=== PATIENT | male | born 1955 | race Caucasian/White ===

== ENCOUNTER → 2016-07-11 | Outpatient (CLI) | payer OTHER ==
[~2016-07-11] MED LIST: ANDROGEL TD; CARV25TA PO; CMD/25 PO; CMD5 PO; FRS/40 PO; LISI-461 PO; LPT/40 PO; METF1000 PO; METO50TA16 PO; POTA10CA28 PO
[2016-07-11 16:37] LABS: BASO % 0.6 %; BASO ABS # 0.05 K/uL (0-0.2); COMPLETE YES; EOS % 2.4 %; HEMATOCRIT 39.4 % (42-52); IG% 0.1 %; LYMPH ABS # 2.08 K/uL (1.2-3.4); MEAN CELL VOLUME 87.2 fL (80-100); MEAN CORPUSCULAR HEMOGLOBIN 29.4 pg (25-34); MEAN CORPUSCULAR HGB CONC 33.8 g/dl (32-36); MONO % 8.1 %; NEUT % 63.8 %; PLATELET COUNT 261 K/uL (130-400); RED BLOOD COUNT 4.52 M/uL (4.7-6.1); WHITE BLOOD COUNT 8.32 K/uL (4.8-10.8)
[2016-07-11 16:40] LABS: URINE APPEARANCE CLEAR (CLEAR); URINE BILIRUBIN NEG (NEG); URINE COLOR YELLOW; URINE EPITHELIAL CELL AUTO 0-5 /lpf (0-5); URINE NITRITE NEG (NEG); URINE PH 5.5 (4.5-7.5); URINE SPECIFIC GRAVITY 1.013 (1.000-1.030); UROBILINOGEN NEG (NEG); ZZUR CULT IF INDIC CLEAN CATCH NO
[2016-07-11 16:41] LABS: MANUAL MICROSCOPIC REQUIRED? NO; REVIEW REQ? NO
[2016-07-11 16:45] LABS: INR 2.5 (0.9-1.1); PROTHROMBIN TIME (PATIENT) 27.4 SECONDS (9.0-12.0)
[2016-07-11 16:57] LABS: ALT/SGPT 24 U/L (12-78); AST/SGOT 12 U/L (15-37); BLOOD UREA NITROGEN 19 mg/dl (7-18); BUN/CREATININE RATIO 17.4 (10-20); CALCIUM 8.5 mg/dl (8.5-10.1); CARBON DIOXIDE 31 mmol/L (21-32); CHLORIDE 102 mmol/L (98-107); GLUCOSE 93 mg/dl (70-99); POTASSIUM 3.9 mmol/L (3.5-5.1); SODIUM 140 mmol/L (136-145)
[2016-07-11 17:02] LABS: ALB/GLOB RATIO 0.8 (0.9-2); ALKALINE PHOSPHATASE 104 U/L (45-117); PROSTATE SPECIFIC ANTIGEN 0.497 ng/ml (0.000-4.000)
[2016-07-11 17:16] LABS: RATIO 7.5 mcg/mg (0-30.0)
[2016-07-12 05:53] LABS: ESTIMATED AVERAGE GLUCOSE 126 mg/dl; HA1C FLAG Normal (Normal)
== END | disposition home or self-care (01) ==
LOC: C.LAB1850 15:39
PROVIDERS: ATTEND Internal Medicine
DX: I42.9 Cardiomyopathy, unspecified (principal); E11.9 Type 2 diabetes mellitus without complications; Z12.5 Encounter for screening for malignant neoplasm of prostate; I48.91 Unspecified atrial fibrillation

== ENCOUNTER → 2016-10-29 | Outpatient (CLI) | payer OTHER ==
[~2016-10-29] MED LIST changes: +REGADENOSON 0.4 MG/5 ML SYR ONE
== END | disposition home or self-care (01) ==
LOC: C.NUCL 06:46
PROVIDERS: ATTEND Internal Medicine Cardiovascular Disease
DX: I10 Essential (primary) hypertension (principal); I42.9 Cardiomyopathy, unspecified; E11.9 Type 2 diabetes mellitus without complications; E78.5 Hyperlipidemia, unspecified; R06.02 Shortness of breath; E66.01 Morbid (severe) obesity due to excess calories

== ENCOUNTER → 2016-11-27 | Outpatient (CLI) | payer OTHER ==
[~2016-11-27] MED LIST changes: -REGADENOSON 0.4 MG/5 ML SYR ONE
[2016-11-27 14:54] LABS: INR 1.6 (0.9-1.1); PROTHROMBIN TIME (PATIENT) 17.4 SECONDS (9.0-12.0)
== END | disposition home or self-care (01) ==
LOC: C.LAB1850 13:17
PROVIDERS: ATTEND Internal Medicine
DX: I48.91 Unspecified atrial fibrillation (principal)

== ENCOUNTER → 2017-07-28 | Outpatient (CLI) | payer OTHER ==
[2017-07-28 10:07] LABS: BASO % 0.4 %; BASO ABS # 0.03 K/uL (0-0.2); EOS % 2.4 %; HEMATOCRIT 42.1 % (42-52); HEMOGLOBIN 14.2 g/dL (14.0-18.0); IG# 0.01 K/uL (0.00-0.02); LYMPH % 21.2 %; LYMPH ABS # 1.79 K/uL (1.2-3.4); MEAN CORPUSCULAR HEMOGLOBIN 28.3 pg (25-34); MEAN CORPUSCULAR HGB CONC 33.7 g/dl (32-36); MONO % 7.2 %; MONO ABS # 0.61 K/uL (0.11-0.59); NEUT % 68.7 %; NEUT ABS # 5.81 K/uL (1.4-6.5); PLATELET COUNT 231 K/uL (130-400); RED CELL DISTRIBUTION WIDTH CV 13.8 % (11.5-14.5); WHITE BLOOD COUNT 8.45 K/uL (4.8-10.8)
[2017-07-28 10:38] LABS: HEMOGLOBIN A1C 6.4 % (4.5-5.6)
[2017-07-28 10:44] LABS: ALBUMIN 3.3 gm/dl (3.4-5.0); ALKALINE PHOSPHATASE 99 U/L (45-117); ALT/SGPT 28 U/L (12-78); AST/SGOT 15 U/L (15-37); BLOOD UREA NITROGEN 19 mg/dl (7-18); CALCIUM 8.6 mg/dl (8.5-10.1); CARBON DIOXIDE 26 mmol/L (21-32); CHOLESTEROL 135 mg/dl (0-200); CREATININE 0.95 mg/dl (0.60-1.40); GLUCOSE 134 mg/dl (70-99); SODIUM 136 mmol/L (136-145); TOTAL PROTEIN 7.7 gm/dl (6.4-8.2)
[2017-07-28 10:55] LABS: LDL CHOLESTEROL CALCULATED 70 mg/dl
== END | disposition home or self-care (01) ==
LOC: C.LAB1850 09:33
PROVIDERS: ATTEND Internal Medicine
DX: E78.5 Hyperlipidemia, unspecified (principal); I50.22 Chronic systolic (congestive) heart failure; Z12.5 Encounter for screening for malignant neoplasm of prostate; E11.9 Type 2 diabetes mellitus without complications

== ENCOUNTER → 2017-08-14 | Outpatient (CLI) | payer OTHER | END | disposition home or self-care (01) | LOC: C.LAB1850 09:55 | PROVIDERS: ATTEND Internal Medicine | DX: E78.5 Hyperlipidemia, unspecified (principal); R77.1 Abnormality of globulin ==

== ENCOUNTER → 2017-09-15 | Day surgery (SDC) | payer BC, OTHER ==
[2017-09-03 11:04] VITALS: Ht 175.3 cm; Wt 136.4 kg
[~2017-09-15] VITALS: Ht 175.3 cm; Wt 136.4 kg
[~2017-09-15] MED LIST changes: +CARV25TA2 PO; -CMD/25 PO; -CMD5 PO; +LIDOCAINE HCL 2% 2 ML VIAL (20MG/ML) ONE; +PHENYLEPHRINE 100MCG/ML 5ML SYR ONE; +PROPOFOL IV EMULSION 10 MG/ML 20 ML VIAL ONE; +SODIUM CHLORIDE 0.9% 500ML 500 ML IV ONE; +WARF2.5T8 PO; +WARF5TAB7 PO
--- NOTE | 2017-09-15 14:40 | Endo History and Physical ---
History & Physical Date of Service: September 15, 2017. Chief Complaint: screening Referring Physician: Dr. Iyer History of Present Illness 62 yo CM who presents for screening colonoscopy. Past Surgical History Hx Cardiac Surgery: No Hx Internal Defibrillator: No Hx Pacemaker: No Hx Abdominal Surgery: Yes (HERNIA AT 2 MONTHS OLD) Hx of Implantable Prosthesis: No Hx Cancer Surgery: No Hx Thoracic Surgery: No Hx Orthopedic: No Hx Urinary Tract Surgery: No Family History None Social History Smoking Status: Never Smoker Hx Substance Use: No Hx Alcohol Use: Yes (OCCASIONAL) Allergies Coded Allergies: No Known Allergies (Unverified , 09/15/17) Current Medications Reported Home Medications Medications Dose Route/Sig Max Daily Dose Days Date Category Dose Instructions Jantoven (Warfarin Sodium) 5 Mg Tab 5 Mg PO 5XWK 09/03/17 Reported Jantoven (Warfarin Sodium) 2.5 Mg Tab 2.5 Mg PO 2XWK 09/03/17 Reported Coreg (Carvedilol) 25 Mg Tab 0.5 Tab PO QAM 90 09/03/17 Reported [AndroGel 50mg/5gm] 1 Appln TD Q2D 11/11/11 Reported Zestril (Lisinopril) 10 Mg Tab 5 Mg PO DAILY 11/11/11 Reported TAKE 1/2 TAB DAILY Glucophage (Metformin Hcl) 1,000 Mg Tab 1,000 Mg PO BID 11/11/11 Reported Lipitor (Atorvastatin) 40 Mg Tab 40 Mg PO DAILY 11/11/11 Reported Coreg (Carvedilol) 25 Mg Tab 25 Mg PO QPM 11/11/11 Reported Micro-K Ext Rel (Potassium Chloride) 10 Meq Cap 10 Meq PO DAILY 11/11/11 Reported Lasix (Furosemide) 40 Mg Tab 40 Mg PO BID 01/20/08 Reported Lopressor (Metoprolol Tartrate) 50 Mg Tab 50 Mg PO BID 01/20/08 Reported Vital Signs Weight (Kilograms): 136.36 Height (Feet): 5 Height (Inches): 9 Date Time Temp Pulse Resp B/P (MAP) Pulse Ox O2 Delivery O2 Flow Rate FiO2 09/15/17 14:16 36.6 75 20 138/81 (100) 99 Room Air Physical Exam General Appearance: WD/WN, no apparent distress Respiratory/Chest: Auscultation: breath sounds normal Cardiovascular: Heart Auscultation: RRR Abdomen: Bowel Sounds: normal Inspection & Palpation: soft, non-distended, no tenderness, guarding & rebound Assessment and Plan Assessment: 62 yo CM who presents for screening colonoscopy. Plan: Proceed with colonoscopy.
--- NOTE | 2017-09-15 15:13 | Discharge Instructions ---
Endoscopy Patient Instructions Date / Procedure(s) Performed September 15, 2017. Colonoscopy Allergy Information Coded Allergies: No Known Allergies (Unverified , 09/15/17) Discharge Date / Findings September 15, 2017. Colon polyps Internal hemorrhoids Medication Instructions Stopped Medication(s): Warfarin last dose 09/09/17. OK to resume all medications today as prescribed Reported Home Medications Medications Dose Route/Sig Max Daily Dose Days Date Category Dose Instructions Jantoven (Warfarin Sodium) 5 Mg Tab 5 Mg PO 5XWK 09/03/17 Reported Jantoven (Warfarin Sodium) 2.5 Mg Tab 2.5 Mg PO 2XWK 09/03/17 Reported Coreg (Carvedilol) 25 Mg Tab 0.5 Tab PO QAM 90 09/03/17 Reported [AndroGel 50mg/5gm] 1 Appln TD Q2D 11/11/11 Reported Zestril (Lisinopril) 10 Mg Tab 5 Mg PO DAILY 11/11/11 Reported TAKE 1/2 TAB DAILY Glucophage (Metformin Hcl) 1,000 Mg Tab 1,000 Mg PO BID 11/11/11 Reported Lipitor (Atorvastatin) 40 Mg Tab 40 Mg PO DAILY 11/11/11 Reported Coreg (Carvedilol) 25 Mg Tab 25 Mg PO QPM 11/11/11 Reported Micro-K Ext Rel (Potassium Chloride) 10 Meq Cap 10 Meq PO DAILY 11/11/11 Reported Lasix (Furosemide) 40 Mg Tab 40 Mg PO BID 01/20/08 Reported Lopressor (Metoprolol Tartrate) 50 Mg Tab 50 Mg PO BID 01/20/08 Reported Provider Instructions Activity Restrictions - No exercising or heavy lifting for 24 hours. - Do not drink alcohol the day of the procedure. - Do not drive a car or operate machinery until the day after the procedure. - Do not make any important decisions or sign important papers in 24 hours after the procedure. Following Day: - Return to full activity which may include returning to work/school. Diet Start your diet with liquids and light foods (jello, soup, juice, toast). Then eat your usual diet if not nauseated. Treatment For Common After Affects For mild abdominal pain, bloating, or excessive gas: - Rest - Eat lightly - Lie on right side Follow-Up Information Follow-up with Dr. Iyer as scheduled Anesthesia Information What You Should Know You have had a procedure that required some medicine to reduce anxiety and discomfort. This treatment is called moderate sedation. After receiving the treatment, you may be sleepy, but you will be able to breathe on your own. The effects of the treatment may last for several hours. Follow these instructions along with Activity/Diet recommendations noted above: * Do NOT do anything where dizziness or clumsiness would be dangerous. * Rest quietly at home today, then you can be up and about tomorrow. * Have a responsible person stay with you the rest of today. * You may have had an I.V. today. If so, you may take the dressing off later today. Recommendations Call your doctor if: * Trouble breathing * Continuous vomiting for more than 24 hours * Temperature above 101 degrees * Severe abdominal pain or bloating * Pain not relieved by pain medicine ordered * There is increased drainage or redness from any incision * A large amount of rectal bleeding greater than 2-3 tablespoons. (If you had a polyp/s removed or have hemorrhoids, a small amount of blood - from the rectum is to be expected.) * You have any unanswered questions or concerns. IN THE EVENT OF A SERIOUS EMERGENCY, GO TO THE NEAREST EMERGENCY ROOM Your discharge instructions were prepared by provider Zac Salcedo. Patient Instructions Signature Page Kirby Bonds Patient (or Guardian) Signature/Date: I have read and understand the instructions given to me by my caregivers. Caregiver/RN/Doctor Signature/Date: The above-named patient and/or guardian has received patient instructions on this date. + Original Patient Signature Page (only) stays with chart. Please make copy for patient.
--- NOTE | 2017-09-15 15:16 | Anesthesiology Progress Note ---
Anesthesia Post Op Note Date & Time September 15, 2017 at 15:16 Vital Signs Pain Intensity: 0 Vital Signs Past 12 Hours Date Time Temp Pulse Resp B/P (MAP) Pulse Ox O2 Delivery O2 Flow Rate FiO2 09/15/17 14:16 36.6 75 20 138/81 (100) 99 Room Air Notes Mental Status: alert / awake / arousable, participated in evaluation Pt Amnestic to Procedure: Yes Nausea / Vomiting: adequately controlled Pain: adequately controlled Airway Patency, RR, SpO2: stable & adequate BP & HR: stable & adequate Hydration State: stable & adequate Anesthetic Complications: no major complications apparent
--- NOTE | 2017-09-15 15:23 | GI REPORT ---
Patient Name: Kirby Bonds Procedure Date: 09/15/2017 2:28 PM Date of : 1955 Admit Type: Outpatient Age: 62 Gender: Male Attending MD: Zac Salcedo DO Procedure: Colonoscopy Providers: Zac Salcedo DO Referring MD: Joe Iyer Indications: Screening for colorectal malignant neoplasm Medicines: Monitored Anesthesia Care Complications: No immediate complications. Estimated Blood Loss: Estimated blood loss: none. Procedure: Pre-Anesthesia Assessment: - Prior to the procedure, a History and Physical was performed, and patient medications and allergies were reviewed. The patient's tolerance of previous anesthesia was also reviewed. The risks and benefits of the procedure and the sedation options and risks were discussed with the patient. All questions were answered, and informed consent was obtained. Prior Anticoagulants: The patient has taken Coumadin (warfarin), last dose was 5 days prior to procedure. ASA Grade Assessment: III - A patient with severe systemic disease. After reviewing the risks and benefits, the patient was deemed in satisfactory condition to undergo the procedure. After I obtained informed consent, the scope was passed under direct vision. Throughout the procedure, the patient's blood pressure, pulse, and oxygen saturations were monitored continuously. The Scope was introduced through the anus and advanced to the terminal ileum. The colonoscopy was performed without difficulty. The patient tolerated the procedure well. The quality of the bowel preparation was good. The terminal ileum, ileocecal valve, appendiceal orifice, and rectum were photographed. Findings: The perianal and digital rectal examinations were normal. Three flat and sessile polyps were found in the transverse colon and cecum. The polyps were 5 to 10 mm in size. These polyps were removed with a hot snare. Resection and retrieval were complete. Non-bleeding internal hemorrhoids were found during retroflexion. The hemorrhoids were small. Impression: - Three 5 to 10 mm polyps in the transverse colon and in the cecum, removed with a hot snare. Resected and retrieved. - Non-bleeding internal hemorrhoids. Recommendation: - Resume previous diet. - Continue present medications. - Repeat colonoscopy for surveillance based on pathology results. - Return to primary care physician as previously scheduled. Zac Salcedo DO 09/15/2017 3:22:48 PM This report has been signed electronically. Note Initiated On: 09/15/2017 2:28 PM Number of Addenda: 0 I attest to the content of the Intraoperative Record and orders documented therein, exceptions below {[id number]}
[2017-09-15 15:45] VITALS: BP 122/79; PULSE 79; O2SAT 99
== END | disposition home or self-care (01) ==
LOC: C.GI 13:43
PROVIDERS: ATTEND Internal Medicine
DX: Z12.11 Encounter for screening for malignant neoplasm of colon (principal); D12.3 Benign neoplasm of transverse colon; D12.0 Benign neoplasm of cecum; K64.8 Other hemorrhoids; G47.33 Obstructive sleep apnea (adult) (pediatric); I10 Essential (primary) hypertension; E11.9 Type 2 diabetes mellitus without complications; Q98.4 Klinefelter syndrome, unspecified; I48.91 Unspecified atrial fibrillation; Z99.89 Dependence on other enabling machines and devices; Z79.01 Long term (current) use of anticoagulants

== ENCOUNTER 2018-09-20 14:50 | Inpatient (IN) ==
[2018-09-20] MEDS ORDERED: SODIUM CHLORIDE 0.9% 1000ML 1,000 ML IV ONE (15:31)
[2018-09-20 16:02] LABS: Basophils # (auto) 0.02 K/uL (0-0.2); Basophils % (auto) 0.3 %; Eosinophils # (auto) 0.06 K/uL (0-0.5); Eosinophils % (auto) 0.8 %; Hematocrit (blood only) 37.9 % (42-52); Hemoglobin 12.7 g/dL (14.0-18.0); Immature Granulocytes # (auto) 0.02 K/uL (0.00-0.02); Immature Granulocytes % (auto) 0.3 %; Lymphocytes # (auto) 0.49 K/uL (1.2-3.4); Lymphocytes % (auto) 6.6 %; Mean Corpuscular Hgb Conc 33.5 g/dL (32-36); Mean Corpuscular Volume 83.3 fL (80-100); Mean Platelet Volume 8.7 fL (7.4-10.4); Monocytes # (auto) 0.47 K/uL (0.11-0.59); Monocytes % (auto) 6.4 %; Neutrophils # (auto) 6.34 K/uL (1.4-6.5); Neutrophils % (auto) 85.6 %; Platelet Count 162 K/uL (130-400); RDW Coefficient of Variation 14.3 % (11.5-14.5); RDW Standard Deviation 43.7 fL (36.4-46.3); Red Blood Count 4.55 M/uL (4.7-6.1)
[2018-09-20 16:14] LABS: INR 2.8 (0.9-1.1); Partial Thromboplastin Ratio 1.7; Prothrombin Time 26.6 Seconds (9.0-12.0)
[2018-09-20 16:33] LABS: BUN Creatinine Ratio 11.1 (10-20); Calcium 8.2 mg/dl (8.5-10.1); Creatinine Clr Calc Pharmacy 78.8 ml/min; Est GFR (African American) 70.3; Est GFR (Non-African American) 60.6; Potassium 3.6 mmol/L (3.5-5.1)
[2018-09-20 16:36] LABS: Appearance Urine Clear (Clear); Bacteria Urine Automated Negative (Negative); Bilirubin Urine Negative (Negative); Blood Urine Negative (Negative); Color Urine Dark Yellow; Epithelial Cell Urine Auto 0-5 /lpf (0-5); Glucose Urine UA Negative (Negative); Ketones Urine Negative (Negative); Leukocyte Esterase Urine Negative (Negative); Nitrite Urine Negative (Negative); Protein Urine Trace (Negative); RBC Urine Automated 0-4 /hpf (0-4); Specific Gravity Urine 1.023 (1.000-1.030); Urobilinogen Urine Positive (Negative)
[2018-09-20 16:52] LABS: Lyme Ab IgG w/WB Rflx Negative (Negative); Lyme Ab IgM w/WB Rflx Negative (Negative)
--- NOTE | 2018-09-20 18:25 | History & Physical Report ---
Date of Service September 20, 2018 Assessment & Plan (1) Febrile illness: Patient has no new focal signs or symptoms other than his vague abdominal pain. His lactic acid is up at 3.3 however he does not have a significant anion gap does not appear to be overtly septic, repeat lactic acid pt does not appear septic pending lyme, mono, esr, procalcitonin blood cultures no murumurs or stigmata to suggest endocarditis, abdominal skin wounds do not seem overly infected, intertrigo is not significantly seroius cxr is clear and exam fits, no flu symptoms (2) Hypertension: Patient continues on carvedilol metoprolol per his instruction with low- dose lisinopril likely for renal protective effects from his diabetes Patient a history of combined systolic diastolic heart failure with suspected ischemic cardiomyopathy which has been stable for some time. He typically takes Lasix which will continue given the fact he had some fluid in the emergency department (3) Diabetes: Patient's typically metformin this to be held given recent IV contrast on 09/19 sliding-scale insulin undertaken, last hgb a1c was 6.7 (4) Atrial fibrillation: Pt seems to be rate controlled but ECG is not performed, will continue b vibha and anti coaguation, follow inr (5) Hypothyroidism: TSH is slightly elevated but free T3 was unremarkable (6) Low calcium levels: Pt has high PTHi and low calcium maybe vitamin d deficiency, will check levels (7) Klinefelters syndrome: Pt takes testosterone will be on hold at this time (8) DVT prophylaxis: coumadin History of Present Illness Primary Care Provider: Joe Iyer MD 63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 In route there he began sweating and feeling poorly when he arrived he was shaking with chills he was taken to [facility] rate and evaluation including CT scan and serologies. There is no diagnosis made and he was released. Patient return home or yesterday 09/19, he once again had the symptoms associate with some mid abdominal pain and pre-presented to our ER where he had repeat serology and CT scan. Both CT CAT scans were without oral contrast but there is no significant pathology noted. Patient went home with continued to have spiking cyclic temperatures and Reiger's chills decreased appetite he has however making normal urine and normal stool. Not mentioned above with the first episode he had some vomiting. The abdominal pain is central however the patient is morbidly obese making the abdominal exam challenging. Patient has 2 small open areas on his mid abdomen likely from where they rub on his belt buckle or pant buckle. These are crusted and did not appear immediately cellulitic. He also has intertrigo noted in his inguinal folds. 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 Allergies Allergy/AdvReac Type Severity Reaction Status Date / Time No Known Allergies Allergy Mild Unverified 09/19/18 17:21 Home Medications Home Medications Medication Instructions Recorded Confirmed Type atorvastatin 40 mg PO DAILY 09/19/18 09/20/18 History calcium carbonate [Calcium 600] 600 mg PO DAILY 09/19/18 09/20/18 History carvedilol 12.5 mg PO QAM 09/19/18 09/20/18 History carvedilol 25 mg PO QPM 09/19/18 09/20/18 History cholecalciferol (vitamin D3) 2,000 unit PO DAILY 09/19/18 09/20/18 History [Vitamin D3] cyanocobalamin (vitamin B-12) 1,000 mcg PO DAILY 09/19/18 09/20/18 History furosemide 40 mg PO BID 09/19/18 09/20/18 History levothyroxine 50 mcg PO DAILY 09/19/18 09/20/18 History lisinopril 2.5 mg PO DAILY 09/19/18 09/20/18 History metformin 1,000 mg PO BID 09/19/18 09/20/18 History metoprolol tartrate 50 mg PO BID 09/19/18 09/20/18 History potassium chloride 10 meq PO DAILY 09/19/18 09/20/18 History testosterone 2 pump TRANSDERMAL DAILY 09/19/18 09/20/18 History warfarin 2.5 mg PO 2XWK 09/19/18 09/20/18 History warfarin 5 mg PO 5XWK 09/19/18 09/20/18 History Past Med/Surg History Medical History Adrenal crisis Diabetes Hypertension Hypothyroidism Low testosterone Pancreatitis No significant family history No significant past surgical history Family History Unknown Diabetes Other No significant family history Social History Preferred Language: Turkmen marital status: Current Living Situation: Family current occupational status: employed Feels Safe at Home: Yes Smoking Status: Never smoker Review of Systems Review of Systems: ROS: well nourished well developed. No double vision blurry vision No problems with speech or swallowing NO sore throat runny nose earache pain or pressure No palpitations, chest pain or pressure No Wheezing or breathing issues Central abdominal pain that is achy in nature improved with pressure, initially has had nausea with vomiting but none since the first day, no diarrhea No burning urine urine frequency or changes in color No focal joint pain or muscle pain Only the skin open areas as mentioned near his belt line midline No unusual bruising or bleeding No focused back pain or numbness or loss of strength No changes in memory or confusion Physical Exam Physical Exam: The patient appeared morbidly obese in no significant distress Vital signs as documented. Head exam is unremarkable. normocephalic, atraumatic Oropharynx is clear without exudates tympanic membranes are also unremarkable Neck is without jugular venous distension, thyromegaly, or lymphademopathy Lungs are clear to auscultation and percussion. Cardiac exam reveals Rhythm is regular. First and second heart sounds normal. Abdominal exam reveals normal bowel sounds, no masses, no organomegaly His abdomen is mildly tender in the upper quadrants but without guarding there is no sign of pannus cellulitis Extremities are nonedematous and both pedal pulses are present Neurologic exam is A&Ox3, no focal deficits, strength is equal bilateral Psychologically seems neither anxious or depressed Skin is warm Dry $0.25 size intense in size open area are present in his midline lower abdomen he also has intertrigo in his inguinal folds Results & Data Vital Signs (Past 12 Hours) Vital Signs Temp Pulse Pulse Resp BP BP Pulse Ox 09/20/18 17:40 95 H 20 116/73 94 09/20/18 16:19 84 16 128/71 96 09/20/18 15:02 37.0 C 92 H 20 125/88 96 Diagnostic Findings [facility] Notes Reviewed: CT results: - There is no bowel obstruction or acute inflammatory changes in the abdomen or the pelvis. - The appendix is normal. - Diffuse hepatic steatosis. - There is no sigmoid diverticulitis. - 5.2 x 5 cm Bosniak type I cortical cyst arising exophytically from the upper pole of the right kidney. CT abdomen pelvis with iv contrast 09/19: No acute process within the abdomen or pelvis. A few colonic diverticula without evidence for acute diverticulitis. No bowel obstruction. Normal appendix. Cholelithiasis. Tiny fat-containing left inguinal hernia.
[2018-09-20] MEDS ORDERED: GLUCAGON FOR INJ 1 MG VIAL SQ PRN (19:23)
[2018-09-20] MEDS ORDERED: MoRPHine SULFATE 4 MG/ML 1 ML CARP\\VIAL IV PRN (19:23)
[2018-09-20] MEDS ORDERED: GLUCOSE 10 TABS/TUBE PO PRN (19:23)
[2018-09-20] MEDS ORDERED: ONDANSETRON INJ 2 MG/ML 2 ML VIAL IV PRN (19:23)
[2018-09-20] MEDS ORDERED: DEXTROSE 50% 50 ML SYRINGE IV PRN (19:23)
[2018-09-20] MEDS ORDERED: GLUCOSE 40% GEL 15 GM TUBE PO PRN (19:23)
[2018-09-20] MEDS ORDERED: CARBOHYDRATES FOR HYPOGLYCEMIA PO PRN (19:23)
[2018-09-20] MEDS ORDERED: MoRPHine SULFATE 2 MG/ML CARP IV PRN (19:23)
--- NOTE | 2018-09-20 19:45 | Emergency Department Note ---
Entered by Xena Keita acting as a scribe for Khanh Hoskins History of Present Illness General Chief complaint: Illness Stated complaint: FEVER, SHAKING,WEAKNESS Time Seen by Provider: 09/20/18 15:26 Source: patient History of Present Illness Onset (ago): day(s) (a few days ago) Location: upper extremity, lower extremity, left and right Pain Consistency: + other (persistent) Maximum Pain Intensity: 3 Quality: + other (illness) Relieved By: + medication (Tylenol) Associated symptoms: + denies other symptoms (trouble urinating, trouble moving his bowels), + fever/chills (fever) and + other (shaking uncontrollably, abdominal soreness) The patient is a 63 year old male who presents to the ED with complaints of persistent illness starting a few days ago. The patient states that he has been to an ED twice in the past 2 days. He states that after leaving the ED yesterday he went home, but by the evening he was shaking violently. He states that it was uncontrollable and felt like it was both internal and external. He states that when he took his temperature it was up to 102 again. He reports that all night he kept taking Tylenol and it would lower his fever, but as soon as it wore off, it would spike again and he would start shaking. The patient complains of abdominal soreness. He notes that he takes Testosterone. The patient denies trouble urinating, trouble moving his bowels, and exposure to ticks. Home Medications Home Medications Medication Instructions Recorded Confirmed Type atorvastatin 40 mg PO DAILY 09/19/18 09/20/18 History calcium carbonate [Calcium 600] 600 mg PO DAILY 09/19/18 09/20/18 History carvedilol 12.5 mg PO QAM 09/19/18 09/20/18 History carvedilol 25 mg PO QPM 09/19/18 09/20/18 History cholecalciferol (vitamin D3) 2,000 unit PO DAILY 09/19/18 09/20/18 History [Vitamin D3] cyanocobalamin (vitamin B-12) 1,000 mcg PO DAILY 09/19/18 09/20/18 History furosemide 40 mg PO BID 09/19/18 09/20/18 History levothyroxine 50 mcg PO DAILY 09/19/18 09/20/18 History lisinopril 2.5 mg PO DAILY 09/19/18 09/20/18 History metformin 1,000 mg PO BID 09/19/18 09/20/18 History metoprolol tartrate 50 mg PO BID 09/19/18 09/20/18 History potassium chloride 10 meq PO DAILY 09/19/18 09/20/18 History testosterone 2 pump TRANSDERMAL DAILY 09/19/18 09/20/18 History warfarin 2.5 mg PO 2XWK 09/19/18 09/20/18 History warfarin 5 mg PO 5XWK 09/19/18 09/20/18 History Allergies Allergy/AdvReac Type Severity Reaction Status Date / Time No Known Allergies Allergy Mild Unverified 09/19/18 17:21 Past Med/Surg History Medical History Adrenal crisis Diabetes Hypertension Hypothyroidism Low testosterone Pancreatitis No significant family history No significant past surgical history Family History Unknown Diabetes Other No significant family history Social History Preferred Language: Bermudian Communication Ability: Effective Beliefs That Will Affect Care: None marital status: Current Living Situation: Spouse Current Living Situation Comment: House current occupational status: employed Other Information That Helps Us Care for You: No Feels Safe at Home: Yes Safety Concerns: Feels Safe At This Time Smoking Status: Never smoker Hx Alcohol Use: No Hx Substance Use: No Review of Systems See HPI for pertinent positives & negatives. and A total of 10 systems reviewed and were otherwise negative Physical Exam Vital Signs Vital Signs - 24 hr 09/20/18 15:02 09/20/18 16:19 Temperature 37.0 C Temperature Source Oral Sepsis Recent Fever Within 48 Hours Yes Sepsis New/Unexplained Change in Mental Status No Sepsis Action Taken by Nursing No Action Required Pulse Rate 92 H Pulse Rate [Right Finger] 84 Respiratory Rate 20 16 Respiratory Depth Normal Blood Pressure 125/88 Blood Pressure [Right Arm] 128/71 Blood Pressure Mean 100 Blood Pressure Mean [Right Arm] 90 Blood Pressure Position Sitting Blood Pressure Position [Right Arm] Lying Pulse Oximetry 96 96 Oxygen Delivery Method Room Air Room Air GENERAL: He is oriented to person, place, and time. He appears well-developed and well-nourished. He does not appear distressed. HENT: Exam performed. - Head: Normocephalic and atraumatic. - Right Ear: External ear normal. No mastoid tenderness. - Left Ear: External ear normal. No mastoid tenderness. - Mouth/Throat: The oropharynx is clear and moist. No trismus in the jaw. No dental abscesses or uvula swelling. No oropharyngeal exudate or tonsillar abscesses. EYES: Conjunctivae and EOM are normal. Pupils are equal, round, and reactive to light. Right eye exhibits no discharge. Left eye exhibits no discharge. No scleral icterus. NECK: Normal range of motion. Neck supple. No JVD present. No spinous process tenderness present. No carotid bruit present. No rigidity. No tracheal deviation and normal range of motion present. No Brudzinski's sign and no Kernig's sign noted. CV: Normal rate, regular rhythm, normal heart sounds and intact distal pulses. There is no peripheral edema. Palpable radial pulses bue. PULM/CHEST: Effort normal and breath sounds normal. No respiratory distress. No stridor. He has no wheezes. He has no rales. - Chest Wall: He exhibits no tenderness. ABD: The abdomen is soft. Bowel sounds are normal. He has no distension. No mass is present. There is no tenderness. There is no rebound, no guarding, no Foreman's sign and no tenderness at McBurney's point. Rovsig negative. MUSC/SKEL: Normal range of motion. There is no peripheral edema, tenderness or deformity. LYMPH: No cervical adenopathy. NEURO: He is alert and oriented to person, place, and time. He has normal strength. No cranial nerve deficit or sensory deficit. Coordination and gait normal. GCS eye subscore is 4. GCS verbal subscore is 5. GCS motor subscore is 6. Cerebellar tests wnl. SKIN: Skin is warm and dry. He is not diaphoretic. PSYCH: He has a normal mood and affect. Behavior is normal. Judgment and thought content normal. Course 1526: The patient has a history of adrenal crisis and pancreatitis. He was seen here yesterday and at [facility] the day before. CT of the abdomen on the last 2 days have been within normal limits. Labs yesterday within normal limits with exception of mildly elevated white blood cell count and a mildly elevated lactic acid that improved with hydration. The patient was evaluated in room B2. A complete history and physical exam was performed. 1712: I reevaluated the patient and his vitals are stable. His labs show a white blood cell count of 7.4, which is improved from yesterday at 12.2. His lactic acid was 3.3, otherwise his labs are within normal limits including a negative Lyme screen. We will continue hydration. After a long discussion with family and patient at bedside and given that this is the patient's third ED visit in 3 days, the patient will be admitted for observation to [facility] hospitalist, Dr. Arteaga's service. Consultations Consultation #1: I discussed the patient's case with Dr. Arteaga- [facility] Ese shukla. He will evaluate the patient for further management. Time: 17:09 Administered Medications Discontinued Medications Sodium Chloride (Nss 1000ml) 1,000 mls @ 999 mls/hr IV .[id number] ONE Stop: 09/20/18 16:31 Last Infusion: 09/20/18 17:04 Dose: 0 mls/hr Documented by: [id number] Admin: 09/20/18 16:00 Dose: 999 mls/hr Documented by: [id number] Medical Decision Making Medical Records Attestation: I reviewed the patient's medical records. Home Medications Current Medication List: was personally reviewed by me Laboratory Data Attestation: I reviewed the patient's lab results. Result diagrams: 09/20/18 15:46 09/20/18 15:46 Lab Results 09/20/18 09/20/18 09/20/18 Range/Units 15:46 15:46 15:46 WBC 7.40 (4.8-10.8) K/uL RBC 4.55 L (4.7-6.1) M/uL Hgb 12.7 L (14.0-18.0) g/dL Hct 37.9 L (42-52) % MCV 83.3 (80-100) fL MCH 27.9 (25-34) pg MCHC 33.5 (32-36) g/dL RDW Std Deviation 43.7 (36.4-46.3) fL RDW Coeff of Staci 14.3 (11.5-14.5) % Plt Count 162 (130-400) K/uL MPV 8.7 (7.4-10.4) fL Immature Gran % (Auto) 0.3 % Neut % (Auto) 85.6 % Lymph % (Auto) 6.6 % [place] % (Auto) 6.4 % Eos % (Auto) 0.8 % Baso % (Auto) 0.3 % Immature Gran # (Auto) 0.02 (0.00-0.02) K/uL Neut # (Auto) 6.34 (1.4-6.5) K/uL Lymph # (Auto) 0.49 L (1.2-3.4) K/uL [place] # (Auto) 0.47 (0.11-0.59) K/uL Eos # (Auto) 0.06 (0-0.5) K/uL Baso # (Auto) 0.02 (0-0.2) K/uL PT (9.0-12.0) Seconds INR (0.9-1.1) APTT (21.0-31.0) Seconds PTT Ratio Sodium 139 (136-145) mmol/L Potassium 3.6 (3.5-5.1) mmol/L Chloride 104 (98-107) mmol/L Carbon Dioxide 26 (21-32) mmol/L Anion Gap 9.0 (3-11) BUN 14 (7-18) mg/dl Creatinine 1.24 (0.6-1.4) mg/dl Est Cr Clr Drug Dosing 78.8 ml/min Est GFR ( Amer) 70.3 Est GFR (Non-Af Amer) 60.6 BUN/Creatinine Ratio 11.1 (10-20) Glucose 187 H (70-99) mg/dl Lactate 3.3 H* (0.4-2.0) mmol/L Calcium 8.2 L (8.5-10.1) mg/dl Total Creatine Kinase 96 (39-308) U/L Lipase (73-393) U/L Urine Color Urine Appearance (Clear) Urine pH (4.5-7.5) Ur Specific Sharon (1.000-1.030) Urine Protein (Negative) Urine Glucose (UA) (Negative) Urine Ketones (Negative) Urine Blood (Negative) Urine Nitrite (Negative) Urine Bilirubin (Negative) Urine Urobilinogen (Negative) Ur Leukocyte Esterase (Negative) Urine WBC (Auto) (0-5) /hpf Urine RBC (Auto) (0-4) /hpf U Hyaline Cast (Auto) (0-5) /lpf U Epithel Cells (Auto) (0-5) /lpf Urine Bacteria (Auto) (Negative) Lyme Disease IgG Ab (Negative) Lyme Disease IgM Ab (Negative) 09/20/18 09/20/18 09/20/18 Range/Units 15:46 15:46 15:46 WBC (4.8-10.8) K/uL RBC (4.7-6.1) M/uL Hgb (14.0-18.0) g/dL Hct (42-52) % MCV (80-100) fL MCH (25-34) pg MCHC (32-36) g/dL RDW Std Deviation (36.4-46.3) fL RDW Coeff of Staci (11.5-14.5) % Plt Count (130-400) K/uL MPV (7.4-10.4) fL Immature Gran % (Auto) % Neut % (Auto) % Lymph % (Auto) % [place] % (Auto) % Eos % (Auto) % Baso % (Auto) % Immature Gran # (Auto) (0.00-0.02) K/uL Neut # (Auto) (1.4-6.5) K/uL Lymph # (Auto) (1.2-3.4) K/uL [place] # (Auto) (0.11-0.59) K/uL Eos # (Auto) (0-0.5) K/uL Baso # (Auto) (0-0.2) K/uL PT 26.6 H (9.0-12.0) Seconds INR 2.8 H (0.9-1.1) APTT 45.0 H (21.0-31.0) Seconds PTT Ratio 1.7 Sodium (136-145) mmol/L Potassium (3.5-5.1) mmol/L Chloride (98-107) mmol/L Carbon Dioxide (21-32) mmol/L Anion Gap (3-11) BUN (7-18) mg/dl Creatinine (0.6-1.4) mg/dl Est Cr Clr Drug Dosing ml/min Est GFR ( Amer) Est GFR (Non-Af Amer) BUN/Creatinine Ratio (10-20) Glucose (70-99) mg/dl Lactate (0.4-2.0) mmol/L Calcium (8.5-10.1) mg/dl Total Creatine Kinase (39-308) U/L Lipase 82 (73-393) U/L Urine Color Urine Appearance (Clear) Urine pH (4.5-7.5) Ur Specific Sharon (1.000-1.030) Urine Protein (Negative) Urine Glucose (UA) (Negative) Urine Ketones (Negative) Urine Blood (Negative) Urine Nitrite (Negative) Urine Bilirubin (Negative) Urine Urobilinogen (Negative) Ur Leukocyte Esterase (Negative) Urine WBC (Auto) (0-5) /hpf Urine RBC (Auto) (0-4) /hpf U Hyaline Cast (Auto) (0-5) /lpf U Epithel Cells (Auto) (0-5) /lpf Urine Bacteria (Auto) (Negative) Lyme Disease IgG Ab Negative (Negative) Lyme Disease IgM Ab Negative (Negative) 09/20/18 Range/Units 16:24 WBC (4.8-10.8) K/uL RBC (4.7-6.1) M/uL Hgb (14.0-18.0) g/dL Hct (42-52) % MCV (80-100) fL MCH (25-34) pg MCHC (32-36) g/dL RDW Std Deviation (36.4-46.3) fL RDW Coeff of Staci (11.5-14.5) % Plt Count (130-400) K/uL MPV (7.4-10.4) fL Immature Gran % (Auto) % Neut % (Auto) % Lymph % (Auto) % [place] % (Auto) % Eos % (Auto) % Baso % (Auto) % Immature Gran # (Auto) (0.00-0.02) K/uL Neut # (Auto) (1.4-6.5) K/uL Lymph # (Auto) (1.2-3.4) K/uL [place] # (Auto) (0.11-0.59) K/uL Eos # (Auto) (0-0.5) K/uL Baso # (Auto) (0-0.2) K/uL PT (9.0-12.0) Seconds INR (0.9-1.1) APTT (21.0-31.0) Seconds PTT Ratio Sodium (136-145) mmol/L Potassium (3.5-5.1) mmol/L Chloride (98-107) mmol/L Carbon Dioxide (21-32) mmol/L Anion Gap (3-11) BUN (7-18) mg/dl Creatinine (0.6-1.4) mg/dl Est Cr Clr Drug Dosing ml/min Est GFR ( Amer) Est GFR (Non-Af Amer) BUN/Creatinine Ratio (10-20) Glucose (70-99) mg/dl Lactate (0.4-2.0) mmol/L Calcium (8.5-10.1) mg/dl Total Creatine Kinase (39-308) U/L Lipase (73-393) U/L Urine Color Dark Yellow Urine Appearance Clear (Clear) Urine pH 5.0 (4.5-7.5) Ur Specific Sharon 1.023 (1.000-1.030) Urine Protein Trace H (Negative) Urine Glucose (UA) Negative (Negative) Urine Ketones Negative (Negative) Urine Blood Negative (Negative) Urine Nitrite Negative (Negative) Urine Bilirubin Negative (Negative) Urine Urobilinogen Positive H (Negative) Ur Leukocyte Esterase Negative (Negative) Urine WBC (Auto) 1-5 (0-5) /hpf Urine RBC (Auto) 0-4 (0-4) /hpf U Hyaline Cast (Auto) 1-5 (0-5) /lpf U Epithel Cells (Auto) 0-5 (0-5) /lpf Urine Bacteria (Auto) Negative (Negative) Lyme Disease IgG Ab (Negative) Lyme Disease IgM Ab (Negative) Blood Pressure Blood Pressure Findings: Normal blood pressure Blood Pressure Disposition: did not require urgent referral MDM Narrative 1526: The patient has a history of adrenal crisis and pancreatitis. He was seen here yesterday and at [facility] the day before. CT of the abdomen on the last 2 days have been within normal limits. Labs yesterday within normal limits with exception of mildly elevated white blood cell count and a mildly elevated lactic acid that improved with hydration. The patient was evaluated in room B2. A complete history and physical exam was performed. 1712: I reevaluated the patient and his vitals are stable. His labs show a white blood cell count of 7.4, which is improved from yesterday at 12.2. His lactic acid was 3.3, otherwise his labs are within normal limits including a negative Lyme screen. We will continue hydration. After a long discussion with family and patient at bedside and given that this is the patient's third ED visit in 3 days, the patient will be admitted for observation to [facility] hospitalist, Dr. Arteaga's service. Impression & Plan Lactic acidemia Discharge Plan Visit Data Chief Complaint: Illness Stated Complaint: FEVER, SHAKING,WEAKNESS ED Provider: Khanh Hoskins Discharge Problem: Lactic acidemia Patient Disposition: Being Evaluated by Hospitalist Discharge Instructions Interventions: ED Discharge Assessment Last Done: 09/20/18 18:41 The scribe's documentation has been prepared under my direction and personally reviewed by me in its entirety. I confirm that the note above accurately reflects all work, treatment, procedures, and medical decision making performed by me.
[2018-09-20] MEDS: INSULIN ASPART 100 UNITS/ML 3 ML PEN SC SCH (21:07)
[2018-09-20] MEDS: METOPROLOL TARTRATE 50 MG TAB PO SCH (21:09)
[2018-09-20] MEDS: CARVEDILOL 25 MG TAB PO SCH (21:10)
[2018-09-20] MEDS: FUROSEMIDE 40 MG TAB PO SCH (21:10)
[2018-09-20] MEDS: ACETAMINOPHEN 325 MG TAB PO PRN (22:35)
[2018-09-21] MEDS ORDERED: ACETAMINOPHEN 325 MG TAB PO STA (01:13)
[2018-09-21] MEDS: NYSTATIN OINT 15 GM TUBE EXT SCH ×4 (01:25→23:40)
[2018-09-21] MEDS: LEVOTHYROXINE SODIUM 50 MCG TABLET PO SCH (05:50)
[2018-09-21] MEDS: ACETAMINOPHEN 325 MG TAB PO PRN ×3 (05:50→21:08)
[2018-09-21 05:53] LABS: Basophils # (auto) 0.03 K/uL (0-0.2); Basophils % (auto) 0.5 %; Eosinophils # (auto) 0.06 K/uL (0-0.5); Hematocrit (blood only) 35.5 % (42-52); Hemoglobin 12.2 g/dL (14.0-18.0); Immature Granulocytes # (auto) 0.01 K/uL (0.00-0.02); Immature Granulocytes % (auto) 0.2 %; Lymphocytes # (auto) 0.67 K/uL (1.2-3.4); Lymphocytes % (auto) 11.3 %; Mean Corpuscular Hgb Conc 34.4 g/dL (32-36); Mean Platelet Volume 8.8 fL (7.4-10.4); Monocytes # (auto) 0.56 K/uL (0.11-0.59); Monocytes % (auto) 9.5 %; Neutrophils # (auto) 4.58 K/uL (1.4-6.5); Neutrophils % (auto) 77.5 %; Platelet Count 157 K/uL (130-400); RDW Coefficient of Variation 14.2 % (11.5-14.5); RDW Standard Deviation 42.9 fL (36.4-46.3); Red Blood Count 4.33 M/uL (4.7-6.1); White Blood Count 5.91 K/uL (4.8-10.8)
[2018-09-21 06:04] LABS: INR 2.4 (0.9-1.1); Prothrombin Time 23.5 Seconds (9.0-12.0)
[2018-09-21 06:16] LABS: Estimated Average Glucose 143 mg/dl; Hemoglobin A1C 6.6 % (4.5-5.6)
[2018-09-21 06:27] LABS: Albumin Level 2.5 gm/dl (3.4-5.0); BUN Creatinine Ratio 12.4 (10-20); Calcium 7.9 mg/dl (8.5-10.1); Creatinine Clr Calc Pharmacy 100.3 ml/min; Est GFR (African American) 93.4; Est GFR (Non-African American) 80.6; Potassium 3.2 mmol/L (3.5-5.1)
[2018-09-21 06:29] LABS: Albumin Globulin Ratio 0.6 (0.9-2); Bilirubin,Total 1.1 mg/dl (0.2-1); Globulin 4.1 gm/dl (2.5-4.0); Total Protein 6.6 gm/dl (6.4-8.2)
[2018-09-21] MEDS: POTASSIUM CHLORIDE 10 MEQ TABCR PO SCH (08:04)
[2018-09-21] MEDS: LISINOPRIL 2.5 MG TAB PO SCH (08:04)
[2018-09-21] MEDS: CARVEDILOL 12.5 MG TAB PO SCH (08:04)
[2018-09-21] MEDS: FUROSEMIDE 40 MG TAB PO SCH ×2 (08:05→16:57)
[2018-09-21] MEDS: METOPROLOL TARTRATE 50 MG TAB PO SCH ×2 (08:05→21:09)
[2018-09-21] MEDS: INSULIN ASPART 100 UNITS/ML 3 ML PEN SC SCH ×4 (08:53→20:59)
[2018-09-21] MEDS ORDERED: POTASSIUM CHLORIDE 10 MEQ TABCR PO STA (09:31)
[2018-09-21 12:57] LABS: Influenza A virus by PCR Neg for Influ A (Neg); Influenza B virus by PCR Neg for Influ B (Neg)
[2018-09-21] MEDS: NSS + 20MEQ KCL 20 MEQ/1,000 ML BAG IV SCH ×2 (13:17→23:40)
--- NOTE | 2018-09-21 15:04 | Ultrasound Report ---
ABDOMINAL ULTRASOUND, RIGHT UPPER QUADRANT HISTORY: fever, chills, abd pain, nausea. COMPARISON: Abdomen and pelvis CT 09/19/2018. FINDINGS: Pancreas: The pancreas demonstrates a normal echotexture. Liver: Unremarkable. Gallbladder: No gallbladder wall thickening. Multiple small gallstones are identified. CBD: Mildly dilated measuring up to 8 mm. Right kidney: No hydronephrosis. A 4.5 cm upper pole cyst. IMPRESSION: 1. Multiple small gallstones. No gallbladder wall thickening. 2. The common bile duct is mildly dilated measuring up to 8 mm. Electronically signed by: Shankar Maza M.D. 09/21/2018 3:03 PM
[2018-09-21] MEDS ORDERED: WARFARIN SOD 5 MG TAB PO SCH (16:00)
[2018-09-21] MEDS: AMPICILLIN/SULBACTAM SOD 3,000 MG in 0.9 % SODIUM CHLORIDE 100 ML IV SCH ×2 (16:56→21:08)
--- NOTE | 2018-09-21 20:15 | Magnetic Resonance Report ---
MR MRCP HISTORY: 63 years-old Male gallstones, dilated CBD on u/s acute right upper quadrant abdominal pain with fever COMPARISON: Right upper quadrant abdominal ultrasound 09/21/2018, CT abdomen and pelvis 09/19/2018 TECHNIQUE: MRCP was obtained according to institutional protocol without the use of IV contrast FINDINGS: City Attorney localizer images demonstrate no gross abnormality of the imaged pelvis or lower chest. Cyst of the superior pole right kidney measures up to 4.8 cm. Mild nonspecific bilateral perinephric strandin g. Suggestion of cortical scarring about the interpolar right kidney. Trace pleural effusions with tr salima pericardial effusion. No aortic aneurysm or adenopathy. Imaged bowel appears unremarkable. No cyn inable fluid collection. The liver, spleen, pancreas and adrenal glands appear unremarkable. Cholelithiasis without gallbladder wall thickening or pericholecystic fluid. Study is mildly motion d egraded. No choledocholithiasis identified. Common bile duct measures up to 6 mm transversely. The pa ncreatic duct measures within the upper limits of normal at 3 mm. No evidence of pancreatic divisum. There is a focal area of moderate luminal narrowing of greater than 50% about the distal common bile duct (please see bookmarks) without intrinsic or extrinsic biliary mass or lesion identified. No intr ahepatic biliary ductal dilation identified. No pancreatic head mass identified. IMPRESSION: 1. Cholelithiasis without definite evidence of acute cholecystitis. 2. No choledocholithiasis. 3. Focal area of moderate luminal narrowing about the distal common bile duct without associated lesi on identified may reflect an underlying biliary stricture. No significant associated biliary ductal d ilation identified. 4. Trace pleural effusions. The above report was generated using voice recognition software. It may contain grammatical, syntax o r spelling errors. Electronically signed by: Enrike Robb M.D. 09/21/2018 8:14 PM
--- NOTE | 2018-09-21 20:48 | Hospitalist Progress Note ---
Date of Service September 21, 2018 Assessment & Plan (1) SIRS (systemic inflammatory response syndrome): He has had ongoing fever, chills, abdominal discomfort since late last week without a source. No obvious UTI, bacteremia, or pneumonia. Had CT abd/pelvis in [place] and then again here w/o identifiable source. His main complains center around abdominal discomfort, nausea, anorexia. Obtained gall bladder u/s -- stones seen, mildly dilated CBD also seen. LFTs with scant t bili and alk phos elevation. MRCP then pursued -- he may have an abnormality of the CBD. Could he have a distal CBD stone? Stricture? I placed him on unasyn in the event his SIRS is due to biliary source. Allow clears tonight, then NPO after MN. GI consult requested for am. ERCP? and/or HIDA? other testing? Repeat LFTs in am. Recent lipase noted to be normal. To be complete also obtained flu PCR -- negative. If biliary tract deemed NOT the source for SIRS then pursue imaging of lumbar spine, CT chest, dopplers of legs, etc. Present on Admission?: Yes (2) Atrial fibrillation: rates controlled with BB. hold coumadin in the event he needs a procedure. (3) Abdominal pain: see "SIRS" above (4) Hypothyroidism: TSH minimally elevated at 4.5. no change in dose. simply repeat TSH as outpatient in 3-4 weeks. (5) Hypokalemia: replace, repeat level AM. (6) Essential (primary) hypertension: continue home meds (7) DM w/o complication type II: holding metformin in recent setting of IV contrast use. novolog sliding scale. low threshold for basal insulin. (8) Morbid obesity with BMI of 45.0-49.9, adult: BMI 49.9 (9) DVT prophylaxis: coumadin, but placing on hold in event he needs a procedure updated Subjective patient reports ongoing mild abdominal discomfort - initially pointed to the LLQ, then pointed to the RUQ. he has had intermittent nausea. reports poor appetite. minimal headache. mild lumbar back pain - typically does not have this on regular basis. no myalgias no arthralgias fevers/chills are worst symptoms. denies vomiting. denies sore throat, congestion, cough, ear pain. minimal dyspnea on exertion over the weekend - none now. no obvious tick bites. Review of Systems Constitutional: + fever, + chills, + fatigue and + anorexia; no body aches Respiratory: no cough, no pain on inspiration and no sputum production Cardiovascular: no chest pain Gastrointestinal: no diarrhea/loose stools Genitourinary: no dysuria Integumentary: no rash Physical Exam Constitutional: well developed, well nourished and + morbidly obese; no acute distress and not ill appearing ENMT: external ear and nose normal, oropharynx normal Respiratory: normal respiratory effort, lungs clear to auscultation Cardiovascular: Rate/Rhythm: regular rate and + irregularly irregular Heart Sounds: normal S1 and normal S2; no murmur Vessels: posterior tibial pulses present and dorsalis pedis pulses present; no JVD Extremities: no edema Gastrointestinal (Abdomen): Percussion/Palpation: + abdomen tender (RUQ) and abdomen soft; no guarding, no hepatosplenomegaly, no hernia and no abdominal mass Skin: minimal superficial ulceration in the midline inferior to umbilicus approaching waistline; no drainage; no erythema; no generalized rash any location Neurologic: moves all extremities; no focal motor deficits Psychiatric: Orientation: alert and oriented x 3 Lymphatic: no cervical lymphadenopathy and no axillary lymphadenopathy Results & Data Vital Signs (Past 12 Hours) Vital Signs Temp Pulse Resp BP Pulse Ox 09/21/18 15:12 38.5 C H 110 H 18 156/82 H 93 Laboratory Results Laboratory Results - last 24 hr 09/21/18 09/21/18 09/21/18 05:17 05:17 05:17 ESR 58 H PT 23.5 H INR 2.4 H Sodium 136 Potassium 3.2 L Chloride 103 Carbon Dioxide 27 Anion Gap 6.0 BUN 12 Creatinine 0.98 Est Cr Clr Drug Dosing 100.3 Est GFR ( Amer) 93.4 Est GFR (Non-Af Amer) 80.6 BUN/Creatinine Ratio 12.4 Glucose 106 H POC Glucose Estimat Average Glucose Hemoglobin A1c Calcium 7.9 L Total Bilirubin 1.1 H AST 29 ALT 49 Alkaline Phosphatase 120 H Total Protein 6.6 Albumin 2.5 L Globulin 4.1 H Albumin/Globulin Ratio 0.6 L 25-OH Vitamin D Total Monoscreen Influenza Type A (PCR) Influenza Type B (PCR) 09/21/18 09/21/18 09/21/18 05:17 05:17 05:17 ESR PT INR Sodium Potassium Chloride Carbon Dioxide Anion Gap BUN Creatinine Est Cr Clr Drug Dosing Est GFR ( Amer) Est GFR (Non-Af Amer) BUN/Creatinine Ratio Glucose POC Glucose Estimat Average Glucose 143 Hemoglobin A1c 6.6 H Calcium Total Bilirubin AST ALT Alkaline Phosphatase Total Protein Albumin Globulin Albumin/Globulin Ratio 25-OH Vitamin D Total 27.7 L Monoscreen Negative Influenza Type A (PCR) Influenza Type B (PCR) 09/21/18 09/21/18 09/21/18 08:06 12:10 12:15 ESR PT INR Sodium Potassium Chloride Carbon Dioxide Anion Gap BUN Creatinine Est Cr Clr Drug Dosing Est GFR ( Amer) Est GFR (Non-Af Amer) BUN/Creatinine Ratio Glucose POC Glucose 107 H 99 Estimat Average Glucose Hemoglobin A1c Calcium Total Bilirubin AST ALT Alkaline Phosphatase Total Protein Albumin Globulin Albumin/Globulin Ratio 25-OH Vitamin D Total Monoscreen Influenza Type A (PCR) Neg for Influ A Influenza Type B (PCR) Neg for Influ B 09/21/18 09/21/18 16:44 20:19 ESR PT INR Sodium Potassium Chloride Carbon Dioxide Anion Gap BUN Creatinine Est Cr Clr Drug Dosing Est GFR ( Amer) Est GFR (Non-Af Amer) BUN/Creatinine Ratio Glucose POC Glucose 115 H 131 H Estimat Average Glucose Hemoglobin A1c Calcium Total Bilirubin AST ALT Alkaline Phosphatase Total Protein Albumin Globulin Albumin/Globulin Ratio 25-OH Vitamin D Total Monoscreen Influenza Type A (PCR) Influenza Type B (PCR) Diagnostic Findings gall bladder u/s - IMPRESSION: 1. Multiple small gallstones. No gallbladder wall thickening. 2. The common bile duct is mildly dilated measuring up to 8 mm. (1) Atrial fibrillation Atrial fibrillation type: permanent Qualified Code(s): I48.2 - Chronic atrial fibrillation (2) Abdominal pain Abdominal location: left lower quadrant Qualified Code(s): R10.32 - Left lower quadrant pain (3) Hypothyroidism Hypothyroidism type: acquired Qualified Code(s): E03.9 - Hypothyroidism, unspecified (4) DM w/o complication type II 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 prison insulin use: without buttermaker continuous churn use Qualified Code(s): E11.9 - Type 2 diabetes mellitus without complications
[2018-09-21] MEDS: CARVEDILOL 25 MG TAB PO SCH (21:09)
[2018-09-22] MEDS: AMPICILLIN/SULBACTAM SOD 3,000 MG in 0.9 % SODIUM CHLORIDE 100 ML IV SCH ×4 (05:45→21:25)
[2018-09-22] MEDS: LEVOTHYROXINE SODIUM 50 MCG TABLET PO SCH (05:46)
[2018-09-22 06:13] LABS: Basophils # (auto) 0.02 K/uL (0-0.2); Basophils % (auto) 0.3 %; Eosinophils # (auto) 0.07 K/uL (0-0.5); Eosinophils % (auto) 1.2 %; Hematocrit (blood only) 35.6 % (42-52); Hemoglobin 12.4 g/dL (14.0-18.0); Immature Granulocytes # (auto) 0.02 K/uL (0.00-0.02); Immature Granulocytes % (auto) 0.3 %; Lymphocytes # (auto) 0.89 K/uL (1.2-3.4); Lymphocytes % (auto) 15.2 %; Mean Corpuscular Hgb Conc 34.8 g/dL (32-36); Mean Corpuscular Volume 82.2 fL (80-100); Monocytes # (auto) 0.83 K/uL (0.11-0.59); Monocytes % (auto) 14.1 %; Neutrophils # (auto) 4.04 K/uL (1.4-6.5); Neutrophils % (auto) 68.9 %; Platelet Count 163 K/uL (130-400); RDW Coefficient of Variation 14.5 % (11.5-14.5); RDW Standard Deviation 43.8 fL (36.4-46.3); Red Blood Count 4.33 M/uL (4.7-6.1); White Blood Count 5.87 K/uL (4.8-10.8)
[2018-09-22 06:22] LABS: INR 3.1 (0.9-1.1); Prothrombin Time 29.7 Seconds (9.0-12.0)
[2018-09-22 06:49] LABS: Albumin Level 2.4 gm/dl (3.4-5.0); BUN Creatinine Ratio 11.6 (10-20); Calcium 8.3 mg/dl (8.5-10.1); Creatinine Clr Calc Pharmacy 110.5 ml/min; Est GFR (Non-African American) 89.7; Magnesium 1.8 mg/dl (1.8-2.4); Potassium 3.5 mmol/L (3.5-5.1)
[2018-09-22 06:52] LABS: Albumin Globulin Ratio 0.6 (0.9-2); Bilirubin,Total 0.8 mg/dl (0.2-1); Globulin 4.2 gm/dl (2.5-4.0); Total Protein 6.6 gm/dl (6.4-8.2)
[2018-09-22] MEDS: INSULIN ASPART 100 UNITS/ML 3 ML PEN SC SCH ×4 (08:18→21:47)
[2018-09-22] MEDS: NSS + 20MEQ KCL 20 MEQ/1,000 ML BAG IV SCH ×2 (08:26→19:03)
[2018-09-22] MEDS: NYSTATIN OINT 15 GM TUBE EXT SCH ×3 (08:26→23:33)
[2018-09-22] MEDS: POTASSIUM CHLORIDE 10 MEQ TABCR PO SCH (08:26)
[2018-09-22] MEDS: LISINOPRIL 2.5 MG TAB PO SCH (08:26)
[2018-09-22] MEDS: CARVEDILOL 12.5 MG TAB PO SCH (08:26)
[2018-09-22] MEDS: METOPROLOL TARTRATE 50 MG TAB PO SCH ×2 (09:24→21:25)
--- NOTE | 2018-09-22 10:02 | Gastrointestinal Consultation ---
Date of Consultation September 22, 2018 Assessment & Plan (1) Febrile illness: 63 year old male with intermittent high fevers at home w/ rigors and intermittent right sided abd pain. Blood cultures without growth, no other source of fevers identified. He does have dilation of CBD to 8mm, tiny gall stones and evidence of a biliary stricture on MR although no discrete mass is identified. Will need to rule out biliary source of infection. We are unable to complete ERCP given his anticoagulated state but will plan for ERCP Friday. - GI ok for diet today - Would keep NPO after midnight - Plan for ERCP 09/23/18 - Will need to hold coumadin, INR goal of 1 - Discuss with primary service, recommended Vit K - If INR still elevated in AM will need to discussion additional therapy - Continue IV ABX - Watch blood culture - Watch LFTs - GI to follow. Thank you for allowing us to participate in the care of this patient. Please call with any acute changes, questions or concerns. Please see addendum below with additional recommendation from my supervising physician. Present on Admission?: Yes Supervising Physician Co-Signing Physician Notes I performed a history and physical examination of the patient, including specifically on physical exam - soft, nontender abdomen. I have discussed the patient's management with Caty. Please refer to the nurse practitioner's note for the documented findings and plan of care. 63 male patient with recurrent fever and chills, leukocytosis and mild elevation in bilirubin, MRCP showed distal CBD stricture, needs further evaluation. Plan for ERCP tomorrow once INR is normal. I explained risk, benefit and alternatives and patient agrees. History of Present Illness Reason for Consultation: fever, biliary stricture Requesting Physician: Anil Attending Physician: Cezar Ma History of Present Illness 63 year old male with history of afib on coumadin, HTN, T2DM, hypothyroidism and others below who presented to the ED for fevers at home, intermittent abd pain - GI asked to rule out biliary source of symptoms. Pt was seen and evaluated, chart reviewed. He notes two other occurrences with similar presentation over the past four years without clear cut diagnosis. He notes over the past 72 hours he has had high fevers at home (102) with rigors and intermittent abd pain. Fevers not always associated w/ abd pain but does recall intermittent upper abdominal discomfort w/ radiation to RUQ. No nausea, vomiting. No change in BM. No weight loss. Since admission, was started on Unasyn and tylenol. Has remained afebrile. Lipase normal LFTs normal Blood cx no growth to date MRCP 09/21/18: Cholelithiasis without definite evidence of acute cholecystitis.No choledocholithiasis. Focal area of moderate luminal narrowing about the distal common bile duct without associated lesion identified may reflect an underlying biliary stricture. No significant associated biliary ductal dilation identified.Trace pleural effusions. ABD US 09/21/18: Multiple small gallstones. No gallbladder wall thickening.The common bile duct is mildly dilated measuring up to [address] 09/19/18: No acute process within the abdomen or pelvis.A few colonic diverticula without evidence for acute diverticulitis. No bowel obstruction. Normal appendix.Cholelithiasis.Tiny fat-containing left inguinal hernia. Allergies Allergy/AdvReac Type Severity Reaction Status Date / Time No Known Allergies Allergy Mild Unverified 09/19/18 17:21 Home Medications Home Medications Medication Instructions Recorded Confirmed Type atorvastatin 40 mg PO DAILY 09/19/18 09/20/18 History calcium carbonate [Calcium 600] 600 mg PO DAILY 09/19/18 09/20/18 History carvedilol 12.5 mg PO QAM 09/19/18 09/20/18 History carvedilol 25 mg PO QPM 09/19/18 09/20/18 History cholecalciferol (vitamin D3) 2,000 unit PO DAILY 09/19/18 09/20/18 History [Vitamin D3] cyanocobalamin (vitamin B-12) 1,000 mcg PO DAILY 09/19/18 09/20/18 History furosemide 40 mg PO BID 09/19/18 09/20/18 History levothyroxine 50 mcg PO DAILY 09/19/18 09/20/18 History lisinopril 2.5 mg PO DAILY 09/19/18 09/20/18 History metformin 1,000 mg PO BID 09/19/18 09/20/18 History metoprolol tartrate 50 mg PO BID 09/19/18 09/20/18 History potassium chloride 10 meq PO DAILY 09/19/18 09/20/18 History testosterone 2 pump TRANSDERMAL DAILY 09/19/18 09/20/18 History warfarin 2.5 mg PO 2XWK 09/19/18 09/20/18 History warfarin 5 mg PO 5XWK 09/19/18 09/20/18 History Patient History Medical History Morbid obesity with BMI of 45.0-49.9, adult DM w/o complication type II Essential (primary) hypertension Klinefelters syndrome On testosterone Atrial fibrillation Rate controlled Abdominal pain (Acute) Adrenal crisis Hypertension Hypothyroidism Low testosterone Pancreatitis No significant past surgical history Family History Unknown Diabetes Other No significant family history Social History Preferred Language: Kinyarwanda Communication Ability: Effective Beliefs That Will Affect Care: None marital status: Current Living Situation: Spouse Current Living Situation Comment: House current occupational status: employed Other Information That Helps Us Care for You: No Feels Safe at Home: Yes Safety Concerns: Feels Safe At This Time Smoking Status: Never smoker Hx Alcohol Use: No Hx Substance Use: No Review of Systems Constitutional: + fever, + chills and + fatigue Respiratory: no cough, no dyspnea and no pain on inspiration Cardiovascular: no chest pain, no radiating jaw, neck or arm pain, no dyspnea on exertion and no palpitations Gastrointestinal: + abdominal pain and + nausea; no belching, no bloating, no early satiety, no heartburn, no vomiting, no coffee ground emesis, no hematemesis, no pain with swallowing, no dysphagia, no cramping, no excessive flatulence, no change in bowel habits, no change in stools, no constipation, no diarrhea/loose stools, no fecal incontinence, no blood in stools and no melena Physical Exam Constitutional: WD/WN, vitals as above Neck: trachea midline Respiratory: normal respiratory effort, lungs clear to auscultation Cardiovascular: RRR, no murmur, no edema Gastrointestinal (Abdomen): Inspection/Auscultation: normal bowel sounds Percussion/Palpation: + abdomen tender (RUQ w/ palpation) and abdomen soft; no guarding, abdomen not rigid and no abdominal mass Skin: no rashes, warm and dry Results & Data Vital Signs (Past 12 Hours) Vital Signs Temp Pulse Pulse Resp BP Pulse Ox 09/22/18 07:50 37.3 C 105 H 20 138/85 96 09/21/18 23:25 37.2 C 102 H 20 118/78 95 09/21/18 22:35 110 H 16 95 Laboratory Results 09/22/18 09/22/18 09/22/18 Range/Units 07:55 05:23 05:23 WBC 5.87 (4.8-10.8) K/uL RBC 4.33 L (4.7-6.1) M/uL Hgb 12.4 L (14.0-18.0) g/dL Hct 35.6 L (42-52) % MCV 82.2 (80-100) fL MCH 28.6 (25-34) pg MCHC 34.8 (32-36) g/dL RDW Std Deviation 43.8 (36.4-46.3) fL RDW Coeff of Staci 14.5 (11.5-14.5) % Plt Count 163 (130-400) K/uL MPV 9.0 (7.4-10.4) fL Immature Gran % (Auto) 0.3 % Neut % (Auto) 68.9 % Lymph % (Auto) 15.2 % Hancock % (Auto) 14.1 % Eos % (Auto) 1.2 % Baso % (Auto) 0.3 % Immature Gran # (Auto) 0.02 (0.00-0.02) K/uL Neut # (Auto) 4.04 (1.4-6.5) K/uL Lymph # (Auto) 0.89 L (1.2-3.4) K/uL Hancock # (Auto) 0.83 H (0.11-0.59) K/uL Eos # (Auto) 0.07 (0-0.5) K/uL Baso # (Auto) 0.02 (0-0.2) K/uL PT (9.0-12.0) Seconds INR (0.9-1.1) Sodium 139 (136-145) mmol/L Potassium 3.5 (3.5-5.1) mmol/L Chloride 106 (98-107) mmol/L Carbon Dioxide 26 (21-32) mmol/L Anion Gap 8.0 (3-11) BUN 10 (7-18) mg/dl Creatinine 0.89 (0.6-1.4) mg/dl Est Cr Clr Drug Dosing 110.5 ml/min Est GFR ( Amer) 104.0 Est GFR (Non-Af Amer) 89.7 BUN/Creatinine Ratio 11.6 (10-20) Glucose 118 H (70-99) mg/dl POC Glucose 121 H (70-99) Calcium 8.3 L (8.5-10.1) mg/dl Magnesium 1.8 (1.8-2.4) mg/dl Total Bilirubin 0.8 (0.2-1) mg/dl AST 32 (15-37) U/L ALT 46 (12-78) U/L Alkaline Phosphatase 109 (45-117) U/L Total Protein 6.6 (6.4-8.2) gm/dl Albumin 2.4 L (3.4-5.0) gm/dl Globulin 4.2 H (2.5-4.0) gm/dl Albumin/Globulin Ratio 0.6 L (0.9-2) Influenza Type A (PCR) (Neg) Influenza Type B (PCR) (Neg) 09/22/18 09/21/18 09/21/18 Range/Units 05:23 20:19 16:44 WBC (4.8-10.8) K/uL RBC (4.7-6.1) M/uL Hgb (14.0-18.0) g/dL Hct (42-52) % MCV (80-100) fL MCH (25-34) pg MCHC (32-36) g/dL RDW Std Deviation (36.4-46.3) fL RDW Coeff of Staci (11.5-14.5) % Plt Count (130-400) K/uL MPV (7.4-10.4) fL Immature Gran % (Auto) % Neut % (Auto) % Lymph % (Auto) % Hancock % (Auto) % Eos % (Auto) % Baso % (Auto) % Immature Gran # (Auto) (0.00-0.02) K/uL Neut # (Auto) (1.4-6.5) K/uL Lymph # (Auto) (1.2-3.4) K/uL Hancock # (Auto) (0.11-0.59) K/uL Eos # (Auto) (0-0.5) K/uL Baso # (Auto) (0-0.2) K/uL PT 29.7 H (9.0-12.0) Seconds INR 3.1 H (0.9-1.1) Sodium (136-145) mmol/L Potassium (3.5-5.1) mmol/L Chloride (98-107) mmol/L Carbon Dioxide (21-32) mmol/L Anion Gap (3-11) BUN (7-18) mg/dl Creatinine (0.6-1.4) mg/dl Est Cr Clr Drug Dosing ml/min Est GFR ( Amer) Est GFR (Non-Af Amer) BUN/Creatinine Ratio (10-20) Glucose (70-99) mg/dl POC Glucose 131 H 115 H (70-99) Calcium (8.5-10.1) mg/dl Magnesium (1.8-2.4) mg/dl Total Bilirubin (0.2-1) mg/dl AST (15-37) U/L ALT (12-78) U/L Alkaline Phosphatase (45-117) U/L Total Protein (6.4-8.2) gm/dl Albumin (3.4-5.0) gm/dl Globulin (2.5-4.0) gm/dl Albumin/Globulin Ratio (0.9-2) Influenza Type A (PCR) (Neg) Influenza Type B (PCR) (Neg) 09/21/18 09/21/18 Range/Units 12:15 12:10 WBC (4.8-10.8) K/uL RBC (4.7-6.1) M/uL Hgb (14.0-18.0) g/dL Hct (42-52) % MCV (80-100) fL MCH (25-34) pg MCHC (32-36) g/dL RDW Std Deviation (36.4-46.3) fL RDW Coeff of Staci (11.5-14.5) % Plt Count (130-400) K/uL MPV (7.4-10.4) fL Immature Gran % (Auto) % Neut % (Auto) % Lymph % (Auto) % Hancock % (Auto) % Eos % (Auto) % Baso % (Auto) % Immature Gran # (Auto) (0.00-0.02) K/uL Neut # (Auto) (1.4-6.5) K/uL Lymph # (Auto) (1.2-3.4) K/uL Hancock # (Auto) (0.11-0.59) K/uL Eos # (Auto) (0-0.5) K/uL Baso # (Auto) (0-0.2) K/uL PT (9.0-12.0) Seconds INR (0.9-1.1) Sodium (136-145) mmol/L Potassium (3.5-5.1) mmol/L Chloride (98-107) mmol/L Carbon Dioxide (21-32) mmol/L Anion Gap (3-11) BUN (7-18) mg/dl Creatinine (0.6-1.4) mg/dl Est Cr Clr Drug Dosing ml/min Est GFR ( Amer) Est GFR (Non-Af Amer) BUN/Creatinine Ratio (10-20) Glucose (70-99) mg/dl POC Glucose 99 (70-99) Calcium (8.5-10.1) mg/dl Magnesium (1.8-2.4) mg/dl Total Bilirubin (0.2-1) mg/dl AST (15-37) U/L ALT (12-78) U/L Alkaline Phosphatase (45-117) U/L Total Protein (6.4-8.2) gm/dl Albumin (3.4-5.0) gm/dl Globulin (2.5-4.0) gm/dl Albumin/Globulin Ratio (0.9-2) Influenza Type A (PCR) Neg for Influ A (Neg) Influenza Type B (PCR) Neg for Influ B (Neg)
[2018-09-22] MEDS ORDERED: PHYTONADIONE 5 MG TAB PO STA ×2 (10:34→20:29)
--- NOTE | 2018-09-22 14:02 | Anesthesiology Consultation ---
Date of Service September 22, 2018 Assessment & Plan (1) Encounter for pre-operative examination: Chart Review Chart Review: Acceptable Risk for Surgery and Patient NOT seen in Pre Admission Testing Consults Requested none History Surgery Operation Date: 09/23/18 13:30 Proposed Procedures p Endoscopic Retrograde Cholangiopancreatography - Noelle Douglas MD Height/Weight Height: 1.68 m Weight: 140.3 kg Allergies Allergy/AdvReac Type Severity Reaction Status Date / Time No Known Allergies Allergy Mild Unverified 09/19/18 17:21 Medications Home Medications Medication Instructions Recorded Confirmed Last Taken atorvastatin 40 mg PO DAILY 09/19/18 09/20/18 Unknown calcium carbonate [Calcium 600] 600 mg PO DAILY 09/19/18 09/20/18 Unknown carvedilol 12.5 mg PO QAM 09/19/18 09/20/18 Unknown carvedilol 25 mg PO QPM 09/19/18 09/20/18 Unknown cholecalciferol (vitamin D3) 2,000 unit PO DAILY 09/19/18 09/20/18 Unknown [Vitamin D3] cyanocobalamin (vitamin B-12) 1,000 mcg PO DAILY 09/19/18 09/20/18 Unknown furosemide 40 mg PO BID 09/19/18 09/20/18 Unknown levothyroxine 50 mcg PO DAILY 09/19/18 09/20/18 Unknown lisinopril 2.5 mg PO DAILY 09/19/18 09/20/18 Unknown metformin 1,000 mg PO BID 09/19/18 09/20/18 Unknown metoprolol tartrate 50 mg PO BID 09/19/18 09/20/18 Unknown potassium chloride 10 meq PO DAILY 09/19/18 09/20/18 Unknown testosterone 2 pump TRANSDERMAL DAILY 09/19/18 09/20/18 Unknown warfarin 2.5 mg PO 2XWK 09/19/18 09/20/18 Unknown warfarin 5 mg PO 5XWK 09/19/18 09/20/18 Unknown Active Medications Generic Name Dose Route Start Last Admin Trade Name Freq PRN Reason Stop Dose Admin Acetaminophen 650 mg 09/20/18 19:23 09/21/18 21:08 Tylenol PO 10/20/18 19:22 650 mg Q4H PRN Administration pain/fever Carvedilol 25 mg 09/20/18 21:00 09/21/18 21:09 Coreg PO 10/20/18 20:59 25 mg QPM ELPIDIO Administration Carvedilol 12.5 mg 09/21/18 09:00 09/22/18 08:26 Coreg PO 10/21/18 08:59 12.5 mg QAM ELPIDIO Administration Furosemide 40 mg 09/20/18 20:00 09/21/18 16:57 Lasix PO 10/20/18 19:59 40 mg [id number] ELPIDIO Administration Potassium Chloride/Sodium Chloride 20 meq in 1,000 mls @ 100 mls/hr 09/21/18 12:15 09/22/18 08:26 Normal Saline W/20 Meq Kcl IV 10/21/18 12:14 100 mls/hr .Q10H ELPIDIO Administration Ampicillin Sodium/Sulbactam 108 mls @ 200 mls/hr 09/21/18 16:00 09/22/18 09:56 Sodium 3,000 mg/ Sodium IV 10/01/18 15:59 Infused Chloride Q6H ELPIDIO Infusion Protocol Insulin Aspart 0 units 09/20/18 21:00 09/22/18 12:37 Novolog Flexpen SC 10/20/18 20:59 Not Given ACHS ELPIDIO Levothyroxine Sodium 50 mcg 09/21/18 06:30 09/22/18 05:46 Synthroid PO 10/21/18 06:29 50 mcg DAILYBB ELPIDIO Administration Lisinopril 2.5 mg 09/21/18 09:00 09/22/18 08:26 Zestril PO 10/21/18 08:59 2.5 mg DAILY ELPIDIO Administration Metoprolol Tartrate 50 mg 09/20/18 21:00 09/22/18 09:24 Lopressor PO 10/20/18 20:59 50 mg BID ELPIDIO Administration Nystatin 1 appln 09/21/18 00:00 09/22/18 08:26 Mycostatin EXT 10/21/18 00:00 1 appln QSHIFT ELPIDIO Administration Potassium Chloride 10 meq 09/21/18 09:00 09/22/18 08:26 Klor-Con M10 PO 10/21/18 08:59 10 meq DAILY ELPIDIO Administration Warfarin Sodium 5 mg 09/21/18 16:00 09/21/18 16:57 Coumadin PO 10/21/18 15:59 5 mg [id number] ELPIDIO Administration Past Medical History Medical History Morbid obesity with BMI of 45.0-49.9, adult DM w/o complication type II Essential (primary) hypertension Klinefelters syndrome On testosterone Atrial fibrillation Rate controlled Abdominal pain (Acute) Adrenal crisis Hypertension Hypothyroidism Low testosterone Pancreatitis No significant past surgical history Past Family History Family History Unknown Diabetes Other No significant family history Social History Smoking Status: Never smoker Hx Alcohol Use: No Hx Substance Use: No Physical Exam Vital Signs Last Vital Signs Temp 37.3 C 09/22/18 07:50 Pulse 105 H 09/22/18 07:50 Resp 20 09/22/18 07:50 BP 138/85 09/22/18 07:50 Pulse Ox 96 09/22/18 07:50 Testing Laboratory Results Laboratory Tests 09/20/18 09/21/18 09/22/18 15:46 05:17 05:23 WBC Hgb Hct Plt Count PT 29.7 H INR 3.1 H APTT 45.0 H Sodium Potassium Chloride Carbon Dioxide BUN Creatinine Glucose Hemoglobin A1c 6.6 H 09/22/18 09/22/18 05:23 05:23 WBC 5.87 Hgb 12.4 L Hct 35.6 L Plt Count 163 PT INR APTT Sodium 139 Potassium 3.5 Chloride 106 Carbon Dioxide 26 BUN 10 Creatinine 0.89 Glucose 118 H Hemoglobin A1c Electrocardiogram Date: 09/21/18 Findings: + AFIB @ (97 bpm with PVCs) Rightward axis Pulmonary disease pattern When compared with ECG of 11/11/2011 nonspecific T wave abnormality now evident in anterior lead Chest X-Ray Date: 09/19/18 Findings: + NAD
[2018-09-22] MEDS ORDERED: WARFARIN SOD 2.5 MG TAB PO SCH (16:00)
[2018-09-22 19:57] LABS: INR 3.1 (0.9-1.1)
[2018-09-22] MEDS: CARVEDILOL 25 MG TAB PO SCH (21:24)
[2018-09-22] MEDS ORDERED: PHYTONADIONE 5 MG in SODIUM CHLORIDE 0.9% 50 ML IV ONE (21:25)
--- NOTE | 2018-09-22 22:24 | Hospitalist Progress Note ---
Date of Service September 22, 2018 Assessment & Plan (1) Abnormal finding of biliary tract: Fevers, prior chills, abnormal LFTs, gallstones, and narrowing of distal CBD on MRCP all concerning for biliary sepsis as cause of presenting illness. Cholangitis? Continue IVF and IV unasyn. Blood cx's neg to date. Appreciate GI consultation -- ERCP planned for tomorrow. REVERSE coumadin w/ vitamin K today. Start with small dose; repeat INR tonight; if still high then repeat the vitamin K. Then INR in am. Repeat LFTs in am. (2) SIRS (systemic inflammatory response syndrome): concern for biliary source -- see above. Blood cx's, rapid flu test, cxr, abd/pelvis CT, ua all w/o other reason for his SIRS. continue IV unasyn. (3) Atrial fibrillation: rates controlled with BB. hold coumadin and give vitamin k today -- see above. (4) Abdominal pain: concern for cholangitis and/or cholecystitis see above (5) Hypothyroidism: TSH minimally elevated at 4.5. no change in dose. simply repeat TSH as outpatient in 3-4 weeks. (6) Hypokalemia: resolved (7) Essential (primary) hypertension: continue home meds (8) DM w/o complication type II: holding metformin in recent setting of IV contrast use. novolog sliding scale. low threshold for basal insulin. (9) Morbid obesity with BMI of 45.0-49.9, adult: BMI 49.9 (10) DVT prophylaxis: holding coumadin extensively updated at bedside today Subjective patient feels better today. less fever. no chills. tolerating clears w/o abd symptoms. still having some mild RUQ discomfort at times but "nothing like it was." denies lumbar back pain. denies headache. denies dyspnea on exertion. Review of Systems Constitutional: + fever; no chills, no sweats and no body aches Respiratory: no cough, no dyspnea and no dyspnea on exertion Cardiovascular: no chest pain Gastrointestinal: no nausea, no vomiting and no diarrhea/loose stools Physical Exam Constitutional: well developed, well nourished and + morbidly obese; no acute distress and not ill appearing ENMT: external ear and nose normal, oropharynx normal Respiratory: normal respiratory effort, lungs clear to auscultation Cardiovascular: Rate/Rhythm: regular rate and + irregularly irregular Heart Sounds: normal S1 and normal S2; no murmur Vessels: posterior tibial pulses present and dorsalis pedis pulses present; no JVD Extremities: no edema Gastrointestinal (Abdomen): Percussion/Palpation: + abdomen tender (RUQ) and abdomen soft; no guarding, no hepatosplenomegaly, no hernia and no abdominal mass Skin: no rashes, warm and dry no jaundice Psychiatric: Orientation: alert and oriented x 3 Results & Data Vital Signs (Past 12 Hours) Vital Signs Temp Pulse Pulse Resp BP Pulse Ox 09/22/18 22:08 89 16 94 09/22/18 22:04 37.9 C H 105 H 18 109/74 93 09/22/18 21: 89 146/84 H 09/22/18 15:00 37.3 C 94 H 18 126/72 94 Laboratory Results Laboratory Results - last 24 hr 09/22/18 09/22/18 09/22/18 05:23 05:23 05:23 WBC 5.87 RBC 4.33 L Hgb 12.4 L Hct 35.6 L MCV 82.2 MCH 28.6 MCHC 34.8 RDW Std Deviation 43.8 RDW Coeff of Staci 14.5 Plt Count 163 MPV 9.0 Immature Gran % (Auto) 0.3 Neut % (Auto) 68.9 Lymph % (Auto) 15.2 Phillips % (Auto) 14.1 Eos % (Auto) 1.2 Baso % (Auto) 0.3 Immature Gran # (Auto) 0.02 Neut # (Auto) 4.04 Lymph # (Auto) 0.89 L Phillips # (Auto) 0.83 H Eos # (Auto) 0.07 Baso # (Auto) 0.02 PT 29.7 H INR 3.1 H Sodium 139 Potassium 3.5 Chloride 106 Carbon Dioxide 26 Anion Gap 8.0 BUN 10 Creatinine 0.89 Est Cr Clr Drug Dosing 110.5 Est GFR ( Amer) 104.0 Est GFR (Non-Af Amer) 89.7 BUN/Creatinine Ratio 11.6 Glucose 118 H POC Glucose Calcium 8.3 L Magnesium 1.8 Total Bilirubin 0.8 AST 32 ALT 46 Alkaline Phosphatase 109 Total Protein 6.6 Albumin 2.4 L Globulin 4.2 H Albumin/Globulin Ratio 0.6 L 05/09/22/18 09/22/18 07:55 11:59 16:58 WBC RBC Hgb Hct MCV MCH MCHC RDW Std Deviation RDW Coeff of Staci Plt Count MPV Immature Gran % (Auto) Neut % (Auto) Lymph % (Auto) Phillips % (Auto) Eos % (Auto) Baso % (Auto) Immature Gran # (Auto) Neut # (Auto) Lymph # (Auto) Phillips # (Auto) Eos # (Auto) Baso # (Auto) PT INR Sodium Potassium Chloride Carbon Dioxide Anion Gap BUN Creatinine Est Cr Clr Drug Dosing Est GFR ( Amer) Est GFR (Non-Af Amer) BUN/Creatinine Ratio Glucose POC Glucose 121 H 140 H 113 H Calcium Magnesium Total Bilirubin AST ALT Alkaline Phosphatase Total Protein Albumin Globulin Albumin/Globulin Ratio 09/22/18 09/22/18 19:32 20:04 WBC RBC Hgb Hct MCV MCH MCHC RDW Std Deviation RDW Coeff of Staci Plt Count MPV Immature Gran % (Auto) Neut % (Auto) Lymph % (Auto) Phillips % (Auto) Eos % (Auto) Baso % (Auto) Immature Gran # (Auto) Neut # (Auto) Lymph # (Auto) Phillips # (Auto) Eos # (Auto) Baso # (Auto) PT 29.0 H INR 3.1 H Sodium Potassium Chloride Carbon Dioxide Anion Gap BUN Creatinine Est Cr Clr Drug Dosing Est GFR ( Amer) Est GFR (Non-Af Amer) BUN/Creatinine Ratio Glucose POC Glucose 138 H Calcium Magnesium Total Bilirubin AST ALT Alkaline Phosphatase Total Protein Albumin Globulin Albumin/Globulin Ratio (1) DM w/o complication type II 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 fci insulin use: without fci use Qualified Code(s): E11.9 - Type 2 diabetes mellitus without complications (2) Atrial fibrillation Atrial fibrillation type: permanent Qualified Code(s): I48.2 - Chronic atrial fibrillation (3) Hypothyroidism Hypothyroidism type: acquired Qualified Code(s): E03.9 - Hypothyroidism, unspecified (4) Abdominal pain Abdominal location: left lower quadrant Qualified Code(s): R10.32 - Left lower quadrant pain
[2018-09-23] MEDS: AMPICILLIN/SULBACTAM SOD 3,000 MG in 0.9 % SODIUM CHLORIDE 100 ML IV SCH ×4 (04:02→21:50)
[2018-09-23] MEDS: LEVOTHYROXINE SODIUM 50 MCG TABLET PO SCH (05:43)
[2018-09-23] MEDS: NSS + 20MEQ KCL 20 MEQ/1,000 ML BAG IV SCH ×2 (06:41→20:45)
[2018-09-23 07:08] LABS: Basophils # (auto) 0.02 K/uL (0-0.2); Basophils % (auto) 0.4 %; Eosinophils # (auto) 0.14 K/uL (0-0.5); Eosinophils % (auto) 2.8 %; Hematocrit (blood only) 35.7 % (42-52); Hemoglobin 11.8 g/dL (14.0-18.0); Immature Granulocytes # (auto) 0.02 K/uL (0.00-0.02); Immature Granulocytes % (auto) 0.4 %; Lymphocytes # (auto) 1.06 K/uL (1.2-3.4); Lymphocytes % (auto) 21.2 %; Mean Corpuscular Hgb Conc 33.1 g/dL (32-36); Mean Corpuscular Volume 83.8 fL (80-100); Mean Platelet Volume 8.7 fL (7.4-10.4); Neutrophils # (auto) 3.05 K/uL (1.4-6.5); Neutrophils % (auto) 61.2 %; Platelet Count 157 K/uL (130-400); RDW Coefficient of Variation 14.5 % (11.5-14.5); RDW Standard Deviation 44.3 fL (36.4-46.3); Red Blood Count 4.26 M/uL (4.7-6.1); White Blood Count 4.99 K/uL (4.8-10.8)
[2018-09-23 07:16] LABS: INR 1.4 (0.9-1.1); Prothrombin Time 14.3 Seconds (9.0-12.0)
[2018-09-23 07:45] LABS: Albumin Level 2.3 gm/dl (3.4-5.0); Calcium 7.9 mg/dl (8.5-10.1); Est GFR (Non-African American) 90.6; Potassium 3.6 mmol/L (3.5-5.1)
[2018-09-23 07:48] LABS: Albumin Globulin Ratio 0.5 (0.9-2); Bilirubin,Total 1.1 mg/dl (0.2-1); Globulin 4.2 gm/dl (2.5-4.0); Total Protein 6.5 gm/dl (6.4-8.2)
[2018-09-23] MEDS: POTASSIUM CHLORIDE 10 MEQ TABCR PO SCH (08:51)
[2018-09-23] MEDS: LISINOPRIL 2.5 MG TAB PO SCH (08:51)
[2018-09-23] MEDS: CARVEDILOL 12.5 MG TAB PO SCH (08:51)
[2018-09-23] MEDS: INSULIN ASPART 100 UNITS/ML 3 ML PEN SC SCH ×4 (08:52→20:48)
[2018-09-23] MEDS: METOPROLOL TARTRATE 50 MG TAB PO SCH ×2 (08:52→20:46)
[2018-09-23] MEDS: NYSTATIN OINT 15 GM TUBE EXT SCH ×3 (08:55→23:35)
--- NOTE | 2018-09-23 09:03 | Gastroenterology Progress Note ---
Date of Service September 23, 2018 Assessment & Plan (1) Abnormal finding of biliary tract: 63 year old male with intermittent high fevers at home w/ rigors and intermittent right sided abd pain. Blood cultures without growth, no other source of fevers identified. He does have dilation of CBD to 8mm, tiny gallstones and evidence of a biliary stricture on MR although no discrete mass is identified. Will need to rule out biliary source of infection. We are unable to complete ERCP given his anticoagulated state but will plan for ERCP Friday. - NPO - Check INR around 10A - Plan for ERCP 09/23/18 - Will need to hold coumadin, INR goal of 1 - Continue IV ABX - Watch blood culture - Watch LFTs Thank you for allowing us to participate in the care of this patient. Please call with any acute changes, questions or concerns. Please see addendum below with additional recommendation from my supervising physician. Present on Admission?: Yes Supervising Physician Co-Signing Physician Notes I performed a history and physical examination of the patient, including specifically on physical exam - soft, nontender abdomen. I have discussed the patient's management with Caty. Please refer to the nurse practitioner's note for the documented findings and plan of care. ERCP today for biliary stricture and cholangitis. Subjective Pt was seen and evaluated, chart reviewed. Fever overnight. Mild abd pain. INR 1.5. Mild elevation of LFTs this AM. Is NPO for ERCP. Offers no complaints. Lipase normal Transaminases 100 Blood cx no growth to date MRCP 09/21/18: Cholelithiasis without definite evidence of acute cholecystitis.No choledocholithiasis. Focal area of moderate luminal narrowing about the distal common bile duct without associated lesion identified may reflect an underlying biliary stricture. No significant associated biliary ductal dilation identified.Trace pleural effusions. ABD US 09/21/18: Multiple small gallstones. No gallbladder wall thickening.The common bile duct is mildly dilated measuring up to [address] 09/19/18: No acute process within the abdomen or pelvis.A few colonic diverticula without evidence for acute diverticulitis. No bowel obstruction. Normal appendix.Cholelithiasis.Tiny fat-containing left inguinal hernia. Review of Systems Constitutional: + fever; no chills and no fatigue Respiratory: no cough, no dyspnea and no pain on inspiration Cardiovascular: no chest pain, no radiating jaw, neck or arm pain, no dyspnea on exertion and no palpitations Gastrointestinal: + abdominal pain; no nausea, no hematemesis and no cramping Physical Exam Constitutional: WD/WN, vitals as above Respiratory: normal respiratory effort, lungs clear to auscultation Cardiovascular: RRR, no murmur, no edema Gastrointestinal (Abdomen): normal bowel sounds, soft, nontender, no hepatosplenomegaly Results & Data Vital Signs (Past 12 Hours) Vital Signs Temp Pulse Pulse Resp BP Pulse Ox 09/23/18 07:28 37.2 C 90 20 158/85 H 96 09/22/18 23:10 37.8 C H 97 H 21 112/61 93 09/22/18 22:40 37.6 C H 97 H 18 118/78 94 09/22/18 22:25 37.4 C 95 H 16 108/68 93 09/22/18 22:08 89 16 94 09/22/18 22:04 37.9 C H 105 H 18 109/74 93 09/22/18 21:21 89 146/84 H Laboratory Results 09/23/18 09/23/18 09/23/18 Range/Units 06:41 06:41 06:41 WBC 4.99 (4.8-10.8) K/uL RBC 4.26 L (4.7-6.1) M/uL Hgb 11.8 L (14.0-18.0) g/dL Hct 35.7 L (42-52) % MCV 83.8 (80-100) fL MCH 27.7 (25-34) pg MCHC 33.1 (32-36) g/dL RDW Std Deviation 44.3 (36.4-46.3) fL RDW Coeff of Staci 14.5 (11.5-14.5) % Plt Count 157 (130-400) K/uL MPV 8.7 (7.4-10.4) fL Immature Gran % (Auto) 0.4 % Neut % (Auto) 61.2 % Lymph % (Auto) 21.2 % Rains % (Auto) 14.0 % Eos % (Auto) 2.8 % Baso % (Auto) 0.4 % Immature Gran # (Auto) 0.02 (0.00-0.02) K/uL Neut # (Auto) 3.05 (1.4-6.5) K/uL Lymph # (Auto) 1.06 L (1.2-3.4) K/uL Rains # (Auto) 0.70 H (0.11-0.59) K/uL Eos # (Auto) 0.14 (0-0.5) K/uL Baso # (Auto) 0.02 (0-0.2) K/uL PT 14.3 H (9.0-12.0) Seconds INR 1.4 H (0.9-1.1) Sodium 139 (136-145) mmol/L Potassium 3.6 (3.5-5.1) mmol/L Chloride 109 H (98-107) mmol/L Carbon Dioxide 25 (21-32) mmol/L Anion Gap 5.0 (3-11) BUN 10 (7-18) mg/dl Creatinine 0.87 (0.6-1.4) mg/dl Est Cr Clr Drug Dosing 113.0 ml/min Est GFR ( Amer) 105.0 Est GFR (Non-Af Amer) 90.6 BUN/Creatinine Ratio 11.0 (10-20) Glucose 111 H (70-99) mg/dl POC Glucose (70-99) Calcium 7.9 L (8.5-10.1) mg/dl Total Bilirubin 1.1 H (0.2-1) mg/dl AST 105 H (15-37) U/L ALT 117 H (12-78) U/L Alkaline Phosphatase 103 (45-117) U/L Total Protein 6.5 (6.4-8.2) gm/dl Albumin 2.3 L (3.4-5.0) gm/dl Globulin 4.2 H (2.5-4.0) gm/dl Albumin/Globulin Ratio 0.5 L (0.9-2) 09/23/18 09/23/18 09/22/18 Range/Units 05:53 00:18 20:04 WBC (4.8-10.8) K/uL RBC (4.7-6.1) M/uL Hgb (14.0-18.0) g/dL Hct (42-52) % MCV (80-100) fL MCH (25-34) pg MCHC (32-36) g/dL RDW Std Deviation (36.4-46.3) fL RDW Coeff of Staci (11.5-14.5) % Plt Count (130-400) K/uL MPV (7.4-10.4) fL Immature Gran % (Auto) % Neut % (Auto) % Lymph % (Auto) % Rains % (Auto) % Eos % (Auto) % Baso % (Auto) % Immature Gran # (Auto) (0.00-0.02) K/uL Neut # (Auto) (1.4-6.5) K/uL Lymph # (Auto) (1.2-3.4) K/uL Rains # (Auto) (0.11-0.59) K/uL Eos # (Auto) (0-0.5) K/uL Baso # (Auto) (0-0.2) K/uL PT (9.0-12.0) Seconds INR (0.9-1.1) Sodium (136-145) mmol/L Potassium (3.5-5.1) mmol/L Chloride (98-107) mmol/L Carbon Dioxide (21-32) mmol/L Anion Gap (3-11) BUN (7-18) mg/dl Creatinine (0.6-1.4) mg/dl Est Cr Clr Drug Dosing ml/min Est GFR ( Amer) Est GFR (Non-Af Amer) BUN/Creatinine Ratio (10-20) Glucose (70-99) mg/dl POC Glucose 110 H 146 H 138 H (70-99) Calcium (8.5-10.1) mg/dl Total Bilirubin (0.2-1) mg/dl AST (15-37) U/L ALT (12-78) U/L Alkaline Phosphatase (45-117) U/L Total Protein (6.4-8.2) gm/dl Albumin (3.4-5.0) gm/dl Globulin (2.5-4.0) gm/dl Albumin/Globulin Ratio (0.9-2) 09/22/18 09/22/18 09/22/18 Range/Units 19:32 16:58 11:59 WBC (4.8-10.8) K/uL RBC (4.7-6.1) M/uL Hgb (14.0-18.0) g/dL Hct (42-52) % MCV (80-100) fL MCH (25-34) pg MCHC (32-36) g/dL RDW Std Deviation (36.4-46.3) fL RDW Coeff of Staci (11.5-14.5) % Plt Count (130-400) K/uL MPV (7.4-10.4) fL Immature Gran % (Auto) % Neut % (Auto) % Lymph % (Auto) % Rains % (Auto) % Eos % (Auto) % Baso % (Auto) % Immature Gran # (Auto) (0.00-0.02) K/uL Neut # (Auto) (1.4-6.5) K/uL Lymph # (Auto) (1.2-3.4) K/uL Rains # (Auto) (0.11-0.59) K/uL Eos # (Auto) (0-0.5) K/uL Baso # (Auto) (0-0.2) K/uL PT 29.0 H (9.0-12.0) Seconds INR 3.1 H (0.9-1.1) Sodium (136-145) mmol/L Potassium (3.5-5.1) mmol/L Chloride (98-107) mmol/L Carbon Dioxide (21-32) mmol/L Anion Gap (3-11) BUN (7-18) mg/dl Creatinine (0.6-1.4) mg/dl Est Cr Clr Drug Dosing ml/min Est GFR ( Amer) Est GFR (Non-Af Amer) BUN/Creatinine Ratio (10-20) Glucose (70-99) mg/dl POC Glucose 113 H 140 H (70-99) Calcium (8.5-10.1) mg/dl Total Bilirubin (0.2-1) mg/dl AST (15-37) U/L ALT (12-78) U/L Alkaline Phosphatase (45-117) U/L Total Protein (6.4-8.2) gm/dl Albumin (3.4-5.0) gm/dl Globulin (2.5-4.0) gm/dl Albumin/Globulin Ratio (0.9-2)
[2018-09-23 10:56] LABS: INR 1.3 (0.9-1.1); Prothrombin Time 13.5 Seconds (9.0-12.0)
[2018-09-23] MEDS ORDERED: SUCCINYLCHOLINE CHLORIDE 20 MG/ML 10 ML VIAL ONE (14:12)
[2018-09-23] MEDS ORDERED: fentaNYL citrate 100 MCG/2 ML VIAL ONE ×2 (14:12→14:55)
[2018-09-23] MEDS ORDERED: MIDAZOLAM HCL 1 MG/ML 2ML VIAL ONE (14:13)
[2018-09-23] MEDS ORDERED: ONDANSETRON INJ 2 MG/ML 2 ML VIAL IV PRN (14:14)
[2018-09-23] MEDS ORDERED: ePHEDrine sulfate 50 MG/ML AMP IV PRN (14:14)
[2018-09-23] MEDS ORDERED: PROMETHAZINE HCL 12.5 MG in SODIUM CHLORIDE 0.9% 50 ML IV PRN (14:14)
[2018-09-23] MEDS ORDERED: PHENYLEPHRINE 100MCG/ML 5ML SYR IV PRN (14:14)
[2018-09-23] MEDS ORDERED: ATROPINE SULFATE 0.1 MG/ML 10ML SYR IV PRN (14:14)
[2018-09-23] MEDS ORDERED: LABETALOL HCL IV 5 MG/ML 20ML IV PRN (14:14)
[2018-09-23] MEDS ORDERED: fentaNYL citrate 100 MCG/2 ML VIAL IV PRN (14:14)
[2018-09-23] MEDS ORDERED: HYDROmorphone INJ 1 MG/ML SYRINGE IV PRN (14:14)
[2018-09-23] MEDS ORDERED: LIDOCAINE HCL 2% 2 ML VIAL/AMP(20MG/ML) INFIL ONE (14:15)
[2018-09-23] MEDS ORDERED: PROPOFOL IV EMULSION 10 MG/ML 20 ML VIAL IV ONE (14:15)
[2018-09-23] MEDS ORDERED: INDOMETHACIN 50 MG SUPP PR ONE (14:43)
--- NOTE | 2018-09-23 15:35 | Operative Report ---
Post Operative Report Pre & Post Diagnosis Operation Date: 09/23/18 13:30 Pre-Op Diagnosis: colangitis Post-Op Diagnosis: Common bile duct stone Procedure Operation Date: 09/23/18 13:30 Actual Procedures p Endoscopic Retrograde Cholangiopancreatography(Not Applicable) - Noelle Douglas MD Surgeon Noelle Douglas MD Cobol Application Developer None Estimated Blood Loss 0 Findings See Below (Gallstones, CBD stone, No stricture, Sphincterotomy done, CBD and PD stent placed) Specimens None Description of Procedure ERCP I attest to the content of the Intraoperative Record and any orders documented therein. Any exceptions are noted below.
--- NOTE | 2018-09-23 15:50 | Fluoroscopy Report ---
[place] ERCP biliary ductal CLINICAL HISTORY: Cholelithiasis. Abnormal MRCP with distal common bile duct narrowing. COMPARISON STUDY: MRCP dated 09/21/2018 FLUOROSCOPY TIME: 112 seconds. NUMBER OF FLUOROSCOPIC IMAGES: 8 FINDINGS: ERCP was performed in the common bile duct was angulated. The gallbladder was filled with m ultiple calculi. No common bile duct filling defects were visualized. A guidewire is also visualized within the pancreatic duct. A sphincterotomy appears to have been performed and a balloon catheter is visualized within the common bile duct. Final images demonstrate placement of a biliary enteric sten t. IMPRESSION: 1. Cholelithiasis 2. Placement of a biliary enteric stent Electronically signed by: Sergei Moran M.D. 09/23/2018 3:49 PM
--- NOTE | 2018-09-23 15:56 | GI REPORT ---
Patient Name: Kirby Bonds Procedure Date: 09/23/2018 2:44 PM Date of : 1955 Admit Type: Inpatient Age: 63 Gender: Male Attending MD: Noelle Douglas MD Procedure: ERCP Providers: Noelle Douglas MD Referring MD: Cezar Ma Indications: Abnormal MRCP, Suspected ascending cholangitis, Elevated liver enzymes Medicines: General Anesthesia Complications: No immediate complications. Estimated Blood Loss: Estimated blood loss: none. Procedure: Pre-Anesthesia Assessment: - Prior to the procedure, a History and Physical was performed, and patient medications and allergies were reviewed. The patient is competent. The risks and benefits of the procedure and the sedation options and risks were discussed with the patient. All questions were answered and informed consent was obtained. Patient identification and proposed procedure were verified by the physician and the nurse in the procedure room. Mental Status Examination: alert and oriented. Airway Examination: normal oropharyngeal airway and neck mobility. Respiratory Examination: clear to auscultation. CV Examination: normal. ASA Grade Assessment: III - A patient with severe systemic disease. After reviewing the risks and benefits, the patient was deemed in satisfactory condition to undergo the procedure. The anesthesia plan was to use general anesthesia. Immediately prior to administration of medications, the patient was re-assessed for adequacy to receive sedatives. The heart rate, respiratory rate, oxygen saturations, blood pressure, adequacy of pulmonary ventilation, and response to care were monitored throughout the procedure. The physical status of the patient was re-assessed after the procedure. After obtaining informed consent, the scope was passed under direct vision. Throughout the procedure, the patient's blood pressure, pulse, and oxygen saturations were monitored continuously. The scope was introduced through the mouth, and advanced to the duodenum and used to inject contrast into the bile duct. The ERCP was accomplished without difficulty. The patient tolerated the procedure well. Findings: The supervisor cell efficiency film was normal. The esophagus was successfully intubated under direct vision. The scope was advanced to a normal major papilla in the descending duodenum without detailed examination of the pharynx, larynx and associated structures, and upper GI tract. The upper GI tract was grossly normal. The major papilla was adjacent to a diverticulum. The ventral pancreatic duct was inadvertently cannulated with the Fusion OMNI sphincterotome without any complications. The guidewire was kept in place to assist in biliary cannulation. A 0.035 inch straight standard wire was passed into the biliary tree. The Fusion OMNI sphincterotome was passed over the guidewire and the bile duct was then deeply cannulated. Contrast was injected. I personally interpreted the bile duct images. Ductal flow of contrast was adequate. Image quality was adequate. Contrast extended to the main bile duct. The main bile duct was mildly dilated. The largest diameter was 8 mm. No stricture seen. Opacification of the gallbladder was seen and multiple stones noted. Biliary sphincterotomy was made with a monofilament Fusion OMNI sphincterotome using ERBE electrocautery. There was no post-sphincterotomy bleeding. The biliary tree was swept with an 11.5 mm balloon starting at the bifurcation. Sludge was swept from the duct. One 5 Fr by 9 cm plastic stent with a single external flap and no internal flaps was placed into the ventral pancreatic duct. Clear fluid flowed through the stent. The stent was in good position. One 10 Fr by 7 cm plastic stent with a single external flap and a single internal flap was placed into the common bile duct. Bile flowed through the stent. The stent was in good position. Indomethacin 100 mg was given via suppository to decrease the risk of post-ERCP pancreatitis (PEP). The total fluoroscopy exposure time was 1 minute and 51 seconds. Impression: - The major papilla was adjacent to a diverticulum. - The entire main bile duct was mildly dilated. No strictrue seen. - A biliary sphincterotomy was performed. - The biliary tree was swept and sludge was found. - One plastic stent was placed into the ventral pancreatic duct. - One plastic stent was placed into the common bile duct. Recommendation: - Return patient to [facility] for [facility] care. - Avoid aspirin and nonsteroidal anti-inflammatory medicines for 5 days. - Refer to a surgeon for cholecystectomy. - Monitor LFTs. - Can resume Coumadin after 2 days. - Repeat ERCP in 8 weeks for Biliary stent removal. - Obtain KUB in 3 weeks to check migration of the pancreatic stent. Noelle Douglas MD 09/23/2018 3:56:12 PM This report has been signed electronically. Note Initiated On: 09/23/2018 2:44 PM Number of Addenda: 0 I attest to the content of the Intraoperative Record and orders documented therein, exceptions below {[id number]}
--- NOTE | 2018-09-23 16:19 | Anesthesiology Progress Note ---
Date of Service September 23, 2018 Anesthesia Post Procedure Vital Signs Vital Signs: Temp Pulse Pulse Pulse Resp BP BP 09/23/18 16:05 92 H 17 152/99 H 09/23/18 15:55 91 H 23 146/94 H 09/23/18 15:47 36.5 C 103 H 21 142/86 H 09/23/18 14:06 37.4 C 85 18 139/87 09/23/18 07:28 37.2 C 90 20 158/85 H 09/22/18 23:10 37.8 C H 97 H 21 112/61 09/22/18 22:40 37.6 C H 97 H 18 118/78 09/22/18 22:25 37.4 C 95 H 16 108/68 09/22/18 22:08 89 16 09/22/18 22:04 37.9 C H 105 H 18 109/74 09/22/18 21:21 89 146/84 H Pulse Ox 09/23/18 16:05 100 09/23/18 15:55 99 09/23/18 15:47 97 09/23/18 14:06 97 09/23/18 07:28 96 09/22/18 23:10 93 09/22/18 22:40 94 09/22/18 22:25 93 09/22/18 22:08 94 09/22/18 22:04 93 09/22/18 21:21 Transfer of Care Handoff Completed per policy Notes Mental Status: alert / awake / arousable Patient Amnestic to Procedure: Yes Nausea / Vomiting: adequately controlled Pain: adequately controlled Airway Patency, RR, SpO2: stable & adequate BP & HR: stable & adequate Hydration State: stable & adequate Anesthetic Complications: no major complications apparent Notes: Awake, doing well, no complaints. VSS
[2018-09-23] MEDS ORDERED: Nursing to Pharmacy Communication ONE (17:01)
[2018-09-23] MEDS: CARVEDILOL 25 MG TAB PO SCH (20:46)
--- NOTE | 2018-09-23 21:06 | Hospitalist Progress Note ---
Date of Service September 23, 2018 Assessment & Plan (1) Sepsis: 2nd to biliary tract disease. Probable acute cholecystitis (with possible cholangitis). Sepsis resolving. (2) Cholelithiasis: Gen surgery consult for lap senthil. (3) Abnormal finding of biliary tract: Fevers, prior chills, abnormal LFTs, gallstones, and narrowing of distal CBD on MRCP all concerning for biliary sepsis as cause of presenting illness. s/p ERCP with sludge noted in the CBD. Fluid in the duct was clear, however. Blood cx's neg to date. Appreciate GI consultation and assistance. Continue IVF. Continue IV unasyn. Repeat LFTs am. Consult gen surgery for lap senthil. (4) Atrial fibrillation: rates controlled with BB. coumadin was reversed for ERCP. (5) Hypothyroidism: TSH minimally elevated at 4.5. no change in dose. simply repeat TSH as outpatient in 3-4 weeks. (6) Hypokalemia: resolved (7) Essential (primary) hypertension: continue home meds (8) DM w/o complication type II: holding metformin. novolog sliding scale. (9) Morbid obesity with BMI of 45.0-49.9, adult: BMI 49.9 (10) DVT prophylaxis: start heparin 5000 TID while INR is reversed extensively updated at bedside today Subjective saw patient post ERCP today resting well mild abdominal discomfort only no nausea able to eat liquids w/o difficulty Review of Systems Constitutional: no fatigue Respiratory: no dyspnea Cardiovascular: no chest pain, no orthopnea and no paroxysmal nocturnal dyspnea Gastrointestinal: no nausea and no vomiting Physical Exam Constitutional: well developed, well nourished and + morbidly obese; no acute distress and not ill appearing ENMT: external ear and nose normal, oropharynx normal Respiratory: normal respiratory effort, lungs clear to auscultation Cardiovascular: Rate/Rhythm: regular rate and + irregularly irregular Heart Sounds: normal S1 and normal S2; no murmur Vessels: posterior tibial pulses present and dorsalis pedis pulses present; no JVD Extremities: no edema Gastrointestinal (Abdomen): Percussion/Palpation: abdomen soft; no guarding, no hepatosplenomegaly, no hernia and no abdominal mass Skin: no jaundice Psychiatric: Orientation: alert and oriented x 3 Results & Data Vital Signs (Past 12 Hours) Vital Signs Temp Pulse Pulse Pulse Resp BP BP 09/23/18 20:44 99 H 168/98 H 09/23/18 16:45 36.7 C 89 18 152/98 H 09/23/18 16:25 36.6 C 90 19 147/89 H 09/23/18 16:15 92 H 15 146/83 H 09/23/18 16:05 92 H 17 152/99 H 09/23/18 15:55 91 H 23 146/94 H 09/23/18 15:47 36.5 C 103 H 21 142/86 H 09/23/18 14:06 37.4 C 85 18 139/87 Pulse Ox 09/23/18 20:44 95 09/23/18 16:45 93 09/23/18 16:25 95 09/23/18 16:15 94 09/23/18 16:05 100 09/23/18 15:55 99 09/23/18 15:47 97 09/23/18 14:06 97 Laboratory Results Laboratory Results - last 24 hr 09/23/18 09/23/18 09/23/18 00:18 05:53 06:41 WBC RBC Hgb Hct MCV MCH MCHC RDW Std Deviation RDW Coeff of Staci Plt Count MPV Immature Gran % (Auto) Neut % (Auto) Lymph % (Auto) Morrison % (Auto) Eos % (Auto) Baso % (Auto) Immature Gran # (Auto) Neut # (Auto) Lymph # (Auto) Morrison # (Auto) Eos # (Auto) Baso # (Auto) PT 14.3 H INR 1.4 H Sodium Potassium Chloride Carbon Dioxide Anion Gap BUN Creatinine Est Cr Clr Drug Dosing Est GFR ( Amer) Est GFR (Non-Af Amer) BUN/Creatinine Ratio Glucose POC Glucose 146 H 110 H Calcium Total Bilirubin AST ALT Alkaline Phosphatase Total Protein Albumin Globulin Albumin/Globulin Ratio 09/23/18 09/23/18 09/23/18 06:41 06:41 10:37 WBC 4.99 RBC 4.26 L Hgb 11.8 L Hct 35.7 L MCV 83.8 MCH 27.7 MCHC 33.1 RDW Std Deviation 44.3 RDW Coeff of Staci 14.5 Plt Count 157 MPV 8.7 Immature Gran % (Auto) 0.4 Neut % (Auto) 61.2 Lymph % (Auto) 21.2 Morrison % (Auto) 14.0 Eos % (Auto) 2.8 Baso % (Auto) 0.4 Immature Gran # (Auto) 0.02 Neut # (Auto) 3.05 Lymph # (Auto) 1.06 L Morrison # (Auto) 0.70 H Eos # (Auto) 0.14 Baso # (Auto) 0.02 PT 13.5 H INR 1.3 H Sodium 139 Potassium 3.6 Chloride 109 H Carbon Dioxide 25 Anion Gap 5.0 BUN 10 Creatinine 0.87 Est Cr Clr Drug Dosing 113.0 Est GFR ( Amer) 105.0 Est GFR (Non-Af Amer) 90.6 BUN/Creatinine Ratio 11.0 Glucose 111 H POC Glucose Calcium 7.9 L Total Bilirubin 1.1 H AST 105 H ALT 117 H Alkaline Phosphatase 103 Total Protein 6.5 Albumin 2.3 L Globulin 4.2 H Albumin/Globulin Ratio 0.5 L 09/23/18 09/23/18 09/23/18 12:19 15:49 17:06 WBC RBC Hgb Hct MCV MCH MCHC RDW Std Deviation RDW Coeff of Staci Plt Count MPV Immature Gran % (Auto) Neut % (Auto) Lymph % (Auto) Morrison % (Auto) Eos % (Auto) Baso % (Auto) Immature Gran # (Auto) Neut # (Auto) Lymph # (Auto) Morrison # (Auto) Eos # (Auto) Baso # (Auto) PT INR Sodium Potassium Chloride Carbon Dioxide Anion Gap BUN Creatinine Est Cr Clr Drug Dosing Est GFR ( Amer) Est GFR (Non-Af Amer) BUN/Creatinine Ratio Glucose POC Glucose 102 H 144 H 146 H Calcium Total Bilirubin AST ALT Alkaline Phosphatase Total Protein Albumin Globulin Albumin/Globulin Ratio 09/23/18 20:13 WBC RBC Hgb Hct MCV MCH MCHC RDW Std Deviation RDW Coeff of Staci Plt Count MPV Immature Gran % (Auto) Neut % (Auto) Lymph % (Auto) Morrison % (Auto) Eos % (Auto) Baso % (Auto) Immature Gran # (Auto) Neut # (Auto) Lymph # (Auto) Morrison # (Auto) Eos # (Auto) Baso # (Auto) PT INR Sodium Potassium Chloride Carbon Dioxide Anion Gap BUN Creatinine Est Cr Clr Drug Dosing Est GFR ( Amer) Est GFR (Non-Af Amer) BUN/Creatinine Ratio Glucose POC Glucose 223 H Calcium Total Bilirubin AST ALT Alkaline Phosphatase Total Protein Albumin Globulin Albumin/Globulin Ratio (1) DM w/o complication type II 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 mulcher operator insulin use: without nursing home use Qualified Code(s): E11.9 - Type 2 diabetes mellitus without complications (2) Atrial fibrillation Atrial fibrillation type: permanent Qualified Code(s): I48.2 - Chronic atrial fibrillation (3) Hypothyroidism Hypothyroidism type: acquired Qualified Code(s): E03.9 - Hypothyroidism, unspecified (4) Cholelithiasis Cholelithiasis location: gallbladder and bile duct Cholecystitis presence: with cholecystitis Cholecystitis acuity: acute Biliary obstruction: without biliary obstruction Qualified Code(s): K80.62 - Calculus of gallbladder and bile duct with acute cholecystitis without obstruction (5) Sepsis Sepsis type: sepsis due to unspecified organism Qualified Code(s): A41.9 - Sepsis, unspecified organism
[2018-09-24] MEDS ORDERED: INSULIN ASPART 100 UNITS/ML 3 ML PEN SC STA (00:42)
[2018-09-24] MEDS: AMPICILLIN/SULBACTAM SOD 3,000 MG in 0.9 % SODIUM CHLORIDE 100 ML IV SCH ×4 (03:58→21:20)
[2018-09-24] MEDS: LEVOTHYROXINE SODIUM 50 MCG TABLET PO SCH (05:34)
[2018-09-24 06:23] LABS: Albumin Level 2.4 gm/dl (3.4-5.0); BUN Creatinine Ratio 15.7 (10-20); Creatinine Clr Calc Pharmacy 117.1 ml/min; Est GFR (African American) 106.5; Est GFR (Non-African American) 91.9; Potassium 4.1 mmol/L (3.5-5.1)
[2018-09-24 06:26] LABS: Albumin Globulin Ratio 0.5 (0.9-2); Bilirubin,Total 0.9 mg/dl (0.2-1); Globulin 4.5 gm/dl (2.5-4.0); Total Protein 6.9 gm/dl (6.4-8.2)
--- NOTE | 2018-09-24 08:08 | Surgery Consultation ---
Date of Consultation September 24, 2018 Assessment & Plan (1) Cholelithiasis: This patient has cholelithiasis and sludge in his common bile duct. ERCP was performed to clear the duct and stents were placed. We are planning for laparoscopic cholecystectomy. I explained the procedure to him and the possible need to convert to an open procedure. I explained the possible complications and answered his questions. His anticoagulation was stopped prior to the ERCP and has not been reinitiated. We are planning for the procedure later today. Present on Admission?: Yes History of Present Illness Reason for Consultation: Cholelithiasis status post ERCP Requesting Physician: Cezar Ma Attending Physician: Cezar Ma History of Present Illness I have been asked by Dr. Ma to see this 63-year-old male who presented to the emergency room with a history of intermittent fevers and vague abdominal discomfort. About a week ago he was in [place] and developed the acute onset of abdominal discomfort where he points to the epigastric and left side of his abdomen. He was seen at a hospital in [place] and a CT was performed. The discomfort resolved. The CT head no acute abnormalities. He returned home. He again developed fevers that he says were as high as 104. He was reevaluated. He was then found to have a mildly dilated common bile duct and ERCP was performed yesterday. Sludge was removed. Stents were placed in the common bile duct as well as the pancreatic duct. He was noted to have gallstones. The gallbladder did fill during the ERCP. At present he feels well. He denies abdominal pain. He has not had a fever over the last 24 hours. He has never had previous abdominal surgery. He has no previous history of this pain prior to a week ago. He is never had jaundice, hepatitis or pancreatitis. He is on Coumadin for history of atrial fibrillation but was given vitamin K prior to the ERCP. His INR yesterday was 1.3. He has not had Coumadin since. Allergies Allergy/AdvReac Type Severity Reaction Status Date / Time No Known Allergies Allergy Mild Unverified 09/23/18 14:04 Home Medications Home Medications Medication Instructions Recorded Confirmed Type atorvastatin 40 mg PO DAILY 09/19/18 09/20/18 History calcium carbonate [Calcium 600] 600 mg PO DAILY 09/19/18 09/20/18 History carvedilol 12.5 mg PO QAM 09/19/18 09/20/18 History carvedilol 25 mg PO QPM 09/19/18 09/20/18 History cholecalciferol (vitamin D3) 2,000 unit PO DAILY 09/19/18 09/20/18 History [Vitamin D3] cyanocobalamin (vitamin B-12) 1,000 mcg PO DAILY 09/19/18 09/20/18 History furosemide 40 mg PO BID 09/19/18 09/20/18 History levothyroxine 50 mcg PO DAILY 09/19/18 09/20/18 History lisinopril 2.5 mg PO DAILY 09/19/18 09/20/18 History metformin 1,000 mg PO BID 09/19/18 09/20/18 History metoprolol tartrate 50 mg PO BID 09/19/18 09/20/18 History potassium chloride 10 meq PO DAILY 09/19/18 09/20/18 History testosterone 2 pump TRANSDERMAL DAILY 09/19/18 09/20/18 History warfarin 2.5 mg PO 2XWK 09/19/18 09/20/18 History warfarin 5 mg PO 5XWK 09/19/18 09/20/18 History Patient History Medical History Morbid obesity with BMI of 45.0-49.9, adult DM w/o complication type II Essential (primary) hypertension Klinefelters syndrome On testosterone Atrial fibrillation Rate controlled Abdominal pain (Acute) Adrenal crisis Hypertension Hypothyroidism Low testosterone Pancreatitis No significant past surgical history Family History Unknown Diabetes Other No significant family history Social History Preferred Language: Indonesian Communication Ability: Effective Beliefs That Will Affect Care: None marital status: Current Living Situation: Spouse Current Living Situation Comment: House current occupational status: employed Other Information That Helps Us Care for You: No Feels Safe at Home: Yes Safety Concerns: Feels Safe At This Time Smoking Status: Never smoker Hx Alcohol Use: No Hx Substance Use: No Review of Systems Constitutional: no fever (None in the last 24 hours) and no chills Respiratory: no cough and no chest congestion Cardiovascular: no chest pain Gastrointestinal: as per Subjective / HPI Genitourinary: no dysuria and no urinary frequency Physical Exam Constitutional: + obese; no acute distress Neck: trachea midline Respiratory: normal respiratory effort, lungs clear to auscultation Cardiovascular: Rate/Rhythm: + abnormal rate Irregularly irregular Gastrointestinal (Abdomen): Inspection/Auscultation: abdomen not distended Percussion/Palpation: abdomen soft; abdomen nontender Lymphatic: no cervical lymphadenopathy Results & Data Vital Signs (Past 12 Hours) Vital Signs Temp Pulse Pulse Resp BP Pulse Ox 09/24/18 07:30 36.7 C 88 20 179/99 H 96 09/24/18 06:52 71 20 97 09/24/18 01:51 71 28 H 92 09/23/18 22:37 36.6 C 74 20 157/87 H 97 09/23/18 20:44 99 H 168/98 H 95 Laboratory Results 09/24/18 09/24/18 09/24/18 Range/Units 06:05 05:29 02:12 PT (9.0-12.0) Seconds INR (0.9-1.1) Sodium 138 (136-145) mmol/L Potassium 4.1 (3.5-5.1) mmol/L Chloride 109 H (98-107) mmol/L Carbon Dioxide 23 (21-32) mmol/L Anion Gap 6.0 (3-11) BUN 13 (7-18) mg/dl Creatinine 0.84 (0.6-1.4) mg/dl Est Cr Clr Drug Dosing 117.1 ml/min Est GFR ( Amer) 106.5 Est GFR (Non-Af Amer) 91.9 BUN/Creatinine Ratio 15.7 (10-20) Glucose 172 H (70-99) mg/dl POC Glucose 159 H 194 H (70-99) Calcium 8.0 L (8.5-10.1) mg/dl Total Bilirubin 0.9 (0.2-1) mg/dl AST 67 H (15-37) U/L ALT 115 H (12-78) U/L Alkaline Phosphatase 107 (45-117) U/L Total Protein 6.9 (6.4-8.2) gm/dl Albumin 2.4 L (3.4-5.0) gm/dl Globulin 4.5 H (2.5-4.0) gm/dl Albumin/Globulin Ratio 0.5 L (0.9-2) 09/24/18 09/23/18 09/23/18 Range/Units 00:15 20:13 17:06 PT (9.0-12.0) Seconds INR (0.9-1.1) Sodium (136-145) mmol/L Potassium (3.5-5.1) mmol/L Chloride (98-107) mmol/L Carbon Dioxide (21-32) mmol/L Anion Gap (3-11) BUN (7-18) mg/dl Creatinine (0.6-1.4) mg/dl Est Cr Clr Drug Dosing ml/min Est GFR ( Amer) Est GFR (Non-Af Amer) BUN/Creatinine Ratio (10-20) Glucose (70-99) mg/dl POC Glucose 249 H 223 H 146 H (70-99) Calcium (8.5-10.1) mg/dl Total Bilirubin (0.2-1) mg/dl AST (15-37) U/L ALT (12-78) U/L Alkaline Phosphatase (45-117) U/L Total Protein (6.4-8.2) gm/dl Albumin (3.4-5.0) gm/dl Globulin (2.5-4.0) gm/dl Albumin/Globulin Ratio (0.9-2) 09/23/18 09/23/18 09/23/18 Range/Units 15:49 12:19 10:37 PT 13.5 H (9.0-12.0) Seconds INR 1.3 H (0.9-1.1) Sodium (136-145) mmol/L Potassium (3.5-5.1) mmol/L Chloride (98-107) mmol/L Carbon Dioxide (21-32) mmol/L Anion Gap (3-11) BUN (7-18) mg/dl Creatinine (0.6-1.4) mg/dl Est Cr Clr Drug Dosing ml/min Est GFR ( Amer) Est GFR (Non-Af Amer) BUN/Creatinine Ratio (10-20) Glucose (70-99) mg/dl POC Glucose 144 H 102 H (70-99) Calcium (8.5-10.1) mg/dl Total Bilirubin (0.2-1) mg/dl AST (15-37) U/L ALT (12-78) U/L Alkaline Phosphatase (45-117) U/L Total Protein (6.4-8.2) gm/dl Albumin (3.4-5.0) gm/dl Globulin (2.5-4.0) gm/dl Albumin/Globulin Ratio (0.9-2) Diagnostic Findings ABDOMINAL ULTRASOUND, RIGHT UPPER QUADRANT HISTORY: fever, chills, abd pain, nausea. COMPARISON: Abdomen and pelvis CT 09/19/2018. FINDINGS: Pancreas: The pancreas demonstrates a normal echotexture. Liver: Unremarkable. Gallbladder: No gallbladder wall thickening. Multiple small gallstones are i dentified. CBD: Mildly dilated measuring up to 8 mm. Right kidney: No hydronephrosis. A 4.5 cm upper pole cyst. IMPRESSION: 1. Multiple small gallstones. No gallbladder wall thickening. 2. The common bile duct is mildly dilated measuring up to 8 mm. Patient Name: Kirby Bonds Procedure Date: 09/23/2018 2:44 PM Date of : 1955 Admit Type: Inpatient Age: 63 Gender: Male Attending MD: Noelle Douglas MD Procedure: ERCP Providers: Noelle Douglas MD Referring MD: Cezar Ma Indications: Abnormal MRCP, Suspected ascending cholangitis, Elevated liver enzymes Medicines: General Anesthesia Complications: No immediate complications. Estimated Blood Loss: Estimated blood loss: none. Procedure: Pre-Anesthesia Assessment: - Prior to the procedure, a History and Physical was performed, and patient medications and allergies were reviewed. The patient is competent. The risks and benefits of the procedure and the sedation options and risks were discussed with the patient. All questions were answered and informed consent was obtained. Patient identification and proposed procedure were verified by the physician and the nurse in the procedure room. Mental Status Examination: alert and oriented. Airway Examination: normal oropharyngeal airway and neck mobility. Respiratory Examination: clear to auscultation. CV Examination: normal. ASA Grade Assessment: III - A patient with severe systemic disease. After reviewing the risks and benefits, the patient was deemed in satisfactory condition to undergo the procedure. The anesthesia plan was to use general anesthesia. Immediately prior to administration of medications, the patient was re-assessed for adequacy to receive sedatives. The heart rate, respiratory rate, oxygen saturations, blood pressure, adequacy of pulmonary ventilation, and response to care were monitored throughout the procedure. The physical status of the patient was re-assessed after the procedure. After obtaining informed consent, the scope was passed under direct vision. Throughout the procedure, the patient's blood pressure, pulse, and oxygen saturations were monitored continuously. The scope was introduced through the mouth, and advanced to the duodenum and used to inject contrast into the bile duct. The ERCP was accomplished without difficulty. The patient tolerated the procedure well. Findings: The rehab physician film was normal. The esophagus was successfully intubated under direct vision. The scope was advanced to a normal major papilla in the descending duodenum without detailed examination of the pharynx, larynx and associated structures, and upper GI tract. The upper GI tract was grossly normal. The major papilla was adjacent to a diverticulum. The ventral pancreatic duct was inadvertently cannulated with the Fusion OMNI sphincterotome without any complications. The guidewire was kept in place to assist in biliary cannulation. A 0.035 inch straight standard wire was passed into the biliary tree. The Fusion OMNI sphincterotome was passed over the guidewire and the bile duct was then deeply cannulated. Contrast was injected. I personally interpreted the bile duct images. Ductal flow of contrast was adequate. Image quality was adequate. Contrast extended to the main bile duct. The main bile duct was mildly dilated. The largest diameter was 8 mm. No stricture seen. Opacification of the gallbladder was seen and multiple stones noted. Biliary sphincterotomy was made with a monofilament Fusion OMNI sphincterotome using ERBE electrocautery. There was no post-sphincterotomy bleeding. The biliary tree was swept with an 11.5 mm balloon starting at the bifurcation. Sludge was swept from the duct. One 5 Fr by 9 cm plastic stent with a single external flap and no internal flaps was placed into the ventral pancreatic duct. Clear fluid flowed through the stent. The stent was in good position. One 10 Fr by 7 cm plastic stent with a single external flap and a single internal flap was placed into the common bile duct. Bile flowed through the stent. The stent was in good position. Indomethacin 100 mg was given via suppository to decrease the risk of post-ERCP pancreatitis (PEP). The total fluoroscopy exposure time was 1 minute and 51 seconds. Impression: - The major papilla was adjacent to a diverticulum. - The entire main bile duct was mildly dilated. No strictrue seen. - A biliary sphincterotomy was performed. - The biliary tree was swept and sludge was found. - One plastic stent was placed into the ventral pancreatic duct. - One plastic stent was placed into the common bile duct. Recommendation: - Return patient to [facility] for ongoing care. - Avoid aspirin and nonsteroidal anti-inflammatory medicines for 5 days. - Refer to a surgeon for cholecystectomy. - Monitor LFTs. - Can resume Coumadin after 2 days. - Repeat ERCP in 8 weeks for Biliary stent removal. - Obtain KUB in 3 weeks to check migration of the pancreatic stent.
[2018-09-24] MEDS: LISINOPRIL 2.5 MG TAB PO SCH (08:26)
[2018-09-24] MEDS: POTASSIUM CHLORIDE 10 MEQ TABCR PO SCH (08:26)
[2018-09-24] MEDS: CARVEDILOL 12.5 MG TAB PO SCH (08:26)
[2018-09-24] MEDS: NYSTATIN OINT 15 GM TUBE EXT SCH ×2 (08:26→15:54)
[2018-09-24] MEDS: METOPROLOL TARTRATE 50 MG TAB PO SCH ×2 (08:26→21:06)
--- NOTE | 2018-09-24 09:00 | Anesthesiology Consultation ---
Date of Service September 24, 2018 Assessment & Plan (1) Encounter for pre-operative examination: Chart Review Chart Review: Acceptable Risk for Surgery and Patient NOT seen in Pre Admission Testing Consults Requested medical medicine is following the patient History Surgery Operation Date: 09/23/18 13:30 Proposed Procedures p Endoscopic Retrograde Cholangiopancreatography - Noelle Douglas MD Operation Date: 09/24/18 11:10 Proposed Procedures p Laparoscopic Cholecystectomy - Cam Todd MD Height/Weight Height: 5 ft 6 in Weight: 140.3 kg Allergies Allergy/AdvReac Type Severity Reaction Status Date / Time No Known Allergies Allergy Mild Unverified 09/23/18 14:04 Medications Home Medications Medication Instructions Recorded Confirmed Last Taken atorvastatin 40 mg PO DAILY 09/19/18 09/20/18 Unknown calcium carbonate [Calcium 600] 600 mg PO DAILY 09/19/18 09/20/18 Unknown carvedilol 12.5 mg PO QAM 09/19/18 09/20/18 Unknown carvedilol 25 mg PO QPM 09/19/18 09/20/18 Unknown cholecalciferol (vitamin D3) 2,000 unit PO DAILY 09/19/18 09/20/18 Unknown [Vitamin D3] cyanocobalamin (vitamin B-12) 1,000 mcg PO DAILY 09/19/18 09/20/18 Unknown furosemide 40 mg PO BID 09/19/18 09/20/18 Unknown levothyroxine 50 mcg PO DAILY 09/19/18 09/20/18 Unknown lisinopril 2.5 mg PO DAILY 09/19/18 09/20/18 Unknown metformin 1,000 mg PO BID 09/19/18 09/20/18 Unknown metoprolol tartrate 50 mg PO BID 09/19/18 09/20/18 Unknown potassium chloride 10 meq PO DAILY 09/19/18 09/20/18 Unknown testosterone 2 pump TRANSDERMAL DAILY 09/19/18 09/20/18 Unknown warfarin 2.5 mg PO 2XWK 09/19/18 09/20/18 Unknown warfarin 5 mg PO 5XWK 09/19/18 09/20/18 Unknown Active Medications Generic Name Dose Route Start Last Admin Trade Name Freq PRN Reason Stop Dose Admin Acetaminophen 650 mg 09/20/18 19:23 09/21/18 21:08 Tylenol PO 10/20/18 19:22 650 mg Q4H PRN Administration pain/fever Carvedilol 25 mg 09/20/18 21:00 09/23/18 20:46 Coreg PO 10/20/18 20:59 25 mg QPM ELPIDIO Administration Carvedilol 12.5 mg 09/21/18 09:00 09/24/18 08:26 Coreg PO 10/21/18 08:59 12.5 mg QAM ELPIDIO Administration Furosemide 40 mg 09/20/18 20:00 09/21/18 16:57 Lasix PO 10/20/18 19:59 40 mg [id number] ELPIDIO Administration Potassium Chloride/Sodium Chloride 20 meq in 1,000 mls @ 100 mls/hr 09/21/18 12:15 09/24/18 08:15 Normal Saline W/20 Meq Kcl IV 10/21/18 12:14 Infused .Q10H ELPIDIO Infusion Ampicillin Sodium/Sulbactam 108 mls @ 200 mls/hr 09/21/18 16:00 09/24/18 04:48 Sodium 3,000 mg/ Sodium IV 10/01/18 15:59 Infused Chloride Q6H ELPIDIO Infusion Protocol Insulin Aspart 0 units 09/20/18 21:00 09/23/18 20:48 Novolog Flexpen SC 10/20/18 20:59 3 units ACHS ELPIDIO Administration Levothyroxine Sodium 50 mcg 09/21/18 06:30 09/24/18 05:34 Synthroid PO 10/21/18 06:29 50 mcg DAILYBB ELPIDIO Administration Lisinopril 2.5 mg 09/21/18 09:00 09/24/18 08:26 Zestril PO 10/21/18 08:59 2.5 mg DAILY ELPIDIO Administration Metoprolol Tartrate 50 mg 09/20/18 21:00 09/24/18 08:26 Lopressor PO 10/20/18 20:59 50 mg BID ELPIDIO Administration Nystatin 1 appln 09/21/18 00:00 09/24/18 08:26 Mycostatin EXT 10/21/18 00:00 1 appln QSHIFT ELPIDIO Administration Potassium Chloride 10 meq 09/21/18 09:00 09/24/18 08:26 Klor-Con M10 PO 10/21/18 08:59 10 meq DAILY ELPIDIO Administration Warfarin Sodium 5 mg 09/21/18 16:00 09/21/18 16:57 Coumadin PO 10/21/18 15:59 5 mg [id number] ELPIDIO Administration NPO Date Last Intake of Fluids: 09/22/18 Time Last Intake of Fluids: 21:30 Date Last Intake of Solids: 09/20/18 Time Last Intake of Solids: 10:00 Past Medical History Medical History Morbid obesity with BMI of 45.0-49.9, adult DM w/o complication type II Essential (primary) hypertension Klinefelters syndrome On testosterone Atrial fibrillation Rate controlled Abdominal pain (Acute) Adrenal crisis Hypertension Hypothyroidism Low testosterone Pancreatitis No significant past surgical history Past Family History Family History Unknown Diabetes Other No significant family history Past Surgical History Surgical History S/P ERCP 09/23/1819 Grade 2 view Mac 4 Social History Smoking Status: Never smoker Hx Alcohol Use: No Hx Substance Use: No Physical Exam Vital Signs Last Vital Signs Temp 36.7 C 09/24/18 07:30 Pulse 88 09/24/18 07:30 Resp 20 09/24/18 07:30 BP 179/99 H 09/24/18 07:30 Pulse Ox 96 09/24/18 07:30 Testing Electrocardiogram Date: 09/21/18 Findings: + AFIB @ (97 bpm with PVCs) Rightward axis Pulmonary disease pattern When compared with ECG of 11/11/2011 nonspecific T wave abnormality now evident in anterior lead Chest X-Ray Date: 09/19/18 Findings: + NAD Other Testing Laboratory Tests 02/09/18 09/02/18 09/20/18 12:57 10:15 15:46 WBC Hgb Hct Plt Count PT INR APTT 45.0 H Sodium Potassium Chloride Carbon Dioxide BUN Creatinine Glucose Hemoglobin A1c Free T4 0.94 TSH 4.570 H 09/21/18 09/23/18 09/23/18 05:17 06:41 10:37 WBC 4.99 Hgb 11.8 L Hct 35.7 L Plt Count 157 PT 13.5 H INR 1.3 H APTT Sodium Potassium Chloride Carbon Dioxide BUN Creatinine Glucose Hemoglobin A1c 6.6 H Free T4 TSH 09/24/18 05:29 WBC Hgb Hct Plt Count PT INR APTT Sodium 138 Potassium 4.1 Chloride 109 H Carbon Dioxide 23 BUN 13 Creatinine 0.84 Glucose 172 H Hemoglobin A1c Free T4 TSH
[2018-09-24] MEDS ORDERED: MIDAZOLAM HCL 1 MG/ML 2ML VIAL ONE (09:09)
[2018-09-24] MEDS ORDERED: fentaNYL citrate 100 MCG/2 ML VIAL ONE ×2 (09:09→11:41)
[2018-09-24] MEDS ORDERED: LIDOCAINE HCL 2% 2 ML VIAL/AMP(20MG/ML) INFIL ONE (09:20)
[2018-09-24] MEDS ORDERED: SUCCINYLCHOLINE CHLORIDE 20 MG/ML 10 ML VIAL ONE (09:20)
[2018-09-24] MEDS ORDERED: PROPOFOL IV EMULSION 10 MG/ML 20 ML VIAL IV ONE (09:20)
[2018-09-24] MEDS ORDERED: ONDANSETRON INJ 2 MG/ML 2 ML VIAL ONE ×2 (09:21→09:44)
[2018-09-24] MEDS ORDERED: HEPARIN SOD (PORCINE) 1000 UNIT/ML 10 ML VIAL ONE (09:33)
[2018-09-24] MEDS ORDERED: CEFAZOLIN 250 MG/ML 1 GM VIAL ONE (09:33)
[2018-09-24] MEDS ORDERED: BUPIVACAINE 0.5 % 5 MG/1 ML MPF 30ML VIAL ONE (09:38)
[2018-09-24] MEDS ORDERED: ONDANSETRON INJ 2 MG/ML 2 ML VIAL IV PRN (09:38)
[2018-09-24] MEDS ORDERED: HYDROmorphone INJ 1 MG/ML SYRINGE IV PRN (09:38)
[2018-09-24] MEDS ORDERED: MEPERIDINE HCL 25 MG/ML CARP IV PRN (09:38)
[2018-09-24] MEDS ORDERED: PHENYLEPHRINE 100MCG/ML 5ML SYR IV PRN (09:38)
[2018-09-24] MEDS ORDERED: ePHEDrine sulfate 50 MG/ML AMP IV PRN (09:38)
[2018-09-24] MEDS ORDERED: LABETALOL HCL IV 5 MG/ML 20ML IV PRN (09:38)
[2018-09-24] MEDS ORDERED: ATROPINE SULFATE 0.1 MG/ML 10ML SYR IV PRN (09:38)
[2018-09-24] MEDS ORDERED: DEXAMETHASONE SOD INJ 4 MG/ML VIAL ONE (09:44)
[2018-09-24] MEDS: INSULIN ASPART 100 UNITS/ML 3 ML PEN SC SCH ×3 (09:55→21:06)
[2018-09-24] MEDS ORDERED: ROCURONIUM BROMIDE 10 MG/ML 5 ML VIAL ONE (10:06)
[2018-09-24] MEDS ORDERED: NEOSTIGMINE METHYLSULFATE 5 MG/5 ML SYR ONE (10:07)
[2018-09-24] MEDS ORDERED: GLYCOPYRROLATE 0.2 MG/ML VIAL ONE (10:07)
--- NOTE | 2018-09-24 10:53 | Gastroenterology Progress Note ---
Date of Service September 24, 2018 Assessment & Plan (1) Abnormal finding of biliary tract: 63 year old male with intermittent high fevers at home w/ rigors and intermittent right sided abd pain. Blood cultures without growth, no other source of fevers identified. He does have dilation of CBD to 8mm, tiny gallstones and evidence of a biliary stricture on MR although no discrete mass is identified. Will need to rule out biliary source of infection. We are unable to complete ERCP given his anticoagulated state but will plan for ERCP Friday. S/P ERCP w/o evidence of stricture but sludge. To be evaluated by general surgery who has plans for cholecystectomy - Avoid aspirin and nonsteroidal anti-inflammatory medicines for 5 days. - Monitor LFTs. - Can resume Coumadin after 2 days. - Repeat ERCP in 8 weeks for Biliary stent removal. - Obtain KUB in 3 weeks to check migration of the pancreatic stent GI to sign off. Thank you for allowing us to participate in the care of this patient. Please call with any acute changes, questions or concerns. Please see addendum below with additional recommendation from my supervising physician. Supervising Physician Co-Signing Physician Notes I performed a history and physical examination of the patient, including specifically on physical exam - soft, nontender abdomen. I have discussed the patient's management with Caty. Please refer to the nurse practitioner's note for the documented findings and plan of care. Subjective Pt was seen and evaluated, chart reviewed. Plan for cholecystectomy this admission Feels well No abd pain No nausea, vomiting No fever since ERCP Review of Systems Constitutional: no fever Respiratory: no cough Cardiovascular: no chest pain Gastrointestinal: no abdominal pain, no nausea and no vomiting Physical Exam Constitutional: WD/WN, vitals as above Neck: trachea midline, no thyromegaly Respiratory: normal respiratory effort, lungs clear to auscultation Cardiovascular: RRR, no murmur, no edema Gastrointestinal (Abdomen): normal bowel sounds, soft, nontender, no hepatos plenomegaly Results & Data Vital Signs (Past 12 Hours) Vital Signs Temp Pulse Pulse Pulse Resp BP Pulse Ox 09/24/18 09:07 37.1 C 86 18 161/108 H 97 09/24/18 07:30 36.7 C 88 20 179/99 H 96 09/24/18 06:52 71 20 97 09/24/18 01:51 71 28 H 92
[2018-09-24] MEDS ORDERED: FLOSEAL HEMOSTATIC MATRIX 10ML TOP ONE (11:23)
[2018-09-24] MEDS ORDERED: SURGICEL ABSORB HEMOSTAT 2IN X 14IN TOP ONE (11:23)
--- NOTE | 2018-09-24 11:56 | Post Operative Brief Note ---
Immediate Post Op Note v1 Date of Surgery September 24, 2018 Pre & Post Diagnosis Operation Date: 09/23/18 13:30 Pre-Op Diagnosis: colangitis Post-Op Diagnosis: Common bile duct stone Operation Date: 09/24/18 11:10 Pre-Op Diagnosis: Cholelithiasis Post-Op Diagnosis: Cholelithiasis Procedure Operation Date: 09/23/18 13:30 Actual Procedures p Endoscopic Retrograde Cholangiopancreatography(Not Applicable) - Noelle Douglas MD Operation Date: 09/24/18 11:10 Actual Procedures p Laparoscopic Cholecystectomy(Not Applicable) - Cam Todd MD Surgeon Cam Todd MD Local Sales Associate None Estimated Blood Loss 200 Findings Consistent with Post-Op Diagnosis Specimens Gallbladder and contents Drains [place]-B[place] Drain (10 fr flat in subhepatic space) Anesthesia Type General Complications none
[2018-09-24] MEDS: fentaNYL citrate 100 MCG/2 ML VIAL IV PRN ×4 (12:24→12:49)
--- NOTE | 2018-09-24 12:25 | Anesthesiology Progress Note ---
Date of Service September 24, 2018 Anesthesia Post Procedure Vital Signs Vital Signs: Temp Pulse Pulse Pulse Pulse Resp BP 09/24/18 12:20 86 13 136/81 09/24/18 12:10 89 25 H 125/80 09/24/18 12:02 37.2 C 95 H 14 111/75 09/24/18 09:07 37.1 C 86 18 161/108 H 09/24/18 07:30 36.7 C 88 20 179/99 H 09/24/18 06:52 71 20 09/24/18 01:51 71 28 H 09/23/18 22:37 36.6 C 74 20 157/87 H 09/23/18 20:44 99 H 168/98 H 09/23/18 16:45 36.7 C 89 18 152/98 H 09/23/18 16:25 36.6 C 90 19 147/89 H 09/23/18 16:15 92 H 15 146/83 H 09/23/18 16:05 92 H 17 152/99 H 09/23/18 15:55 91 H 23 146/94 H 09/23/18 15:47 36.5 C 103 H 21 142/86 H 09/23/18 14:06 37.4 C 85 18 BP Pulse Ox 09/24/18 12:20 97 09/24/18 12:10 97 09/24/18 12:02 96 09/24/18 09:07 97 09/24/18 07:30 96 09/24/18 06:52 97 09/24/18 01:51 92 09/23/18 22:37 97 09/23/18 20:44 95 09/23/18 16:45 93 09/23/18 16:25 95 09/23/18 16:15 94 09/23/18 16:05 100 09/23/18 15:55 99 09/23/18 15:47 97 09/23/18 14:06 139/87 97 Notes Mental Status: alert / awake / arousable and participated in evaluation Patient Amnestic to Procedure: Yes Nausea / Vomiting: adequately controlled Pain: adequately controlled Airway Patency, RR, SpO2: stable & adequate BP & HR: stable & adequate Hydration State: stable & adequate Anesthetic Complications: no major complications apparent and Pt Satisfied with anesthetic care
--- NOTE | 2018-09-24 12:56 | Anesthesiology Progress Note ---
Date of Service September 24, 2018 Anesthesia Post Procedure Vital Signs Vital Signs: Temp Pulse Pulse Pulse Pulse Resp BP 09/24/18 12:50 36.4 C L 83 17 139/87 09/24/18 12:40 84 18 137/81 09/24/18 12:30 83 22 127/85 09/24/18 12:20 86 13 136/81 09/24/18 12:10 89 25 H 125/80 09/24/18 12:02 37.2 C 95 H 14 111/75 09/24/18 09:07 37.1 C 86 18 161/108 H 09/24/18 07:30 36.7 C 88 20 179/99 H 09/24/18 06:52 71 20 09/24/18 01:51 71 28 H 09/23/18 22:37 36.6 C 74 20 157/87 H 09/23/18 20:44 99 H 168/98 H 09/23/18 16:45 36.7 C 89 18 152/98 H 09/23/18 16:25 36.6 C 90 19 147/89 H 09/23/18 16:15 92 H 15 146/83 H 09/23/18 16:05 92 H 17 152/99 H 09/23/18 15:55 91 H 23 146/94 H 09/23/18 15:47 36.5 C 103 H 21 142/86 H 09/23/18 14:06 37.4 C 85 18 BP Pulse Ox 09/24/18 12:50 94 09/24/18 12:40 92 09/24/18 12:30 96 09/24/18 12:20 97 09/24/18 12:10 97 09/24/18 12:02 96 09/24/18 09:07 97 09/24/18 07:30 96 09/24/18 06:52 97 09/24/18 01:51 92 09/23/18 22:37 97 09/23/18 20:44 95 09/23/18 16:45 93 09/23/18 16:25 95 09/23/18 16:15 94 09/23/18 16:05 100 09/23/18 15:55 99 09/23/18 15:47 97 09/23/18 14:06 139/87 97 Pain Intensity Abdomen: Pain Intensity: 2 Transfer of Care Handoff Completed per policy Notes Mental Status: alert / awake / arousable Patient Amnestic to Procedure: Yes Nausea / Vomiting: adequately controlled Pain: adequately controlled Airway Patency, RR, SpO2: stable & adequate BP & HR: stable & adequate Hydration State: stable & adequate Anesthetic Complications: no major complications apparent and Pt Satisfied with anesthetic care
[2018-09-24] MEDS ORDERED: MoRPHine SULFATE 4 MG/ML 1 ML CARP\\VIAL IV PRN (13:15)
[2018-09-24] MEDS ORDERED: OXYCODONE/ACETAMINOPHEN 5mg/325mg TAB PO PRN (13:15)
[2018-09-24] MEDS: NSS + 20MEQ KCL 20 MEQ/1,000 ML BAG IV SCH (13:19)
[2018-09-24] MEDS ORDERED: Nursing to Pharmacy Communication ONE (15:55)
[2018-09-24] MEDS: FUROSEMIDE 40 MG TAB PO SCH (16:41)
[2018-09-24] MEDS ORDERED: GLUCOSE 10 TABS/TUBE PO PRN (17:00)
[2018-09-24] MEDS ORDERED: DEXTROSE 50% 50 ML SYRINGE IV PRN (17:00)
[2018-09-24] MEDS ORDERED: CARBOHYDRATES FOR HYPOGLYCEMIA PO PRN (17:00)
[2018-09-24] MEDS ORDERED: GLUCOSE 40% GEL 15 GM TUBE PO PRN (17:00)
[2018-09-24] MEDS ORDERED: GLUCAGON FOR INJ 1 MG VIAL IM PRN (17:00)
--- NOTE | 2018-09-24 18:48 | Hospitalist Progress Note ---
Date of Service September 24, 2018 Assessment & Plan (1) Sepsis: 2nd to biliary tract disease - acute cholecystitis with choledocholithiasis (with possible cholangitis). s/p lap senthil today. sepsis resolved. continue IV unasyn today. augmentin perhaps tomorrow. (2) Cholelithiasis: With probable acute cholecystitis and possible cholangitis. s/p ERCP with removal of CBD sludge and placement of CBD stent and pancreatic duct stent. today - s/p lap senthil. appreciate GI and gen surgery assistance. cont IVF overnight. cont IV unasyn overnight. (3) Biliary sludge: (4) Atrial fibrillation: rates at rest controlled with BB (is on metoprolol and coreg). coumadin was reversed for ERCP. resume coumadin tomorrow. (5) Hypothyroidism: TSH minimally elevated at 4.5 at admission. no change in dose. simply repeat TSH as outpatient in 3-4 weeks. (6) Hypokalemia: resolved (7) Essential (primary) hypertension: continue home meds (8) DM w/o complication type II: holding metformin. novolog sliding scale. controlled (9) Morbid obesity with BMI of 45.0-49.9, adult: BMI 49.9 (10) DVT prophylaxis: start heparin 5000 TID while INR is reversed extensively updated at bedside today home tomorrow? Subjective saw the patient post-lap senthil today. he was resting comfortably. was at bedside. he had mild incisional discomfort only. no nausea. had eaten dinner w/o difficulty. denied other complaints. Review of Systems Constitutional: no fever and no chills Respiratory: no cough and no dyspnea Cardiovascular: no dyspnea at rest, no orthopnea and no paroxysmal nocturnal dyspnea Gastrointestinal: as per Subjective / HPI; no nausea and no vomiting Physical Exam Constitutional: well developed, well nourished and + morbidly obese; no acute distress and not ill appearing ENMT: external ear and nose normal, oropharynx normal Respiratory: normal respiratory effort, lungs clear to auscultation Cardiovascular: Rate/Rhythm: regular rate and + irregularly irregular Heart Sounds: normal S1 and normal S2; no murmur Vessels: posterior tibial pulses present and dorsalis pedis pulses present; no JVD Extremities: no edema Gastrointestinal (Abdomen): Inspection/Auscultation: + abdomen distended (mild) Percussion/Palpation: abdomen soft; no guarding, no hepatosplenomegaly, no hernia and no abdominal mass Skin: no rashes, warm and dry incisions abdominal wall clean; drain in place Psychiatric: Orientation: alert and oriented x 3 Results & Data Vital Signs (Past 12 Hours) Vital Signs Temp Pulse Pulse Pulse Pulse Resp BP 09/24/18 16:04 97 H 116/76 09/24/18 15:00 36.6 C 87 20 158/101 H 09/24/18 14:15 86 20 144/91 H 09/24/18 13:45 88 20 149/104 H 09/24/18 13:15 36.8 C 109 H 18 131/90 09/24/18 13:00 36.4 C L 75 18 131/95 09/24/18 12:50 36.4 C L 83 17 139/87 09/24/18 12:40 84 18 137/81 09/24/18 12:30 83 22 127/85 09/24/18 12:20 86 13 136/81 09/24/18 12:10 89 25 H 125/80 09/24/18 12:02 37.2 C 95 H 14 111/75 09/24/18 09:07 37.1 C 86 18 161/108 H 09/24/18 07:30 36.7 C 88 20 179/99 H 09/24/18 06:52 71 20 Pulse Ox 09/24/18 16:04 09/24/18 15:00 97 09/24/18 14:15 96 09/24/18 13:45 96 09/24/18 13:15 100 09/24/18 13:00 99 09/24/18 12:50 94 09/24/18 12:40 92 09/24/18 12:30 96 09/24/18 12:20 97 09/24/18 12:10 97 09/24/18 12:02 96 09/24/18 09:07 97 09/24/18 07:30 96 09/24/18 06:52 97 Laboratory Results Laboratory Results - last 24 hr 09/23/18 09/24/18 09/24/18 20:13 00:15 02:12 Sodium Potassium Chloride Carbon Dioxide Anion Gap BUN Creatinine Est Cr Clr Drug Dosing Est GFR ( Amer) Est GFR (Non-Af Amer) BUN/Creatinine Ratio Glucose POC Glucose 223 H 249 H 194 H Calcium Total Bilirubin AST ALT Alkaline Phosphatase Total Protein Albumin Globulin Albumin/Globulin Ratio 09/24/18 09/24/18 09/24/18 05:29 06:05 08:07 Sodium 138 Potassium 4.1 Chloride 109 H Carbon Dioxide 23 Anion Gap 6.0 BUN 13 Creatinine 0.84 Est Cr Clr Drug Dosing 117.1 Est GFR ( Amer) 106.5 Est GFR (Non-Af Amer) 91.9 BUN/Creatinine Ratio 15.7 Glucose 172 H POC Glucose 159 H 146 H Calcium 8.0 L Total Bilirubin 0.9 AST 67 H ALT 115 H Alkaline Phosphatase 107 Total Protein 6.9 Albumin 2.4 L Globulin 4.5 H Albumin/Globulin Ratio 0.5 L 09/24/18 09/24/18 09/24/18 09:08 12:05 17:18 Sodium Potassium Chloride Carbon Dioxide Anion Gap BUN Creatinine Est Cr Clr Drug Dosing Est GFR ( Amer) Est GFR (Non-Af Amer) BUN/Creatinine Ratio Glucose POC Glucose 165 H 173 H 194 H Calcium Total Bilirubin AST ALT Alkaline Phosphatase Total Protein Albumin Globulin Albumin/Globulin Ratio (1) DM w/o complication type II 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 fpc insulin use: without executive asst use Qualified Code(s): E11.9 - Type 2 diabetes mellitus without complications (2) Atrial fibrillation Atrial fibrillation type: permanent Qualified Code(s): I48.2 - Chronic atrial fibrillation (3) Hypothyroidism Hypothyroidism type: acquired Qualified Code(s): E03.9 - Hypothyroidism, unspecified (4) Sepsis Sepsis type: sepsis due to unspecified organism Qualified Code(s): A41.9 - Sepsis, unspecified organism (5) Cholelithiasis Biliary obstruction: without biliary obstruction Cholecystitis acuity: acute Cholecystitis presence: with cholecystitis Cholelithiasis location: gallbladder and bile duct Qualified Code(s): K80.62 - Calculus of gallbladder and bile duct with acute cholecystitis without obstruction
[2018-09-24] MEDS: CARVEDILOL 25 MG TAB PO SCH (21:06)
[2018-09-25] MEDS: NYSTATIN OINT 15 GM TUBE EXT SCH ×4 (00:04→20:48)
[2018-09-25] MEDS: NSS + 20MEQ KCL 20 MEQ/1,000 ML BAG IV SCH ×2 (00:28→09:12)
[2018-09-25 01:04] LABS: 18KDIGG Band NONREACTIVE (NONREACTIVE); 23KDIGG Band NONREACTIVE (NONREACTIVE); 23KDIGM Band NONREACTIVE (NONREACTIVE); 28KDIGG Band NONREACTIVE (NONREACTIVE); 30KDIGG Band NONREACTIVE (NONREACTIVE); 39KDIGG Band NONREACTIVE (NONREACTIVE); 39KDIGM Band NONREACTIVE (NONREACTIVE); 41KDIGG Band REACTIVE (NONREACTIVE); 41KDIGM Band NONREACTIVE (NONREACTIVE); 45KDIGG Band NONREACTIVE (NONREACTIVE); 58KDIGG Band NONREACTIVE (NONREACTIVE); 66KDIGG Band NONREACTIVE (NONREACTIVE); 93KDIGG Band NONREACTIVE (NONREACTIVE); Lyme Antibodies, WB IgG NEGATIVE (NEGATIVE); Lyme Antibodies, WB IgM NEGATIVE (NEGATIVE)
[2018-09-25] MEDS: AMPICILLIN/SULBACTAM SOD 3,000 MG in 0.9 % SODIUM CHLORIDE 100 ML IV SCH ×2 (03:54→09:14)
[2018-09-25] MEDS: LEVOTHYROXINE SODIUM 50 MCG TABLET PO SCH (05:16)
[2018-09-25 06:27] LABS: Hematocrit (blood only) 36.3 % (42-52); Hemoglobin 12.4 g/dL (14.0-18.0); Mean Corpuscular Hgb Conc 34.2 g/dL (32-36); Mean Corpuscular Volume 81.8 fL (80-100); Mean Platelet Volume 8.6 fL (7.4-10.4); Platelet Count 241 K/uL (130-400); RDW Coefficient of Variation 14.5 % (11.5-14.5); RDW Standard Deviation 43.2 fL (36.4-46.3); Red Blood Count 4.44 M/uL (4.7-6.1); White Blood Count 15.15 K/uL (4.8-10.8)
[2018-09-25 06:55] LABS: Albumin Level 2.5 gm/dl (3.4-5.0); BUN Creatinine Ratio 12.4 (10-20); Calcium 8.8 mg/dl (8.5-10.1); Creatinine Clr Calc Pharmacy 98.3 ml/min; Est GFR (African American) 91.1; Est GFR (Non-African American) 78.6; Potassium 4.4 mmol/L (3.5-5.1)
[2018-09-25 06:58] LABS: Albumin Globulin Ratio 0.6 (0.9-2); Bilirubin,Total 0.7 mg/dl (0.2-1); Globulin 4.4 gm/dl (2.5-4.0); Total Protein 6.9 gm/dl (6.4-8.2)
--- NOTE | 2018-09-25 08:37 | Surgery Progress Note ---
Date of Service September 25, 2018 Assessment & Plan (1) Cholelithiasis: POD # 1 s/p laparoscopic cholecystectomy -vitals stable, afebrile - H&H stable - bloody serosanguineous ROSA drain output - no post op pain - no n/v, tolerating diet Plan: Okay from surgical standpoint for discharge Discontinue drain prior to discharge Discharge instructions reviewed Follow-up surgical office in [address] Fletcher covering over the weekend Dr. Todd has seen and examined pt, agrees with above Subjective feeling great, no post op pain, has not required any pain medication tolerating diet, no n/v ambulating hallway Physical Exam Constitutional: WD/WN, vitals as above + morbidly obese; no acute distress and not ill appearing Respiratory: normal respiratory effort; no respiratory distress Gastrointestinal (Abdomen): Inspection/Auscultation: abdomen normal to inspection and + abdominal surgical drain present (with serosanguineous bloody output); abdomen not distended Percussion/Palpation: abdomen soft; abdomen nontender, no guarding and abdomen not rigid Skin: no rashes, warm and dry + incision (covered with dressings/clean/dry) Psychiatric: A+Ox3, euthymic affect Results & Data Vital Signs (Past 12 Hours) Vital Signs Temp Pulse Pulse Resp BP Pulse Ox 09/25/18 06:00 36.8 C 113 H 20 138/82 93 09/24/18 23:39 89 20 95 09/24/18 22:44 37.2 C 108 H 20 116/78 95 09/24/18 21:02 80 124/78 Laboratory Results 09/25/18 09/25/18 09/25/18 Range/Units 07:55 06:16 06:16 WBC 15.15 H (4.8-10.8) K/uL RBC 4.44 L (4.7-6.1) M/uL Hgb 12.4 L (14.0-18.0) g/dL Hct 36.3 L (42-52) % MCV 81.8 (80-100) fL MCH 27.9 (25-34) pg MCHC 34.2 (32-36) g/dL RDW Std Deviation 43.2 (36.4-46.3) fL RDW Coeff of Staci 14.5 (11.5-14.5) % Plt Count 241 D (130-400) K/uL MPV 8.6 (7.4-10.4) fL Sodium 139 (136-145) mmol/L Potassium 4.4 (3.5-5.1) mmol/L Chloride 111 H (98-107) mmol/L Carbon Dioxide 22 (21-32) mmol/L Anion Gap 6.0 (3-11) BUN 12 (7-18) mg/dl Creatinine 1.00 (0.6-1.4) mg/dl Est Cr Clr Drug Dosing 98.3 ml/min Est GFR ( Amer) 91.1 Est GFR (Non-Af Amer) 78.6 BUN/Creatinine Ratio 12.4 (10-20) Glucose 162 H (70-99) mg/dl POC Glucose 155 H (70-99) Calcium 8.8 (8.5-10.1) mg/dl Total Bilirubin 0.7 (0.2-1) mg/dl AST 61 H (15-37) U/L ALT 125 H (12-78) U/L Alkaline Phosphatase 102 (45-117) U/L Total Protein 6.9 (6.4-8.2) gm/dl Albumin 2.5 L (3.4-5.0) gm/dl Globulin 4.4 H (2.5-4.0) gm/dl Albumin/Globulin Ratio 0.6 L (0.9-2) Lyme IgG (Western Blot) (NEGATIVE) Lyme IgG 18 kDa Band (NONREACTIVE) Lyme IgG 23 kDa Band (NONREACTIVE) Lyme IgG 28 kDa Band (NONREACTIVE) Lyme IgG 30 kDa Band (NONREACTIVE) Lyme IgG 39 kDa Band (NONREACTIVE) Lyme IgG 41 kDa Band (NONREACTIVE) Lyme IgG 45 kDa Band (NONREACTIVE) Lyme IgG 58 kDa Band (NONREACTIVE) Lyme IgG 66 kDa Band (NONREACTIVE) Lyme IgG 93 kDa Band (NONREACTIVE) Lyme IgM (Western Blot) (NEGATIVE) Lyme IgM 23 kDa Band (NONREACTIVE) Lyme IgM 39 kDa Band (NONREACTIVE) Lyme IgM 41 kDa Band (NONREACTIVE) 09/24/18 09/24/18 09/24/18 Range/Units 20:42 17:18 12:05 WBC (4.8-10.8) K/uL RBC (4.7-6.1) M/uL Hgb (14.0-18.0) g/dL Hct (42-52) % MCV (80-100) fL MCH (25-34) pg MCHC (32-36) g/dL RDW Std Deviation (36.4-46.3) fL RDW Coeff of Staci (11.5-14.5) % Plt Count (130-400) K/uL MPV (7.4-10.4) fL Sodium (136-145) mmol/L Potassium (3.5-5.1) mmol/L Chloride (98-107) mmol/L Carbon Dioxide (21-32) mmol/L Anion Gap (3-11) BUN (7-18) mg/dl Creatinine (0.6-1.4) mg/dl Est Cr Clr Drug Dosing ml/min Est GFR ( Amer) Est GFR (Non-Af Amer) BUN/Creatinine Ratio (10-20) Glucose (70-99) mg/dl POC Glucose 202 H 194 H 173 H (70-99) Calcium (8.5-10.1) mg/dl Total Bilirubin (0.2-1) mg/dl AST (15-37) U/L ALT (12-78) U/L Alkaline Phosphatase (45-117) U/L Total Protein (6.4-8.2) gm/dl Albumin (3.4-5.0) gm/dl Globulin (2.5-4.0) gm/dl Albumin/Globulin Ratio (0.9-2) Lyme IgG (Western Blot) (NEGATIVE) Lyme IgG 18 kDa Band (NONREACTIVE) Lyme IgG 23 kDa Band (NONREACTIVE) Lyme IgG 28 kDa Band (NONREACTIVE) Lyme IgG 30 kDa Band (NONREACTIVE) Lyme IgG 39 kDa Band (NONREACTIVE) Lyme IgG 41 kDa Band (NONREACTIVE) Lyme IgG 45 kDa Band (NONREACTIVE) Lyme IgG 58 kDa Band (NONREACTIVE) Lyme IgG 66 kDa Band (NONREACTIVE) Lyme IgG 93 kDa Band (NONREACTIVE) Lyme IgM (Western Blot) (NEGATIVE) Lyme IgM 23 kDa Band (NONREACTIVE) Lyme IgM 39 kDa Band (NONREACTIVE) Lyme IgM 41 kDa Band (NONREACTIVE) 09/24/18 09/24/18 09/20/18 Range/Units 09:08 08:07 15:46 WBC (4.8-10.8) K/uL RBC (4.7-6.1) M/uL Hgb (14.0-18.0) g/dL Hct (42-52) % MCV (80-100) fL MCH (25-34) pg MCHC (32-36) g/dL RDW Std Deviation (36.4-46.3) fL RDW Coeff of Staci (11.5-14.5) % Plt Count (130-400) K/uL MPV (7.4-10.4) fL Sodium (136-145) mmol/L Potassium (3.5-5.1) mmol/L Chloride (98-107) mmol/L Carbon Dioxide (21-32) mmol/L Anion Gap (3-11) BUN (7-18) mg/dl Creatinine (0.6-1.4) mg/dl Est Cr Clr Drug Dosing ml/min Est GFR ( Amer) Est GFR (Non-Af Amer) BUN/Creatinine Ratio (10-20) Glucose (70-99) mg/dl POC Glucose 165 H 146 H (70-99) Calcium (8.5-10.1) mg/dl Total Bilirubin (0.2-1) mg/dl AST (15-37) U/L ALT (12-78) U/L Alkaline Phosphatase (45-117) U/L Total Protein (6.4-8.2) gm/dl Albumin (3.4-5.0) gm/dl Globulin (2.5-4.0) gm/dl Albumin/Globulin Ratio (0.9-2) Lyme IgG (Western Blot) NEGATIVE (NEGATIVE) Lyme IgG 18 kDa Band NONREACTIVE (NONREACTIVE) Lyme IgG 23 kDa Band NONREACTIVE (NONREACTIVE) Lyme IgG 28 kDa Band NONREACTIVE (NONREACTIVE) Lyme IgG 30 kDa Band NONREACTIVE (NONREACTIVE) Lyme IgG 39 kDa Band NONREACTIVE (NONREACTIVE) Lyme IgG 41 kDa Band REACTIVE A (NONREACTIVE) Lyme IgG 45 kDa Band NONREACTIVE (NONREACTIVE) Lyme IgG 58 kDa Band NONREACTIVE (NONREACTIVE) Lyme IgG 66 kDa Band NONREACTIVE (NONREACTIVE) Lyme IgG 93 kDa Band NONREACTIVE (NONREACTIVE) Lyme IgM (Western Blot) NEGATIVE (NEGATIVE) Lyme IgM 23 kDa Band NONREACTIVE (NONREACTIVE) Lyme IgM 39 kDa Band NONREACTIVE (NONREACTIVE) Lyme IgM 41 kDa Band NONREACTIVE (NONREACTIVE) (1) Cholelithiasis Cholelithiasis location: gallbladder and bile duct Cholecystitis presence: with cholecystitis Cholecystitis acuity: acute Biliary obstruction: without biliary obstruction Qualified Code(s): K80.62 - Calculus of gallbladder and bile duct with acute cholecystitis without obstruction
[2018-09-25] MEDS: POTASSIUM CHLORIDE 10 MEQ TABCR PO SCH (09:12)
[2018-09-25] MEDS: METOPROLOL TARTRATE 50 MG TAB PO SCH ×2 (09:12→20:36)
[2018-09-25] MEDS: FUROSEMIDE 40 MG TAB PO SCH ×2 (09:12→17:47)
[2018-09-25] MEDS: CARVEDILOL 12.5 MG TAB PO SCH (09:12)
[2018-09-25] MEDS: LISINOPRIL 2.5 MG TAB PO SCH (09:12)
[2018-09-25] MEDS: INSULIN ASPART 100 UNITS/ML 3 ML PEN SC SCH ×4 (09:13→20:44)
--- NOTE | 2018-09-25 11:08 | Operative Report ---
DATE OF OPERATION: 09/24/2018 DATE OF PROCEDURE: 09/24/2018 PREOPERATIVE DIAGNOSES: Cholelithiasis and gallbladder sludge with history of choledocholithiasis status post ERCP. POSTOPERATIVE DIAGNOSES: Cholelithiasis and gallbladder sludge with history of choledocholithiasis status post ERCP. PROCEDURE: Laparoscopic cholecystectomy. SURGEON: Cam Todd MD PARISH WORKER: Neli Quintanilla PA-C FINDINGS: The gallbladder was dilated. It required drainage in order to grasp the gallbladder. There was sludge within the gallbladder. The cystic duct was mildly dilated. The liver was of normal size and contour and the visible bowel appeared normal. TECHNIQUE: The patient was given a general anesthetic and the area was prepped and draped in the usual sterile fashion. Transverse incision was made about 4 cm above the umbilicus, carried down through the subcutaneous tissue to the fascia which was grasped with 2 Shar clamps incised between. Peritoneum was identified, incised, and introducer was placed bluntly. The abdomen was then insufflated to a pressure of 15 mmHg with carbon dioxide. The upper midline, midclavicular and anterior axillary introducer were placed under direct vision through small skin incisions. The patient was placed in significant reverse Trendelenburg. There was some adhesion of the omentum to the undersurface of the liver which was divided to allow retraction of the generous omentum which provided difficulty in exposing the infundibulum. Traction could not be placed on the gallbladder could not be grasped, so the gallbladder was drained using the drainage needle and was passed under direct vision into the gallbladder. Dark bile was removed. Then allow us to grasp the gallbladder and elevate it. I then grasped the area of the infundibulum. There was a lot of fatty tissue and thickened lymphatics around the infundibulum. This was dissected free, exposing the infundibulum and dividing the peritoneal attachments of the neck and infundibulum of the gallbladder on the lateral side. I then peeled additional lymphatics and thickened connective tissue exposing the anterior surface of the cystic duct. I performed a similar dissection in the the triangle of Calot and dissected the neck and infundibulum away from the liver on the medial side along better mobility. There were additional tissues along the medial aspect of the cystic duct that were peeled away and I again was able to expose the posterior side of the cystic duct, creating a good window. The cystic artery was seen posterior to the cystic duct in the triangle of Calot and this was initially left in place. I was then able to identify with this additional mobilization with confidence the cystic duct gallbladder junction. Two clips were placed on the proximal cystic duct, one in the gallbladder and it was divided. I then elevated the infundibulum and dissected the cystic artery. There were 2 small branches that were each isolated, doubly clamped, divided and ligated. The gallbladder was then peeled off the liver bed using cautery. There was not a well-defined plane between the gallbladder and the liver. It required meticulous dissection, but I was eventually able to separate it. In doing so, there was noted an area of bleeding from the gallbladder bed of the liver in the mid portion. I placed the gallbladder into an Endobag, brought out through the upper midline incision and then replaced at the introducer. I then elevated the liver. With irrigation, I was able to identify the site of bleeding and was able to place a clip across a small vessel was controlled some of the bleeding. The blood clots that had formed in the subhepatic and subdiaphragmatic spaces were then removed. That allowed me then elevate better see where the bleeding was coming from. I then used cautery to control the rest of the bleeding and it stopped. There was a small amount of oozing from another site in the gallbladder bed of the liver that was controlled with cautery. Subdiaphragmatic and subhepatic spaces were then irrigated. The irrigation was removed and the return was clear. I then inspected the gallbladder bed of the liver. The site of the previous bleeding was no longer bleeding. Because of that, however, I did place some Surgicel covered with FloSeal. A 10 mm Chilango-Bains was then brought through the anterior axillary introducer site and secured at the skin with a 3-0 nylon after being placed in the subhepatic space. The gas was allowed to escape and the introducer was removed. The fascia of the supraumbilical incision was closed with interrupted 0 Vicryl and the skin of all the incisions was closed with 4-0 Monocryl in either an interrupted or running subcuticular fashion. The skin was anesthetized with 0.5% Marcaine. The skin was cleansed and dried. Benzoin placed. Steri-Strips applied. The estimated blood loss was 200 mL. Sponge, needle and instrument counts were correct prior to closure. The patient tolerated the surgical procedure without complication and was transferred to recovery. I attest to the content of the Intraoperative Record and any orders documented therein. Any exceptions are noted below. MTDD
[2018-09-25] MEDS: dilTIAZem HCL 30 MG TAB PO SCH ×3 (17:46→20:38)
[2018-09-25] MEDS: LACTOBACILLUS ACIDOPHILUS (FLORANEX) TAB PO SCH (17:46)
[2018-09-25] MEDS: AMOXICILLIN/CLAVULANATE 875 MG TAB PO SCH (17:46)
[2018-09-25] MEDS: CARVEDILOL 25 MG TAB PO SCH (20:37)
[2018-09-25] MEDS ORDERED: WARFARIN SOD 5 MG TAB PO ONE (20:53)
--- NOTE | 2018-09-25 21:07 | Hospitalist Progress Note ---
Date of Service September 25, 2018 Assessment & Plan (1) Sepsis: RESOLVED. 2nd to biliary tract disease - acute cholecystitis with choledocholithiasis (with possible cholangitis). s/p lap senthil - POD #1. s/p ERCP - POD #2. d/c unasyn today. change to augmentin; treat 7 days if indeed he had cholangitis. (2) Cholelithiasis: With probable acute cholecystitis and possible cholangitis. s/p ERCP with removal of CBD sludge and placement of CBD stent and pancreatic duct stent. s/p lap senthil - POD #1. appreciate GI and gen surgery assistance. stop fluids. drain to be d/c by surgery today. tolerating diet. moving bowels. (3) Biliary sludge: as above (4) Atrial fibrillation: rates at rest controlled with BB (is on metoprolol and coreg). however, with very little activity, his rates are very poorly controlled as confirmed with PT session today. I believe that this has likely been present for some time based on his report. Poor exercise tolerance and JUAREZ likely uncontrolled a.fib. will move to telemetry. add cardizem 30mg q6h. adjust as needed. continue beta blockers (he is on both metoprolol and coreg -- has been taking this regimen x 10 years). repeat echo to see if EF is depressed or preserved. resume coumadin 5mg daily today. INR am. spoke with Dr Hardy his primary specialized developer who will see in consult tomorrow. if EF is depressed would change cardizem to digoxin. (5) Chronic systolic (congestive) heart failure: EF on echo 04/2016 (echo found in [employer]) - 35-40%. EF on nuclear stress test 10/2016 - 68%. No echo since 2015. Echo in am. He appears compensated on exam today (no JVD, no orthopnea, etc). Cont BB. Cont TAMIKO. Cont lasix BID. (6) Hypothyroidism: TSH minimally elevated at 4.5 at admission. no change in dose. simply repeat TSH as outpatient in 3-4 weeks. (7) Essential (primary) hypertension: continue home meds controlled (8) DM w/o complication type II: holding metformin. novolog sliding scale. controlled (9) Morbid obesity with BMI of 45.0-49.9, adult: BMI 49.9 needs weight loss (10) DVT prophylaxis: heparin 5000 TID while INR is <2 extensively updated at bedside today she is aware of transfer to tele because of a.fib rates PT has cleared for home Subjective patient feels well from GI/surg standpoint. no abd pain. passing flatus and stool. no nausea/emesis. eating fine. drain to be pulled today. his main complaint is that of JUAREZ. during his PT session he became quite dyspneic. HR went up to 160 BPM with very little activity. HR took 5+ minutes per PT documentation to return to 120 BPM. reports that his poor exercise tolerance and JUAREZ has been going on for sometime. 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." Review of Systems Constitutional: no fever, no chills, no fatigue and no anorexia Respiratory: as per Subjective / HPI and + dyspnea on exertion; no cough Cardiovascular: no chest pain, no dyspnea at rest, no orthopnea, no paroxysmal nocturnal dyspnea and no edema Gastrointestinal: no abdominal pain, no nausea and no vomiting Physical Exam Constitutional: well developed, well nourished and + morbidly obese; no acute distress and not ill appearing ENMT: external ear and nose normal, oropharynx normal Respiratory: normal respiratory effort, lungs clear to auscultation Cardiovascular: Rate/Rhythm: regular rate and + irregularly irregular Heart Sounds: normal S1 and normal S2; no murmur Vessels: posterior tibial pulses present and dorsalis pedis pulses present; no JVD Extremities: no edema Gastrointestinal (Abdomen): Percussion/Palpation: abdomen soft; no guarding, no hepatosplenomegaly, no hernia and no abdominal mass Skin: no rashes, warm and dry abd incisions clean; drain still in place Neurologic: no focal motor deficits Psychiatric: Orientation: alert and oriented x 3 Lymphatic: no axillary lymphadenopathy Results & Data Vital Signs (Past 12 Hours) Vital Signs Temp Pulse Pulse Pulse Resp BP BP 09/25/18 20:00 37.2 C 85 20 126/74 09/25/18 18:29 86 09/25/18 15:32 36.9 C 97 H 18 129/75 Pulse Ox 09/25/18 20:00 94 09/25/18 18:29 09/25/18 15:32 93 Laboratory Results Laboratory Results - last 24 hr 09/20/18 09/25/18 09/25/18 15:46 06:16 06:16 WBC 15.15 H RBC 4.44 L Hgb 12.4 L Hct 36.3 L MCV 81.8 MCH 27.9 MCHC 34.2 RDW Std Deviation 43.2 RDW Coeff of Staci 14.5 Plt Count 241 D MPV 8.6 Sodium 139 Potassium 4.4 Chloride 111 H Carbon Dioxide 22 Anion Gap 6.0 BUN 12 Creatinine 1.00 Est Cr Clr Drug Dosing 98.3 Est GFR ( Amer) 91.1 Est GFR (Non-Af Amer) 78.6 BUN/Creatinine Ratio 12.4 Glucose 162 H POC Glucose Calcium 8.8 Total Bilirubin 0.7 AST 61 H ALT 125 H Alkaline Phosphatase 102 Total Protein 6.9 Albumin 2.5 L Globulin 4.4 H Albumin/Globulin Ratio 0.6 L Lyme IgG (Western Blot) NEGATIVE Lyme IgG 18 kDa Band NONREACTIVE Lyme IgG 23 kDa Band NONREACTIVE Lyme IgG 28 kDa Band NONREACTIVE Lyme IgG 30 kDa Band NONREACTIVE Lyme IgG 39 kDa Band NONREACTIVE Lyme IgG 41 kDa Band REACTIVE A Lyme IgG 45 kDa Band NONREACTIVE Lyme IgG 58 kDa Band NONREACTIVE Lyme IgG 66 kDa Band NONREACTIVE Lyme IgG 93 kDa Band NONREACTIVE Lyme IgM (Western Blot) NEGATIVE Lyme IgM 23 kDa Band NONREACTIVE Lyme IgM 39 kDa Band NONREACTIVE Lyme IgM 41 kDa Band NONREACTIVE 09/25/18 09/25/18 09/25/18 07:55 12:07 17:10 WBC RBC Hgb Hct MCV MCH MCHC RDW Std Deviation RDW Coeff of Staci Plt Count MPV Sodium Potassium Chloride Carbon Dioxide Anion Gap BUN Creatinine Est Cr Clr Drug Dosing Est GFR ( Amer) Est GFR (Non-Af Amer) BUN/Creatinine Ratio Glucose POC Glucose 155 H 164 H 139 H Calcium Total Bilirubin AST ALT Alkaline Phosphatase Total Protein Albumin Globulin Albumin/Globulin Ratio Lyme IgG (Western Blot) Lyme IgG 18 kDa Band Lyme IgG 23 kDa Band Lyme IgG 28 kDa Band Lyme IgG 30 kDa Band Lyme IgG 39 kDa Band Lyme IgG 41 kDa Band Lyme IgG 45 kDa Band Lyme IgG 58 kDa Band Lyme IgG 66 kDa Band Lyme IgG 93 kDa Band Lyme IgM (Western Blot) Lyme IgM 23 kDa Band Lyme IgM 39 kDa Band Lyme IgM 41 kDa Band 09/25/18 20:44 WBC RBC Hgb Hct MCV MCH MCHC RDW Std Deviation RDW Coeff of Staci Plt Count MPV Sodium Potassium Chloride Carbon Dioxide Anion Gap BUN Creatinine Est Cr Clr Drug Dosing Est GFR ( Amer) Est GFR (Non-Af Amer) BUN/Creatinine Ratio Glucose POC Glucose 154 H Calcium Total Bilirubin AST ALT Alkaline Phosphatase Total Protein Albumin Globulin Albumin/Globulin Ratio Lyme IgG (Western Blot) Lyme IgG 18 kDa Band Lyme IgG 23 kDa Band Lyme IgG 28 kDa Band Lyme IgG 30 kDa Band Lyme IgG 39 kDa Band Lyme IgG 41 kDa Band Lyme IgG 45 kDa Band Lyme IgG 58 kDa Band Lyme IgG 66 kDa Band Lyme IgG 93 kDa Band Lyme IgM (Western Blot) Lyme IgM 23 kDa Band Lyme IgM 39 kDa Band Lyme IgM 41 kDa Band (1) Sepsis Sepsis type: sepsis due to unspecified organism Qualified Code(s): A41.9 - Sepsis, unspecified organism (2) Cholelithiasis Cholelithiasis location: gallbladder and bile duct Cholecystitis presence: with cholecystitis Cholecystitis acuity: acute Biliary obstruction: without biliary obstruction Qualified Code(s): K80.62 - Calculus of gallbladder and bile duct with acute cholecystitis without obstruction (3) Atrial fibrillation Atrial fibrillation type: permanent Qualified Code(s): I48.2 - Chronic atrial fibrillation (4) Hypothyroidism Hypothyroidism type: acquired Qualified Code(s): E03.9 - Hypothyroidism, unspecified (5) DM w/o complication type II 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
[2018-09-25] MEDS: HEPARIN SOD 5,000 UNIT/0.5 ML VIAL SQ SCH (22:27)
[2018-09-26] MEDS: HEPARIN SOD 5,000 UNIT/0.5 ML VIAL SQ SCH ×3 (05:43→21:35)
[2018-09-26] MEDS: LEVOTHYROXINE SODIUM 50 MCG TABLET PO SCH (05:43)
[2018-09-26 06:06] LABS: Basophils # (auto) 0.01 K/uL (0-0.2); Basophils % (auto) 0.1 %; Eosinophils # (auto) 0.07 K/uL (0-0.5); Eosinophils % (auto) 0.8 %; Hematocrit (blood only) 34.2 % (42-52); Hemoglobin 11.3 g/dL (14.0-18.0); Immature Granulocytes # (auto) 0.03 K/uL (0.00-0.02); Immature Granulocytes % (auto) 0.3 %; Lymphocytes # (auto) 1.71 K/uL (1.2-3.4); Lymphocytes % (auto) 18.8 %; Mean Corpuscular Volume 83.4 fL (80-100); Monocytes # (auto) 0.73 K/uL (0.11-0.59); Neutrophils # (auto) 6.54 K/uL (1.4-6.5); Platelet Count 198 K/uL (130-400); RDW Coefficient of Variation 14.5 % (11.5-14.5); RDW Standard Deviation 43.9 fL (36.4-46.3); White Blood Count 9.09 K/uL (4.8-10.8)
[2018-09-26 06:14] LABS: INR 1.3 (0.9-1.1); Prothrombin Time 13.5 Seconds (9.0-12.0)
[2018-09-26 06:43] LABS: Albumin Globulin Ratio 0.6 (0.9-2); Albumin Level 2.4 gm/dl (3.4-5.0); BUN Creatinine Ratio 14.8 (10-20); Bilirubin,Total 0.8 mg/dl (0.2-1); Calcium 7.8 mg/dl (8.5-10.1); Creatinine Clr Calc Pharmacy 111.7 ml/min; Est GFR (African American) 104.5; Est GFR (Non-African American) 90.1; Potassium 3.5 mmol/L (3.5-5.1); Total Protein 6.4 gm/dl (6.4-8.2)
[2018-09-26] MEDS: POTASSIUM CHLORIDE 10 MEQ TABCR PO SCH (07:49)
[2018-09-26] MEDS: dilTIAZem HCL 30 MG TAB PO SCH ×2 (07:49→12:26)
[2018-09-26] MEDS: AMOXICILLIN/CLAVULANATE 875 MG TAB PO SCH ×2 (07:50→17:16)
[2018-09-26] MEDS: FUROSEMIDE 40 MG TAB PO SCH ×2 (07:50→17:16)
[2018-09-26] MEDS: LISINOPRIL 2.5 MG TAB PO SCH (07:50)
[2018-09-26] MEDS: LACTOBACILLUS ACIDOPHILUS (FLORANEX) TAB PO SCH ×3 (07:50→17:15)
[2018-09-26] MEDS: CARVEDILOL 12.5 MG TAB PO SCH (07:50)
[2018-09-26] MEDS: NYSTATIN OINT 15 GM TUBE EXT SCH ×3 (07:51→23:31)
[2018-09-26] MEDS: METOPROLOL TARTRATE 50 MG TAB PO SCH ×2 (07:51→20:35)
[2018-09-26] MEDS: INSULIN ASPART 100 UNITS/ML 3 ML PEN SC SCH ×4 (07:54→20:59)
--- NOTE | 2018-09-26 09:21 | Surgery Progress Note ---
Date of Service September 26, 2018 Assessment & Plan (1) Cholelithiasis: POD #2- s/p Lap Ashley Patient seen and examined with Dr. Fletcher. Pain well controlled, paco diet. ROSA Drain in place-ok to D/C prior to discharge. From surgical standpoint- ok for discharge. Pt states that he is being evaluated for being short of breath with activity. Discharge from primary service once medically cleared. Return precautions reviewed. Subjective Patient resting in bed- no new concerns or complaints. Paco carb consistent diet. Denies pain, denies nausea. Physical Exam Gastrointestinal (Abdomen): Inspection/Auscultation: abdomen not distended Percussion/Palpation: abdomen soft; abdomen nontender +ROSA drain wit serosang drainage. Results & Data Vital Signs (Past 12 Hours) Vital Signs Temp Pulse Pulse Resp BP Pulse Ox 09/26/18 07:42 36.8 C 95 H 22 133/89 99 09/26/18 07:39 122 H 09/26/18 04:00 36.7 C 89 20 116/83 95 09/26/18 00:00 36.7 C 69 20 127/65 95 (1) Cholelithiasis Cholelithiasis location: gallbladder and bile duct Cholecystitis presence: with cholecystitis Cholecystitis acuity: acute Biliary obstruction: without biliary obstruction Qualified Code(s): K80.62 - Calculus of gallbladder and bile duct with acute cholecystitis without obstruction
[2018-09-26] MEDS ORDERED: dilTIAZem HCL 30 MG TAB PO ONE (14:52)
[2018-09-26] MEDS: dilTIAZem HCl 60 MG TAB PO SCH ×2 (17:15→20:33)
--- NOTE | 2018-09-26 18:44 | Cardiology Consultation ---
Date of Consultation September 26, 2018 Assessment & Plan (1) Atrial fibrillation with rapid ventricular response: Since his systolic function is now normal, reasonable to add diltiazem to his regimen as a negative chronotrope and titrate upward to achieve a resting heart rate is 70-80 bpm range with heart rate on exertion limited to 120 bpm or less if possible. (2) JUAREZ (dyspnea on exertion): Multifactorial, with morbid obesity, acute on chronic deconditioning (sedentary lifestyle and recent surgery), and rapid ventricular response to his permanent atrial fibrillation all playing a role. Encouraged gradual increase in aerobic activity to build up his stamina. (3) Chronic systolic (congestive) heart failure: Although his systolic function is now normal, at 1 point his ejection fraction was quite low, therefore would continue his carvedilol. Continue his carvedilol and adjust diuretic as necessary to achieve euvolemia. (4) Morbid obesity with BMI of 45.0-49.9, adult: Have offered dietary counseling over the past decade or so, to little avail. Perhaps if he does retire he can focus on lifestyle changes. History of Present Illness Attending Physician: Cezar Ma 63-year-old man with morbid obesity, permanent atrial fibrillation (metoprolol/warfarin), and tachycardia-induced cardiomyopathy who I know well from outpatient encounters over many years. His ejection fraction has ranged from 25 to 50%, most recent echo today actually showed normal EF of 60-65%. He denies any chest pain, subjective palpitations, presyncope, syncope, or orthostasis. 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 He is seen now because he developed marked dyspnea exertion with rapid ventricular responses atrial fibrillation while recovering from a cholecystectomy for acute cholecystitis. Allergies Allergy/AdvReac Type Severity Reaction Status Date / Time No Known Drug Allergies Allergy Verified 09/25/18 19:11 Home Medications Home Medications Medication Instructions Recorded Confirmed Type atorvastatin 40 mg PO DAILY 09/19/18 09/20/18 History calcium carbonate [Calcium 600] 600 mg PO DAILY 09/19/18 09/20/18 History carvedilol 12.5 mg PO QAM 09/19/18 09/20/18 History carvedilol 25 mg PO QPM 09/19/18 09/20/18 History cholecalciferol (vitamin D3) 2,000 unit PO DAILY 09/19/18 09/20/18 History [Vitamin D3] cyanocobalamin (vitamin B-12) 1,000 mcg PO DAILY 09/19/18 09/20/18 History furosemide 40 mg PO BID 09/19/18 09/20/18 History levothyroxine 50 mcg PO DAILY 09/19/18 09/20/18 History lisinopril 2.5 mg PO DAILY 09/19/18 09/20/18 History metformin 1,000 mg PO BID 09/19/18 09/20/18 History metoprolol tartrate 50 mg PO BID 09/19/18 09/20/18 History potassium chloride 10 meq PO DAILY 09/19/18 09/20/18 History testosterone 2 pump TRANSDERMAL DAILY 09/19/18 09/20/18 History warfarin 2.5 mg PO 2XWK 09/19/18 09/20/18 History warfarin 5 mg PO 5XWK 09/19/18 09/20/18 History oxycodone-acetaminophen [Percocet] 1 tab PO Q4H PRN #10 tab 09/25/18 Rx Patient History Medical History Morbid obesity with BMI of 45.0-49.9, adult DM w/o complication type II Essential (primary) hypertension Klinefelters syndrome On testosterone Atrial fibrillation Rate controlled Abdominal pain (Acute) Adrenal crisis Hypertension Hypothyroidism Low testosterone Pancreatitis No significant past surgical history Surgical History S/P ERCP 09/23/1819 Grade 2 view Mac 4 Family History Unknown Diabetes Other No significant family history Social History Preferred Language: Czech Communication Ability: Effective Beliefs That Will Affect Care: None marital status: Current Living Situation: Spouse Current Living Situation Comment: House current occupational status: employed Other Information That Helps Us Care for You: No Feels Safe at Home: Yes Safety Concerns: Feels Safe At This Time Smoking Status: Never smoker Hx Alcohol Use: No Hx Substance Use: No Review of Systems Constitutional: + fatigue; no fever and no chills Eyes: no problem reported Ear, Nose, Mouth, Throat: no problem reported Respiratory: + dyspnea on exertion Cardiovascular: as per Subjective / HPI Gastrointestinal: no nausea and no vomiting Physical Exam Physical Exam: No distress. Appears comfortable Skin: No unusual lesions or ecchymosis. HEENT: Unremarkable. Neck: Jugular venous pulse just above the clavicle at 90, no carotid bruits. Lungs: Clear and equal breath sounds bilaterally. No wheezing or crackles. Cardiac: Irregular rhythm with normal S1 and S2. No murmur or gallop. Abdomen: Benign. Extremities: Nontender with chronic 1+ pretibial edema. Intact peripheral pulses. Neurologic: Normal affect, nonfocal Results & Data Vital Signs (Past 12 Hours) Vital Signs Temp Pulse Pulse Pulse Resp BP Pulse Ox 09/26/18 18:20 84 09/26/18 15:48 36.9 C 86 18 121/74 94 09/26/18 07:42 36.8 C 95 H 22 133/89 99 09/26/18 07:39 122 H Laboratory Results Laboratory Tests 09/26/18 09/26/18 05:41 05:41 WBC 9.09 Hgb 11.3 L Plt Count 198 BUN 13 Creatinine 0.88 Diagnostic Findings Echocardiogram today showed mildly dilated left ventricle with EF 60-65%, mild RVH, no obvious valvular disease on technically limited Doppler.
[2018-09-26] MEDS: CARVEDILOL 25 MG TAB PO SCH (20:35)
--- NOTE | 2018-09-26 21:30 | Hospitalist Progress Note ---
Date of Service September 26, 2018 Assessment & Plan (1) Atrial fibrillation: rates at rest controlled with BB (is on metoprolol and coreg). added cardizem 30mg q6h yesterday to improve his rates w/ activity. place on tele to monitor response. still with considerable tachycardia with activity. echo with preserved EF today. increase cardizem to 60mg q6h. continue coumadin. INR am. appreciate Dr Hardy's consult. (2) Chronic systolic (congestive) heart failure: RESOLVED. EF on echo 04/2016 (echo found in [employer]) - 35-40%. EF on nuclear stress test 10/2016 - 68%. echo today with preserved EF. He appears compensated on exam once again today. Cont BB. Cont TAMIKO. Cont lasix BID. (3) Sepsis: RESOLVED. 2nd to biliary tract disease - acute cholecystitis with choledocholithiasis (with possible cholangitis). s/p lap senthil - POD #2. s/p ERCP - POD #3. continue augmentin; treat 5 more days. (4) Cholelithiasis: With probable acute cholecystitis and possible cholangitis. s/p ERCP with removal of CBD sludge and placement of CBD stent and pancreatic duct stent. s/p lap senthil - POD #2. appreciate GI and gen surgery assistance. tolerating diet. moving bowels. (5) Biliary sludge: as above (6) Hypothyroidism: TSH minimally elevated at 4.5 at admission. no change in dose. simply repeat TSH as outpatient in 3-4 weeks. (7) Essential (primary) hypertension: continue home meds controlled (8) DM w/o complication type II: holding metformin. novolog sliding scale. controlled (9) Morbid obesity with BMI of 45.0-49.9, adult: BMI 51 needs weight loss (10) DVT prophylaxis: heparin 5000 TID while INR is <2 PT has cleared for home if rates are improved tomorrow change cardizem IR to cardizem CD and d/c home updated at bedside Subjective no changes overnight feeling well. still with baseline JUAREZ with activities / walks. tele - HRs at rest <100, with any activity 120s to 160s. no nausea/emesis/diarrhea/abd pain. eating fine w/o limitation. Review of Systems Constitutional: no fever, no chills, no fatigue and no anorexia Respiratory: + dyspnea on exertion Cardiovascular: no chest pain Gastrointestinal: no abdominal pain Physical Exam Constitutional: well developed, well nourished and + morbidly obese; no acute distress and not ill appearing ENMT: external ear and nose normal, oropharynx normal Respiratory: normal respiratory effort, lungs clear to auscultation Cardiovascular: Rate/Rhythm: regular rate and + irregularly irregular Heart Sounds: normal S1 and normal S2; no murmur Vessels: posterior tibial pulses present and dorsalis pedis pulses present; no JVD Extremities: no edema Gastrointestinal (Abdomen): Percussion/Palpation: abdomen soft; no guarding, no hepatosplenomegaly, no hernia and no abdominal mass Skin: no rashes, warm and dry dressings intact abd wall Psychiatric: Orientation: alert and oriented x 3 Results & Data Vital Signs (Past 12 Hours) Vital Signs Temp Pulse Pulse Pulse Resp BP Pulse Ox 09/26/18 19:59 36.9 C 82 20 127/85 93 09/26/18 18:20 84 09/26/18 15:48 36.9 C 86 18 121/74 94 Laboratory Results Laboratory Results - last 24 hr 09/26/18 09/26/18 09/26/18 05:41 05:41 05:41 WBC 9.09 RBC 4.10 L Hgb 11.3 L Hct 34.2 L MCV 83.4 MCH 27.6 MCHC 33.0 RDW Std Deviation 43.9 RDW Coeff of Staci 14.5 Plt Count 198 MPV 10.0 Immature Gran % (Auto) 0.3 Neut % (Auto) 72.0 Lymph % (Auto) 18.8 [place] % (Auto) 8.0 Eos % (Auto) 0.8 Baso % (Auto) 0.1 Immature Gran # (Auto) 0.03 H Neut # (Auto) 6.54 H Lymph # (Auto) 1.71 [place] # (Auto) 0.73 H Eos # (Auto) 0.07 Baso # (Auto) 0.01 PT 13.5 H INR 1.3 H Sodium 137 Potassium 3.5 D Chloride 105 Carbon Dioxide 27 Anion Gap 5.0 BUN 13 Creatinine 0.88 Est Cr Clr Drug Dosing 111.7 Est GFR ( Amer) 104.5 Est GFR (Non-Af Amer) 90.1 BUN/Creatinine Ratio 14.8 Glucose 126 H POC Glucose Calcium 7.8 L Total Bilirubin 0.8 AST 30 ALT 89 H Alkaline Phosphatase 89 Total Protein 6.4 Albumin 2.4 L Globulin 4.0 Albumin/Globulin Ratio 0.6 L 09/26/18 09/26/18 09/26/18 07:42 11:37 16:41 WBC RBC Hgb Hct MCV MCH MCHC RDW Std Deviation RDW Coeff of Staci Plt Count MPV Immature Gran % (Auto) Neut % (Auto) Lymph % (Auto) [place] % (Auto) Eos % (Auto) Baso % (Auto) Immature Gran # (Auto) Neut # (Auto) Lymph # (Auto) [place] # (Auto) Eos # (Auto) Baso # (Auto) PT INR Sodium Potassium Chloride Carbon Dioxide Anion Gap BUN Creatinine Est Cr Clr Drug Dosing Est GFR ( Amer) Est GFR (Non-Af Amer) BUN/Creatinine Ratio Glucose POC Glucose 132 H 157 H 107 H Calcium Total Bilirubin AST ALT Alkaline Phosphatase Total Protein Albumin Globulin Albumin/Globulin Ratio 09/26/18 20:30 WBC RBC Hgb Hct MCV MCH MCHC RDW Std Deviation RDW Coeff of Staci Plt Count MPV Immature Gran % (Auto) Neut % (Auto) Lymph % (Auto) [place] % (Auto) Eos % (Auto) Baso % (Auto) Immature Gran # (Auto) Neut # (Auto) Lymph # (Auto) [place] # (Auto) Eos # (Auto) Baso # (Auto) PT INR Sodium Potassium Chloride Carbon Dioxide Anion Gap BUN Creatinine Est Cr Clr Drug Dosing Est GFR ( Amer) Est GFR (Non-Af Amer) BUN/Creatinine Ratio Glucose POC Glucose 133 H Calcium Total Bilirubin AST ALT Alkaline Phosphatase Total Protein Albumin Globulin Albumin/Globulin Ratio (1) DM w/o complication type II 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 manager long term care insulin use: without manager long term care use Qualified Code(s): E11.9 - Type 2 diabetes mellitus without complications (2) Atrial fibrillation Atrial fibrillation type: permanent Qualified Code(s): I48.2 - Chronic atrial fibrillation (3) Hypothyroidism Hypothyroidism type: acquired Qualified Code(s): E03.9 - Hypothyroidism, unspecified (4) Sepsis Sepsis type: sepsis due to unspecified organism Qualified Code(s): A41.9 - Sepsis, unspecified organism (5) Cholelithiasis Biliary obstruction: without biliary obstruction Cholecystitis acuity: acute Cholecystitis presence: with cholecystitis Cholelithiasis location: gallbladder and bile duct Qualified Code(s): K80.62 - Calculus of gallbladder and bile duct with acute cholecystitis without obstruction
[2018-09-26] MEDS ORDERED: WARFARIN SOD 5 MG TAB PO ONE (22:30)
[2018-09-27] MEDS: HEPARIN SOD 5,000 UNIT/0.5 ML VIAL SQ SCH (05:52)
[2018-09-27] MEDS: LEVOTHYROXINE SODIUM 50 MCG TABLET PO SCH (05:52)
[2018-09-27 07:29] LABS: INR 1.3 (0.9-1.1)
[2018-09-27 07:51] LABS: BUN Creatinine Ratio 11.5 (10-20); Calcium 8.7 mg/dl (8.5-10.1); Creatinine Clr Calc Pharmacy 96.3 ml/min; Est GFR (African American) 86.9; Potassium 3.5 mmol/L (3.5-5.1)
[2018-09-27] MEDS: CARVEDILOL 12.5 MG TAB PO SCH (08:13)
[2018-09-27] MEDS: INSULIN ASPART 100 UNITS/ML 3 ML PEN SC SCH (08:13)
[2018-09-27] MEDS: LISINOPRIL 2.5 MG TAB PO SCH (08:14)
[2018-09-27] MEDS: LACTOBACILLUS ACIDOPHILUS (FLORANEX) TAB PO SCH (08:14)
[2018-09-27] MEDS: dilTIAZem HCl 60 MG TAB PO SCH (08:14)
[2018-09-27] MEDS: POTASSIUM CHLORIDE 10 MEQ TABCR PO SCH (08:14)
[2018-09-27] MEDS: METOPROLOL TARTRATE 50 MG TAB PO SCH (08:15)
[2018-09-27] MEDS: NYSTATIN OINT 15 GM TUBE EXT SCH (08:15)
[2018-09-27] MEDS: FUROSEMIDE 40 MG TAB PO SCH (08:15)
[2018-09-27] MEDS: AMOXICILLIN/CLAVULANATE 875 MG TAB PO SCH (08:15)
--- NOTE | 2018-09-27 08:42 | Surgery Progress Note ---
Date of Service September 27, 2018 Assessment & Plan (1) Cholelithiasis: POD #3 s/p Lap Ashley. Pt seen and examined with Dr. Fletcher. Pt doing well, paco diet, denies pain. ROSA drain removed -pt tolerated removal well, clean 4x4 placed. Discharge possibly today- discharge per primary team. Return precautions reviewed. Patient to follow up with [facility] as outpatient. POD #2- s/p Lap Ashley Patient seen and examined with Dr. Fletcher. Pain well controlled, paco diet. ROSA Drain in place-ok to D/C prior to discharge. From surgical standpoint- ok for discharge. Pt states that he is being evaluated for being short of breath with activity. Discharge from primary service once medically cleared. Return precautions reviewed. Subjective Pt resting in bed- no new concerns or complaints. Reports that Cardiology did see him yesterday. Pulse improved. Tolerating solid foods. Pain well controlled. Physical Exam Gastrointestinal (Abdomen): Inspection/Auscultation: abdomen not distended Percussion/Palpation: abdomen soft; abdomen nontender ROSA drain in place- removed by myself and Dr. Fletcher. Results & Data Vital Signs (Past 12 Hours) Vital Signs Temp Pulse Pulse Pulse Resp BP Pulse Ox 09/27/18 07:58 37.0 C 80 18 132/88 93 09/27/18 04:00 36.5 C 88 20 116/90 93 09/27/18 01:24 64 14 97 09/27/18 00:00 36.7 C 72 20 101/66 95 09/26/18 22:42 72 09/26/18 21:44 70 18 96 (1) Cholelithiasis Cholelithiasis location: gallbladder and bile duct Cholecystitis presence: with cholecystitis Cholecystitis acuity: acute Biliary obstruction: without biliary obstruction Qualified Code(s): K80.62 - Calculus of gallbladder and bile duct with acute cholecystitis without obstruction
[2018-09-27] MEDS ORDERED: dilTIAZem HCL 240 MG CAPCR PO SCH (11:15)
--- NOTE | 2018-09-27 14:52 | Cardiology Progress Note ---
Date of Service September 27, 2018 Assessment & Plan (1) Atrial fibrillation with rapid ventricular response: Doing well with the addition of diltiazem to his negative chronotropic regimen. Heart rate response to activity is in a more physiologic range. Okay for discharge home. (2) JUAREZ (dyspnea on exertion): Multifactorial, with morbid obesity, acute on chronic deconditioning (sedentary lifestyle and recent surgery), and rapid ventricular response to his permanent atrial fibrillation all playing a role. Encouraged gradual increase in aerobic activity to build up his stamina. (3) Chronic systolic (congestive) heart failure: Although his systolic function is now normal, at 1 point his ejection fraction was quite low, therefore would continue his carvedilol. Continue his carvedilol and adjust diuretic as necessary to achieve euvolemia. (4) Morbid obesity with BMI of 45.0-49.9, adult: Have offered dietary counseling over the past decade or so, to little av ail. Perhaps if he does retire he can focus on lifestyle changes. Subjective 63 year-old man with morbid obesity, permanent atrial fibrillation (meto prolol/warfarin), and tachycardia-induced cardiomyopathy. His ejection fraction has ranged from 25 to 50%, most recent echo today actually showed normal EF of 60-65%. He denies any chest pain, subjective palpitations, presyncope, syncope, or orthostasis. Uneventful night, he was able to walk farther today with a less tachycardic heart rate response to activity. Physical Exam Physical Exam: No distress. Appears comfortable Skin: No unusual lesions or ecchymosis. HEENT: Unremarkable. Neck: Jugular venous pulse just above the clavicle at 90, no carotid bruits. Lungs: Clear and equal breath sounds bilaterally. No wheezing or crackles. Cardiac: Irregular rhythm with normal S1 and S2. No murmur or gallop. Abdomen: Benign. Extremities: Nontender with chronic 1+ pretibial edema. Intact peripheral pulses. Neurologic: Normal affect, nonfocal Results & Data Vital Signs (Past 12 Hours) Vital Signs Temp Pulse Pulse Pulse Pulse Resp BP 09/27/18 11:24 37.0 C 87 88 80 18 127/85 09/27/18 08:00 115 H 09/27/18 07:58 37.0 C 80 18 09/27/18 04:00 36.5 C 88 20 BP Pulse Ox 09/27/18 11:24 132/88 93 09/27/18 08:00 09/27/18 07:58 132/88 93 09/27/18 04:00 116/90 93
--- NOTE | 2018-10-05 05:54 | Discharge Summary ---
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 Reportedly the [place] and en route there he began sweating and feeling poorly. When he arrived he was shaking with chills. He was taken to [facility]. Evaluation included CT scan of the abdomen/pelvis (he was complaining of mild, vague lower abdominal pain) and serologies. There was no diagnosis made and he was released. Patient returned home on 09/19/18 and once again had the same symptoms (fever, chills, abdominal pain) and presented to our ER where he had repeat CT scan. No significant pathology noted. Patient was discharged home from our ER but again continued to have spiking temperatures and shaking chills along with decreased appetite. The abdominal pain was central. Patient has 2 small open areas on his mid abdomen likely from where they rub on his belt buckle or pants buckle. These are crusted and did not appear immediately cellulitic. He also has intertrigo noted in his inguinal folds. 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 Principal Diagnosis probable cholangitis with acute/chronic cholecystitis Discharge Exam Constitutional well developed, well nourished and + morbidly obese; no acute distress and not ill appearing ENMT external ear and nose normal, oropharynx normal Respiratory normal respiratory effort, lungs clear to auscultation Cardiovascular Rate/Rhythm: regular rate and + irregularly irregular Heart Sounds: normal S1 and normal S2; no murmur Vessels: posterior tibial pulses present and dorsalis pedis pulses present; no JVD Extremities: no edema Gastrointestinal (Abdomen) Inspection/Auscultation: + abdomen distended (mild) Percussion/Palpation: abdomen soft; no guarding, no hepatosplenomegaly, no hernia and no abdominal mass Skin no rashes, warm and dry no jaundice abdominal wall incisions clean/dry Psychiatric Orientation: alert and oriented x 3 Discharge Data Allergies Allergy/AdvReac Type Severity Reaction Status Date / Time No Known Drug Allergies Allergy Verified 10/02/18 13:58 Consultations 1. [facility] GI - Noelle Douglas MD 2. [facility] Surgery - Cam Todd MD 3. [facility] Cardiology - Carlos Hardy MD 4. PT, OT Procedures Performed Operation Date: 09/23/18 13:30 Actual Procedures Endoscopic Retrograde Cholangiopancreatography - Noelle Douglas MD * CBD dilated to 8mm * CBD stones/sludge removed * CBD stent placed * Pancreatic duct stent placed Operation Date: 09/24/18 11:10 Actual Procedures Laparoscopic Cholecystectomy - Cam Todd MD Ordered Studies 1. RUQ u/s - IMPRESSION: 1. Multiple small gallstones. No gallbladder wall thickening. 2. The common bile duct is mildly dilated measuring up to [address] abd/pelvis - IMPRESSION: 1. No acute process within the abdomen or pelvis. 2. A few colonic diverticula without evidence for acute diverticulitis. No bowel obstruction. Normal appendix. 3. Cholelithiasis. 4. Tiny fat-containing left inguinal hernia. 3. MRCP - IMPRESSION: 1. Cholelithiasis without definite evidence of acute cholecystitis. 2. No choledocholithiasis. 3. Focal area of moderate luminal narrowing about the distal common bile duct without associated lesion identified may reflect an underlying biliary stricture. No significant associated biliary ductal dilation identified. 4. Trace pleural effusions. 4. echocardiogram - * EF 60-65% * normal valve function * no LV wall motion abnormalities Hospital Course (1) Cholangitis: It was ultimately determined that the patient's fevers, chills, sepsis, and abdominal pain were biliary in nature. He underwent an extensive work-up (RUQ u/s, MRCP, etc) prior to undergoing an ERCP by Dr Noelle Douglas of [facility]. The ERCP confirmed the presence of CBD stones/sludge. CBD and pancreatic duct stents were deployed during the ERCP. He received broad-spectrum IV antibiotic his entire stay and will complete a 5- day course of oral augmentin post-discharge. Fortunately blood cultures were negative while hospitalized. He will need his stents removed in 8 weeks post-discharge. This will be coordinated through [facility]. (2) Acute and chronic cholecystitis: Following his ERCP the [facility] General Surgery team was consulted who ultimately performed laparoscopic cholecystectomy. Pathology from the surgery showed gallstones and acute/chronic cholecystitis. Post-op he did well from a surgical standpoint. He tolerated a low-fat diet and was passing stools/flatus prior to discharge. He will need follow-up with Dr Cam Todd from [facility] Surgery to check his incisions, etc. (3) Sepsis: RESOLVED. 2nd to biliary tract disease - acute cholecystitis with choledocholithiasis / probable cholangitis. s/p lap senthil. s/p ERCP. Received broad-spectrum IV antibiotics while hospitalized and was transitioned to oral augmentin for 5 additional days at discharge. Blood cultures were negative during the stay. (4) Cholelithiasis: With probable cholangitis and acute cholecystitis. s/p ERCP with removal of CBD sludge/stones and placement of CBD stent and pancreatic duct stent. s/p lap senthil. Will need stents removed in 8 weeks post-discharge via [facility]. (5) Biliary sludge: as above (6) Chronic systolic (congestive) heart failure: RESOLVED. EF on echo 04/2016 (echo found in [employer]) - 35-40%. EF on nuclear stress test 10/2016 - 68%. Echo this admission with preserved EF. He was compensated on exam his entire stay. Cont BB. Cont TAMIKO. Cont lasix BID. (7) Atrial fibrillation: The patient's a fib rates at rest were controlled but with minimal activity his rates would jump into the 140-160 range. This was despite use of "double" beta vibha therapy (has been on metoprolol and coreg chronically for years). He was placed on telemetry and cardizem 30mg q6h was added for additional rate control. This was titrated to 60mg q6h. With this addition his rates with activity were improved to the 120s. 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 At discharge he was transitioned to cardizem CD 240mg once daily. Hopefully his improved rate control will lead to less dyspnea on exertion and exercise intolerance. As noted above his echo showed preserved EF. Coumadin was resumed post-cholecystectomy. INR at discharge was 1.3. (8) Hypothyroidism: TSH minimally elevated at 4.5 at admission. no change in dose. simply repeat TSH as outpatient in 3-4 weeks. (9) Essential (primary) hypertension: continue home meds controlled (10) DM w/o complication type II: controlled during the stay. he will resume his prior regimen. (11) Morbid obesity with BMI of 45.0-49.9, adult: BMI 51 needs weight loss seen by PT/OT and cleared for home we discussed outpatient cardiac rehab; he can get referral from Dr Hardy if he is interested Total Time Total Time Spent Total Time Spent (In Minutes): 45 Total Time Includes: Examination of the Patient, Discharge Planning, Medication Reconciliation and Communication With Other Providers Discharge Plan Discharge Items Patient Disposition: Home - Self-Care Reason For Visit: ABDOMINAL PAIN Discharge Diagnosis: 1. gall bladder sludge in bile duct with probable cholangitis. 2. acute and chronic cholecystitis ("sick" gall bladder). 3. atrial fibrillation. Discharge Goals: Diagnostic testing, Improve disease control, Learn about illness and Therapeutic intervention Activity: Per 'Additional Instructions' section Non-emergency contact: Primary Care Provider, Surgeon and Dismantler Call non-emergency contact if: you have any medication questions, your symptoms worsen, your pain is not controlled, your pain is worsening, your temperature is above 100.5, your wound has increased redness, your wound has increased drainage and your wound pain has increased Follow-up/Referrals: Carlos Hardy MD [Physician] - (see Dr Hardy for your a.fib in 1 week) Dominick Iyer MD [Primary Care Provider] - 10/07/18 1:00 pm (Please, follow up at Dr. Iyer's office with his associate, Josefina Romeo PA-C on FridayOctober 07 at 1:00 pm. *If youneed to change this appointment, call the office at [phone].) Cam Todd MD [Physician] - 10/14/18 2:30 pm (Please, follow up at [facility] General Surgery Office with Dr. Cam Todd on FridayOctober 14 at 2:30 pm. *This office is located at [address] [place] [address] in [place]. If you need to change this appointment, call the office at [phone].) Diet: Carb Consistent or DM2, Heart Healthy and Low Fat Addtl Provider Instructions: 1. Surgical discharge instructions: - No heavy lifting over 10 pounds for 2 weeks. - No strenuous activity until cleared by surgeon. - No submerging incisions underwater for 2 weeks (No bathing, swimming, or hot tubs). - No driving while taking narcotic pain medication or until you are pain free. - You may shower. Leave steri strips on incisions for 7 days and then remove. - Walking and light activity is encouraged daily to prevent blood clots from forming in your legs. - You will be given Percocet as needed for moderate to severe pain. Take as directed. This medication may cause drowsiness or constipation. - may take extra strength ibuprofen or Tylenol as needed for mild pain. Avoid taking Tylenol while taking Percocet as Percocet has Tylenol in it. - To avoid constipation: drink plenty of fluids, daily walking, and may take OTC stool softener (Colace) and/or miralax while taking narcotic pain medication. - Follow-up in surgical office in 2 weeks. Office number: [phone]. 2. Additional instructions from Cezar Ma - hospitalist - * for your a.fib -- continue on all previous medications but ALSO ADD CARDIZEM CD 240MG ONCE DAILY. START THIS ON 09/28/18. Prescription sent to [facility]. * RESUME your normal coumadin regimen; your INR on day of discharge is 1.3. * PLEASE HAVE YOUR INR REPEATED in 3-4 days to ensure it is in "goal range" of 2 to 3. * please take 5 more days of antibiotic. Take augmentin (amoxicillin- clavulanate) 1 tablet twice a day for 5 days. START THIS TONIGHT ON 09/27/18. Prescription sent to [facility]. * take a probiotic for 7 days. Prescription sent to [facility]. 3. Follow-up -- see separate section. 4. Consider attending cardiac rehab which is a structured exercise program for people with heart conditions. It is located at the hospital. Please speak to Dr Hardy about this. 5. Resume your metformin for your diabetes as previous. 6. Return to [facility] if -- * you have fevers over 100.5 degrees * you have worsening redness, drainage, etc from your incisions on your abdominal wall * you have severe diarrhea * you have severe shortness of breath or chest pain * any other concerns Prescriptions: No Action furosemide 40 mg Tablet 40 mg PO BID RF: 0 atorvastatin 40 mg Tablet 40 mg PO QAM RF: 0 carvedilol 25 mg Tablet 25 mg PO QPM RF: 0 carvedilol 12.5 mg Tablet 12.5 mg PO QAM RF: 0 cyanocobalamin (vitamin B-12) [Vitamin B-12] 1,000 mcg Tablet 1,000 mcg PO QAM RF: 0 warfarin 2.5 mg Tablet 2.5 mg PO 2XWK RF: 0 potassium chloride 10 mEq Tablet Extended Release 10 meq PO QPM RF: 0 levothyroxine 50 mcg Tablet 50 mcg PO QAM RF: 0 metformin 1,000 mg Tablet 1,000 mg PO BID RF: 0 warfarin 5 mg Tablet 5 mg PO 5XWK RF: 0 metoprolol tartrate 50 mg Tablet 50 mg PO BID RF: 0 lisinopril 2.5 mg Tablet 2.5 mg PO QAM RF: 0 diltiazem HCl 240 mg Tablet Extended Release 24 Hr 240 mg PO QAM RF: 0 Saccharomyces boulardii 250 mg Capsule 250 mg PO QAM RF: 0 testosterone 12.5 mg/ 1.25 gram (1 %) Gel In Metered-Dose Pump 2 pump TRANSDERMAL QAM RF: 0 cholecalciferol (vitamin D3) [Vitamin D3] 2,000 unit Tablet 2,000 unit PO QPM RF: 0 calcium carbonate 600 mg calcium (1,500 mg) Tablet 600 mg PO QPM RF: 0 Stand-Alone Forms: [facility] Discharge Orders: Discharge Order (Routine); Ordered 09/27/18 Ordered By: Cezar Ma Admission Data Admit Date/Time: 09/21/18 15:40 Attending Provider: Cezar Ma Admit Provider: Chandler Pruitt Primary Care Provider: Dominick Iyer Other Providers: Andrey Arteaga ; Caty Newotn ; Cam Todd ; Carlos Hardy Service: Telemetry Medical Other Interventions: Discharge Summary Assessment (RN) Last Done: 09/27/18 11:24 Pending Studies at Discharge: Yes (Gallbladder pathology, will be reviewed at follow up visit) Studies:: pathology report from gall bladder surgery DC Date/Time DO NOT enter until pt leaves facility: 09/27/18 12:05
== END 2018-09-27 12:05 | disposition home or self-care (01) | DRG 854 ==
LOC: 4W 14:50 → ED 14:50 → SUATTDRO 17:39 → 4W 18:41 → 2W 09-25 17:52

== ENCOUNTER 2023-08-10 13:58 | Inpatient (IN) ==
[2023-08-10 14:45] LABS: Basophils # (auto) 0.04 K/uL (0.00-0.20); Basophils % (auto) 0.6 %; Eosinophils # (auto) 0.07 K/uL (0.00-0.50); Eosinophils % (auto) 1.1 %; Hematocrit (blood only) 47.7 % (42.0-52.0); Hemoglobin 15.5 g/dl (14.0-18.0); Immature Granulocytes # (auto) 0.01 K/uL (0.01-0.20); Immature Granulocytes % (auto) 0.2 %; Lymphocytes # (auto) 1.55 K/uL (1.20-3.40); Mean Corpuscular Hemoglobin 27.5 pg (25.0-34.0); Mean Corpuscular Hgb Conc 32.5 g/dL (32.0-36.0); Mean Corpuscular Volume 84.6 fL (80.0-100.0); Mean Platelet Volume 8.9 fL (9.4-12.4); Monocytes # (auto) 0.55 K/uL (0.11-0.59); Monocytes % (auto) 8.5 %; Neutrophils # (auto) 4.24 K/uL (1.40-6.50); Neutrophils % (auto) 65.6 %; Platelet Count 245 K/uL (130-400); RDW Coefficient of Variation 13.7 % (11.5-14.5); RDW Standard Deviation 41.8 fL (36.4-46.3); Red Blood Count 5.64 M/uL (4.70-6.10); White Blood Count 6.46 K/ul (4.8-10.8)
[2023-08-10 15:01] LABS: Alanine Aminotransferase 19 U/L (7-52); Albumin Level 3.9 gm/dl (3.4-5.0); Alkaline Phosphatase 99 U/L (34-104); Anion Gap 9 (3-11); Aspartate Aminotransferase 18 U/L (13-39); BUN Creatinine Ratio 27.3 (10-20); Bilirubin,Total 0.9 mg/dl (0.2-1.0); Blood Urea Nitrogen 24 mg/dl (6-23); Calcium 9.3 mg/dl (8.6-10.3); Carbon Dioxide 24 mmol/L (21-32); Chloride 105 mmol/L (98-107); Est GFR (African American) 100.9 ml/min; Globulin 3.8 gm/dl (2.5-4.0); Glucose 147 mg/dl (70-99(Fasting)); Potassium 4.5 mmol/L (3.5-5.1); Sodium 138 mmol/L (136-145); Total Protein 7.7 gm/dl (6.0-8.3)
--- NOTE | 2023-08-10 15:41 | Emergency Department Note ---
Impression & Plan Acute pain of left hip, Iliotibial band syndrome, Ambulatory dysfunction ED Provider Note HISTORY OF PRESENT ILLNESS: Patient is a 68-year-old male presenting with left hip pain. Patient reports that he started having some generalized pain in his left lateral hip starting 3 days ago. He states that 4 days ago he did do a very small, not vigorous workout. He denies any significant abduction or abduction activities of the hip. He states that 3 days ago he woke up with his vague pain in his hip. However, over the last 3 days pain has progressed to the point that he is unable to walk secondary to pain in the hip. He locates the pain to the left lateral hip with radiation down the lateral part of the leg into the lateral knee. He denies any numbness or tingling down the leg. He states that the area is tender to palpation. Denies any open wounds or rashes. He denies any recent falls or back injury. He denies any bowel or bladder incontinence. Denies any saddle anesthesia. He does have a history of osteoporosis. He does report that he has been feeling generally unwell for the last 24 hours and has not had much of an appetite. He denies any fevers. Denies any abdominal pain. Denies any dysuria or hematuria. ROS: as above PHYSICAL EXAM: Constitutional: Patient appears in no acute distress. HENT: Head: Normocephalic and atraumatic. Eyes: EOMI, PERRL Mouth/Throat: Mucous membranes moist. Neck: Trachea midline. Neck supple. Abdominal: Abdomen soft, no tenderness, rebound or guarding. Back: No midline spinal tenderness, no paraspinal tenderness, no CVA tenderness. Musculoskeletal: - LLE: Patient has reproducible tenderness to palpation of the lateral portion of his left leg extending from the left lateral hip down to the left lateral knee. Able to internally and externally rotate the hip without significant pain. Able to flex and extend at the knee without pain. No obvious rashes or open wounds. No obvious deformity. Skin: Warm and dry. No rash, erythema, pallor or cyanosis Psychiatric: Appropriate mood and affect for situation. Neurological: Alert and keenly responsive. CN II-XII grossly intact MDM: - Vitals signs showed hypertension. - History obtained via patient. History as above. - Chronic conditions affecting care: HTN; hypothyroidism; CHF; HLD; DM-2 - Differential diagnoses include, but are not limited to: pelvic fracture; femur fracture; compression fracture of lumbar spine; tendonitis; muscle spasm - Order placed for continuous cardiac monitoring. At this time, monitor showed rate of 78 bpm with normal sinus rhythm, per my interpretation. - External medical records reviewed. Primary care provider note reviewed from 03/03/2023. Patient had follow-up after an ED laceration had 9 sutures removed from his knee. - Laboratory workup interpreted by myself showed normal WBC; stable electrolytes; hyperglycemia (glucose 147) - Xray hip and pelvis negative for acute fracture, per my interpretation - CT lumbar spine wo contrast negative for acute injury - CT pelvis wo contrast negative for acute fracture. - COVID/flu/RSV negative - Patient given lidocaine patch, 50 mcg IV fentanyl and 500 mg PO robaxin for symptomatic management. On reassessment, the patient reports he is still having significant pain. - Patient's pain does seem to be located along the IT band on the left lateral leg. However, he is unable to get up out of the bed on his own secondary to continued pain. He is unable to initiate ambulation at this time. - Discussed option for discharge with pain management with the patient. However, he is unable to get up out of the examination bed by himself and he is normally ambulatory without any assistive devices at home. expresses concern about the patient's ability to get around at home at this time. Will admit for PT/OT assessment and further evaluation. - Discussion was had with residential case manager about patient's case and need for admission - Hospitalist consulted for admission - Patient admitted to [facility] Hospitalist service for further evaluation and management. ASSESSMENT AND PLAN: Diagnosis: ambulatory dysfunction; left hip pain; iliotibial band syndrome Plan: discharge Past Med/Surg History Medical History Anticoagulant long-term use Chronic systolic heart failure Dyslipidemia Gynecomastia History of cardioversion Hypertension Hypogonadism Hypothyroidism Osteopenia Permanent atrial fibrillation Sleep apnea T2DM (type 2 diabetes mellitus) Tachycardia induced cardiomyopathy Tubular adenoma of colon Surgical History History of cataract surgery History of cholecystectomy History of colonoscopy History of ERCP History of herniorrhaphy History of tonsillectomy S/P ERCP (09/2018) Family History Father Heart disease Myocardial infarction Mother Emphysema, unspecified Sister Mental disorder Grandmother (Paternal) Diabetes Aunt Diabetes Grandfather (Paternal) Myocardial infarction Other No significant family history Denies family history of Ovarian cancer Prostate cancer Breast cancer Colorectal cancer Social History Smoking Status: Never smoker Second Hand Exposure: No; Do You Dip or Chew Tobacco: No; Hx Alcohol Use: Yes Alcohol Intake Frequency Comment: rarely Hx Substance Use: No Preferred Language: [place] Communication Ability: Effective Visual Impairment: No Limitations Hearing Ability: Normal Trouble Clerk Required: No Beliefs That Will Affect Care: None marital status: Current Living Situation: Spouse current occupational status: retired 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 Feels Safe at Home: Yes Childhood Exposure to Second-Hand Smoke: Yes Diet: regular caffeine: Yes Dental Care, Regularly: Yes Physical Activity Frequency: Does not Exercise Seatbelt Use: sometimes Sunscreen Use: Yes Assistive Devices: CPAP and Glasses Allergies Allergies Allergy/AdvReac Type Severity Reaction Status Date / Time No Known Drug Allergies Allergy Verified 08/10/23 17:26 Home Meds Home Medications Medication Instructions Recorded Confirmed lisinopril 2.5 mg tablet 2.5 mg PO QAM 05/24/21 08/10/23 warfarin 5 mg tablet 5 mg PO QAM 04/17/22 08/10/23 ascorbate calcium (vitamin C) 500 500 mg PO DAILY 04/09/23 08/10/23 mg tablet testosterone 12.5 mg/1.25 gram per 2 pump transdermal QAM 08/10/23 08/10/23 pump actuation (1%) transdermal gel Previous Rx's Medication Instructions Recorded True Metrix Glucose Test Strip #300 ea 06/15/20 (blood sugar diagnostic) cholecalciferol (vitamin D3) 125 125 mcg PO DAILY #90 caps 10/11/22 mcg (5,000 unit) capsule metformin 1,000 mg tablet 1,000 mg PO BID #180 tabs 11/08/22 carvedilol 12.5 mg tablet 12.5 mg PO QAM #90 tabs 12/04/22 potassium chloride 10 mEq 10 meq PO QPM #90 tabs 12/04/22 tablet,extended release levothyroxine 100 mcg tablet 100 mcg PO QAM #90 tabs 03/11/23 atorvastatin 40 mg tablet (Lipitor) 40 mg PO QPM #90 tabs 03/31/23 blood-glucose sensor (FreeStyle #1 ea 05/23/23 Carson 3 Sensor device) metoprolol tartrate 50 mg tablet 50 mg PO QAM #90 tabs 06/04/23 furosemide 40 mg tablet 40 mg PO DAILY PRN weight gain #90 06/18/23 tabs diltiazem HCl 120 mg 120 mg PO DAILY #90 caps 07/28/23 capsule,extended release 24 hr carvedilol 25 mg tablet 25 mg PO QPM #90 tabs 08/04/23 Results & Data (ED) Vital Signs Vital Signs - 24 hr 08/10/23 14:04 08/10/23 15:44 08/10/23 15:45 Temperature 36.0 C L Temperature Source Temporal Artery Scan Pulse Rate 101 H 78 Pulse Rate from SpO2 Sensor 75 Respiratory Rate 18 13 Respiratory Effort / Characteristics Non-Labored Spontaneous Respiratory Depth Normal Respiratory Pattern Regular Blood Pressure 117/73 154/104 H Blood Pressure Mean 87 108 Pulse Oximetry 98 98 Oxygen Delivery Method Room Air Sepsis Recent Fever Within 48 Hours No Sepsis New/Unexplained Change in Mental Status N/A Sepsis Action Taken by Nursing No Action Required 08/10/23 15:48 08/10/23 16:00 08/10/23 16:30 Temperature Temperature Source Pulse Rate 75 71 79 Pulse Rate from SpO2 Sensor 79 Respiratory Rate 17 12 Respiratory Effort / Characteristics Respiratory Depth Respiratory Pattern Blood Pressure Blood Pressure Mean Pulse Oximetry 97 Oxygen Delivery Method Sepsis Recent Fever Within 48 Hours Sepsis New/Unexplained Change in Mental Status Sepsis Action Taken by Nursing 08/10/23 17:00 08/10/23 17:12 08/10/23 17:12 Temperature Temperature Source Pulse Rate 71 72 Pulse Rate from SpO2 Sensor 74 Respiratory Rate 18 13 Respiratory Effort / Characteristics Respiratory Depth Respiratory Pattern Blood Pressure 148/108 H 136/66 Blood Pressure Mean 114 89 Pulse Oximetry 99 Oxygen Delivery Method Room Air Sepsis Recent Fever Within 48 Hours Sepsis New/Unexplained Change in Mental Status Sepsis Action Taken by Nursing 08/10/23 17:19 08/10/23 17:19 08/10/23 17:30 Temperature Temperature Source Pulse Rate 77 Pulse Rate from SpO2 Sensor 79 Respiratory Rate 13 Respiratory Effort / Characteristics Respiratory Depth Respiratory Pattern Blood Pressure 136/66 146/76 H Blood Pressure Mean 94 98 Pulse Oximetry 98 Oxygen Delivery Method Sepsis Recent Fever Within 48 Hours Sepsis New/Unexplained Change in Mental Status Sepsis Action Taken by Nursing 08/10/23 17:30 08/10/23 18:00 08/10/23 18:00 Temperature Temperature Source Pulse Rate 76 78 Pulse Rate from SpO2 Sensor 74 76 Respiratory Rate 16 17 Respiratory Effort / Characteristics Respiratory Depth Respiratory Pattern Blood Pressure 146/84 H Blood Pressure Mean 106 Pulse Oximetry 98 99 Oxygen Delivery Method Room Air Sepsis Recent Fever Within 48 Hours Sepsis New/Unexplained Change in Mental Status Sepsis Action Taken by Nursing Laboratory Data 08/10/23 14:18 08/10/23 14:18 Lab Results 08/10/23 08/10/23 Range/Units 14:18 16:21 WBC 6.46 (4.8-10.8) K/ul RBC 5.64 (4.70-6.10) M/uL Hgb 15.5 (14.0-18.0) g/dl Hct 47.7 (42.0-52.0) % MCV 84.6 (80.0-100.0) fL MCH 27.5 (25.0-34.0) pg MCHC 32.5 (32.0-36.0) g/dL RDW Std Deviation 41.8 (36.4-46.3) fL RDW Coeff of Staci 13.7 (11.5-14.5) % Plt Count 245 (130-400) K/uL MPV 8.9 L (9.4-12.4) fL Immature Gran % (Auto) 0.2 % Neut % (Auto) 65.6 % Lymph % (Auto) 24.0 % Perry % (Auto) 8.5 % Eos % (Auto) 1.1 % Baso % (Auto) 0.6 % Neut # (Auto) 4.24 (1.40-6.50) K/uL Lymph # (Auto) 1.55 (1.20-3.40) K/uL Perry # (Auto) 0.55 (0.11-0.59) K/uL Eos # (Auto) 0.07 (0.00-0.50) K/uL Baso # (Auto) 0.04 (0.00-0.20) K/uL Immature Gran # (Auto) 0.01 (0.01-0.20) K/uL Sodium 138 (136-145) mmol/L Potassium 4.5 (3.5-5.1) mmol/L Chloride 105 (98-107) mmol/L Carbon Dioxide 24 (21-32) mmol/L Anion Gap 9 (3-11) BUN 24 H (6-23) mg/dl Creatinine 0.88 (0.6-1.4) mg/dl Est Cr Clr Drug Dosing Not Reportable Est GFR ( Amer) 100.9 ml/min Est GFR (Non-Af Amer) 87.0 ml/min BUN/Creatinine Ratio 27.3 H (10-20) Glucose 147 H (70-99(Fasting)) mg/dl Calcium 9.3 (8.6-10.3) mg/dl Total Bilirubin 0.9 (0.2-1.0) mg/dl AST 18 (13-39) U/L ALT 19 (7-52) U/L Alkaline Phosphatase 99 (34-104) U/L Total Protein 7.7 (6.0-8.3) gm/dl Albumin 3.9 (3.4-5.0) gm/dl Globulin 3.8 (2.5-4.0) gm/dl Albumin/Globulin Ratio 1.0 (0.9-2) SARS-CoV-2 (PCR) NEGATIVE (Negative) Influenza Type A (PCR) Negative (Neg) Influenza Type B (PCR) Negative (Neg) RSV (RT-PCR) Negative (Neg) Administered Medications Discontinued Medications Fentanyl Citrate (Fentanyl Citrate Pf 100 Mcg/2 Ml Vial) 50 mcg IV NOW STA Stop: 08/10/23 15:39 Last Admin: 08/10/23 15:44 Dose: 50 mcg Documented By: YOHAN Lidocaine (Lidocaine 5% 1 Patch) 1 patch TD NOW STA Stop: 08/10/23 15:39 Last Admin: 08/10/23 15:44 Dose: 1 patch Documented By: YOHAN Methocarbamol (Methocarbamol 500 Mg Tablet) 500 mg PO NOW STA Stop: 08/10/23 15:39 Last Admin: 08/10/23 16:23 Dose: 500 mg Documented By: ANDREA Imaging Data Radiologist's Impression: Hip/Pelvis X-Ray 08/10/23 14:11 XR hip LT 2V w pelvis CLINICAL HISTORY: Hip trauma, fracture suspected, no prior imaging TECHNIQUE: 2 views of the left hip and single frontal view of the pelvis were obtained. Comparison: Comparison is made to CT abdomen pelvis 09/19/2018 FINDINGS: There is no evidence of an acute fracture. Degenerative changes are seen in the hip joint. No soft tissue abnormality is seen. IMPRESSION: Degenerative changes without evidence of acute abnormality. ACT 112: Negative or not required by law. Electronically signed by: Andrey Puentes M.D. 08/10/2023 3:[address] 08/10/23 15:38 CT lumbar spine wo con CLINICAL HISTORY: left hip pain radiating to knee TECHNIQUE: Multidetector row helical CT of the lumbar spine was performed without administration of intravenous contrast. Coronal and sagittal reformations were obtained. Automated dose lowering techniques and/or adjustment according to patient size were utilized for this exam. CT DOSE: 2491.73 mGy.cm Comparison: Comparison is made to CT abdomen pelvis 09/19/2014 FINDINGS: For counting purposes, the last complete intervertebral disc space is considered L5-S1. No acute fractures are identified. Degenerative changes are noted in the visualized spine. Vertebral body alignment is within normal limits. Demonstration of exophytic cyst arising from the right kidney. Patient is status post IMPRESSION: Degenerative changes without evidence of acute bony injury. ACT 112: Negative or not required by law. Electronically signed by: Andrey Puentes M.D. 08/10/2023 4:[address] 08/10/23 15:38 CT pelvis wo con CLINICAL HISTORY: left hip pain TECHNIQUE: Helical axial images of the pelvis were obtained and displayed at 5 and 1 mm intervals. Automated dose lowering techniques and/or adjustment according to patient size were utilized for this exam. This exam was performed without intravenous contrast. COMPARISON: None available at the time of this dictation. FINDINGS: Bladder: Unremarkable. Reproductive organs: Unremarkable. Bowel: Unremarkable. Lymph nodes Pelvic: Unremarkable. Mesenteric: Unremarkable. Peritoneum: Normal Vessels: Atherosclerotic calcifications are seen. Abdominal wall: Unremarkable. Bones: Degenerative changes in the visualized spine. IMPRESSION: No acute abnormalities. ACT 112: Negative or not required by law. Electronically signed by: Andrey Puentes M.D. 08/10/2023 5:07 PM Discharge Plan Visit Data Chief Complaint: Illness Stated Complaint: LEFT SIDE PAIN, DECREASED APPETITE ED Provider: Alisia Ordonez Discharge Problem: Acute pain of left hip, Iliotibial band syndrome, Ambulatory dysfunction Forms Stand Alone Forms: [facility] Prescriptions Prescriptions: No Action (DME) True Metrix Glucose Test Strip Strip See Rx Instructions .ROUTE .MEDSUPPLY Qty: 300 3RF Rx Instructions: test 3 times daily and as needed warfarin 5 mg tablet 5 mg PO QAM Protocol: Dose Management Condition: Friday Dose/Route: 5 mg Instruction: 1 x 5 mg tablet Condition: Friday Dose/Route: 5 mg Instruction: 1 x 5 mg tablet Condition: Friday Dose/Route: 5 mg Instruction: 1 x 5 mg tablet Condition: Friday Dose/Route: 5 mg Instruction: 1 x 5 mg tablet Condition: Dose/Route: 5 mg Instruction: 1 x 5 mg tablet Condition: Friday Dose/Route: 5 mg Instruction: 1 x 5 mg tablet Condition: Friday Dose/Route: 5 mg Instruction: 1 x 5 mg tablet Protocol Text: Adjustment Start Date: 07/31/23 INR Value: 2.5 INR Date: 07/31/23 Recheck Date: 08/30/23 metformin 1,000 mg tablet 1,000 mg PO BID Qty: 180 3RF potassium chloride 10 mEq tablet extended release 10 meq PO QPM Qty: 90 3RF carvedilol 12.5 mg tablet 12.5 mg PO QAM Qty: 90 3RF levothyroxine 100 mcg tablet 100 mcg PO QAM Qty: 90 3RF atorvastatin [Lipitor] 40 mg tablet 40 mg PO QPM Qty: 90 3RF metoprolol tartrate 50 mg tablet 50 mg PO QAM Qty: 90 3RF furosemide 40 mg tablet 40 mg PO DAILY PRN (Reason: weight gain) Qty: 90 3RF diltiazem HCl 120 mg capsule,extended release 24hr 120 mg PO DAILY Qty: 90 3RF carvedilol 25 mg tablet 25 mg PO QPM Qty: 90 3RF cholecalciferol (vitamin D3) 125 mcg (5,000 unit) capsule 125 mcg PO DAILY Qty: 90 3RF Rx Instructions: Take one tablet by mouth with the largest meal of the day. (DME) [employer] Carson 3 Sensor Device See Rx Instructions .Route Qty: 1 11RF Rx Instructions: Change every 14 days ascorbate calcium (vitamin C) 500 mg tablet 500 mg PO DAILY lisinopril 2.5 mg tablet 2.5 mg PO QAM testosterone 12.5 mg/ 1.25 gram (1 %) gel in metered-dose pump 2 pump TRANSDERMAL QAM Referrals Referrals: Joe Iyer MD [Primary Care Provider] -
[2023-08-10] MEDS: fentaNYL citrate PF 100 MCG/2 ML VIAL IV STA (15:44)
[2023-08-10] MEDS: LIDOCAINE 5% 1 PATCH TD STA (15:44)
--- NOTE | 2023-08-10 15:49 | XRay Report ---
XR hip LT 2V w pelvis CLINICAL HISTORY: Hip trauma, fracture suspected, no prior imaging TECHNIQUE: 2 views of the left hip and single frontal view of the pelvis were obtained. Comparison: Comparison is made to CT abdomen pelvis 09/19/2018 FINDINGS: There is no evidence of an acute fracture. Degenerative changes are seen in the hip joint. No soft ti ssue abnormality is seen. IMPRESSION: Degenerative changes without evidence of acute abnormality. ACT 112: Negative or not required by law. Electronically signed by: Andrey Puentes M.D. 08/10/2023 3:48 PM
[2023-08-10] MEDS: METHOCARBAMOL 500 MG TABLET PO STA (16:23)
--- NOTE | 2023-08-10 16:45 | CT Scan Report ---
CT lumbar spine wo con CLINICAL HISTORY: left hip pain radiating to knee TECHNIQUE: Multidetector row helical CT of the lumbar spine was performed without administration of i ntravenous contrast. Coronal and sagittal reformations were obtained. Automated dose lowering techniq ues and/or adjustment according to patient size were utilized for this exam. CT DOSE: 2491.73 mGy.cm Comparison: Comparison is made to CT abdomen pelvis 09/19/2014 FINDINGS: For counting purposes, the last complete intervertebral disc space is considered L5-S1. No acute fractures are identified. Degenerative changes are noted in the visualized spine. Vertebral body alignment is within normal limits. Demonstration of exophytic cyst arising from the right kidney . Patient is status post IMPRESSION: Degenerative changes without evidence of acute bony injury. ACT 112: Negative or not required by law. Electronically signed by: Andrey Puentes M.D. 08/10/2023 4:43 PM
--- NOTE | 2023-08-10 17:09 | CT Scan Report ---
CT pelvis wo con CLINICAL HISTORY: left hip pain TECHNIQUE: Helical axial images of the pelvis were obtained and displayed at 5 and 1 mm intervals. Au tomated dose lowering techniques and/or adjustment according to patient size were utilized for this e xam. This exam was performed without intravenous contrast. COMPARISON: None available at the time of this dictation. FINDINGS: Bladder: Unremarkable. Reproductive organs: Unremarkable. Bowel: Unremarkable. Lymph nodes Pelvic: Unremarkable. Mesenteric: Unremarkable. Peritoneum: Normal Vessels: Atherosclerotic calcifications are seen. Abdominal wall: Unremarkable. Bones: Degenerative changes in the visualized spine. IMPRESSION: No acute abnormalities. ACT 112: Negative or not required by law. Electronically signed by: Andrey Puentes M.D. 08/10/2023 5:07 PM
[2023-08-10 17:19] LABS: Influenza A virus by PCR Negative (Neg); Influenza B virus by PCR Negative (Neg); RSV by PCR Negative (Neg); SARS CoV2 RNA(COVID-19) Ceph NEGATIVE (Negative)
[2023-08-10 19:27] LABS: INR 2.8 (0.9-1.1); Prothrombin Time 28.5 Seconds (9.0-12.0)
[2023-08-10] MEDS: diazePAM 5 MG TABLET PO ONE (19:28)
[2023-08-10 19:31] LABS: Magnesium 1.8 mg/dl (1.7-2.4)
--- NOTE | 2023-08-10 20:16 | Ultrasound Report ---
US venous doppler LE LT CLINICAL HISTORY: left leg pain ?DVT TECHNIQUE: Left lower extremity real-time compression venous ultrasound with Color Doppler imaging. U tilizing real-time ultrasonic imaging multiple real time high-resolution ultrasonic images with compr ession and noncompression maneuvers of the deep venous system in addition to color doppler imaging we re performed from the common femoral vein through the proximal calf veins. COMPARISON: None available at the time of this dictation. FINDINGS/IMPRESSION: Currently there is normal compressibility of the deep venous system from the common femoral vein thro ugh the proximal calf veins. No superficial venous thrombosis is identified. ACT 112: Negative or not required by law. Electronically signed by: Andrey Puentes M.D. 08/10/2023 8:14 PM
[2023-08-10] MEDS ORDERED: oxyCODONE HCL IR 5 MG TAB (IMMEDIATE RELEASE) PO PRN (20:58)
--- NOTE | 2023-08-10 20:59 | History & Physical Report ---
Date of Service August 10, 2023 Assessment & Plan (1) Acute pain of left thigh: Plan: Appear to be having muscle spasms possibly related to exercise he was doing on Friday with leg lifts No one muscle distribution but agree with ER provider and appears to be worse ov er IT band Diazepam 5 mg p.o. now and continue 2 mg q.6 hourly PRN for muscle spasms Acetaminophen first-line, oxycodone second line for pain Consult orthopedics for possible alternative etiologies (2) T2DM (type 2 diabetes mellitus): Plan: Hemoglobin A1c 7.0 in April, repeat with a.m. labs Continue his usual metformin with NovoLog for correction only (3) Sleep apnea: Plan: CPAP HS (4) Permanent atrial fibrillation: Plan: Continue warfarin for anticoagulation (5) Hypothyroidism: Plan: TSH with AM labs Continue levothyroxine (6) Hypertension: Plan: Continue carvedilol, metoprolol, diltiazem, lisinopril (7) Klinefelter syndrome: (8) Hypogonadism in male: Plan: Continue testosterone Plan VTE prophylaxis - warfarin Diet - T2DM Disposition - observation status to med/surg Admission and Anticipated Discharge Date Admission Date: August 10, 2023 History of Present Illness Chief Complaint: Left leg pain Primary Care Provider: Joe Iyer MD Kirby Bonds is a 68 year old male who presents to the ER with left upper leg pain. He reports intermittent sharp pain in no one nerve distribution with cramping feeling in upper thigh and hamstrings both medially and laterally. This comes on especially while standing up. No pain in his back. He reports doing a normal workout that included leg lifts 4 days ago. 3 days ago this pain came on slowly progressively. He does not feel he injured his leg during the workout. Area is painful to palpation over thigh and hamstrings. No abdominal pain, nausea, vomiting or change in bowel movements. No urinary symptoms. No fever or chills. He feels he is too unsafe to return home at this time. Allergies Allergy/AdvReac Type Severity Reaction Status Date / Time No Known Drug Allergies Allergy Verified 08/10/23 17:26 Home Medications Medication Instructions Recorded Confirmed Type True Metrix Glucose Test Strip #300 ea 06/15/20 06/19/23 Rx (blood sugar diagnostic) lisinopril 2.5 mg tablet 2.5 mg PO QAM 05/24/21 08/10/23 History warfarin 5 mg tablet 5 mg PO QAM 04/17/22 08/10/23 History cholecalciferol (vitamin D3) 125 125 mcg PO DAILY #90 caps 10/11/22 08/10/23 Rx mcg (5,000 unit) capsule metformin 1,000 mg tablet 1,000 mg PO BID #180 tabs 11/08/22 08/10/23 Rx carvedilol 12.5 mg tablet 12.5 mg PO QAM #90 tabs 12/04/22 08/10/23 Rx potassium chloride 10 mEq 10 meq PO QPM #90 tabs 12/04/22 08/10/23 Rx tablet,extended release levothyroxine 100 mcg tablet 100 mcg PO QAM #90 tabs 03/11/23 08/10/23 Rx atorvastatin 40 mg tablet (Lipitor) 40 mg PO QPM #90 tabs 03/31/23 08/10/23 Rx ascorbate calcium (vitamin C) 500 500 mg PO DAILY 04/09/23 08/10/23 History mg tablet blood-glucose sensor (FreeStyle #1 ea 05/23/23 06/19/23 Rx [place] 3 Sensor device) metoprolol tartrate 50 mg tablet 50 mg PO QAM #90 tabs 06/04/23 08/10/23 Rx furosemide 40 mg tablet 40 mg PO DAILY PRN weight gain #90 06/18/23 08/10/23 Rx tabs diltiazem HCl 120 mg 120 mg PO DAILY #90 caps 07/28/23 08/10/23 Rx capsule,extended release 24 hr carvedilol 25 mg tablet 25 mg PO QPM #90 tabs 08/04/23 08/10/23 Rx testosterone 12.5 mg/1.25 gram per 2 pump transdermal QAM 08/10/23 08/10/23 History pump actuation (1%) transdermal gel Past Med/Surg History Medical History Anticoagulant long-term use Chronic systolic heart failure Dyslipidemia Gynecomastia History of cardioversion Hypertension Hypogonadism Hypothyroidism Osteopenia Permanent atrial fibrillation Sleep apnea T2DM (type 2 diabetes mellitus) Tachycardia induced cardiomyopathy Tubular adenoma of colon Surgical History History of cataract surgery History of cholecystectomy History of colonoscopy History of ERCP History of herniorrhaphy History of tonsillectomy S/P ERCP (09/2018) Family History Father Heart disease Myocardial infarction Mother Emphysema, unspecified Sister Mental disorder Grandmother (Paternal) Diabetes Aunt Diabetes Grandfather (Paternal) Myocardial infarction Other No significant family history Denies family history of Ovarian cancer Prostate cancer Breast cancer Colorectal cancer Social History Smoking Status: Never smoker Second Hand Exposure: No; Do You Dip or Chew Tobacco: No; Hx Alcohol Use: Yes Alcohol type: beer Alcohol Intake Frequency Comment: rarely Hx Substance Use: No Preferred Language: Kinyarwanda Communication Ability: Effective Visual Impairment: No Limitations Hearing Ability: Normal Rural Route Carrier Required: No Beliefs That Will Affect Care: None marital status: Current Living Situation: Spouse current occupational status: retired 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 Feels Safe at Home: Yes Childhood Exposure to Second-Hand Smoke: Yes Diet: regular caffeine: Yes Dental Care, Regularly: Yes Physical Activity Frequency: Does not Exercise Seatbelt Use: sometimes Sunscreen Use: Yes Assistive Devices: None Review of Systems Review of Systems: All systems reviewed & are unremarkable except as noted in HPI & below Physical Exam Constitutional: WD/WN, vitals as above + morbidly obese Respiratory: normal respiratory effort, lungs clear to auscultation Cardiovascular: RRR, no murmur, no edema Gastrointestinal (Abdomen): normal bowel sounds, soft, nontender, no hepatosplenomegaly Musculoskeletal: Pain over palpation over multiple muscles groups in thigh and hamstring especially over IT band. No hip pain on internal/external rotation of his hip, no knee pain on joint palpation of flexion Skin: no rashes, warm and dry Neurologic: moves all extremities and awake; not confused Psychiatric: A+Ox3, euthymic affect Results & Data Results & Data Vital Signs (Past 12 Hours) Vital Signs Temp Pulse Pulse Resp BP BP Pulse Ox 08/10/23 20:30 36.9 C 77 16 136/73 98 08/10/23 20:08 08/10/23 19:37 78 08/10/23 19:31 72 13 99 08/10/23 19:31 135/74 08/10/23 19:30 72 18 98 08/10/23 19:01 80 19 98 08/10/23 19:01 153/71 H 08/10/23 19:00 81 21 99 08/10/23 18:30 160/125 H 08/10/23 18:30 77 10 L 100 08/10/23 18:00 146/84 H 08/10/23 18:00 78 17 99 08/10/23 17:30 76 16 98 08/10/23 17:30 146/76 H 08/10/23 17:19 77 13 98 08/10/23 17:19 136/66 08/10/23 17:12 72 13 136/66 99 08/10/23 17:12 148/108 H 08/10/23 17:00 71 18 08/10/23 16:30 79 12 08/10/23 16:00 71 17 97 08/10/23 15:48 75 08/10/23 15:45 78 13 98 08/10/23 15:44 154/104 H 08/10/23 14:04 36.0 C L 101 H 18 117/73 98 O2 Del Method 08/10/23 20:30 Room Air 08/10/23 20:08 Room Air 08/10/23 19:37 08/10/23 19:31 Room Air 08/10/23 19:31 08/10/23 19:30 08/10/23 19:01 08/10/23 19:01 08/10/23 19:00 08/10/23 18:30 08/10/23 18:30 08/10/23 18:00 08/10/23 18:00 Room Air 08/10/23 17:30 08/10/23 17:30 08/10/23 17:19 08/10/23 17:19 08/10/23 17:12 Room Air 08/10/23 17:12 08/10/23 17:00 08/10/23 16:30 08/10/23 16:00 08/10/23 15:48 08/10/23 15:45 08/10/23 15:44 08/10/23 14:04 Room Air Laboratory Results Abnormal lab results 08/10/23 Range/Units 14:18 MPV 8.9 L (9.4-12.4) fL PT 28.5 H (9.0-12.0) Seconds INR 2.8 H (0.9-1.1) BUN 24 H (6-23) mg/dl BUN/Creatinine Ratio 27.3 H (10-20) Glucose 147 H (70-99(Fasting)) mg/dl Diagnostic Findings CT pelvis wo con CLINICAL HISTORY: left hip pain TECHNIQUE: Helical axial images of the pelvis were obtained and displayed at 5 and 1 mm intervals. Automated dose lowering techniques and/or adjustment according to patient size were utilized for this exam. This exam was performed without intravenous contrast. COMPARISON: None available at the time of this dictation. FINDINGS: Bladder: Unremarkable. Reproductive organs: Unremarkable. Bowel: Unremarkable. Lymph nodes Pelvic: Unremarkable. Mesenteric: Unremarkable. Peritoneum: Normal Vessels: Atherosclerotic calcifications are seen. Abdominal wall: Unremarkable. Bones: Degenerative changes in the visualized spine. IMPRESSION: No acute abnormalities. US venous doppler LE LT CLINICAL HISTORY: left leg pain ?DVT TECHNIQUE: Left lower extremity real-time compression venous ultrasound with Color Doppler imaging. Utilizing real-time ultrasonic imaging multiple real time high-resolution ultrasonic images with compression and noncompression maneuvers of the deep venous system in addition to color doppler imaging were performed from the common femoral vein through the proximal calf veins. COMPARISON: None available at the time of this dictation. FINDINGS/IMPRESSION: Currently there is normal compressibility of the deep venous system from the common femoral vein through the proximal calf veins. No superficial venous thrombosis is identified. CT lumbar spine wo con CLINICAL HISTORY: left hip pain radiating to knee TECHNIQUE: Multidetector row helical CT of the lumbar spine was performed without administration of intravenous contrast. Coronal and sagittal reformations were obtained. Automated dose lowering techniques and/or adjustment according to patient size were utilized for this exam. CT DOSE: 2491.73 mGy.cm Comparison: Comparison is made to CT abdomen pelvis 09/19/2014 FINDINGS: For counting purposes, the last complete intervertebral disc space is considered L5-S1. No acute fractures are identified. Degenerative changes are noted in the visualized spine. Vertebral body alignment is within normal limits. Demonstration of exophytic cyst arising from the right kidney. Patient is status post IMPRESSION: Degenerative changes without evidence of acute bony injury. XR hip LT 2V w pelvis CLINICAL HISTORY: Hip trauma, fracture suspected, no prior imaging TECHNIQUE: 2 views of the left hip and single frontal view of the pelvis were obtained. Comparison: Comparison is made to CT abdomen pelvis 09/19/2018 FINDINGS: There is no evidence of an acute fracture. Degenerative changes are seen in the hip joint. No soft tissue abnormality is seen. IMPRESSION: Degenerative changes without evidence of acute abnormality. Medications Administered ER medications given: Lidocaine patch Fentanyl 50 mcg IV Methocarbamol 500 mg p.o. Diazepam 5 mg p.o. Code Status & VTE Plan Code Status Full VTE Prophylaxis Plan VTE Prophylaxis will be ordered: Yes PG Care Time/CCT Total # of Minutes Spent Total Time Spent with Patient: Total time spent is greater than 50% in coordination of care (as documented) at patient's floor/unit and/or counseling patient: Coding Level of Care Code 22885 INT INP/OBS CARE MIN Diagnoses Acute pain of left thigh M79.652 Type 2 diabetes mellitus without complication, without long-term current use of insulin E11.9 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 complication status: without complication 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 jail insulin use: without jail use Sleep apnea G47.30 Permanent atrial fibrillation I48.21 Acquired hypothyroidism E03.9 Hypothyroidism type: acquired Primary hypertension I10 Hypertension type: primary hypertension Klinefelter syndrome Q98.4 Hypogonadism in male E29.1 (2) T2DM (type 2 diabetes mellitus) 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 complication status: without complication 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 watermaster insulin use: without jail use Qualified Code(s): E11.9 - Type 2 diabetes mellitus without complications (5) Hypothyroidism Hypothyroidism type: acquired Qualified Code(s): E03.9 - Hypothyroidism, unspecified (6) Hypertension Hypertension type: primary hypertension Qualified Code(s): I10 - Essential (primary) hypertension
[2023-08-10] MEDS ORDERED: GLUCOSE 40% GEL 15 GM TUBE PO PRN (21:03)
[2023-08-10] MEDS ORDERED: GLUCAGON FOR INJ 1 MG VIAL SQ PRN (21:03)
[2023-08-10] MEDS ORDERED: DEXTROSE 50% 50 ML SYRINGE IV PRN (21:03)
[2023-08-10] MEDS ORDERED: GLUCOSE 10 TAB/TUBE PO PRN (21:03)
[2023-08-10] MEDS ORDERED: CARBOHYDRATES FOR HYPOGLYCEMIA PO PRN (21:03)
[2023-08-10] MEDS: carvediloL 25 MG TAB PO SCH (21:57)
[2023-08-10] MEDS: ATORVASTATIN 40 MG TAB PO SCH (21:57)
[2023-08-10] MEDS: POTASSIUM CHLORIDE 10 MEQ TABCR PO SCH (21:58)
[2023-08-10] MEDS: metFORMIN HCL 500 MG TAB PO SCH (21:58)
[2023-08-11] MEDS: ACETAMINOPHEN 325 MG TAB PO PRN (03:00)
[2023-08-11] MEDS: LEVOTHYROXINE SODIUM 100 MCG TABLET PO SCH (06:16)
[2023-08-11] MEDS: dilTIAZem HCL 120 MG CAPCR PO SCH (07:34)
[2023-08-11] MEDS: lisinopril 2.5 MG TAB PO SCH (07:34)
[2023-08-11] MEDS: METOPROLOL TARTRATE 50 MG TAB PO SCH (07:34)
[2023-08-11] MEDS: carvediloL 12.5 MG TAB PO SCH (07:35)
--- NOTE | 2023-08-11 07:38 | Hospitalist Progress Note ---
<Statement entered by Barbara Ruiz MD - 08/11/23 18:53> Agree with documentation by [facility] Lumbar spine MRI reviewed, severe canal stenosis L3/4 and L4/5, mod foraminal narrowing with edema L3/4, compatible with his progressive symptoms. Await further recommendations from spine surgeon. Date of Service August 11, 2023 Assessment & Plan (1) Acute pain of left thigh: Plan: Appear to be having muscle spasms possibly related to exercise he was doing on Friday with leg lifts. No one muscle distribution but agree with ER provider and appears to be worse over IT band Diazepam 5 mg p.o. now and continue 2 mg q.6 hourly PRN for muscle spasms Acetaminophen first-line, oxycodone second line for pain Venous doppler NEGATIVE for DVT, Pelvis CT without acute abnormalities. Lumbar spine CT without acute bony injury CK wnl on check Orthopedics consulted, seen by Dylan DIEZ this morning per patient, note not yet done Consult orthopedics for possible alternative etiologies During my encounter, patient endorses has ongoing symptoms of leg/back pain, worse w/ sitting up, radicular in nature--> LBP, worse on LEFT w/ sx down back into his buttocks/thigh Suspect lumbar radiculopathy and upon further questioning, he does note he has had ongoing symptoms of low back/leg pain for at least over a year, worse on the LEFT. He notes that standing makes things worse and that he frequently uses a shopping cart at the store to lean over and notes this does have improvement in his pain. MRI lumbar spine ordered -- being taken down this afternoon. ?L2-L4 etiology --possible consultation w/ orthopedic spine pending results --Will defer/hold off steroids for now until eval w/ MRI (will need additional insulin coverage in DM patient, A1c 7.0) No loss of bowel/bladder function reported, monitor RN to provide dose of Valium. pain control as needed, ice pack in place PT/OT consult pending (2) T2DM (type 2 diabetes mellitus): Plan: A1c 7.0, unchanged Home metformin continued, novolog for correction Per outpt endo visit, had been on GLP-1 however due to side effects, even at low doses, was discontinued. consideration for Ozempic/mounjaro appears to have also been discussed.Outpt f/u encouraged/weight loss. 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 (rior EF 25%, improved to 50-55% in 2020, no evidence for volume overload at present) Continue warfarin for anticoagulation INR 3.6 and will be held for INR 3.5 Monitor INR in AM/vit K if needing or for any planned surgery Remains on carvedilol 12.5mg QAM/25mgQPM, [id number], metoprolol ?tartrate 50mg QAM (5) Hypothyroidism: Plan: TSH 0.985, remains on Synthroid 100mcg daily (6) Hypertension: Plan: Continue carvedilol, metoprolol, diltiazem, lisinopril BP stable 116/73 (7) Klinefelter syndrome: (8) Hypogonadism in male: Plan: Continue testosterone Plan VTE prophylaxis - warfarin, will be held for todays dose for INR>3.5 and will monitor need for any vit K if need for any surgery/can consult cards (again, follows w/ [facility] Dr Hardy) continued inpatient stay, MRI pending/ortho consult Admission and Anticipated Discharge Date Admission Date: August 10, 2023 Subjective Evaluated this afternoon, at bedside. Has ice pack, given Tylenol this morning w/ ok results. Does exercise but about 15min at a time, nothing strenuous and denied any trauma/falls. He is in no acute distress since therapy added ice pack at rest, but endorses has ongoing symptoms of leg/back pain, worse w/ sitting up, radicular in nature R low back into his leg. Upon further questioning, he does note he has had ongoing symptoms of low back/leg pain for at least over a year, worse on the LEFT. He notes that standing makes things worse and that he frequently uses a shopping cart at the store to lean over and notes this does have improvement in his pain. His inquired about Dr Martínez mentioning about Valium use for spasms and has not been provided. Discussed nursing offered this morning, they were unaware that diazepam is the same as Valium and RN to provide. Seen by ortho this morning and waiting for MRI. Discussed possible ortho-spine consult pending imaging but wouldn't be surprised if having issues L2-L3. No fever/chills, chest pain, shortness of breath. Review of Systems Review of Systems: All systems reviewed & are unremarkable except as noted in HPI & below Physical Exam Physical Exam: General: WD/WN, obese male laying flat in bed, at bedside HEENT: head atraumatic, normocephalic, mmm, trachea midline, THICK NECK Resp: cta/ no w/c/r, on room air CV: irregularly irregular, rates 60s, no significant m/r/g, no pitting edema/calf tenderness (except when having a spasm per patient), varicosities in LE noted, pulses present GI: +BS, soft/slight distension, NONTENDER MSK/Neuro: dorsiflexion/plantarflexion intact when laying flat in bed, sensation to pressure intact but diminished to light touch no slurred speech/facial droop +pain with attempting to sit up, worse o n the LEFT from low back w/ radiculopathy down to medial knee and reported into his toe Psych: AOx3, cooperative with exam Results & Data Results & Data Vital Signs (Past 12 Hours) Vital Signs Temp Pulse Pulse Resp BP Pulse Ox O2 Del Method 08/11/23 07:29 37.0 C 66 18 116/73 96 Room Air 08/11/23 03:12 96 H 14 98 08/10/23 23:57 92 H 17 98 08/10/23 21:46 36.9 C 77 16 136/73 98 Room Air 08/10/23 21:02 36.9 C 77 18 136/73 98 Room Air 08/10/23 20:30 36.9 C 77 16 136/73 98 Room Air 08/10/23 20:08 Room Air Laboratory Results 08/11/23 08/11/23 08/11/23 Range/Units 11:22 07:50 06:51 WBC (4.8-10.8) K/ul RBC (4.70-6.10) M/uL Hgb (14.0-18.0) g/dl Hct (42.0-52.0) % MCV (80.0-100.0) fL MCH (25.0-34.0) pg MCHC (32.0-36.0) g/dL RDW Std Deviation (36.4-46.3) fL RDW Coeff of Staci (11.5-14.5) % Plt Count (130-400) K/uL MPV (9.4-12.4) fL Immature Gran % (Auto) % Neut % (Auto) % Lymph % (Auto) % Kings % (Auto) % Eos % (Auto) % Baso % (Auto) % Neut # (Auto) (1.40-6.50) K/uL Lymph # (Auto) (1.20-3.40) K/uL Kings # (Auto) (0.11-0.59) K/uL Eos # (Auto) (0.00-0.50) K/uL Baso # (Auto) (0.00-0.20) K/uL Immature Gran # (Auto) (0.01-0.20) K/uL PT (9.0-12.0) Seconds INR (0.9-1.1) Sodium (136-145) mmol/L Potassium (3.5-5.1) mmol/L Chloride (98-107) mmol/L Carbon Dioxide (21-32) mmol/L Anion Gap (3-11) BUN (6-23) mg/dl Creatinine (0.6-1.4) mg/dl Est Cr Clr Drug Dosing Est GFR ( Amer) ml/min Est GFR (Non-Af Amer) ml/min BUN/Creatinine Ratio (10-20) Glucose (70-99(Fasting)) mg/dl POC Glucose 148 H 108 H (70-99) mg/dl Estimat Average Glucose 154 mg/dl Hemoglobin A1c 7.0 H (4.5-5.6) % Calcium (8.6-10.3) mg/dl Magnesium (1.7-2.4) mg/dl Total Bilirubin (0.2-1.0) mg/dl AST (13-39) U/L ALT (7-52) U/L Alkaline Phosphatase (34-104) U/L Total Creatine Kinase (30-223) U/L Total Protein (6.0-8.3) gm/dl Albumin (3.4-5.0) gm/dl Globulin (2.5-4.0) gm/dl Albumin/Globulin Ratio (0.9-2) TSH (0.300-4.500) uIu/ml SARS-CoV-2 (PCR) (Negative) Influenza Type A (PCR) (Neg) Influenza Type B (PCR) (Neg) RSV (RT-PCR) (Neg) 08/11/23 08/10/23 08/10/23 Range/Units 06:48 22:37 16:21 WBC (4.8-10.8) K/ul RBC (4.70-6.10) M/uL Hgb (14.0-18.0) g/dl Hct (42.0-52.0) % MCV (80.0-100.0) fL MCH (25.0-34.0) pg MCHC (32.0-36.0) g/dL RDW Std Deviation (36.4-46.3) fL RDW Coeff of Staci (11.5-14.5) % Plt Count (130-400) K/uL MPV (9.4-12.4) fL Immature Gran % (Auto) % Neut % (Auto) % Lymph % (Auto) % Kings % (Auto) % Eos % (Auto) % Baso % (Auto) % Neut # (Auto) (1.40-6.50) K/uL Lymph # (Auto) (1.20-3.40) K/uL Kings # (Auto) (0.11-0.59) K/uL Eos # (Auto) (0.00-0.50) K/uL Baso # (Auto) (0.00-0.20) K/uL Immature Gran # (Auto) (0.01-0.20) K/uL PT 36.6 H (9.0-12.0) Seconds INR 3.6 H (0.9-1.1) Sodium (136-145) mmol/L Potassium (3.5-5.1) mmol/L Chloride (98-107) mmol/L Carbon Dioxide (21-32) mmol/L Anion Gap (3-11) BUN (6-23) mg/dl Creatinine (0.6-1.4) mg/dl Est Cr Clr Drug Dosing Est GFR ( Amer) ml/min Est GFR (Non-Af Amer) ml/min BUN/Creatinine Ratio (10-20) Glucose (70-99(Fasting)) mg/dl POC Glucose 89 (70-99) mg/dl Estimat Average Glucose mg/dl Hemoglobin A1c (4.5-5.6) % Calcium (8.6-10.3) mg/dl Magnesium (1.7-2.4) mg/dl Total Bilirubin (0.2-1.0) mg/dl AST (13-39) U/L ALT (7-52) U/L Alkaline Phosphatase (34-104) U/L Total Creatine Kinase 74 (30-223) U/L Total Protein (6.0-8.3) gm/dl Albumin (3.4-5.0) gm/dl Globulin (2.5-4.0) gm/dl Albumin/Globulin Ratio (0.9-2) TSH 0.985 (0.300-4.500) uIu/ml SARS-CoV-2 (PCR) NEGATIVE (Negative) Influenza Type A (PCR) Negative (Neg) Influenza Type B (PCR) Negative (Neg) RSV (RT-PCR) Negative (Neg) 08/10/23 Range/Units 14:18 WBC 6.46 (4.8-10.8) K/ul RBC 5.64 (4.70-6.10) M/uL Hgb 15.5 (14.0-18.0) g/dl Hct 47.7 (42.0-52.0) % MCV 84.6 (80.0-100.0) fL MCH 27.5 (25.0-34.0) pg MCHC 32.5 (32.0-36.0) g/dL RDW Std Deviation 41.8 (36.4-46.3) fL RDW Coeff of Staci 13.7 (11.5-14.5) % Plt Count 245 (130-400) K/uL MPV 8.9 L (9.4-12.4) fL Immature Gran % (Auto) 0.2 % Neut % (Auto) 65.6 % Lymph % (Auto) 24.0 % Kings % (Auto) 8.5 % Eos % (Auto) 1.1 % Baso % (Auto) 0.6 % Neut # (Auto) 4.24 (1.40-6.50) K/uL Lymph # (Auto) 1.55 (1.20-3.40) K/uL Kings # (Auto) 0.55 (0.11-0.59) K/uL Eos # (Auto) 0.07 (0.00-0.50) K/uL Baso # (Auto) 0.04 (0.00-0.20) K/uL Immature Gran # (Auto) 0.01 (0.01-0.20) K/uL PT 28.5 H (9.0-12.0) Seconds INR 2.8 H (0.9-1.1) Sodium 138 (136-145) mmol/L Potassium 4.5 (3.5-5.1) mmol/L Chloride 105 (98-107) mmol/L Carbon Dioxide 24 (21-32) mmol/L Anion Gap 9 (3-11) BUN 24 H (6-23) mg/dl Creatinine 0.88 (0.6-1.4) mg/dl Est Cr Clr Drug Dosing Not Reportable Est GFR ( Amer) 100.9 ml/min Est GFR (Non-Af Amer) 87.0 ml/min BUN/Creatinine Ratio 27.3 H (10-20) Glucose 147 H (70-99(Fasting)) mg/dl POC Glucose (70-99) mg/dl Estimat Average Glucose mg/dl Hemoglobin A1c (4.5-5.6) % Calcium 9.3 (8.6-10.3) mg/dl Magnesium 1.8 (1.7-2.4) mg/dl Total Bilirubin 0.9 (0.2-1.0) mg/dl AST 18 (13-39) U/L ALT 19 (7-52) U/L Alkaline Phosphatase 99 (34-104) U/L Total Creatine Kinase (30-223) U/L Total Protein 7.7 (6.0-8.3) gm/dl Albumin 3.9 (3.4-5.0) gm/dl Globulin 3.8 (2.5-4.0) gm/dl Albumin/Globulin Ratio 1.0 (0.9-2) TSH (0.300-4.500) uIu/ml SARS-CoV-2 (PCR) (Negative) Influenza Type A (PCR) (Neg) Influenza Type B (PCR) (Neg) RSV (RT-PCR) (Neg) Diagnostic Findings Hip/Pelvis X-Ray 08/10/23 14:11 XR hip LT 2V w pelvis CLINICAL HISTORY: Hip trauma, fracture suspected, no prior imaging TECHNIQUE: 2 views of the left hip and single frontal view of the pelvis were obtained. Comparison: Comparison is made to CT abdomen pelvis 09/19/2018 FINDINGS: There is no evidence of an acute fracture. Degenerative changes are seen in the hip joint. No soft tissue abnormality is seen. IMPRESSION: Degenerative changes without evidence of acute abnormality. ACT 112: Negative or not required by law. Electronically signed by: Andrey Puentes M.D. 08/10/2023 3:[address] 08/10/23 15:38 CT lumbar spine wo con CLINICAL HISTORY: left hip pain radiating to knee TECHNIQUE: Multidetector row helical CT of the lumbar spine was performed without administration of intravenous contrast. Coronal and sagittal reformations were obtained. Automated dose lowering techniques and/or adjustment according to patient size were utilized for this exam. CT DOSE: 2491.73 mGy.cm Comparison: Comparison is made to CT abdomen pelvis 09/19/2014 FINDINGS: For counting purposes, the last complete intervertebral disc space is considered L5-S1. No acute fractures are identified. Degenerative changes are noted in the visualized spine. Vertebral body alignment is within normal limits. Demonstration of exophytic cyst arising from the right kidney. Patient is status post IMPRESSION: Degenerative changes without evidence of acute bony injury. ACT 112: Negative or not required by law. Electronically signed by: Andrey Puentes M.D. 08/10/2023 4:[address] 08/10/23 15:38 CT pelvis wo con CLINICAL HISTORY: left hip pain TECHNIQUE: Helical axial images of the pelvis were obtained and displayed at 5 and 1 mm intervals. Automated dose lowering techniques and/or adjustment according to patient size were utilized for this exam. This exam was performed without intravenous contrast. COMPARISON: None available at the time of this dictation. FINDINGS: Bladder: Unremarkable. Reproductive organs: Unremarkable. Bowel: Unremarkable. Lymph nodes Pelvic: Unremarkable. Mesenteric: Unremarkable. Peritoneum: Normal Vessels: Atherosclerotic calcifications are seen. Abdominal wall: Unremarkable. Bones: Degenerative changes in the visualized spine. IMPRESSION: No acute abnormalities. ACT 112: Negative or not required by law. Electronically signed by: Andrey Puentes M.D. 08/10/2023 5:07 PM Venous Doppler Study 08/10/23 19:07 US venous doppler LE LT CLINICAL HISTORY: left leg pain ?DVT TECHNIQUE: Left lower extremity real-time compression venous ultrasound with Color Doppler imaging. Utilizing real-time ultrasonic imaging multiple real time high-resolution ultrasonic images with compression and noncompression maneuvers of the deep venous system in addition to color doppler imaging were performed from the common femoral vein through the proximal calf veins. COMPARISON: None available at the time of this dictation. FINDINGS/IMPRESSION: Currently there is normal compressibility of the deep venous system from the common femoral vein through the proximal calf veins. No superficial venous thrombosis is identified. ACT 112: Negative or not required by law. Electronically signed by: Andrey Puentes M.D. 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 controller insulin use: without joint terminal attack controller use Sleep apnea G47.30 Permanent atrial fibrillation I48.21 Acquired hypothyroidism E03.9 Hypothyroidism type: acquired Primary hypertension I10 Hypertension type: primary hypertension Klinefelter syndrome Q98.4 Hypogonadism in male E29.1 (2) T2DM (type 2 diabetes mellitus) 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 complication status: without complication 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 joint terminal attack controller insulin use: without custodial use Qualified Code(s): E11.9 - Type 2 diabetes mellitus without complications (5) Hypothyroidism Hypothyroidism type: acquired Qualified Code(s): E03.9 - Hypothyroidism, unspecified (6) Hypertension Hypertension type: primary hypertension Qualified Code(s): I10 - Essential (primary) hypertension
[2023-08-11 07:50] LABS: INR 3.6 (0.9-1.1); Prothrombin Time 36.6 Seconds (9.0-12.0)
[2023-08-11 07:54] LABS: Thyroid Stimulating Hormone 0.985 uIu/ml (0.300-4.500)
[2023-08-11 08:15] LABS: Estimated Average Glucose 154 mg/dl
[2023-08-11] MEDS: INSULIN ASPART PER UNIT CHARGE SC SCH (08:19)
[2023-08-11] MEDS: diazePAM 2 MG TABLET PO PRN (13:08)
--- NOTE | 2023-08-11 14:34 | Communication Note ---
Date of Service: August 11, 2023 68-year-old male with PMH of Anticoagulant long-term use secondary to AFib, Chronic systolic heart failure,Dyslipidemia,Gynecomastia,History of cardioversio n,Hypertension,Hypogonadism,Hypothyroidism,Osteopenia,Sleep apnea,T2DM (type 2 diabetes mellitus),Tachycardia induced cardiomyopathy,Tubular adenoma of colon, who was admitted to the hospital yesterday for left lower extremity pain. patient states that he had a leg exercise workout approximately 4 days prior to admission. He states that approximately 3 days prior to admission he began having left thigh discomfort. Patient described the pain as a cramping type pain that was anterior and medially. He also describes pain in the hamstring region. He did not mention back pain upon his admission however the patient states today that he has been having some low back discomfort. He states that when the pain began to worsen he noticed pain radiating from his low back into his left buttock down into the thigh. Patient states he is unable to sit in a chair for extended periods because of the pain. He is able to get up to ambulate however he states that even with a short distance to ambulate he begins having pain in the thigh. Currently he is able to move around in bed and is able to sit up rather speedily. He states though that sitting at the bedside, he can already start feeling discomfort in his thigh. Most of the pain is around his left anterior and lateral aspect of his thigh and somewhat posteriorly. Patient denies any fevers or chills. No flu or cold-like symptoms. No falls or injuries. he states that his workout was a normal workout with no apparent injury. Patient is able to lie flat on his bed. He has full extension of his hip. I am able to have him do a straight leg raise of the left leg which she does fairly well with good strength. He complains of pain in the left anterior thigh and somewhat in the low back. I am able to take his knee and left hip through passive and active range of motion without pain in the thigh itself. Range of motion is within normal limits. He has no groin pain. He has no pain on palpation over the greater trochanter laterally. He has no pain in the left knee on palpation or during range of motion. While sitting up at the bedside, palpation of the low back does elicit discomfort as well as over the left SI joint. He states that this seems to be the area where his pain has been originating at times and goes down the left buttock into the thigh. Patient has good dorsiflexion and plantarflexion strength bilaterally Of the ankles. He does not appear to have any type of moderate weakness of the left lower extremity at this time. He denies any decrease sensation. X-rays reviewed with Dr. Cueva as well as Dr. Monge. Left knee shows obvious osteoarthritis with no major discomfort during range of motion at this time. His left hip is appearing clean. He has good joint space and no obvious signs of any type of moderate DJD at this time. CT of the lumbar spine and pelvis were reviewed with Dr. Monge. L2-L3 area showing moderate degenerative changes with narrowing of the disc space. Dr. Monge recommends MRI of the lumbar spine which we will go ahead and order. Dr. Monge will see the patient in consultation and review the MRI when done. Patient can be up out of bed as able. Currently he has been taking Tylenol for his discomfort and has oxycodone ordered of which apparently he had not been taking as of this time. No further need for general orthopedics at this time. Await Dr. Monge's input.
--- NOTE | 2023-08-11 15:34 | Magnetic Resonance Report ---
MR lumbar spine wo con CLINICAL HISTORY: 68 years-old Male with Low back pain with radiculopathy. Chronic low back pain. COMPARISON: CT 08/10/2023. TECHNIQUE: Multiplanar, multi sequence MRI of the lumbar spine was performed without intravenous cont rast. FINDINGS: Conus medullaris terminates at the L1-L2 level. There is normal signal within the imaged thoracic spi nal cord and cauda equina. No acute fracture, subluxation or endplate erosion. Mild Modic type I endp late degeneration at L4. The imaged intra-abdominal and paraspinal structures are unremarkable. Mild bilateral perinephric stranding. T2 hyperintense foci suggestive of cyst is noted within the kidneys measuring up to 5 cm on the right. T12-L1: Mild intervertebral disc space narrowing with anterior predominant spondylitic spurring and [id number] facet arthrosis. No central canal or neuroforaminal narrowing. L1-L2: Moderate intervertebral disc space narrowing with bridging anterior osteophytic spurring. Sma ll posterior annular disc bulge. Ligamentum flavum thickening with moderate facet arthrosis. Central canal is patent. Minimal inferior bilateral foraminal stenosis. L2-L3: Severe intervertebral disc space narrowing with bridging disc osteophyte complex. Ligamentum flavum thickening with moderate facet arthrosis. Mild central canal stenosis with AP dimension of the thecal sac measuring 9 mm. Mild bilateral foraminal stenosis. L3-L4: Mild intervertebral disc space narrowing with spondylitic spurring and circumferential annula r disc bulging. Ligamentum flavum thickening with [id number] facet arthrosis. Epidural lipoma tosis. Severe central canal stenosis with AP dimension of the thecal sac measuring 5 mm. There is at least mild narrowing of the lateral recesses. Kmzz-wo-oukttgsu right with moderate left foraminal raj rowing. There is edema within the left neural foramen. L4-L5: Moderate intervertebral disc space narrowing and spondylotic spurring with circumferential an nular disc bulging. Posterior annular fissure with central disc protrusion measuring 11 mm transverse ly. Ligamentum flavum thickening with severe facet arthrosis. Epidural lipomatosis. Severe central ca nal stenosis with AP dimension measuring 5 mm. L5-S1: Moderate intervertebral disc space narrowing with spondylitic spurring and circumferential di sc osteophyte complex. Ligamentum flavum thickening with moderate facet arthrosis. Epidural lipomatos is. Minimal triangular central canal stenosis with moderate narrowing of the lateral recesses. Modera [id number] right with moderate left foraminal narrowing. IMPRESSION: 1. Discogenic degeneration with spondylotic spurring and facet arthrosis as above in conjunction with epidural lipomatosis results in multilevel neural foraminal stenosis. 2. Severe central canal stenosis at L3-L4 and L4-L5. 3. At L3-L4 there is moderate left-sided foraminal narrowing with edema within the left neural forame n, likely reactive. 4. No acute fracture is identified. ACT 112: Negative or not required by law. The above report was generated using voice recognition software. It may contain grammatical, syntax o r spelling errors. Dictated: 08/11/2023 2:09 PM Transcribed: 08/11/2023 2:44 PM Sukhjinder [id number] [email or web address] Electronically signed by: Odilon Robb M.D. 08/11/2023 3:33 PM
[2023-08-12 08:11] LABS: Hematocrit (blood only) 44.1 % (42.0-52.0); Hemoglobin 14.5 g/dl (14.0-18.0); Mean Corpuscular Hemoglobin 27.4 pg (25.0-34.0); Mean Corpuscular Hgb Conc 32.9 g/dL (32.0-36.0); Mean Corpuscular Volume 83.2 fL (80.0-100.0); Mean Platelet Volume 9.2 fL (9.4-12.4); Platelet Count 223 K/uL (130-400); RDW Coefficient of Variation 13.8 % (11.5-14.5); RDW Standard Deviation 41.7 fL (36.4-46.3); White Blood Count 5.79 K/ul (4.8-10.8)
[2023-08-12 08:37] LABS: INR 4.1 (0.9-1.1); Prothrombin Time 40.8 Seconds (9.0-12.0)
[2023-08-12 08:38] LABS: BUN Creatinine Ratio 23.8 (10-20); Calcium 9.1 mg/dl (8.6-10.3); Creatinine Clr Calc Pharmacy 112.2 ml/min; Est GFR (African American) 102.8 ml/min; Est GFR (Non-African American) 88.7 ml/min; Magnesium 1.7 mg/dl (1.7-2.4); Potassium 4.1 mmol/L (3.5-5.1)
--- NOTE | 2023-08-12 09:42 | XRay Report ---
XR lumbar spine 2-3V HISTORY: 68 years-old Male standing films acute low back pain COMPARISON: MRI lumbar spine 08/11/2023 TECHNIQUE: 2 views of the lumbar spine FINDINGS: Multilevel degenerative changes of the lumbar spine redemonstrated which includes severe L2-L3 disc s pace narrowing. No acute fracture or subluxation. Atherosclerosis of the aorta. IMPRESSION: 1. No acute fracture or subluxation. 2. Multilevel degenerative changes of the lumbar spine are better violated on yesterday's MRI. ACT 112: Negative or not required by law. The above report was generated using voice recognition software. It may contain grammatical, syntax o r spelling errors. Electronically signed by: Odilon Robb M.D. 08/12/2023 9:41 AM
--- NOTE | 2023-08-12 13:36 | Hospitalist Progress Note ---
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 other? (2) Acute pain of left thigh: Plan: suspect 2nd to radicular pain from lumbar spine - see below intrinsic pain of left hip not felt to be the cause of his pain could have element of left sided trochanteric bursitis +/- IT band tendonitis but I don't feel that these issues are the primary problem (3) Lumbar spinal stenosis: Plan: severe spinal stenosis at L3-L4 and L4-L5 based on MRI l-spine also with moderate foraminal stenosis at L3-L4 with acute edema at this level on left (see above) there is foraminal stenosis at other levels as well (4) T2DM (type 2 diabetes mellitus): Plan: HbA1c 7.0 Cont metformin continued Cont novolog SSI May need basal and increased doses of novolog given the addition of IV dexamethasone (5) Sleep apnea: Plan: CPAP HS (6) Permanent atrial fibrillation: Plan: Follows with Dr Hardy for tachycardia-induced cardiomyopathy (h/o depressed EF of 25%, improved to 50-55% in 2020) INR 4.1 today - HOLD coumadin INR am Cont carvedilol 12.5mg QAM/25mgQPM Cont cardizem CD 120mg daily Also takes meto tartrate once daily each am -- I confirmed this with his outpatient pharmacy records (7) Hypothyroidism: Plan: TSH 0.985 Cont synthroid (8) Hypertension: Plan: Continue carvedilol, metoprolol, diltiazem, lisinopril BPs controlled (9) Klinefelter syndrome: Plan: Cont testosterone while hospitalized if desired by patient (10) Hypogonadism in male: Plan: as above (11) Morbid obesity with BMI of 45.0-49.9, adult: Plan: BMI 46 (12) Renal cyst, right: Plan: seen on CT a/p in 2019 incidentally seen on MRI lumbar spine yesterday dimensions on both reports are about the same likely benign cyst given the chronicity Plan change observation status to inpatient status updated Admission and Anticipated Discharge Date Admission Date: August 10, 2023 Subjective patient lying in bed during the visit reports that it is difficult to stand or sit for long periods of time the pain in his low back and left leg is fairly constant, but there are periods where the pain is worse, then lets up some - but never is fully gone pain in the low back is low lumbar region and on the left paraspinally pain radiates into the left leg - NOT posteriorly some of the pain radiates to the left groin but seldomly most of the pain is the lateral left thigh some of the pain does travel into the left lower leg but spares the foot he points to the distal MEDIAL lazar as the location where the pain stops in transit doesn't hurt to lay on left side / left hip Review of Systems Review of Systems: gen - no fevers cv - no orthopnea pulm - no dyspnea GI - no pain Physical Exam Physical Exam: gen - morbidly obese, in pain at times, awake, alert mouth - MMM heart - heart tones distant but irregularly irregular, s1 s2, no obvious murmur lungs - CTA b/l abd - soft NT ND BS+ ext - no edema, pulses 2+ b/l psych - a/o x 3 neuro - strength b/l hip flexion 5/5; strength b/l ankle dorsiflexion/plantarflexion 5/5; knee extension 5/5 b/l; sensation intact to light touch over L2, L3, L4, and L5 dermatomes b/l; patellar reflexes 1+ b/l; absent achilles reflexes b/l musculo - tender lower l-spine and in the paraspinal region on left to palpation; mild pain over L trochanteric bursal region and the IT band; no pain over lateral hip with forced adduction of left leg; neg straight leg raise on left; no pain with passive ROM of either hip Results & Data Results & Data Vital Signs (Past 12 Hours) Vital Signs Temp Pulse Resp BP Pulse Ox O2 Del Method 08/12/23 07:42 36.9 C 71 16 136/72 98 Room Air Laboratory Results Laboratory Results - last 24 hr 08/12/23 08/12/23 08/12/23 06:48 07:18 11:21 WBC 5.79 RBC 5.30 Hgb 14.5 Hct 44.1 MCV 83.2 MCH 27.4 MCHC 32.9 RDW Std Deviation 41.7 RDW Coeff of Staci 13.8 Plt Count 223 MPV 9.2 L PT 40.8 H INR 4.1 H Sodium 138 Potassium 4.1 Chloride 105 Carbon Dioxide 28 Anion Gap 5 BUN 20 Creatinine 0.84 Est Cr Clr Drug Dosing 112.2 Est GFR ( Amer) 102.8 Est GFR (Non-Af Amer) 88.7 BUN/Creatinine Ratio 23.8 H Glucose 132 H POC Glucose 126 H 158 H Calcium 9.1 Magnesium 1.7 Vitamin B12 374 Diagnostic Findings Hip/Pelvis X-Ray 08/10/23 14:11 XR hip LT 2V w pelvis CLINICAL HISTORY: Hip trauma, fracture suspected, no prior imaging TECHNIQUE: 2 views of the left hip and single frontal view of the pelvis were obtained. Comparison: Comparison is made to CT abdomen pelvis 09/19/2018 FINDINGS: There is no evidence of an acute fracture. Degenerative changes are seen in the hip joint. No soft tissue abnormality is seen. IMPRESSION: Degenerative changes without evidence of acute abnormality. ACT 112: Negative or not required by law. Electronically signed by: Andrey Puentes M.D. 08/10/2023 3:[address] 08/10/23 15:38 CT lumbar spine wo con CLINICAL HISTORY: left hip pain radiating to knee TECHNIQUE: Multidetector row helical CT of the lumbar spine was performed without administration of intravenous contrast. Coronal and sagittal reformations were obtained. Automated dose lowering techniques and/or adjustment according to patient size were utilized for this exam. CT DOSE: 2491.73 mGy.cm Comparison: Comparison is made to CT abdomen pelvis 09/19/2014 FINDINGS: For counting purposes, the last complete intervertebral disc space is considered L5-S1. No acute fractures are identified. Degenerative changes are noted in the visualized spine. Vertebral body alignment is within normal limits. Demonstration of exophytic cyst arising from the right kidney. Patient is status post IMPRESSION: Degenerative changes without evidence of acute bony injury. ACT 112: Negative or not required by law. Electronically signed by: Andrey Puentes M.D. 08/10/2023 4:[address] 08/10/23 15:38 CT pelvis wo con CLINICAL HISTORY: left hip pain TECHNIQUE: Helical axial images of the pelvis were obtained and displayed at 5 and 1 mm intervals. Automated dose lowering techniques and/or adjustment according to patient size were utilized for this exam. This exam was performed without intravenous contrast. COMPARISON: None available at the time of this dictation. FINDINGS: Bladder: Unremarkable. Reproductive organs: Unremarkable. Bowel: Unremarkable. Lymph nodes Pelvic: Unremarkable. Mesenteric: Unremarkable. Peritoneum: Normal Vessels: Atherosclerotic calcifications are seen. Abdominal wall: Unremarkable. Bones: Degenerative changes in the visualized spine. IMPRESSION: No acute abnormalities. ACT 112: Negative or not required by law. Electronically signed by: Andrey Puentes M.D. 08/10/2023 5:07 PM Venous Doppler Study 08/10/23 19:07 US venous doppler LE LT CLINICAL HISTORY: left leg pain ?DVT TECHNIQUE: Left lower extremity real-time compression venous ultrasound with Color Doppler imaging. Utilizing real-time ultrasonic imaging multiple real time high-resolution ultrasonic images with compression and noncompression maneuvers of the deep venous system in addition to color doppler imaging were performed from the common femoral vein through the proximal calf veins. COMPARISON: None available at the time of this dictation. FINDINGS/IMPRESSION: Currently there is normal compressibility of the deep venous system from the common femoral vein through the proximal calf veins. No superficial venous thrombosis is identified. ACT 112: Negative or not required by law. Electronically signed by: Andrey Puentes M.D. 08/10/2023 8:14 PM Lumbar Spine MRI 08/11/23 11:42 MR lumbar spine wo con CLINICAL HISTORY: 68 years-old Male with Low back pain with radiculopathy. Chronic low back pain. COMPARISON: CT 08/10/2023. TECHNIQUE: Multiplanar, multi sequence MRI of the lumbar spine was performed without intravenous contrast. FINDINGS: Conus medullaris terminates at the L1-L2 level. There is normal signal within the imaged thoracic spinal cord and cauda equina. No acute fracture, subluxation or endplate erosion. Mild Modic type I endplate degeneration at L4. The imaged intra-abdominal and paraspinal structures are unremarkable. Mild bilateral perinephric stranding. T2 hyperintense foci suggestive of cyst is noted within the kidneys measuring up to 5 cm on the right. T12-L1: Mild intervertebral disc space narrowing with anterior predominant spondylitic spurring and [id number] facet arthrosis. No central canal or neuroforaminal narrowing. L1-L2: Moderate intervertebral disc space narrowing with bridging anterior osteophytic spurring. Small posterior annular disc bulge. Ligamentum flavum thickening with moderate facet arthrosis. Central canal is patent. Minimal inferior bilateral foraminal stenosis. L2-L3: Severe intervertebral disc space narrowing with bridging disc osteophyte complex. Ligamentum flavum thickening with moderate facet arthrosis. Mild central canal stenosis with AP dimension of the thecal sac measuring 9 mm. Mild bilateral foraminal stenosis. L3-L4: Mild intervertebral disc space narrowing with spondylitic spurring and circumferential annular disc bulging. Ligamentum flavum thickening with bhvhgkib-[id number] facet arthrosis. Epidural lipomatosis. Severe central canal stenosis with AP dimension of the thecal sac measuring 5 mm. There is at least mild narrowing of the lateral recesses. Yyhw-ko-[id number] right with moderate left foraminal narrowing. There is edema within the left neural foramen. L4-L5: Moderate intervertebral disc space narrowing and spondylotic spurring with circumferential annular disc bulging. Posterior annular fissure with central disc protrusion measuring 11 mm transversely. Ligamentum flavum thickening with severe facet arthrosis. Epidural lipomatosis. Severe central can al stenosis with AP dimension measuring 5 mm. L5-S1: Moderate intervertebral disc space narrowing with spondylitic spurring and circumferential disc osteophyte complex. Ligamentum flavum thickening with moderate facet arthrosis. Epidural lipomatosis. Minimal triangular central canal stenosis with moderate narrowing of the lateral recesses. Ofpivfne-is-qmqwzo right with moderate left foraminal narrowing. IMPRESSION: 1. Discogenic degeneration with spondylotic spurring and facet arthrosis as above in conjunction with epidural lipomatosis results in multilevel neural foraminal stenosis. 2. Severe central canal stenosis at L3-L4 and L4-L5. 3. At L3-L4 there is moderate left-sided foraminal narrowing with edema within the left neural foramen, likely reactive. 4. No acute fracture is identified. ACT 112: Negative or not required by law. The above report was generated using voice recognition software. It may contain grammatical, syntax or spelling errors. Dictated: 08/11/2023 2:09 PM Transcribed: 08/11/2023 2:44 PM Sukhjinder [id number] [email or web address] Electronically signed by: Odilon Robb M.D. 08/11/2023 3:33 PM Lumbar Spine X-Ray 08/12/23 07:50 XR lumbar spine 2-3V HISTORY: 68 years-old Male standing films acute low back pain COMPARISON: MRI lumbar spine 08/11/2023 TECHNIQUE: 2 views of the lumbar spine FINDINGS: Multilevel degenerative changes of the lumbar spine redemonstrated which includes severe L2-L3 disc space narrowing. No acute fracture or subluxation. Atherosclerosis of the aorta. IMPRESSION: 1. No acute fracture or subluxation. 2. Multilevel degenerative changes of the lumbar spine are better violated on yesterday's MRI. ACT 112: Negative or not required by law. The above report was generated using voice recognition software. It may contain grammatical, syntax or spelling errors. Electronically signed by: Odilon Robb M.D. 08/12/2023 9:41 AM PG Care Time/CCT Total # of Minutes Spent Total Time Spent with Patient: Total time spent is greater than 50% in coordination of care (as documented) at patient's floor/unit and/or counseling patient: Coding Level of Care Code 86535 SUB INP/OBS CARE 3/50MIN Diagnoses Radicular pain of left lower extremity M54.10 Acute pain of left thigh M79.652 Lumbar spinal stenosis M48.061 Type 2 diabetes mellitus without complication, without long-term current use of insulin E11.9 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 complication status: without complication 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 fdc insulin use: without fdc use Sleep apnea G47.30 Permanent atrial fibrillation I48.21 Acquired hypothyroidism E03.9 Hypothyroidism type: acquired Primary hypertension I10 Hypertension type: primary hypertension Klinefelter syndrome Q98.4 Hypogonadism in male E29.1 Morbid obesity with BMI of 45.0-49.9, adult E66.01; Z68.42 Renal cyst, right N28.1 (4) T2DM (type 2 diabetes mellitus) 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 complication status: without complication 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 fdc insulin use: without press tender long goods use Qualified Code(s): E11.9 - Type 2 diabetes mellitus without complications (7) Hypothyroidism Hypothyroidism type: acquired Qualified Code(s): E03.9 - Hypothyroidism, unspecified (8) Hypertension Hypertension type: primary hypertension Qualified Code(s): I10 - Essential (primary) hypertension
[2023-08-12] MEDS: dexAMETHasone 4 MG in SYRINGE 0 ML IV SCH (14:23)
[2023-08-12] MEDS: GABAPENTIN 100 MG CAP PO SCH (15:11)
[2023-08-13 08:34] LABS: INR 2.6 (0.9-1.1); Prothrombin Time 27.2 Seconds (9.0-12.0)
--- NOTE | 2023-08-13 09:27 | Consultation ---
Date of Consultation August 13, 2023 Assessment & Plan (1) Lumbar spinal stenosis: Dr. Monge has reviewed imaging and plan. At this point in time patient's pain is improving. Will therefore stick with conservative treatment. Would recommend starting physical therapy. I have ordered a pain management consult. He does have a disc herniation at L3-4 on the left seen best on T1 axial images. This extends into the foramen. This coupled with epidural lipomatosis causing severe central canal stenosis at the L3-4, L4-5 levels are most likely contributing to his current pain complex. We hope to avoid aggressive surgical intervention. All questions have been answered with the patient and his . He is currently comfortable with this treatment plan moving forward. History of Present Illness Reason for Consultation: Left leg pain/lumbar stenosis Attending Physician: Cezar Ma MD History of Present Illness Is a pleasant 68-year-old gentleman who presented to the emergency room on August 10, 2023 with subsequent admission. He states he has had ongoing back issues for many years. He was quite functional and active. Last week after a workout 24 hours later he started with more severe pain affecting his left lower extremity. Pain involves the anterior and lateral thigh, left groin and sometimes radiates below the knee. Right leg is asymptomatic. Typically he ambulates independently. Denies bowel or bladder dysfunction. He reports severe pain affecting the left lower extremity with standing, ambulation and in a seated position. He is most comfortable lying supine. He does report for many years now he requires use of a shopping cart leaning forward for relief. Dr. Cueva has evaluated the patient and ruled out his left hip as the source of his symptoms. After being in the hospital couple days pain is significantly better. Allergies Allergy/AdvReac Type Severity Reaction Status Date / Time No Known Drug Allergies Allergy Verified 08/10/23 17:26 Home Medications Medication Instructions Recorded Confirmed Type True Metrix Glucose Test Strip #300 ea 06/15/20 06/19/23 Rx (blood sugar diagnostic) lisinopril 2.5 mg tablet 2.5 mg PO QAM 05/24/21 08/10/23 History warfarin 5 mg tablet 5 mg PO QAM 04/17/22 08/10/23 History cholecalciferol (vitamin D3) 125 125 mcg PO DAILY #90 caps 10/11/22 08/10/23 Rx mcg (5,000 unit) capsule metformin 1,000 mg tablet 1,000 mg PO BID #180 tabs 11/08/22 08/10/23 Rx carvedilol 12.5 mg tablet 12.5 mg PO QAM #90 tabs 12/04/22 08/10/23 Rx potassium chloride 10 mEq 10 meq PO QPM #90 tabs 12/04/22 08/10/23 Rx tablet,extended release levothyroxine 100 mcg tablet 100 mcg PO QAM #90 tabs 03/11/23 08/10/23 Rx atorvastatin 40 mg tablet (Lipitor) 40 mg PO QPM #90 tabs 03/31/23 08/10/23 Rx ascorbate calcium (vitamin C) 500 500 mg PO DAILY 04/09/23 08/10/23 History mg tablet blood-glucose sensor (FreeStyle #1 ea 05/23/23 06/19/23 Rx Carson 3 Sensor device) metoprolol tartrate 50 mg tablet 50 mg PO QAM #90 tabs 06/04/23 08/10/23 Rx furosemide 40 mg tablet 40 mg PO DAILY PRN weight gain #90 06/18/23 08/10/23 Rx tabs diltiazem HCl 120 mg 120 mg PO DAILY #90 caps 07/28/23 08/10/23 Rx capsule,extended release 24 hr carvedilol 25 mg tablet 25 mg PO QPM #90 tabs 08/04/23 08/10/23 Rx testosterone 12.5 mg/1.25 gram per 2 pump transdermal QAM 08/10/23 08/10/23 History pump actuation (1%) transdermal gel Patient History Medical History (Updated 08/14/23 @ 09:06 by Behzad Euceda PA-C) Epidural lipomatosis History of cardioversion x2 - both unsuccessful Gynecomastia T2DM (type 2 diabetes mellitus) NIDDM Anticoagulant long-term use Dyslipidemia Hypogonadism Osteopenia Sleep apnea cpap at night Tubular adenoma of colon Permanent atrial fibrillation follows with Dr. Hardy Tachycardia induced cardiomyopathy EF has ranged from 25-50%, but most recent echo 2019 EF 60-65% Chronic systolic heart failure H/O reduced EF, but now 60-65% per 2019 echo Hypothyroidism Hypertension Surgical History History of ERCP stent removal (10/2018) History of colonoscopy History of herniorrhaphy as an infant History of cataract surgery bilateral History of tonsillectomy History of cholecystectomy 09/24/18 MAC 4, ETT 7.5, grade view II, intubated on first attempt S/P ERCP (09/2018) 09/23/1819 Grade 2 view Mac 4 Family History Father Heart disease Myocardial infarction Mother Emphysema, unspecified Sister Mental disorder Grandmother (Paternal) Diabetes Aunt Diabetes Grandfather (Paternal) Myocardial infarction Other No significant family history Denies family history of Ovarian cancer Prostate cancer Breast cancer Colorectal cancer Social History Smoking Status: Never smoker Second Hand Exposure: No; Do You Dip or Chew Tobacco: No; Hx Alcohol Use: Yes Alcohol type: beer Alcohol Intake Frequency Comment: rarely Hx Substance Use: No Preferred Language: Kyrgyz Communication Ability: Effective Visual Impairment: No Limitations Hearing Ability: Normal Education Department Chair Required: No Beliefs That Will Affect Care: None marital status: Current Living Situation: Spouse current occupational status: retired 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 Other Information That Helps Us Care for You: No Feels Safe at Home: Yes Safety Concerns: Feels Safe At This Time Childhood Exposure to Second-Hand Smoke: Yes Diet: regular caffeine: Yes Dental Care, Regularly: Yes Physical Activity Frequency: Does not Exercise Seatbelt Use: sometimes Sunscreen Use: Yes Assistive Devices: None and Glasses Review of Systems Review of Systems: All systems reviewed & are unremarkable except as noted in HPI & below Physical Exam Physical Exam: He is laying in bed in no acute distress He is seen in conjunction with his alert and oriented x 3 He is able to get up on his own without assistance from a laying down to a seated to a standing position He is nontender to the midline lumbar spine to palpation Nontender over the bilateral sciatic notch regions He is tender over the left greater trochanter region nontender on the right He has negative logrolling bilaterally Motor testing is 5 5 bilateral EHL, dorsiflexion, plantarflexion, quadriceps, hamstrings, hip abductor's, and hip adductor's Results & Data Vital Signs (Past 12 Hours) Vital Signs Temp Pulse Resp BP Pulse Ox O2 Del Method 08/13/23 08:00 Room Air 08/13/23 07:39 36.9 C 82 16 134/74 96 Room Air Diagnostic Findings [facility], [place] [phone] XRay Report Patient: LUCIUS STERN Admit Date: 08/10/23 MR#: [id number] Address1: [address] [facility] [facility] Acct ID:[id number] Address2: Date: 1955 [facility] Zip: [place] [address] Age: 68 Location: 3N Sex: M Room/Bed: [facility] Att Phy: Cezar Ma MD Diagnosis: MUSCLE SPASM Adenike Phy: Joe Iyer MD Service Date: 08/12/23 Fam Phy: Interpreting Phy: Odilon RobbAdmit Phy: Cezar Martínez MD Ordering Phy: Edvin MongeD.O. cc: ~ XR lumbar spine 2-3V HISTORY: 68 years-old Male standing films acute low back pain COMPARISON: MRI lumbar spine 08/11/2023 TECHNIQUE: 2 views of the lumbar spine FINDINGS: Multilevel degenerative changes of the lumbar spine redemonstrated which includes severe L2-L3 disc space narrowing. No acute fracture or subluxation. Atherosclerosis of the aorta. IMPRESSION: 1. No acute fracture or subluxation. 2. Multilevel degenerative changes of the lumbar spine are better violated on yesterday's MRI. ACT 112: Negative or not required by law. The above report was generated using voice recognition software. It may contain grammatical, syntax or spelling errors. Electronically signed by: Odilon Robb M.D. 08/12/2023 9:41 AM Dictated: 08/12/23937 Transcribed: 08/12/23937 [facility], [place] [phone] Magnetic Resonance Report Patient: LUCIUS STERN Admit Date: 08/10/23 MR#: [id number] Address1: [address] [facility] [facility] Acct ID:[id number] Address2: Date: 1955 [facility] Zip: [place] [address] Age: 68 Location: 3N Sex: M Room/Bed: N377-2 Att Phy: Barbara Ruiz MD Diagnosis: MUSCLE SPASM Adenike Phy: Joe Iyer MD Service Date: 08/11/23 Fam Phy: Interpreting Phy: Odilon RobbAdmit Phy: Cezar Martínez MD Ordering Phy: Dylan Gonzales PA-C cc: ~ MR lumbar spine wo con CLINICAL HISTORY: 68 years-old Male with Low back pain with radiculopathy. Chronic low back pain. COMPARISON: CT 08/10/2023. TECHNIQUE: Multiplanar, multi sequence MRI of the lumbar spine was performed without intravenous contrast. FINDINGS: Conus medullaris terminates at the L1-L2 level. There is normal signal within the imaged thoracic spinal cord and cauda equina. No acute fracture, subluxation or endplate erosion. Mild Modic type I endplate degeneration at L4. The imaged intra-abdominal and paraspinal structures are unremarkable. Mild bilateral perinephric stranding. T2 hyperintense foci suggestive of cyst is noted within the kidneys measuring up to 5 cm on the right. T12-L1: Mild intervertebral disc space narrowing with anterior predominant spondylitic spurring and vlft-pf-htlznmiu facet arthrosis. No central canal or neuroforaminal narrowing. L1-L2: Moderate intervertebral disc space narrowing with bridging anterior osteophytic spurring. Small posterior annular disc bulge. Ligamentum flavum thickening with moderate facet arthrosis. Central canal is patent. Minimal inferior bilateral foraminal stenosis. L2-L3: Severe intervertebral disc space narrowing with bridging disc osteophyte complex. Ligamentum flavum thickening with moderate facet arthrosis. Mild central canal stenosis with AP dimension of the thecal sac measuring 9 mm. Mild bilateral foraminal stenosis. L3-L4: Mild intervertebral disc space narrowing with spondylitic spurring and circumferential annular disc bulging. Ligamentum flavum thickening with modera tn-pd-hmtkau facet arthrosis. Epidural lipomatosis. Severe central canal stenosis with AP dimension of the thecal sac measuring 5 mm. There is at least mild narrowing of the lateral recesses. Ygli-nj-fcwhzaro right with moderate left foraminal narrowing. There is edema within the left neural foramen. L4-L5: Moderate intervertebral disc space narrowing and spondylotic spurring with circumferential annular disc bulging. Posterior annular fissure with central disc protrusion measuring 11 mm transversely. Ligamentum flavum thickening with severe facet arthrosis. Epidural lipomatosis. Severe central canal stenosis with AP dimension measuring 5 mm. L5-S1: Moderate intervertebral disc space narrowing with spondylitic spurring and circumferential disc osteophyte complex. Ligamentum flavum thickening with moderate facet arthrosis. Epidural lipomatosis. Minimal triangular central canal stenosis with moderate narrowing of the lateral recesses. Ztbiyfkb-vj-ujvodp right with moderate left foraminal narrowing. IMPRESSION: 1. Discogenic degeneration with spondylotic spurring and facet arthrosis as above in conjunction with epidural lipomatosis results in multilevel neural foraminal stenosis. 2. Severe central canal stenosis at L3-L4 and L4-L5. 3. At L3-L4 there is moderate left-sided foraminal narrowing with edema within the left neural foramen, likely reactive. 4. No acute fracture is identified. ACT 112: Negative or not required by law. The above report was generated using voice recognition software. It may contain grammatical, syntax or spelling errors. Dictated: 08/11/2023 2:09 PM Transcribed: 08/11/2023 2:44 PM Sukhjinder [id number] [email or web address] Electronically signed by: Odilon Robb M.D. 08/11/2023 3:33 PM Dictated: 08/11/23 1409 Transcribed: 08/11/23 [address] [place], [place] [phone] CT Scan Report Patient: LUCIUS STERN Admit Date: 08/10/23 MR#: [id number] Address1: [address] [place] [address] Acct ID:[id number] Address2: Date: 1955 [facility] Zip: [place] [address] Age: 68 Location: ED Sex: M Room/Bed: Att Phy: Diagnosis: LEFT SIDE PAIN, DECREASED APPETITE Adenike Phy: Joe Iyer MD Service Date: 08/10/23 [facility] Phy: Interpreting Phy: Andrey Puentes MDAdmit Phy: Ordering Phy: Alisia Ordonez MD cc: ~ CT lumbar spine wo con CLINICAL HISTORY: left hip pain radiating to knee TECHNIQUE: Multidetector row helical CT of the lumbar spine was performed without administration of intravenous contrast. Coronal and sagittal reformations were obtained. Automated dose lowering techniques and/or adjustment according to patient size were utilized for this exam. CT DOSE: 2491.73 mGy.cm Comparison: Comparison is made to CT abdomen pelvis 09/19/2014 FINDINGS: For counting purposes, the last complete intervertebral disc space is considered L5-S1. No acute fractures are identified. Degenerative changes are noted in the visualized spine. Vertebral body alignment is within normal limits. Demonstration of exophytic cyst arising from the right kidney. Patient is status post IMPRESSION: Degenerative changes without evidence of acute bony injury. ACT 112: Negative or not required by law. Electronically signed by: Andrey Puentes M.D. 08/10/2023 4:43 PM Dictated: 08/10/23 164 Transcribed: 08/10/23 164[address] [place], [place] [phone] CT Scan Report Patient: LUCIUS STERN Admit Date: 08/10/23 MR#: [id number] Address1: [address] [place] [address] Acct ID:[id number] Address2: Date: 1955 [facility] Zip: [place] [address] Age: 68 Location: ED Sex: M Room/Bed: Att Phy: Diagnosis: LEFT SIDE PAIN, DECREASED APPETITE Adenike Phy: Joe Iyer MD Service Date: 08/10/23 Fam Phy: Interpreting Phy: Andrey Puentes MDAdmit Phy: Ordering Phy: Alisia Ordonez MD cc: ~ CT pelvis wo con CLINICAL HISTORY: left hip pain TECHNIQUE: Helical axial images of the pelvis were obtained and displayed at 5 and 1 mm intervals. Automated dose lowering techniques and/or adjustment according to patient size were utilized for this exam. This exam was performed without intravenous contrast. COMPARISON: None available at the time of this dictation. FINDINGS: Bladder: Unremarkable. Reproductive organs: Unremarkable. Bowel: Unremarkable. Lymph nodes Pelvic: Unremarkable. Mesenteric: Unremarkable. Peritoneum: Normal Vessels: Atherosclerotic calcifications are seen. Abdominal wall: Unremarkable. Bones: Degenerative changes in the visualized spine. IMPRESSION: No acute abnormalities. ACT 112: Negative or not required by law. Electronically signed by: Andrey Puentes M.D. 08/10/2023 5:07 PM Dictated: 08/10/23 1703 Transcribed: 08/10/23 1703
[2023-08-13] MEDS: WARFARIN SOD 5 MG TAB PO SCH (16:00)
--- NOTE | 2023-08-13 20:18 | Hospitalist Progress Note ---
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 He has responded nicely to dexamethasone 4mg IV BID along with gabapentin 100mg TID; will not change doses of these 2 meds today Cont oxycodone prn Cont valium prn Tylenol prn Ice as desired Appreciate ortho consult from Dylan Marley and Dr Cueva Appreciate ortho-spine consult by Carola ADAM/Dr Monge Pain management to be consulted by ortho-spine -- explained to patient that if pain becomes refractory or worsens in the future perhaps he would be a candidate for an injection at L3-L4 (2) Acute pain of left thigh: Plan: suspect 2nd to radicular pain from lumbar spine - see above & below intrinsic pain of left hip not felt to be the cause of his pain could have element of left sided trochanteric bursitis +/- IT band tendonitis but I don't feel that these issues are the primary problem these will improve with steroids as well (3) Lumbar spinal stenosis: Plan: severe spinal stenosis at L3-L4 and L4-L5 based on MRI l-spine also with moderate foraminal stenosis at L3-L4 with acute edema at this level on left (see above) there is foraminal stenosis at other levels as well (4) T2DM (type 2 diabetes mellitus): Plan: HbA1c 7.0 Cont metformin continued Cont novolog SSI add basal with lantus (5) Sleep apnea: Plan: CPAP HS (6) Permanent atrial fibrillation: Plan: Follows with Dr Hardy for tachycardia-induced cardiomyopathy (h/o depressed EF of 25%, improved to 50-55% in 2020) INR <3 today - resume coumadin INR am Cont carvedilol 12.5mg QAM/25mgQPM Cont cardizem CD 120mg daily Also takes meto tartrate once daily each am -- I confirmed this with his outpatient pharmacy records (7) Hypothyroidism: Plan: TSH 0.985 Cont synthroid (8) Hypertension: Plan: Continue carvedilol, metoprolol, diltiazem, lisinopril BPs controlled (9) Klinefelter syndrome: Plan: Cont testosterone while hospitalized if desired by patient (10) Hypogonadism in male: Plan: as above (11) Morbid obesity with BMI of 45.0-49.9, adult: Plan: BMI 46 (12) Renal cyst, right: Plan: seen on CT a/p in 2019 incidentally seen on MRI lumbar spine yesterday dimensions on both reports are about the same likely benign cyst given the chronicity Plan progressing nicely PT/OT when able home tomorrow if pain is decently controlled ? Admission and Anticipated Discharge Date Admission Date: August 12, 2023 Subjective back pain improved left leg pain improved able to walk more comfortably today able to sit longer more comfortably today slept better overnight no new areas of pain no paresthesias of left leg - just pain Review of Systems Review of Systems: cv - no orthopnea or chest pain pulm - no dyspnea GI - no abd pain Physical Exam Physical Exam: gen - morbidly obese, looks better today mouth - MMM heart - heart tones distant but irregularly irregular, s1 s2, no obvious murmur lungs - CTA b/l abd - soft NT ND BS+ ext - no edema, pulses 2+ b/l psych - a/o x 3 neuro - strength b/l hip flexion 5/5; strength b/l ankle dorsiflexion/plantarflexion 5/5; knee extension 5/5 b/l musculo - no tenderness over lower l-spine today to palpation; no tenderness in the paraspinal region on left to palpation; no pain over L trochanteric bursal region Results & Data Results & Data Vital Signs (Past 12 Hours) Vital Signs Temp Pulse Resp BP Pulse Ox O2 Del Method 08/13/23 15:09 36.6 C 79 16 122/71 98 Room Air Laboratory Results Laboratory Results - last 48 hr 08/12/23 08/12/23 08/12/23 06:48 11:21 16:26 PT 40.8 H INR 4.1 H Sodium 138 Potassium 4.1 Chloride 105 Carbon Dioxide 28 Anion Gap 5 BUN 20 Creatinine 0.84 Est Cr Clr Drug Dosing 112.2 Est GFR ( Amer) 102.8 Est GFR (Non-Af Amer) 88.7 BUN/Creatinine Ratio 23.8 H Glucose 132 H POC Glucose 158 H 127 H Calcium 9.1 Magnesium 1.7 Vitamin B12 374 08/12/23 08/13/23 08/13/23 20:52 07:19 07:33 PT 27.2 H INR 2.6 H Sodium Potassium Chloride Carbon Dioxide Anion Gap BUN Creatinine Est Cr Clr Drug Dosing Est GFR ( Amer) Est GFR (Non-Af Amer) BUN/Creatinine Ratio Glucose POC Glucose 140 H 174 H Calcium Magnesium Vitamin B12 08/13/23 08/13/23 08/13/23 11:24 16:28 20:24 PT INR Sodium Potassium Chloride Carbon Dioxide Anion Gap BUN Creatinine Est Cr Clr Drug Dosing Est GFR ( Amer) Est GFR (Non-Af Amer) BUN/Creatinine Ratio Glucose POC Glucose 238 H 159 H 163 H Calcium Magnesium Vitamin B12 PG Care Time/CCT Total # of Minutes Spent Total Time Spent with Patient: Total time spent is greater than 50% in coordination of care (as documented) at patient's floor/unit and/or counseling patient: Coding Level of Care Code 86741 SUB INP/OBS CARE 235MIN Diagnoses Radicular pain of left lower extremity M54.10 Acute pain of left thigh M79.652 Lumbar spinal stenosis M48.061 Type 2 diabetes mellitus without complication, without long-term current use of insulin E11.9 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 complication status: without complication 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 continuous churn buttermaker insulin use: without continuous churn buttermaker use Sleep apnea G47.30 Permanent atrial fibrillation I48.21 Acquired hypothyroidism E03.9 Hypothyroidism type: acquired Primary hypertension I10 Hypertension type: primary hypertension Klinefelter syndrome Q98.4 Hypogonadism in male E29.1 Morbid obesity with BMI of 45.0-49.9, adult E66.01; Z68.42 Renal cyst, right N28.1 (4) T2DM (type 2 diabetes mellitus) 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 complication status: without complication 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 fpc insulin use: without fpc use Qualified Code(s): E11.9 - Type 2 diabetes mellitus without complications (7) Hypothyroidism Hypothyroidism type: acquired Qualified Code(s): E03.9 - Hypothyroidism, unspecified (8) Hypertension Hypertension type: primary hypertension Qualified Code(s): I10 - Essential (primary) hypertension
[2023-08-13] MEDS: LANTUS PER UNIT CHARGE SQ SCH (20:38)
[2023-08-14] MEDS: LANTUS PER UNIT CHARGE SQ SCH (08:42)
[2023-08-14 09:01] LABS: INR 3.2 (0.9-1.1); Prothrombin Time 32.9 Seconds (9.0-12.0)
--- NOTE | 2023-08-14 09:03 | Pain Management Consultation ---
Date of Consultation August 14, 2023 Assessment & Plan (1) Radicular pain of left lower extremity: (2) Lumbar spinal stenosis: Neurogenic claudication status: with neurogenic claudication Qualified Code(s): M48.062 - Spinal stenosis, lumbar region with neurogenic claudication (3) Morbid obesity with BMI of 45.0-49.9, adult: (4) Epidural lipomatosis: Plan 1. Patient indicating significant reduction in radicular pattern pain with initiation of IV dexamethasone and gabapentin. He is tolerating the gabapentin without notable side effects-would recommend continue with gabapentin therapy. At this time would recommend patient transition to oral steroid taper. He does not appear to be acutely in need of lumbar HARRY. Should his symptoms persist/increase upon discontinuation of steroid taper patient may undergo outpatient evaluation in pain clinic for consideration of lumbar HARRY. 2. Consider endocrinology evaluation due to his epidural lipomatosis finding on MRI. Patient does currently follow with endocrine regularly. He was encouraged to discuss this further with them. 3. Patient has lots of questions regarding use of a lumbar support brace. We discussed these questions at length and were answered to his satisfaction. 4. He should continue with PT evaluation/treatment in the outpatient setting 5. Pain service will sign off on patient at this time. Patient may undergo outpatient pain clinic evaluation at his request. Thank you for allowing us to participate in the care of Mr. Stern. History of Present Illness Reason for Consultation: Left lower extremity radicular pain Requesting Physician: Carola Garcia PA-C Attending Physician: Cezar Ma MD History of Present Illness Mr. Stern is a 68-year-old morbidly obese white male who was admitted due to intractable left lower extremity radicular pattern pain. Patient reported onset of his pain approximate 1 week ago occurring after an "workout" although denied any acute injury. The patient indicates his pain is 100% radicular in the left lower extremity. He has no axial low back pain. He has minimal pain in the gluteal region. He describes the pain as sharp, burning and shooting in characteristic but improved over the past few days. Patient reported pain traveling in a L5 distribution to the lateral ankle as well as groin and anterior thigh region pain. Patient has been on IV dexamethasone and initiated on gabapentin. He feels these medications have been helpful at diminishing his pain. He is currently rating his pain at a 3/10. His pain can escalate to a 6/10 with any ambulation. He reports he was able to walk approximately 20 steps without limitation nor any significant exacerbation of pain this morning. Patient denies any notable weaknesses in the lower extremity, foot drop or episodes of falling. He denies bowel or bladder incontinence or saddle anesthesia. He denies any right lower extremity radicular pattern pain. Plan of care discussed with Dr. Tahira Sánchez. Pain Assessment Full Body Front + Back: 2 1. Left lateral leg to ankle-L5 distribution 2. Left lateral hip, thigh and groin Pain scale - at its best (0-10): 3 Pain scale - at its worst (0-10): 6 Allergies Allergy/AdvReac Type Severity Reaction Status Date / Time No Known Drug Allergies Allergy Verified 08/10/23 17:26 Home Medications Medication Instructions Recorded Confirmed Type True Metrix Glucose Test Strip #300 ea 06/15/20 06/19/23 Rx (blood sugar diagnostic) lisinopril 2.5 mg tablet 2.5 mg PO QAM 05/24/21 08/10/23 History warfarin 5 mg tablet 5 mg PO QAM 04/17/22 08/10/23 History cholecalciferol (vitamin D3) 125 125 mcg PO DAILY #90 caps 10/11/22 08/10/23 Rx mcg (5,000 unit) capsule metformin 1,000 mg tablet 1,000 mg PO BID #180 tabs 11/08/22 08/10/23 Rx carvedilol 12.5 mg tablet 12.5 mg PO QAM #90 tabs 12/04/22 08/10/23 Rx potassium chloride 10 mEq 10 meq PO QPM #90 tabs 12/04/22 08/10/23 Rx tablet,extended release levothyroxine 100 mcg tablet 100 mcg PO QAM #90 tabs 03/11/23 08/10/23 Rx atorvastatin 40 mg tablet (Lipitor) 40 mg PO QPM #90 tabs 03/31/23 08/10/23 Rx ascorbate calcium (vitamin C) 500 500 mg PO DAILY 04/09/23 08/10/23 History mg tablet blood-glucose sensor (FreeStyle #1 ea 05/23/23 06/19/23 Rx Carson 3 Sensor device) metoprolol tartrate 50 mg tablet 50 mg PO QAM #90 tabs 06/04/23 08/10/23 Rx furosemide 40 mg tablet 40 mg PO DAILY PRN weight gain #90 06/18/23 08/10/23 Rx tabs diltiazem HCl 120 mg 120 mg PO DAILY #90 caps 07/28/23 08/10/23 Rx capsule,extended release 24 hr carvedilol 25 mg tablet 25 mg PO QPM #90 tabs 08/04/23 08/10/23 Rx testosterone 12.5 mg/1.25 gram per 2 pump transdermal QAM 08/10/23 08/10/23 History pump actuation (1%) transdermal gel Pain History Pain Intensity Pain scale - at its best (0-10): 3 Pain scale - at its worst (0-10): 6 Patient History Medical History (Updated 08/14/23 @ 09:06 by Behzad Euceda PA-C) Epidural lipomatosis History of cardioversion x2 - both unsuccessful Gynecomastia T2DM (type 2 diabetes mellitus) NIDDM Anticoagulant long-term use Dyslipidemia Hypogonadism Osteopenia Sleep apnea cpap at night Tubular adenoma of colon Permanent atrial fibrillation follows with Dr. Hardy Tachycardia induced cardiomyopathy EF has ranged from 25-50%, but most recent echo 2019 EF 60-65% Chronic systolic heart failure H/O reduced EF, but now 60-65% per 2019 echo Hypothyroidism Hypertension Surgical History History of ERCP stent removal (10/2018) History of colonoscopy History of herniorrhaphy as an History of cataract surgery bilateral History of tonsillectomy History of cholecystectomy 09/24/18 MAC 4, ETT 7.5, grade view II, intubated on first attempt S/P ERCP (09/2018) 09/23/1819 Grade 2 view Mac 4 Family History Father Heart disease Myocardial infarction Mother Emphysema, unspecified Sister Mental disorder Grandmother (Paternal) Diabetes Aunt Diabetes Grandfather (Paternal) Myocardial infarction Other No significant family history Denies family history of Ovarian cancer Prostate cancer Breast cancer Colorectal cancer Social History Smoking Status: Never smoker Second Hand Exposure: No; Do You Dip or Chew Tobacco: No; Hx Alcohol Use: Yes Alcohol type: beer Alcohol Intake Frequency Comment: rarely Hx Substance Use: No Preferred Language: Sammarinese Communication Ability: Effective Visual Impairment: No Limitations Hearing Ability: Normal Oil [employer] Recruiter Required: No Beliefs That Will Affect Care: None marital status: Current Living Situation: Spouse current occupational status: retired 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 Speech and thought process appropriate. Mood and affect appropriate. Cognition intact. Patient is obese and physically deconditioned-predominant abdominal obesity. Head: Normocephalic and atraumatic. ENT: No evidence of nasal or oral mucosal lesions. Mucous membranes are moist. Eyes: Pupils equal round reactive to light. Neck: Supple without adenopathy and full range of motion. Abdomen: Soft and nondistended. No organomegaly. Bowel sounds active. Back/spine: Complete loss of lumbar lordosis. Nontender over the midline. Minimally tender throughout the left gluteal region. No appreciable spasm or myoneural trigger point. No focal facet or SI joint tenderness. Lower extremities: SLR negative bilaterally. Strength testing 5/5 and equal throughout without focal deficit. Sensation intact without deficit. Trace ankle edema bilaterally. Hemosiderosis was appreciated of the ankle and distal pretibial location. Neurologic: Cranial nerves grossly intact. Ambulatory function not witnessed. Results (Pain Clinic) Diagnostic Review MRI Findings: [place], [place] [phone] Magnetic Resonance Report Patient: LUCIUS STERN Admit Date: 08/10/23 MR#: [id number] Address1: [address] [place] [address] Acct ID:[id number] Address2: Date: 1955 [facility] Zip: [place] [address] Age: 68 Location: 3N Sex: M Room/Bed: [facility] Att Phy: Barbara Ruiz MD Diagnosis: MUSCLE SPASM Adenike Phy: Iyer, Christopher E., MD Service Date: 08/11/23 [facility] Phy: Interpreting Phy: Odilon RobbAdmit Phy: Cezar Martínez MD Ordering Phy: Dylan Gonzales PA-C cc: ~ MR lumbar spine wo con CLINICAL HISTORY: 68 years-old Male with Low back pain with radiculopathy. Chronic low back pain. COMPARISON: CT 08/10/2023. TECHNIQUE: Multiplanar, multi sequence MRI of the lumbar spine was performed without intravenous contrast. FINDINGS: Conus medullaris terminates at the L1-L2 level. There is normal signal within the imaged thoracic spinal cord and cauda equina. No acute fracture, subluxation or endplate erosion. Mild Modic type I endplate degeneration at L4. The imaged intra-abdominal and paraspinal structures are unremarkable. Mild bilateral perinephric stranding. T2 hyperintense foci suggestive of cyst is noted within the kidneys measuring up to 5 cm on the right. T12-L1: Mild intervertebral disc space narrowing with anterior predominant spondylitic spurring and vymp-kg-qloffklh facet arthrosis. No central canal or neuroforaminal narrowing. L1-L2: Moderate intervertebral disc space narrowing with bridging anterior osteophytic spurring. Small posterior annular disc bulge. Ligamentum flavum thickening with moderate facet arthrosis. Central canal is patent. Minimal inferior bilateral foraminal stenosis. L2-L3: Severe intervertebral disc space narrowing with bridging disc osteophyte complex. Ligamentum flavum thickening with moderate facet arthrosis. Mild central canal stenosis with AP dimension of the thecal sac measuring 9 mm. Mild bilateral foraminal stenosis. L3-L4: Mild intervertebral disc space narrowing with spondylitic spurring and circumferential annular disc bulging. Ligamentum flavum thickening with flukvrnm-pn-ufvcub facet arthrosis. Epidural lipomatosis. Severe central canal stenosis with AP dimension of the thecal sac measuring 5 mm. There is at least mild narrowing of the lateral recesses. Flnr-gi-fzgbijbk right with moderate left foraminal narrowing. There is edema within the left neural foramen. L4-L5: Moderate intervertebral disc space narrowing and spondylotic spurring with circumferential annular disc bulging. Posterior annular fissure with central disc protrusion measuring 11 mm transversely. Ligamentum flavum thickening with severe facet arthrosis. Epidural lipomatosis. Severe central canal stenosis with AP dimension measuring 5 mm. L5-S1: Moderate intervertebral disc space narrowing with spondylitic spurring and circumferential disc osteophyte complex. Ligamentum flavum thickening with moderate facet arthrosis. Epidural lipomatosis. Minimal triangular central canal stenosis with moderate narrowing of the lateral recesses. Ccrtrorc-sd-kejplu right with moderate left foraminal narrowing. IMPRESSION: 1. Discogenic degeneration with spondylotic spurring and facet arthrosis as above in conjunction with epidural lipomatosis results in multilevel neural foraminal stenosis. 2. Severe central canal stenosis at L3-L4 and L4-L5. 3. At L3-L4 there is moderate left-sided foraminal narrowing with edema within the left neural foramen, likely reactive. 4. No acute fracture is identified. ACT 112: Negative or not required by law. The above report was generated using voice recognition software. It may contain grammatical, syntax or spelling errors. Dictated: 08/11/2023 2:09 PM Transcribed: 08/11/2023 2:44 PM Sukhjinder [id number] [email or web address] Electronically signed by: Odilon Robb M.D. 08/11/2023 3:33 PM Dictated: 08/11/23 1409 Transcribed: 08/11/23 1444 Radiology Findings: [facility], [place] [phone] XRay Report Patient: LUCIUS STERN Admit Date: 08/10/23 MR#: [id number] Address1: [address] [place] [address] Acct ID:[id number] Address2: Date: 1955 [facility] Zip: [place] [address] Age: 68 Location: 3N Sex: M Room/Bed: N377 Att Phy: Cezar Ma MD Diagnosis: MUSCLE SPASM Adenike Phy: Joe Iyer MD Service Date: 08/12/23 Fam Phy: Interpreting Phy: Odilon RobbAdmit Phy: Cezar Martínez MD Ordering Phy: Edvin Monge D.O. cc: ~ XR lumbar spine 2-3V HISTORY: 68 years-old Male standing films acute low back pain COMPARISON: MRI lumbar spine 08/11/2023 TECHNIQUE: 2 views of the lumbar spine FINDINGS: Multilevel degenerative changes of the lumbar spine redemonstrated which includes severe L2-L3 disc space narrowing. No acute fracture or subluxation. Atherosclerosis of the aorta. IMPRESSION: 1. No acute fracture or subluxation. 2. Multilevel degenerative changes of the lumbar spine are better violated on yesterday's MRI. ACT 112: Negative or not required by law. The above report was generated using voice recognition software. It may contain grammatical, syntax or spelling errors. Electronically signed by: Odilon Robb M.D. 08/12/2023 9:41 AM Dictated: 08/12/23937 Transcribed: 08/12/23937
--- NOTE | 2023-08-14 14:25 | Hospitalist Progress Note ---
Date of Service August 14, 2023 Assessment & Plan (1) Radicular pain of left lower extremity: Plan: MRI lumbar spine with severe spinal stenosis at L3-L4 and L4-L5 His description of his LLE pain mainly follows the L4 dermatome but can't exclude L5 involvement as well MRI report states "At L3-L4 there is moderate left-sided foraminal narrowing with edema within the left neural foramen, likely reactive." Suspect that the latter is the current bung driver of the bulk of his pain - the L4 nerve root on left He has responded nicely to dexamethasone 4mg IV BID along with gabapentin 100mg TID; will not change doses of these 2 meds today, but will change IV dex to PO dex tomorrow and lower dose to 6mg/day (equivalent of 40mg of prednisone daily) Plan to increase gabapentin to 300mg TID as well - he is tolerating the gabapentin very well Cont oxycodone prn Cont valium prn Tylenol prn Ice as desired Appreciate ortho consult from Dylan Marley and Dr Cueva Appreciate ortho-spine consult by Carola ADAM/Dr Monge Appreciate pain management consult - no plans for any invasive procedure at this time, but if his pain persists as outpatient he could receive an injection at L3-L4 cont PT/OT walker script given to social work (2) Acute pain of left thigh: Plan: suspect 2nd to radicular pain from lumbar spine - see above & below intrinsic pain of left hip not felt to be the cause of his pain could have element of left sided trochanteric bursitis +/- IT band tendonitis but I don't feel that these issues are the primary problem these will improve with steroids as well (3) Lumbar spinal stenosis: Plan: severe spinal stenosis at L3-L4 and L4-L5 based on MRI l-spine also with moderate foraminal stenosis at L3-L4 with acute edema at this level on left (see above) there is foraminal stenosis at other levels as well (4) T2DM (type 2 diabetes mellitus): Plan: HbA1c 7.0 Cont metformin continued Cont novolog SSI Cont lantus BSGs should improve as his steroids are weaned (5) Sleep apnea: Plan: CPAP HS (6) Permanent atrial fibrillation: Plan: Follows with Dr Hardy for tachycardia-induced cardiomyopathy (h/o depressed EF of 25%, improved to 50-55% in 2020) resume coumadin but lower dose to 3mg/day INR am Cont carvedilol 12.5mg QAM/25mgQPM Cont cardizem CD 120mg daily Also takes meto tartrate once daily each am -- I confirmed this with his outpatient pharmacy records (7) Hypothyroidism: Plan: TSH 0.985 Cont synthroid (8) Hypertension: Plan: Continue carvedilol, metoprolol, diltiazem, lisinopril BPs controlled (9) Klinefelter syndrome: Plan: Cont testosterone while hospitalized if desired by patient (10) Hypogonadism in male: Plan: as above (11) Morbid obesity with BMI of 45.0-49.9, adult: Plan: BMI 46 (12) Renal cyst, right: Plan: seen on CT a/p in 2019 incidentally seen on MRI lumbar spine yesterday dimensions on both reports are about the same likely benign cyst given the chronicity Plan progressing nicely home tomorrow if pain remains adequately controlled and he is walking satisfactorily Admission and Anticipated Discharge Date Admission Date: August 12, 2023 Subjective no events overnight worked with PT today - walked down the hallway and back his back pain is significantly improved his left leg pain is still present but also improved no new areas of pain slept well last pm; was not bothered by pain able to tolerate a seated position much longer than prior he asks for a walker for home at bedside Review of Systems Review of Systems: gen - eating well cv - no cp pulm - no dyspnea GI - no abd pain Physical Exam Physical Exam: gen - morbidly obese, looks very well, comfortable mouth - MMM heart - heart tones distant but irregularly irregular, s1 s2, no obvious murmur lungs - CTA b/l abd - soft NT ND BS+ ext - no edema, pulses 2+ b/l neuro - strength b/l hip flexion 5/5; strength b/l ankle dorsiflexion/plantarflexion 5/5; knee extension 5/5 b/l - exam remains unchanged musculo - no tenderness over lower l-spine today to palpation; no tenderness in the paraspinal region on left to palpation; no pain over L trochanteric bursal region or the IT band Results & Data Results & Data Vital Signs (Past 12 Hours) Vital Signs Temp Pulse Resp BP Pulse Ox O2 Del Method 08/14/23 07:19 36.5 C 88 16 139/93 96 Room Air Laboratory Results Laboratory Results - last 48 hr 08/13/23 08/13/23 08/13/23 11:24 16:28 20:24 PT INR POC Glucose 238 H 159 H 163 H 08/14/23 08/14/23 08/14/23 07:35 08:03 11:30 PT 32.9 H INR 3.2 H POC Glucose 187 H 235 H 08/14/23 08/14/23 08/15/23 16:44 20:55 07:03 PT 39.4 H INR 3.9 H POC Glucose 140 H 203 H 08/15/23 08:03 PT INR POC Glucose 160 H PG Care Time/CCT Total # of Minutes Spent Total Time Spent with Patient: Total time spent is greater than 50% in coordination of care (as documented) at patient's floor/unit and/or counseling patient: Coding Level of Care Code 58059 SUB INP/OBS CARE 2/35MIN Diagnoses Radicular pain of left lower extremity M54.10 Acute pain of left thigh M79.652 Spinal stenosis of lumbar region with neurogenic claudication M48.062 Neurogenic claudication status: with neurogenic claudication Type 2 diabetes mellitus without complication, without long-term current use of insulin E11.9 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 complication status: without complication 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: without chcf use Sleep apnea G47.30 Permanent atrial fibrillation I48.21 Acquired hypothyroidism E03.9 Hypothyroidism type: acquired Primary hypertension I10 Hypertension type: primary hypertension Klinefelter syndrome Q98.4 Hypogonadism in male E29.1 Morbid obesity with BMI of 45.0-49.9, adult E66.01; Z68.42 Renal cyst, right N28.1 (3) Lumbar spinal stenosis Neurogenic claudication status: with neurogenic claudication Qualified Code(s): M48.062 - Spinal stenosis, lumbar region with neurogenic claudication (4) T2DM (type 2 diabetes mellitus) 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 complication status: without complication 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
[2023-08-14] MEDS: WARFARIN SOD 3 MG TAB PO SCH (15:53)
[2023-08-15 08:14] LABS: INR 3.9 (0.9-1.1); Prothrombin Time 39.4 Seconds (9.0-12.0)
[2023-08-15] MEDS: dexAMETHasone 4 MG TAB PO SCH (08:24)
--- NOTE | 2023-08-15 12:59 | Discharge Summary ---
Date of Service August 15, 2023 Admission HPI Per Admitting Provider Kirby Bonds is a 68 year old male who presents to the ER with left upper leg pain. He reports intermittent sharp pain in no one nerve distribution with cramping feeling in upper thigh and hamstrings both medially and laterally. This comes on especially while standing up. No pain in his back. He reports doing a normal workout that included leg lifts 4 days ago. 3 days ago this pain came on slowly progressively. He does not feel he injured his leg during the workout. Area is painful to palpation over thigh and hamstrings. No abdominal pain, nausea, vomiting or change in bowel movements. No urinary symptoms. No fever or chills. He feels he is too unsafe to return home at this time. Discharge Exam gen - morbidly obese, looks very well, comfortable mouth - MMM heart - heart tones distant but irregularly irregular, s1 s2, no obvious murmur lungs - CTA b/l abd - soft NT ND BS+ ext - no edema, pulses 2+ b/l neuro - strength b/l hip flexion 5/5; strength b/l ankle dorsiflexion/plantarflexion 5/5; knee extension 5/5 b/l - exam remains unchanged musculo - no tenderness over lower l-spine today to palpation; no tenderness in the paraspinal region on left to palpation; no pain over L trochanteric bursal region or the IT band Discharge Data Allergies Allergy/AdvReac Type Severity Reaction Status Date / Time No Known Drug Allergies Allergy Verified 08/10/23 17:26 Consultations 08/10/23 18:55 ED Decision to Admit Stat 08/11/23 07:04 Consult Orthopedic Surgery Routine 08/11/23 13:38 Consult Orthopedic Spine Surgery Routine 08/13/23 09:23 Consult Pain Management Routine Ordered Studies 08/10/23 15:38 CT lumbar spine wo con Stat CT pelvis wo con Stat 08/10/23 19:07 US venous doppler LE LT Urgent 08/11/23 11:42 MR lumbar spine wo con Routine Hospital Course (1) Radicular pain of left lower extremity: MRI lumbar spine with severe spinal stenosis at L3-L4 and L4-L5 His description of his LLE pain mainly follows the L4 dermatome but can't exclude L5 involvement as well MRI report states "At L3-L4 there is moderate left-sided foraminal narrowing with edema within the left neural foramen, likely reactive." 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 - the L4 nerve root on left He has responded nicely to dexamethasone 4mg IV BID along with gabapentin 100mg TID; will not change doses of these 2 meds today, but will change IV dex to PO dex tomorrow and lower dose to 6mg/day (equivalent of 40mg of prednisone daily) Plan to increase gabapentin to 300mg TID as well - he is tolerating the gabapentin very well Cont oxycodone prn Cont valium prn Tylenol prn Ice as desired Appreciate ortho consult from Dylan Marley and Dr Cueva Appreciate ortho-spine consult by Carola ADAM/Dr Monge Appreciate pain management consult - no plans for any invasive procedure at this time, but if his pain persists as outpatient he could receive an injection at L3-L4 cont PT/OT walker script given to social work (2) Acute pain of left thigh: suspect 2nd to radicular pain from lumbar spine - see above & below intrinsic pain of left hip not felt to be the cause of his pain could have element of left sided trochanteric bursitis +/- IT band tendonitis but I don't feel that these issues are the primary problem these will improve with steroids as well (3) Lumbar spinal stenosis: severe spinal stenosis at L3-L4 and L4-L5 based on MRI l-spine also with moderate foraminal stenosis at L3-L4 with acute edema at this level on left (see above) there is foraminal stenosis at other levels as well (4) T2DM (type 2 diabetes mellitus): HbA1c 7.0 Cont metformin continued Cont novolog SSI Cont lantus BSGs should improve as his steroids are weaned (5) Sleep apnea: CPAP HS (6) Permanent atrial fibrillation: Follows with Dr Hardy for tachycardia-induced cardiomyopathy (h/o depressed EF of 25%, improved to 50-55% in 2020) resume coumadin but lower dose to 3mg/day INR am Cont carvedilol 12.5mg QAM/25mgQPM Cont cardizem CD 120mg daily Also takes meto tartrate once daily each am -- I confirmed this with his outpatient pharmacy records (7) Hypothyroidism: TSH 0.985 Cont synthroid (8) Hypertension: Continue carvedilol, metoprolol, diltiazem, lisinopril BPs controlled (9) Klinefelter syndrome: Cont testosterone while hospitalized if desired by patient (10) Hypogonadism in male: as above (11) Morbid obesity with BMI of 45.0-49.9, adult: BMI 46 (12) Renal cyst, right: seen on CT a/p in 2019 incidentally seen on MRI lumbar spine yesterday dimensions on both reports are about the same likely benign cyst given the chronicity Plan progressing nicely home tomorrow if pain remains adequately controlled and he is walking satisfactorily Discharge Plan Discharge Items Patient Disposition: Home - Self-Care Reason For Visit: INTRACTABLE LOW BACK PAIN WITH LEFT LEG PAIN Discharge Diagnosis: 1. low back pain/left leg pain - due to combination of severe lumbar spinal stenosis and foraminal stenosis 2. left leg pain is likely due to nerve impingement on the left side of the lumbar spine 3. type 2 diabetes 4. permanent atrial fibrillation on coumadin 5. right-sided renal cyst 6. supratherapeutic INR - discharge INR level 3.9 Activity: As commented below Activity Comment: LIGHT activities only until seen in follow-up; nothing strenuous Lifting: No more than 10 pounds Exercise/Sports: Wait until after follow-up appointment Driving/Machine Use: NO DRIVING if taking oxycodone pain medicine Non-emergency contact: Primary Care Provider and Specialist Call non-emergency contact if: you have any medication questions, your symptoms worsen, your pain is not controlled and your pain is worsening Follow-up/Referrals: Joe Iyer MD [Primary Care Provider] - 08/20/23 2:00 pm (APPOINTMENT WITH [facility]) Shaun Villafuerte MD, FIPP [Physician] - (follow-up with [facility] if a steroid shot for the spine is ever needed ) Edvin Monge DO [Surgeon] - (follow-up as needed with Dr Monge if surgery is ever needed for your back) Diet: Carb Consistent or DM2 and Heart Healthy Ambulatory Orders: Prothrombin Time INR (Timed) Timeframe: [id number] Location: Determined by Patient Ordered By: Cezar Moralestl Attending Provider Instructions: Mr Bonds, Andrews were hospitalized due to severe left leg pain and left lower back pain. This was due to a combination of factors including nerve pain from an impinged nerve in the lumbar spine, spinal stenosis, and probably muscle inflammation as well (especially around the left hip). You improved with steroids, pain meds, muscle relaxers, gabapentin, and time. Orthopedics and pain management saw you for your back problem. Both recommended conservative treatment at this time rather than back injections or surgery. You received physical therapy and have done well with your walking. Recommendations - 1. dexamethasone steroid course - start this tomorrow, 08/16/23; take with food. The steroids will raise your blood sugars well into next week but will improve as the steroid tapers down. Steroids can cause fluid retention. Please watch for this carefully and take furosemide as needed. Watch your diet carefully because of the steroids. 2. gabapentin 100mg three times daily for nerve pain; most common side effect is mild fatigue/sleepiness from it. Rarely it can cause edema of the legs/feet. 3. [id number] tylenol, 1000mg every 6 hours as needed for pain, maximum 3000mg in 24 hours. 4. oxycodone pain killer - 5mg every 6 hours as needed. Do not drink alcohol or drive a car if using this medicine. This medication can cause you to be sleepy or impair your senses. It can also cause constipation. 5. pantoprazole 40mg - take daily for 10 days to avoid stomach upset from the steroids. 6. coumadin - your INR level today is 3.9. Thus -- * do not take any coumadin today, 08/15/23 * resume coumadin on 08/16/23 but take 2.5mg of coumadin rather than your usual dose * take coumadin on 08/17/23 - again 2.5mg * Friday am, 08/18/23 - please have your INR checked with one of the [facility] labs. I have placed a lab order for you. Do not take your coumadin on Friday until you hear from Dr Iyer's office about how much to take 7. light activities only, no heavy lifting. Gentle stretching is OK; light walks are ok. Avoid any activity that makes your back feel worse 8. heat or ice - whatever you prefer - as much as needed to your back Follow-up - see separate section Return to [facility] if - * you have severe back or left leg pain despite taking all of the above medicines * you develop weakness of either leg * you have difficulty moving your bowels or passing your urine, or you have incontinence of either * any other concerns It was our pleasure to care for you! -Dr Ma Pending Studies at Discharge: No Stand-Alone Forms: My [facility], Smoking Cessation Medications and DC Order Prescriptions: New oxycodone 5 mg Tablet 5 mg PO Q6H PRN (Reason: pain) Qty: 15 0RF gabapentin 100 mg capsule 100 mg PO TID Qty: 30 0RF Rx Instructions: for nerve pain dexamethasone 2 mg tablet 2 mg PO DIRECTED Qty: 9 0RF Rx Instructions: start 08/15; take with food. 3 tabs PO QD x 1 day, then 2 tabs PO QD x 2 days, then 1 tab PO QD x 2 days. pantoprazole [Protonix] 40 mg tablet,delayed release (DR/EC) 40 mg PO DAILY 10 Days Qty: 10 0RF Continued (DME) True Metrix Glucose Test Strip Strip See Rx Instructions .ROUTE .MEDSUPPLY Qty: 300 3RF Rx Instructions: test 3 times daily and as needed metformin 1,000 mg tablet 1,000 mg PO BID Qty: 180 3RF potassium chloride 10 mEq tablet extended release 10 meq PO QPM Qty: 90 3RF carvedilol 12.5 mg tablet 12.5 mg PO QAM Qty: 90 3RF levothyroxine 100 mcg tablet 100 mcg PO QAM Qty: 90 3RF atorvastatin [Lipitor] 40 mg tablet 40 mg PO QPM Qty: 90 3RF metoprolol tartrate 50 mg tablet 50 mg PO QAM Qty: 90 3RF furosemide 40 mg tablet 40 mg PO DAILY PRN (Reason: weight gain) Qty: 90 3RF diltiazem HCl 120 mg capsule,extended release 24hr 120 mg PO DAILY Qty: 90 3RF carvedilol 25 mg tablet 25 mg PO QPM Qty: 90 3RF cholecalciferol (vitamin D3) 125 mcg (5,000 unit) capsule 125 mcg PO DAILY Qty: 90 3RF Rx Instructions: Take one tablet by mouth with the largest meal of the day. (DME) FreeStyle [place] 3 Sensor Device See Rx Instructions .Route Qty: 1 11RF Rx Instructions: Change every 14 days ascorbate calcium (vitamin C) 500 mg tablet 500 mg PO DAILY lisinopril 2.5 mg tablet 2.5 mg PO QAM testosterone 12.5 mg/ 1.25 gram (1 %) gel in metered-dose pump 2 pump TRANSDERMAL QAM Held warfarin 5 mg tablet 5 mg PO QAM Hold Instructions: Resume on 08/16/23. Take 2.5mg of coumadin on Friday, 08/15 and Friday, 08/16. Protocol: Dose Management Condition: Friday Dose/Route: 5 mg Instruction: 1 x 5 mg tablet Condition: Friday Dose/Route: 5 mg Instruction: 1 x 5 mg tablet Condition: Friday Dose/Route: 5 mg Instruction: 1 x 5 mg tablet Condition: Friday Dose/Route: 5 mg Instruction: 1 x 5 mg tablet Condition: Dose/Route: 5 mg Instruction: 1 x 5 mg tablet Condition: Friday Dose/Route: 5 mg Instruction: 1 x 5 mg tablet Condition: Friday Dose/Route: 5 mg Instruction: 1 x 5 mg tablet Protocol Text: Adjustment Start Date: 07/31/23 INR Value: 2.5 INR Date: 07/31/23 Recheck Date: 08/30/23 Discharge Orders: Discharge Order (Routine); Ordered 08/15/23 Ordered By: Cezar Schmidt/Other Patient Handouts: Managing Type 2 Diabetes Admission Data Admit Date/Time: 08/12/23 19:18 Attending Provider: Cezar Ma Admit Provider: Cezar Ma Primary Care Provider: Joe Iyer Other Providers: Cezar Martínez; Joe Lu; Edvin Monge; Behzad Euceda; Tahira Sánchez; Shaun Villafuerte; Arabella Gerard; Rodolfo Viramontes Coding Diagnoses Radicular pain of left lower extremity M54.10 Acute pain of left thigh M79.652 Spinal stenosis of lumbar region with neurogenic claudication M48.062 Neurogenic claudication status: with neurogenic claudication Type 2 diabetes mellitus without complication, without long-term current use of insulin E11.9 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 assisted insulin use: 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
[2023-08-15] MEDS: GABAPENTIN 300 MG CAP PO SCH (13:33)
== END 2023-08-15 13:41 | disposition home or self-care (01) | DRG 552 ==
LOC: ED 13:58 → 3N 13:58 → SUATTDRO 19:22 → 3N 20:08

== ENCOUNTER 2023-08-25 08:43 | Inpatient (IN) ==
--- NOTE | 2023-08-25 09:36 | Emergency Department Note ---
History of Present Illness General Chief complaint: Back Injury/Pain Stated complaint: L LOWER BACK & L LEG PAIN Time Seen by Provider: 08/25/23 08:54 History of Present Illness Maximum Pain Intensity: 6 NAME: LUCIUS STERN AGE: 68 SEX: M : 1955 ARRIVES VIA: Ambulance INFORMANT: Patient ED PROVIDER(S): PAPO Forde, Alisia Ordonez MD Patient is a pleasant 68-year-old male who arrives to the emergency department for evaluation of left lower back and leg pain. The patient was recently admitted and discharged from this facility with intractable low back pain. MRI imaging was severe central canal stenosis. The patient was consulted by orthospine, and discharged home with steroids. The patient reports he was nearly pain-free until a few days ago when his steroids therapy was completed. He reports last night in the middle of the night he began to have severe low back pain which was a new symptom from his previous episode. The patient states the pain was so severe he was unable to walk to the bathroom. He reports left leg weakness, and numbness. He denies any loss of bowel or bladder, he denies any numbness or tingling in his groin. Home Medications Medication Instructions Recorded Confirmed Type True Metrix Glucose Test Strip #300 ea 06/15/20 08/20/23 Rx (blood sugar diagnostic) lisinopril 2.5 mg tablet 2.5 mg PO QAM 05/24/21 08/25/23 History warfarin 5 mg tablet 5 mg PO QAM 04/17/22 08/25/23 History cholecalciferol (vitamin D3) 125 125 mcg PO DAILY #90 caps 10/11/22 08/25/23 Rx mcg (5,000 unit) capsule metformin 1,000 mg tablet 1,000 mg PO BID #180 tabs 11/08/22 08/25/23 Rx carvedilol 12.5 mg tablet 12.5 mg PO QAM #90 tabs 12/04/22 08/25/23 Rx potassium chloride 10 mEq 10 meq PO QPM #90 tabs 12/04/22 08/25/23 Rx tablet,extended release levothyroxine 100 mcg tablet 100 mcg PO QAM #90 tabs 03/11/23 08/25/23 Rx atorvastatin 40 mg tablet (Lipitor) 40 mg PO QPM #90 tabs 03/31/23 08/25/23 Rx ascorbate calcium (vitamin C) 500 500 mg PO DAILY 04/09/23 08/25/23 History mg tablet blood-glucose sensor (FreeStyle #1 ea 05/23/23 08/20/23 Rx Carson 3 Sensor device) metoprolol tartrate 50 mg tablet 50 mg PO QAM #90 tabs 06/04/23 08/25/23 Rx furosemide 40 mg tablet 40 mg PO DAILY PRN weight gain #90 06/18/23 08/25/23 Rx tabs diltiazem HCl 120 mg 120 mg PO DAILY #90 caps 07/28/23 08/25/23 Rx capsule,extended release 24 hr carvedilol 25 mg tablet 25 mg PO QPM #90 tabs 08/04/23 08/25/23 Rx testosterone 12.5 mg/1.25 gram per 2 pump transdermal QAM 08/10/23 08/25/23 History pump actuation (1%) transdermal gel gabapentin 100 mg capsule 100 mg PO TID #30 caps 08/15/23 08/25/23 Rx oxycodone 5 mg tablet 5 mg PO Q6H PRN pain #15 tabs 08/15/23 08/25/23 Rx Allergies Allergy/AdvReac Type Severity Reaction Status Date / Time No Known Drug Allergies Allergy Verified 08/25/23 11:49 Past Med/Surg History Medical History Epidural lipomatosis History of cardioversion x2 - both unsuccessful Gynecomastia T2DM (type 2 diabetes mellitus) NIDDM Anticoagulant long-term use Dyslipidemia Hypogonadism Osteopenia Sleep apnea cpap at night Tubular adenoma of colon Permanent atrial fibrillation follows with Dr. Hardy Tachycardia induced cardiomyopathy EF has ranged from 25-50%, but most recent echo 2019 EF 60-65% Chronic systolic heart failure H/O reduced EF, but now 60-65% per 2019 echo Hypothyroidism Hypertension Surgical History History of ERCP stent removal (10/2018) History of colonoscopy History of herniorrhaphy as an History of cataract surgery bilateral History of tonsillectomy History of cholecystectomy 09/24/18 MAC 4, ETT 7.5, grade view II, intubated on first attempt S/P ERCP (09/2018) 09/23/1819 Grade 2 view Mac 4 Family History Father Heart disease Myocardial infarction Mother Emphysema, unspecified Sister Mental disorder Grandmother (Paternal) Diabetes Aunt Diabetes Grandfather (Paternal) Myocardial infarction Other No significant family history Denies family history of Ovarian cancer Prostate cancer Breast cancer Colorectal cancer Social History Smoking Status: Never smoker Second Hand Exposure: No; Do You Dip or Chew Tobacco: No; Hx Alcohol Use: Yes Alcohol type: beer, wine and hard liquor Alcohol Intake Frequency Comment: rarely Hx Substance Use: No Preferred Language: Azeri Communication Ability: Effective Visual Impairment: No Limitations Hearing Ability: Normal 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: No Beliefs That Will Affect Care: None marital status: Current Living Situation: Spouse current occupational status: retired 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 Vital signs stable. GENERAL: 68-year-old man, nondiaphoretic, well-developed well-nourished. SKIN: The skin was without rashes, erythema, edema, or bruising. HEAD: Normocephalic atraumatic. HEART: Regular rate and rhythm without murmurs gallops or rubs. LUNGS: Clear to auscultation bilaterally without wheezes, rales or rhonchi. No retractions or accessory muscle use. ABDOMEN: Positive bowel sounds x 4. Soft, nontender, without masses or organomegaly. Foreman sign negative. No guarding or rebound tenderness. MUSCULOSKELETAL: TTP L lumbar paraspinal, positive L straight leg raise, L leg strength 4/5, R leg 5/5, distal pulses intact bilaterally. NEURO: Patient was alert and oriented to person place and time. No focal neurological deficits. Course Administered Medications Acetaminophen (Acetaminophen 500 Mg Tab) 1,000 mg PO TID ELPIDIO Stop: 09/24/23 20:59 Last Admin: 08/26/23 07:23 Dose: 1,000 mg Documented By: Admin: 08/25/23 20:37 Dose: 1,000 mg Documented By: KEELEY Atorvastatin Calcium (Atorvastatin 40 Mg Tab) 40 mg PO QPM ELPIDIO Stop: 09/24/23 20:59 Last Admin: 08/25/23 20:37 Dose: 40 mg Documented By: KEELEY Carvedilol (Carvedilol 25 Mg Tab) 25 mg PO QDD ELPIDIO Stop: 09/24/23 16:59 Last Admin: 08/25/23 17:52 Dose: 25 mg Documented By: ERIKA Carvedilol (Carvedilol 12.5 Mg Tab) 12.5 mg PO QDB ELPIDIO Stop: 09/25/23 07:29 Last Admin: 08/26/23 07:21 Dose: 12.5 mg Documented By: BATOOL Diltiazem HCl (Diltiazem Hcl 120 Mg Capcr) 120 mg PO DAILY ELPIDIO Stop: 09/25/23 08:59 Last Admin: 08/26/23 07:24 Dose: 120 mg Documented By: BATOOL Gabapentin (Gabapentin 300 Mg Cap) 300 mg PO TID ELPIDIO Stop: 09/24/23 20:59 Last Admin: 08/26/23 07:23 Dose: 300 mg Documented By: Admin: 08/25/23 20:37 Dose: 300 mg Documented By: KEELEY Dexamethasone 4 mg/ Syringe 1 mls @ 1 mls/min IV Q6H ELPIDIO Stop: 08/30/23 16:59 Last Admin: 08/26/23 11:19 Dose: 1 mls/min Documented By: Admin: 08/26/23 05:02 Dose: 1 mls/min Documented By: Admin: 08/25/23 23:28 Dose: 1 mls/min Documented By: Admin: 08/25/23 17:52 Dose: 1 mls/min Documented By: ERIKA Phytonadione 5 mg/ Dextrose 50.5 mls @ 101 mls/hr IV NOW STA Stop: 08/26/23 11:17 Last Admin: 08/26/23 11:19 Dose: 101 mls/hr Documented By: BATOOL Insulin Aspart (Insulin Aspart Per Unit Charge) 0 units SC Q6 ELPIDIO Stop: 09/25/23 06:59 Last Admin: 08/26/23 11:32 Dose: 3 units Documented By: BATOOL Co-signed By: VIKAS Admin: 08/26/23 07:16 Dose: 3 units Documented By: BATOOL Co-signed By: VIKAS Levothyroxine Sodium (Levothyroxine Sodium 100 Mcg Tablet) 100 mcg PO DAILYBB [facility] Stop: 09/25/23 06:29 Last Admin: 08/26/23 05:02 Dose: 100 mcg Documented By: KEELEY Metoprolol Tartrate (Metoprolol Tartrate 50 Mg Tab) [facility] [place] Stop: 09/25/23 08:59 Last Admin: 08/26/23 07:23 Dose: 50 mg Documented By: BATOOL Miscellaneous (Testosterone 1 % Gel: Order Awaiting Action) 1 each N/A QS [facility] Stop: 09/25/23 00:00 Last Admin: 08/26/23 07:22 Dose: Not Given Documented By: Admin: 08/26/23 00:01 Dose: Not Given Documented By: KEELEY Tamsulosin HCl (Tamsulosin Hcl 0.4 Mg Cap) 0.4 mg PO HS [facility] Stop: 09/24/23 20:59 Last Admin: 08/25/23 23:28 Dose: 0.4 mg Documented By: KEELEY Vitamin D (Cholecalciferol 125 Mcg (5,000 Units) Tab) 125 mcg PO DAILY [facility] Stop: 09/25/23 08:59 Last Admin: 08/26/23 07:23 Dose: 125 mcg Documented By: BATOOL Discontinued Medications Carvedilol (Carvedilol 12.5 Mg Tab) 12.5 mg PO NOW [facility] Stop: 08/25/23 14:21 Last Admin: 08/25/23 14:41 Dose: 12.5 mg Documented By: FLACO Dexamethasone Sodium Phosphate (DexamethasonePf 10 Mg/Ml Vial) 10 mg IV NOW ONE Stop: 08/25/23 09:16 Last Admin: 08/25/23 10:02 Dose: 10 mg Documented By: FLACO Diltiazem HCl (Diltiazem Hcl 120 Mg Capcr) 120 mg PO ONE STA Stop: 08/25/23 14:21 Last Admin: 08/25/23 15:06 Dose: 120 mg Documented By: JANE Gabapentin (Gabapentin 300 Mg Cap) 300 mg PO ONE STA Stop: 08/25/23 14:22 Last Admin: 08/25/23 14:41 Dose: 300 mg Documented By: FLACO Gadobutrol (Gadobutrol 65ml Vial) 13.5 ml IV ONCE ONE Stop: 08/25/23 11:22 Last Admin: 08/25/23 11:23 Dose: 13.5 ml Documented By: JAYA Insulin Aspart (Insulin Aspart Per Unit Charge) 0 units SC ACHS ELPIDIO Stop: 09/24/23 16:29 Last Admin: 08/25/23 21:16 Dose: 6 units Documented By: KEELEY Co-signed By: FREDO Admin: 08/25/23 17:44 Dose: 10 units Documented By: ERKIA Co-signed By: ANOOP Insulin Aspart (Insulin Aspart Per Unit Charge) 0 units SC 0000,0400 [facility] Stop: 08/26/23 04:01 Last Admin: 08/26/23 04:25 Dose: 3 units Documented By: KEELEY Co-signed By: ANOOP(2) Admin: 08/26/23 00:12 Dose: 4 units Documented By: KEELEY Co-signed By: LY Insulin Glargine (Lantus Per Unit Charge) 20 units SC NOW STA Stop: 08/25/23 15:25 Last Admin: 08/25/23 15:33 Dose: 20 units Documented By: JANE Co-signed By: HS Insulin Glargine (Lantus Per Unit Charge) 20 units SC NOW ONE Stop: 08/26/23 08:01 Last Admin: 08/26/23 07:54 Dose: 20 units Documented By: BATOOL Co-signed By: VIKAS Metoprolol Tartrate (Metoprolol Tartrate 50 Mg Tab) 50 mg PO NOW STA Stop: 08/25/23 14:21 Last Admin: 08/25/23 14:41 Dose: 50 mg Documented By: FLACO Oxycodone HCl (Oxycodone Hcl Ir 5 Mg Tab (Immediate Release)) 5 mg PO NOW STA Stop: 08/25/23 09:19 Last Admin: 08/25/23 10:02 Dose: 5 mg Documented By: FLACO Medical Decision Making Differential Diagnosis Musculoskeletal, disc herniation, fracture, metastatic disease, cord compression, discitis, sciatica, cauda equina, infection, aortic disease, renal colic, gastrointestinal, as well as other pathologies. Medical Records Attestation: I reviewed the patient's medical records. Home Medications Current Medication List: was personally reviewed by me Laboratory Data Attestation: I reviewed the patient's lab results. No leukocytosis, stable hemoglobin and hematocrit, no electrolyte abnormalities, elevated BSG 273, urinalysis negative for infection. 08/26/23 07:45 08/26/23 07:45 Lab Results 08/25/23 Range/Units 09:41 WBC 8.06 (4.8-10.8) K/ul RBC 5.66 (4.70-6.10) M/uL Hgb 15.8 (14.0-18.0) g/dl Hct 45.9 (42.0-52.0) % MCV 81.1 (80.0-100.0) fL MCH 27.9 (25.0-34.0) pg MCHC 34.4 (32.0-36.0) g/dL RDW Std Deviation 39.2 (36.4-46.3) fL RDW Coeff of Staci 13.5 (11.5-14.5) % Plt Count 221 (130-400) K/uL MPV 9.7 (9.4-12.4) fL Immature Gran % (Auto) 0.4 % Neut % (Auto) 83.0 % Lymph % (Auto) 9.3 % [place] % (Auto) 6.2 % Eos % (Auto) 1.0 % Baso % (Auto) 0.1 % Neut # (Auto) 6.69 H (1.40-6.50) K/uL Lymph # (Auto) 0.75 L (1.20-3.40) K/uL [place] # (Auto) 0.50 (0.11-0.59) K/uL Eos # (Auto) 0.08 (0.00-0.50) K/uL Baso # (Auto) 0.01 (0.00-0.20) K/uL Immature Gran # (Auto) 0.03 (0.01-0.20) K/uL Sodium 130 L (136-145) mmol/L Potassium 4.9 (3.5-5.1) mmol/L Chloride 100 (98-107) mmol/L Carbon Dioxide 26 (21-32) mmol/L Anion Gap 4 (3-11) BUN 21 (6-23) mg/dl Creatinine 0.81 (0.6-1.4) mg/dl Est Cr Clr Drug Dosing 115.2 ml/min Est GFR ( Amer) 104.4 ml/min Est GFR (Non-Af Amer) 90.0 ml/min BUN/Creatinine Ratio 25.9 H (10-20) Glucose 273 H (70-99(Fasting)) mg/dl Calcium 8.7 (8.6-10.3) mg/dl Total Bilirubin 0.9 (0.2-1.0) mg/dl AST 15 (13-39) U/L ALT 21 (7-52) U/L Alkaline Phosphatase 74 (34-104) U/L Total Protein 6.1 (6.0-8.3) gm/dl Albumin 3.2 L (3.4-5.0) gm/dl Globulin 2.9 (2.5-4.0) gm/dl Albumin/Globulin Ratio 1.1 (0.9-2) Imaging Data Radiologist's Impression: Lumbar Spine MRI 08/25/23 09:35 MRI OF THE LUMBAR SPINE WITH AND WITHOUT CONTRAST CLINICAL HISTORY: Low back pain with left-sided radiculopathy. COMPARISON STUDY: Lumbar spine CT August 10, 2023. Lumbar spine MRI August 11, 2023. Lumbar spine radiographs August 12, 2023. TECHNIQUE: Utilizing a 1.5 Janet magnet and dedicated coil, multiplanar, multiecho imaging of the lumbar spine was performed before and after uneventful IV administration of 13.5 mL of Gadavist. FINDINGS: For purposes of numbering on this exam, the L5-S1 disc space is assigned to axial image 28 of 30. Vertebral body heights are maintained. There is no fracture. No marrow replacement within the lumbar spine is present. There is no intracanalicular mass or fluid collection. The conus terminates at the upper L2 level. Paravertebral soft tissues are unremarkable. Epidural lipomatosis is again noted. The bladder is distended. The appearance of the lumbar spine is similar to previous MRI. L1-2: Moderate disc space narrowing is noted with mild disc bulge and facet arthrosis. The central canal and neural foramen are patent. L2-3: There is severe disc space narrowing with mild facet arthrosis and ligamentous hypertrophy. There is mild central canal and bilateral neural foraminal stenosis. L3-4: Epidural lipomatosis is noted. There is severe facet arthrosis with ligamentous hypertrophy. There is mild disc bulge. There is severe narrowing of the central canal. Patent AP diameter of the canal is 5 mm. In addition, there is a left foraminal/far left lateral disc herniation with associated edema and enhancement. This could reflect a protrusion or extrusion. This has mass effect upon the exiting left L3 nerve root. There is severe narrowing of the left neural foramen at this level. There is mild narrowing of the right neural foramen. L4-5: Severe facet arthrosis is noted with ligamentous hypertrophy. There is disc bulge. Severe narrowing of the central canal is noted. Patent AP diameter of the canal is 5.6 mm. There is mild bilateral neural foraminal stenosis. L5-S1: A small central disc protrusion is present. There is severe facet arthrosis with ligamentous hypertrophy. The central canal is patent. There is moderate right and mild left neural foraminal stenosis. IMPRESSION: 1. Moderate multilevel degenerative disc disease and severe facet arthrosis within the lumbar spine superimposed upon epidural lipomatosis. Severe central canal stenosis at L3-L4 and L4-L5. 2. Left foraminal/far left lateral disc herniation at L3-L4 which results in severe narrowing of the left neural foramen with mass effect upon the exiting left L3 nerve root. Associated edema and enhancement. Findings could be correlated with left L3 radiculopathy. 3. No lumbar spine fractures. ACT 112: Negative or not required by law. Electronically signed by: Mickey Bruno M.D. 08/25/2023 11:46 AM Blood Pressure Blood Pressure Findings: Elevated blood pressure Blood Pressure Disposition: elevated BP felt to be situational MDM Narrative Patient is a pleasant 68-year-old male who arrives to the emergency department for the above-stated complaint. Upon examination the patient has severe TTP to the left low back with weakness present in the left leg, 4/5. The patient has an extensive back history with admission on 08/10/23 for similar symptoms. The patient states worsening of his symptoms today with the back pain new from his previous left leg pain. A saline lock was placed, CBC, CMP, were reassuring aside from an elevated BSG, due to known DMII and recent steroid use. MRI imaging was obtained which showed a slight progression of his lumbar canal stenosis, and disc bulging. A bladder scan was performed to ensure urinary retention was not occurring. Per nursing assessment, the patient has a PVR of over 800cc. At this time, I contacted case management to facilitate transfer of the patient, as no spinal coverage was available.We did attempt to contact Dr[facility] at this time and awaited a return call, however, the provider is not currently occupational therapist aide. The patient was accepted for a transfer to [facility], ED to ED with consultation from neurosurgery. I spoke with Dr. Boykin, as well as the ED provider Dr. Bolanos. During this time, Dr. Monge was able to respond to our page and agreed to accept the patient as a medical admission with the possibility of surgical intervention tomorrow or the following day. The patient was discussed with [facility] hospitalist group for admission and placed in an NPO status. A Rain catheter was placed due to the large amount of urinary retention. At this time, the patient care will be assumed by Dr. Martínez from [facility] hospitalist group. Please refer to his documentation for further patient care. The patient's case was discussed with Dr. Ordonez, who agreed with my evaluation and treatment plan. Impression & Plan Lumbar spinal stenosis, Radicular pain of left lower extremity, Lumbar disc herniation with radiculopathy Discharge Plan Visit Data Chief Complaint: Back Injury/Pain Stated Complaint: L LOWER BACK & L LEG PAIN ED Provider: Alisia Ordonez ED Midlevel Provider: Trudy Bolaños Discharge Problem: Lumbar spinal stenosis, Radicular pain of left lower extremity, Lumbar disc herniation with radiculopathy Patient Disposition: Admitted As Inpatient Discharge Instructions Interventions: ED Discharge Assessment Last Done: 08/25/23 15:54
[2023-08-25] MEDS: oxyCODONE HCL IR 5 MG TAB (IMMEDIATE RELEASE) PO STA (10:02)
[2023-08-25] MEDS: dexAMETHasone**PF** 10 MG/ML VIAL IV ONE (10:02)
[2023-08-25 10:03] LABS: Basophils # (auto) 0.01 K/uL (0.00-0.20); Basophils % (auto) 0.1 %; Eosinophils # (auto) 0.08 K/uL (0.00-0.50); Hematocrit (blood only) 45.9 % (42.0-52.0); Hemoglobin 15.8 g/dl (14.0-18.0); Immature Granulocytes # (auto) 0.03 K/uL (0.01-0.20); Immature Granulocytes % (auto) 0.4 %; Lymphocytes # (auto) 0.75 K/uL (1.20-3.40); Lymphocytes % (auto) 9.3 %; Mean Corpuscular Hemoglobin 27.9 pg (25.0-34.0); Mean Corpuscular Hgb Conc 34.4 g/dL (32.0-36.0); Mean Corpuscular Volume 81.1 fL (80.0-100.0); Mean Platelet Volume 9.7 fL (9.4-12.4); Monocytes % (auto) 6.2 %; Neutrophils # (auto) 6.69 K/uL (1.40-6.50); Platelet Count 221 K/uL (130-400); RDW Coefficient of Variation 13.5 % (11.5-14.5); RDW Standard Deviation 39.2 fL (36.4-46.3); Red Blood Count 5.66 M/uL (4.70-6.10); White Blood Count 8.06 K/ul (4.8-10.8)
[2023-08-25 10:16] LABS: Albumin Globulin Ratio 1.1 (0.9-2); Albumin Level 3.2 gm/dl (3.4-5.0); BUN Creatinine Ratio 25.9 (10-20); Bilirubin,Total 0.9 mg/dl (0.2-1.0); Calcium 8.7 mg/dl (8.6-10.3); Creatinine Clr Calc Pharmacy 115.2 ml/min; Est GFR (African American) 104.4 ml/min; Globulin 2.9 gm/dl (2.5-4.0); Potassium 4.9 mmol/L (3.5-5.1); Total Protein 6.1 gm/dl (6.0-8.3)
[2023-08-25 10:17] LABS: Appearance Urine Clear (Clear); Bilirubin Urine Negative (Negative); Blood Urine Negative (Negative); Color Urine Yellow; Glucose Urine UA 1+ (Negative); Ketones Urine Negative (Negative); Leukocyte Esterase Urine Negative (Negative); Nitrite Urine Negative (Negative); Protein Urine Negative (Negative); Specific Gravity Urine 1.021 (1.000-1.030); Urobilinogen Urine Negative (Negative)
[2023-08-25] MEDS: GADOBUTROL 65ML VIAL IV ONE (11:23)
--- NOTE | 2023-08-25 11:47 | Magnetic Resonance Report ---
MRI OF THE LUMBAR SPINE WITH AND WITHOUT CONTRAST CLINICAL HISTORY: Low back pain with left-sided radiculopathy. COMPARISON STUDY: Lumbar spine CT August 10, 2023. Lumbar spine MRI August 11, 2023. Lumbar spine radiog raphs August 12, 2023. TECHNIQUE: Utilizing a 1.5 Janet magnet and dedicated coil, multiplanar, multiecho imaging of the roel mbar spine was performed before and after uneventful IV administration of 13.5 mL of Gadavist. FINDINGS: For purposes of numbering on this exam, the L5-S1 disc space is assigned to axial image 28 of 30. Larry tebral body heights are maintained. There is no fracture. No marrow replacement within the lumbar spi ne is present. There is no intracanalicular mass or fluid collection. The conus terminates at the upp er L2 level. Paravertebral soft tissues are unremarkable. Epidural lipomatosis is again noted. The bladder is dist ended. The appearance of the lumbar spine is similar to previous MRI. L1-2: Moderate disc space narrowing is noted with mild disc bulge and facet arthrosis. The central ca nal and neural foramen are patent. L2-3: There is severe disc space narrowing with mild facet arthrosis and ligamentous hypertrophy. The re is mild central canal and bilateral neural foraminal stenosis. L3-4: Epidural lipomatosis is noted. There is severe facet arthrosis with ligamentous hypertrophy. Th ere is mild disc bulge. There is severe narrowing of the central canal. Patent AP diameter of the can al is 5 mm. In addition, there is a left foraminal/far left lateral disc herniation with associated e kaleigh and enhancement. This could reflect a protrusion or extrusion. This has mass effect upon the exi ting left L3 nerve root. There is severe narrowing of the left neural foramen at this level. There is mild narrowing of the right neural foramen. L4-5: Severe facet arthrosis is noted with ligamentous hypertrophy. There is disc bulge. Severe narro wing of the central canal is noted. Patent AP diameter of the canal is 5.6 mm. There is mild bilatera l neural foraminal stenosis. L5-S1: A small central disc protrusion is present. There is severe facet arthrosis with ligamentous h ypertrophy. The central canal is patent. There is moderate right and mild left neural foraminal steno sis. IMPRESSION: 1. Moderate multilevel degenerative disc disease and severe facet arthrosis within the lumbar spine s uperimposed upon epidural lipomatosis. Severe central canal stenosis at L3-L4 and L4-L5. 2. Left foraminal/far left lateral disc herniation at L3-L4 which results in severe narrowing of the left neural foramen with mass effect upon the exiting left L3 nerve root. Associated edema and enhanc ement. Findings could be correlated with left L3 radiculopathy. 3. No lumbar spine fractures. ACT 112: Negative or not required by law. Electronically signed by: Mickey Bruno M.D. 08/25/2023 11:46 AM
[2023-08-25] MEDS ORDERED: PHARMACY GLYCEMIC MGMT CONSULT PRN (14:26)
--- NOTE | 2023-08-25 14:40 | History & Physical Report ---
Date of Service August 25, 2023 Assessment & Plan (1) Lumbar spinal stenosis: Plan: Readmission with similar symptoms but increased back pain > radicular pain Dexamethasone 10 mg IV given in the ER, continue 4 mg q.6 hourly Avoid NSAIDs preoperatively Acetaminophen 1 g p.o. TID Increase gabapentin to 300 mg TID Oxycodone first-line as needed, Dilaudid second line as needed N.p.o. after midnight, preoperative chest x-ray and EKG ordered, medial clearance deferred to physicians tomorrow, certainly INR will need to be < 1.5 Consult orthospine for potential surgical treatment given failed conservative measures (2) Osteoporosis: Plan: Noted on DEXA Sep, 2022 Likely secondary to hypogonadism Under endocrinology but treated with bisphosphonates Notably if undergoing spinal surgery making him higher risk especially with his obesity in addition (3) Urine retention: Plan: Rain catheter placed on admission for PVR bladder scan > 500ml, doubtful this was causing his pain as no significant relief in his back pain following this Likely on the basis of BPH with reduced ambulation and opiate use, no cauda equina noted on MRI Start tamsulosin HS Consider trial without catheter prior to discharge (4) Permanent atrial fibrillation: Plan: Hold anticoagulation with warfarin in anticipation of surgery, repeat INR in AM Continue rate control with diltiazem and metoprolol/carvedilol throughout perioperative course (5) T2DM (type 2 diabetes mellitus): Plan: HbA1C 7.0 in 08/11/2023, no need to repeat Consult pharmacy for glycemic control in setting of steroid use (6) Hypogonadism: Plan: Continue testosterone (7) Sleep apnea: Plan: CPAP HS (8) Hypothyroidism: Plan: TSH 0.985 in August Continue levothyroxine (9) Hypertension: Plan: Continue diltiazem, carvedilol and metoprolol throughout pari-operative course I am unclear on why he is on a combination of metoprolol and carvedilol but this was confirmed on his prior cardiology note Hold lisinopril pre-operatively (10) Radicular pain of left lower extremity: (11) Epidural lipomatosis: Plan VTE prophylaxis - currently on warfarin, INR ordered Diet - type 2 diabetes mellitus, heart healthy, n.p.o. after midnight Disposition - admit to [facility] Admission and Anticipated Discharge Date Admission Date: August 25, 2023 History of Present Illness Chief Complaint: Back pain Primary Care Provider: Joe Iyer MD Kirby Bonds is a 68 year old male who presents to the ER with back pain. He was recently diagnosed with severe lumbar stenosis with radiculopathy requiring admission and he was discharged on August 14. He reports initially doing well at home up until a few days ago. No trauma since last admission. The pain previously was more of a radiculopathy but currently he reports it is more in his back. Severity 10/10 at worse. Worse when he sits or stands. Unable to ambulate at all currently. He notes weakness and numbness in his left leg. Allergies Allergy/AdvReac Type Severity Reaction Status Date / Time No Known Drug Allergies Allergy Verified 08/25/23 11:49 Home Medications Medication Instructions Recorded Confirmed Type True Metrix Glucose Test Strip #300 ea 06/15/20 08/20/23 Rx (blood sugar diagnostic) lisinopril 2.5 mg tablet 2.5 mg PO QAM 05/24/21 08/25/23 History warfarin 5 mg tablet 5 mg PO QAM 04/17/22 08/25/23 History cholecalciferol (vitamin D3) 125 125 mcg PO DAILY #90 caps 10/11/22 08/25/23 Rx mcg (5,000 unit) capsule metformin 1,000 mg tablet 1,000 mg PO BID #180 tabs 11/08/22 08/25/23 Rx carvedilol 12.5 mg tablet 12.5 mg PO QAM #90 tabs 12/04/22 08/25/23 Rx potassium chloride 10 mEq 10 meq PO QPM #90 tabs 12/04/22 08/25/23 Rx tablet,extended release levothyroxine 100 mcg tablet 100 mcg PO QAM #90 tabs 03/11/23 08/25/23 Rx atorvastatin 40 mg tablet (Lipitor) 40 mg PO QPM #90 tabs 03/31/23 08/25/23 Rx ascorbate calcium (vitamin C) 500 500 mg PO DAILY 04/09/23 08/25/23 History mg tablet blood-glucose sensor (FreeStyle #1 ea 05/23/23 08/20/23 Rx Carson 3 Sensor device) metoprolol tartrate 50 mg tablet 50 mg PO QAM #90 tabs 06/04/23 08/25/23 Rx furosemide 40 mg tablet 40 mg PO DAILY PRN weight gain #90 06/18/23 08/25/23 Rx tabs diltiazem HCl 120 mg 120 mg PO DAILY #90 caps 07/28/23 08/25/23 Rx capsule,extended release 24 hr carvedilol 25 mg tablet 25 mg PO QPM #90 tabs 08/04/23 08/25/23 Rx testosterone 12.5 mg/1.25 gram per 2 pump transdermal QAM 08/10/23 08/25/23 History pump actuation (1%) transdermal gel gabapentin 100 mg capsule 100 mg PO TID #30 caps 08/15/23 08/25/23 Rx oxycodone 5 mg tablet 5 mg PO Q6H PRN pain #15 tabs 08/15/23 08/25/23 Rx Past Med/Surg History Medical History Epidural lipomatosis History of cardioversion x2 - both unsuccessful Gynecomastia T2DM (type 2 diabetes mellitus) NIDDM Anticoagulant long-term use Dyslipidemia Hypogonadism Osteopenia Sleep apnea cpap at night Tubular adenoma of colon Permanent atrial fibrillation follows with Dr. Hardy Tachycardia induced cardiomyopathy EF has ranged from 25-50%, but most recent echo 2019 EF 60-65% Chronic systolic heart failure H/O reduced EF, but now 60-65% per 2019 echo Hypothyroidism Hypertension Surgical History History of ERCP stent removal (10/2018) History of colonoscopy History of herniorrhaphy as an History of cataract surgery bilateral History of tonsillectomy History of cholecystectomy 09/24/18 MAC 4, ETT 7.5, grade view II, intubated on first attempt S/P ERCP (09/2018) 09/23/1819 Grade 2 view Mac 4 Family History Father Heart disease Myocardial infarction Mother Emphysema, unspecified Sister Mental disorder Grandmother (Paternal) Diabetes Aunt Diabetes Grandfather (Paternal) Myocardial infarction Other No significant family history Denies family history of Ovarian cancer Prostate cancer Breast cancer Colorectal cancer Social History Smoking Status: Never smoker Second Hand Exposure: No; Do You Dip or Chew Tobacco: No; Hx Alcohol Use: Yes Alcohol type: beer, wine and hard liquor Alcohol Intake Frequency Comment: rarely Hx Substance Use: No Preferred Language: Kiswahili Communication Ability: Effective Visual Impairment: No Limitations Hearing Ability: Normal Credentialer Required: No Beliefs That Will Affect Care: None marital status: Current Living Situation: Spouse current occupational status: retired 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 Feels Safe at Home: Yes Childhood Exposure to Second-Hand Smoke: Yes Diet: regular caffeine: Yes Dental Care, Regularly: Yes Physical Activity Frequency: Does not Exercise Seatbelt Use: sometimes Sunscreen Use: Yes Assistive Devices: Denture - Upper, Denture - Lower, Glasses and Walker Review of Systems Review of Systems: All systems reviewed & are unremarkable except as noted in HPI & below Physical Exam Constitutional: WD/WN, vitals as above Eyes: + anicteric sclerae; normal pupil size ENMT: external ear and nose normal, oropharynx normal Neck: trachea midline, no thyromegaly Respiratory: normal respiratory effort, lungs clear to auscultation Cardiovascular: Rate/Rhythm: regular rate and + irregularly irregular Heart Sounds: no murmur Extremities: normal capillary refill; no calf tenderness and no pedal edema Gastrointestinal (Abdomen): normal bowel sounds, soft, nontender, no hepatosplenomegaly Musculoskeletal: Lower back pain worse on central palpation Left Ankle plantarflex 4/5, dorsiflexion 5/5, no numbness Hip flex b/l limited by pain Skin: no rashes, warm and dry Neurologic: moves all extremities and awake; not confused Psychiatric: A+Ox3, euthymic affect Results & Data Results & Data Vital Signs (Past 12 Hours) Vital Signs Temp Pulse Pulse Resp BP BP Pulse Ox 08/25/23 13:05 75 08/25/23 12:00 84 18 116/75 95 08/25/23 10:00 76 16 153/94 H 96 08/25/23 09:01 77 08/25/23 08:54 36.8 C 76 20 141/94 H 96 O2 Del Method 08/25/23 13:05 08/25/23 12:00 Room Air 08/25/23 10:00 Room Air 08/25/23 09:01 08/25/23 08:54 Room Air Laboratory Results Abnormal lab results 08/25/23 08/25/23 Range/Units 09:41 Unknown Neut # (Auto) 6.69 H (1.40-6.50) K/uL Lymph # (Auto) 0.75 L (1.20-3.40) K/uL Sodium 130 L (136-145) mmol/L BUN/Creatinine Ratio 25.9 H (10-20) Glucose 273 H (70-99(Fasting)) mg/dl Albumin 3.2 L (3.4-5.0) gm/dl Urine Glucose (UA) 1+ H (Negative) Diagnostic Findings MRI OF THE LUMBAR SPINE WITH AND WITHOUT CONTRAST CLINICAL HISTORY: Low back pain with left-sided radiculopathy. COMPARISON STUDY: Lumbar spine CT August 10, 2023. Lumbar spine MRI August 11, 2023. Lumbar spine radiographs August 12, 2023. TECHNIQUE: Utilizing a 1.5 Janet magnet and dedicated coil, multiplanar, multiecho imaging of the lumbar spine was performed before and after uneventful IV administration of 13.5 mL of Gadavist. FINDINGS: For purposes of numbering on this exam, the L5-S1 disc space is assigned to axial image 28 of 30. Vertebral body heights are maintained. There is no fracture. No marrow replacement within the lumbar spine is present. There is no intracanalicular mass or fluid collection. The conus terminates at the upper L2 level. Paravertebral soft tissues are unremarkable. Epidural lipomatosis is again noted. The bladder is distended. The appearance of the lumbar spine is similar to previous MRI. L1-2: Moderate disc space narrowing is noted with mild disc bulge and facet arthrosis. The central canal and neural foramen are patent. L2-3: There is severe disc space narrowing with mild facet arthrosis and ligamentous hypertrophy. There is mild central canal and bilateral neural foraminal stenosis. L3-4: Epidural lipomatosis is noted. There is severe facet arthrosis with ligamentous hypertrophy. There is mild disc bulge. There is severe narrowing of the central canal. Patent AP diameter of the canal is 5 mm. In addition, there is a left foraminal/far left lateral disc herniation with associated edema and enhancement. This could reflect a protrusion or extrusion. This has mass effect upon the exiting left L3 nerve root. There is severe narrowing of the left neural foramen at this level. There is mild narrowing of the right neural foramen. L4-5: Severe facet arthrosis is noted with ligamentous hypertrophy. There is disc bulge. Severe narrowing of the central canal is noted. Patent AP diameter of the canal is 5.6 mm. There is mild bilateral neural foraminal stenosis. L5-S1: A small central disc protrusion is present. There is severe facet arthrosis with ligamentous hypertrophy. The central canal is patent. There is moderate right and mild left neural foraminal stenosis. IMPRESSION: 1. Moderate multilevel degenerative disc disease and severe facet arthrosis within the lumbar spine superimposed upon epidural lipomatosis. Severe central canal stenosis at L3-L4 and L4-L5. 2. Left foraminal/far left lateral disc herniation at L3-L4 which results in severe narrowing of the left neural foramen with mass effect upon the exiting left L3 nerve root. Associated edema and enhancement. Findings could be correlated with left L3 radiculopathy. 3. No lumbar spine fractures. Medications Administered ER medications given: Dexamethasone 10 mg IV Oxycodone 5 mg p.o. Code Status & VTE Plan Code Status Full VTE Prophylaxis Plan VTE Prophylaxis will be ordered: No PG Care Time/CCT Total # of Minutes Spent Total Time Spent with Patient: Total time spent is greater than 50% in coordination of care (as documented) at patient's floor/unit and/or counseling patient: Coding Level of Care Code 19676 INT INP/OBS CARE 3/75MIN Diagnoses Spinal stenosis of lumbar region with neurogenic claudication M48.062 Neurogenic claudication status: with neurogenic claudication Osteoporosis M81.0 Urine retention R33.9 Permanent atrial fibrillation I48.21 Type 2 diabetes mellitus without complication, without long-term current use of insulin E11.9 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 complication status: without complication 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 manager long term care insulin use: without halfway use Hypogonadism Sleep apnea G47.30 Acquired hypothyroidism E03.9 Hypothyroidism type: acquired Primary hypertension I10 Hypertension type: primary hypertension Radicular pain of left lower extremity M54.10 Epidural lipomatosis D17.79 (1) Lumbar spinal stenosis Neurogenic claudication status: with neurogenic claudication Qualified Code(s): M48.062 - Spinal stenosis, lumbar region with neurogenic claudication (5) T2DM (type 2 diabetes mellitus) 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 complication status: without complication 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 halfway insulin use: without halfway use Qualified Code(s): E11.9 - Type 2 diabetes mellitus without complications (8) Hypothyroidism Hypothyroidism type: acquired Qualified Code(s): E03.9 - Hypothyroidism, unspecified (9) Hypertension Hypertension type: primary hypertension Qualified Code(s): I10 - Essential (primary) hypertension
[2023-08-25] MEDS: GABAPENTIN 300 MG CAP PO STA (14:41)
[2023-08-25] MEDS: METOPROLOL TARTRATE 50 MG TAB PO STA (14:41)
[2023-08-25] MEDS: carvediloL 12.5 MG TAB PO STA (14:41)
--- NOTE | 2023-08-25 14:56 | XRay Report ---
XR chest 1V portable HISTORY: pre-op COMPARISON: Chest 09/19/2018. FINDINGS: No pneumothorax. No pleural effusions. The cardiac silhouette is borderline enlarged. This remains unchanged. No new focal lung consolidations to suggest a pneumonia. No evidence for pulmonary edema. There are calcifications within the aortic knob. No acute fractures identified. IMPRESSION: No acute process. ACT 112: Negative or not required by law. Electronically signed by: Shankar Maza M.D. 08/25/2023 2:54 PM
[2023-08-25] MEDS: dilTIAZem HCL 120 MG CAPCR PO STA (15:06)
[2023-08-25 15:08] LABS: INR 2.1 (0.9-1.1); Partial Thromboplastin Ratio 1.4; Partial Thromboplastin Time 40 Seconds (21-31); Prothrombin Time 22.2 Seconds (9.0-12.0)
--- NOTE | 2023-08-25 15:31 | Pharmacy Report ---
Pharmacy Glycemic Short Note 2 - Date of Service August 25, 2023 - Glycemic Short BSG Results (Last 24 hours): 08/25/23 09:41 Glucose 273 H OUTPATIENT ANTIDIABETIC REGIMEN: * metformin 1000mg BID * HbA1c 7.0% (08/11/23) ASSESSMENT: * Kirby is a 68 YOM admitted with lumbar spinal stenosis and a history of type 2 diabetes mellitus. Pharmacy has been consulted for glycemic management while inpatient. * Fasting BSG this AM was significantly elevated. Received IV dexamethasone 10mg x1 in ED as well. He was recently admitted with similar symptoms and responded to IV dexamethasone 4mg BID. Plan is dexamethasone 4mg Q6H IV at this time. Basal insulin ordered to cover steroids at ~0.2 units/kg now. Overnight checks added due to patient going NPO overnight. On previous admission he had fair BSG control with conservative insulin administration so will be conservative and titrate as indicated. * Novolog initiated at approximately a weight based stress of 1, tighter than the previous admission. PLAN FOR INPATIENT GLYCEMIC CONTROL: * Hold outpatient oral diabetes medications * Basal insulin * Lantus 20 units SQ x 1, reassess basal in AM * Bolus insulin * NovoLog per scale ACHS or Q6hrs while NPO * Goal Range: Low 110 mg/dL - High 140 mg/dL * Correction Factor: 30 mg/dL/unit * Nutritional / Prandial insulin per carb ratio of 1 unit per 10 grams CHO consumed
[2023-08-25] MEDS: LANTUS PER UNIT CHARGE SC STA (15:33)
--- NOTE | 2023-08-25 15:46 | Electrocardiogram Report ---
Test Reason : Blood Pressure : / mmHG Vent. Rate : 090 BPM Atrial Rate : 000 BPM P-R Int : 000 ms QRS Dur : 078 ms QT Int : 340 ms P-R-T Axes : 000 -04 055 degrees QTc Int : 415 ms Atrial fibrillation Low voltage QRS Cannot rule out Anterior infarct (cited on or before 25-AUG-2023) Abnormal ECG When compared with ECG of 21-SEP-2018 08:06, Questionable change in QRS axis Nonspecific T wave abnormality no longer evident in Anterior leads Confirmed by Curtis Villarreal ([id number]) on 08/25/2023 3:46:14 PM Referred By: REFERRED SELF Confirmed By:Curtis Villarreal
[2023-08-25] MEDS ORDERED: LANTUS PER UNIT CHARGE SC SCH (16:30)
[2023-08-25] MEDS ORDERED: HYDROmorphone INJ 0.5 MG/0.5 ML SYR IV PRN ×2 (16:49)
[2023-08-25] MEDS ORDERED: oxyCODONE HCL IR 5 MG TAB (IMMEDIATE RELEASE) PO PRN ×2 (16:49)
[2023-08-25] MEDS ORDERED: DEXAMETHASONE SOD INJ 4 MG/ML VIAL IV SCH (16:49)
[2023-08-25] MEDS: INSULIN ASPART PER UNIT CHARGE SC SCH (17:44)
[2023-08-25] MEDS: carvediloL 25 MG TAB PO SCH (17:52)
[2023-08-25] MEDS: dexAMETHasone 4 MG in SYRINGE 0 ML IV SCH (17:52)
[2023-08-25] MEDS: ACETAMINOPHEN 500 MG TAB PO SCH (20:37)
[2023-08-25] MEDS: GABAPENTIN 300 MG CAP PO SCH (20:37)
[2023-08-25] MEDS: ATORVASTATIN 40 MG TAB PO SCH (20:37)
[2023-08-25] MEDS: TAMSULOSIN HCL 0.4 MG CAP PO SCH (23:28)
[2023-08-26] MEDS: INSULIN ASPART PER UNIT CHARGE SC SCH ×3 (00:12→21:09)
[2023-08-26] MEDS: LEVOTHYROXINE SODIUM 100 MCG TABLET PO SCH (05:02)
[2023-08-26] MEDS: carvediloL 12.5 MG TAB PO SCH (07:21)
[2023-08-26] MEDS: CHOLECALCIFEROL 125 MCG (5,000 UNITS) TAB PO SCH (07:23)
[2023-08-26] MEDS: METOPROLOL TARTRATE 50 MG TAB PO SCH (07:23)
[2023-08-26] MEDS: dilTIAZem HCL 120 MG CAPCR PO SCH (07:24)
[2023-08-26] MEDS: LANTUS PER UNIT CHARGE SC ONE (07:54)
--- NOTE | 2023-08-26 08:02 | Orthopedic Consultation ---
Date of Consultation August 26, 2023 Assessment & Plan (1) Lumbar disc herniation with radiculopathy: Assessment foraminal disc herniation L3-L4 on the left, lumbar spinal stenosis with neurogenic claudication. Plan at length question of the patient reviewing his MRI findings and clinical course. His updated MRI confirms severe neuroforaminal disease at L3-L4 on the left with foraminal extraforaminal disc herniation. It does appear to be somewhat worse than his previous MRI a few weeks ago. This point he is unable to ambulate struggling with urinary retention with neurologic decline. Recommend surgical intervention. Would require a lumbar decompression and fusion L3-L4 possible L4-5. Risk benefits pros cons alternatives in detail. He is NPO. Will plan for surgery today. History of Present Illness Reason for Consultation: Left leg pain and weakness Attending Physician: Cezar Ma MD History of Present Illness This is a 68-year-old male well-known to us that presents the emergency room yesterday with marked decline in status. He presents with recurrent left leg pain. Involves left buttock posterior anterior left thigh to the knee. It does extend down the tibia to the ankle. It does not go into the foot. Right lower extremity is asymptomatic. He was originally hospitalized a few weeks ago and did improve with a course of steroids. Unfortunately symptoms have completely returned. He is unable to sit or ambulate without extreme pain. He notes marked strength deficits to the left quadricep and is not able to ascend or descend stairs without his leg giving out on the left. He is having symptoms of urinary retention and numbness in the perineal area on the left. Allergies Allergy/AdvReac Type Severity Reaction Status Date / Time No Known Drug Allergies Allergy Verified 08/25/23 11:49 Home Medications Medication Instructions Recorded Confirmed Type True Metrix Glucose Test Strip #300 ea 06/15/20 08/20/23 Rx (blood sugar diagnostic) lisinopril 2.5 mg tablet 2.5 mg PO QAM 05/24/21 08/25/23 History warfarin 5 mg tablet 5 mg PO QAM 04/17/22 08/25/23 History cholecalciferol (vitamin D3) 125 125 mcg PO DAILY #90 caps 10/11/22 08/25/23 Rx mcg (5,000 unit) capsule metformin 1,000 mg tablet 1,000 mg PO BID #180 tabs 11/08/22 08/25/23 Rx carvedilol 12.5 mg tablet 12.5 mg PO QAM #90 tabs 12/04/22 08/25/23 Rx potassium chloride 10 mEq 10 meq PO QPM #90 tabs 12/04/22 08/25/23 Rx tablet,extended release levothyroxine 100 mcg tablet 100 mcg PO QAM #90 tabs 03/11/23 08/25/23 Rx atorvastatin 40 mg tablet (Lipitor) 40 mg PO QPM #90 tabs 03/31/23 08/25/23 Rx ascorbate calcium (vitamin C) 500 500 mg PO DAILY 04/09/23 08/25/23 History mg tablet blood-glucose sensor (FreeStyle #1 ea 05/23/23 08/20/23 Rx Carson 3 Sensor device) metoprolol tartrate 50 mg tablet 50 mg PO QAM #90 tabs 06/04/23 08/25/23 Rx furosemide 40 mg tablet 40 mg PO DAILY PRN weight gain #90 06/18/23 08/25/23 Rx tabs diltiazem HCl 120 mg 120 mg PO DAILY #90 caps 07/28/23 08/25/23 Rx capsule,extended release 24 hr carvedilol 25 mg tablet 25 mg PO QPM #90 tabs 08/04/23 08/25/23 Rx testosterone 12.5 mg/1.25 gram per 2 pump transdermal QAM 08/10/23 08/25/23 History pump actuation (1%) transdermal gel gabapentin 100 mg capsule 100 mg PO TID #30 caps 08/15/23 08/25/23 Rx oxycodone 5 mg tablet 5 mg PO Q6H PRN pain #15 tabs 08/15/23 08/25/23 Rx Patient History Medical History Epidural lipomatosis History of cardioversion x2 - both unsuccessful Gynecomastia T2DM (type 2 diabetes mellitus) NIDDM Anticoagulant long-term use Dyslipidemia Hypogonadism Osteopenia Sleep apnea cpap at night Tubular adenoma of colon Permanent atrial fibrillation follows with Dr. Hardy Tachycardia induced cardiomyopathy EF has ranged from 25-50%, but most recent echo 2019 EF 60-65% Chronic systolic heart failure H/O reduced EF, but now 60-65% per 2019 echo Hypothyroidism Hypertension Surgical History History of ERCP stent removal (10/2018) History of colonoscopy History of herniorrhaphy as an History of cataract surgery bilateral History of tonsillectomy History of cholecystectomy 09/24/18 MAC 4, ETT 7.5, grade view II, intubated on first attempt S/P ERCP (09/2018) 09/23/1819 Grade 2 view Mac 4 Family History Father Heart disease Myocardial infarction Mother Emphysema, unspecified Sister Mental disorder Grandmother (Paternal) Diabetes Aunt Diabetes Grandfather (Paternal) Myocardial infarction Other No significant family history Denies family history of Ovarian cancer Prostate cancer Breast cancer Colorectal cancer Social History Smoking Status: Never smoker Second Hand Exposure: No; Do You Dip or Chew Tobacco: No; Hx Alcohol Use: Yes Alcohol type: beer, wine and hard liquor Alcohol Intake Frequency Comment: rarely Hx Substance Use: No Preferred Language: Cymro Communication Ability: Effective Visual Impairment: No Limitations Hearing Ability: Normal 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 He has +5-5 plantarflexion dorsiflexion bilaterally. Right quadriceps are 5/5. Left there is diminished strength with marked sensory deficits along the left lower extremity. Reflexes absent. He is unable to stand without severe discomfort.
[2023-08-26 08:09] LABS: Hematocrit (blood only) 47.3 % (42.0-52.0); Hemoglobin 15.8 g/dl (14.0-18.0); Mean Corpuscular Hemoglobin 27.4 pg (25.0-34.0); Mean Corpuscular Hgb Conc 33.4 g/dL (32.0-36.0); Mean Corpuscular Volume 82.1 fL (80.0-100.0); Mean Platelet Volume 9.4 fL (9.4-12.4); Platelet Count 200 K/uL (130-400); RDW Coefficient of Variation 13.5 % (11.5-14.5); RDW Standard Deviation 39.9 fL (36.4-46.3); Red Blood Count 5.76 M/uL (4.70-6.10); White Blood Count 12.75 K/ul (4.8-10.8)
[2023-08-26 08:25] LABS: BUN Creatinine Ratio 27.2 (10-20); Calcium 9.1 mg/dl (8.6-10.3); Creatinine Clr Calc Pharmacy 115.2 ml/min; Est GFR (African American) 104.4 ml/min; Magnesium 1.9 mg/dl (1.7-2.4); Potassium 4.2 mmol/L (3.5-5.1)
[2023-08-26 08:29] LABS: Basophils # (auto) 0.01 K/uL (0.00-0.20); Basophils % (auto) 0.1 %; Echinocytes 1+; Eosinophils # (auto) 0.01 K/uL (0.00-0.50); Eosinophils % (auto) 0.1 %; Hypersegmented Neutrophils 1+; Immature Granulocytes # (auto) 0.07 K/uL (0.01-0.20); Immature Granulocytes % (auto) 0.5 %; Lymphocytes # (auto) 0.57 K/uL (1.20-3.40); Lymphocytes % (auto) 4.5 %; Monocytes # (auto) 0.11 K/uL (0.11-0.59); Monocytes % (auto) 0.9 %; Neutrophils # (auto) 11.98 K/uL (1.40-6.50); Neutrophils % (auto) 93.9 %; Toxic Vacuolation 1+
[2023-08-26 08:37] LABS: Prothrombin Time 20.7 Seconds (9.0-12.0)
[2023-08-26] MEDS ORDERED: lisinopril 2.5 MG TAB PO SCH (09:00)
[2023-08-26] MEDS ORDERED: PHYTONADIONE 5 MG TAB PO STA (10:35)
[2023-08-26] MEDS: PHYTONADIONE 5 MG in DEXTROSE 5% 50 ML IV STA (11:19)
[2023-08-26 11:41] LABS: INR 1.9 (0.9-1.1)
--- NOTE | 2023-08-26 13:27 | Pharmacy Report ---
Pharmacy Glycemic Short Note 2 - Date of Service August 26, 2023 - Glycemic Short BSG Results (Last 24 hours): 08/25/23 08/25/23 08/25/23 15:30 16:48 20:50 Glucose POC Glucose 262 H 271 H 260 H 08/26/23 08/26/23 08/26/23 00:05 04:14 06:58 Glucose POC Glucose 245 H 227 H 216 H 08/26/23 08/26/23 07:45 11:27 Glucose 226 H POC Glucose 198 H OUTPATIENT ANTIDIABETIC REGIMEN: * metformin 1000mg BID * HbA1c 7.0% (08/11/23) ASSESSMENT: 08/25 * Kirby received 40 units of insulin yesterday (20 were basal) * Fasting BSG this AM elevated, conservative basal dosing yesterday due to NPO status for procedure today. Will increase basal insulin by up to 50% based on BSG. * Novolog tightened due to patient not correcting overnight with additional insulin. He continues on IV dexamethasone 4mg Q6H. 08/24 * Kirby is a 68 YOM admitted with lumbar spinal stenosis and a history of type 2 diabetes mellitus. Pharmacy has been consulted for glycemic management while inpatient. * Fasting BSG this AM was significantly elevated. Received IV dexamethasone 10mg x1 in ED as well. He was recently admitted with similar symptoms and responded to IV dexamethasone 4mg BID. Plan is dexamethasone 4mg Q6H IV at this time. Basal insulin ordered to cover steroids at ~0.2 units/kg now. Overnight checks added due to patient going NPO overnight. On previous admission he had fair BSG control with conservative insulin administration so will be conservative and titrate as indicated. * Novolog initiated at approximately a weight based stress of 1, tighter than the previous admission. PLAN FOR INPATIENT GLYCEMIC CONTROL: * Hold outpatient oral diabetes medications * Basal insulin * Lantus 20 units SQ daily * Lantus 0-10 units SQ HS (see eMAR for additional details) * Bolus insulin * NovoLog per scale ACHS or Q6hrs while NPO * Goal Range: Low 110 mg/dL - High 140 mg/dL * Correction Factor: 25 mg/dL/unit * Nutritional / Prandial insulin per carb ratio of 1 unit per 8 grams CHO consumed
[2023-08-26] MEDS: LACTATED RINGER'S 1,000 ML IV SCH ×2 (14:20→18:18)
[2023-08-26 14:37] LABS: INR 1.6 (0.9-1.1); Prothrombin Time 16.9 Seconds (9.0-12.0)
--- NOTE | 2023-08-26 14:43 | History & Physical Bridge Note ---
Date of Service August 26, 2023 History & Physical Bridge Note I have examined the patient, reviewed the History & Physical and in the interval since the performance of the History & Physical I have noted the following changes of clinical significance: no changes noted Lumbar decompression fusion L3-L4 possible L4-L5
[2023-08-26] MEDS ORDERED: ROCURONIUM BROMIDE 10 MG/ML 5 ML VIAL IV ONE ×7 (14:44→15:36)
[2023-08-26] MEDS ORDERED: PROPOFOL IV EMULSION 10 MG/ML 20 ML VIAL IV ONE (14:44)
[2023-08-26] MEDS ORDERED: fentaNYL citrate PF 100 MCG/2 ML VIAL ONE ×2 (14:44→15:35)
[2023-08-26] MEDS ORDERED: MIDAZOLAM HCL 1 MG/ML 2ML VIAL ONE (14:44)
[2023-08-26] MEDS ORDERED: ONDANSETRON INJ 2 MG/ML 2 ML VIAL ONE (14:44)
[2023-08-26] MEDS ORDERED: LIDOCAINE 2% 2 ML VIAL/AMP(20MG/ML) INFIL ONE ×2 (14:44)
[2023-08-26] MEDS ORDERED: DEXAMETHASONE SOD INJ 4 MG/ML VIAL ONE (14:44)
[2023-08-26] MEDS: ceFAZolin 3000MG 3,000 MG/72.5 ML BAG IV SCH (15:06)
[2023-08-26] MEDS: ceFAZolin 3000MG/72.5 ML BAG IV ONE (15:19)
[2023-08-26] MEDS ORDERED: PHENYLEPHRINE 100MCG/ML 10ML SYR IV ONE (15:29)
[2023-08-26] MEDS: BUPIVACAINE/EPINEPHRINE 0.25% 1:200,000 30 ML VIAL ONE (16:18)
[2023-08-26] MEDS: ceFAZolin 330 MG/ML 1 GM VIAL ONE (16:18)
[2023-08-26] MEDS: FLOSEAL HEMOSTATIC MATRIX 10ML TOP ONE (16:34)
[2023-08-26] MEDS ORDERED: SUGAMMADEX SODIUM 200 MG/2 ML VIAL IV ONE (16:34)
--- NOTE | 2023-08-26 16:44 | Operative Report ---
Post Operative Report Pre & Post Diagnosis Operation Date: 08/26/23 08:20 Pre-Op Diagnosis: #1 foraminal disc herniation L3-L4 with radiculopathy #2 lumbar spinal stenosis with neurogenic claudication. #3 lumbar epidural lipomatosis. #4 morbid obesity Post-Op Diagnosis: Same I identified the patient and participated in the time-out.: Yes Procedure Operation Date: 08/26/23 08:20 Actual Procedures #1 lumbar decompression bilateral medial facetectomies and foraminotomies L3-L4. #2 posterior spinal fusion L3-L4. #3 placement posterior instrumentation L3- L4. #4 interbody fusion L3-L4. #5 placement Spira 15 x 26 mm x 2 at L3-L4. #6 placement locally harvested morselized autograft and posterior gutters. #7 placement infuse collagen sponge combined with Koros bone graft in the posterior lateral gutters and Morpheus bone graft in the interbody space. Surgeon Edvin Monge, DO Master Of Ceremonies Carola Lance Estimated Blood Loss 50 Findings See Below The patient is 5 foot 8 weighing over 137 kg with a BMI of 46. Patient's body habitus did contribute to significant technical difficulty from positioning exposure and the procedure itself adding least 50% increased operative time. Specimens None Indications This is a 68-year-old male who presents with severe radiculopathy, urinary retention and motor deficit. He is here for urgent decompression fusion. Description of Procedure Patient was met with identified informed consent obtained. Patient was then taken to the operative suite and underwent intubation and then placed in a prone position on the [place] table on top of the Toni frame. All bony promises well-padded eyes inspected to ensure no external pressure placed upon them. This point the lumbar spine was prepped and draped in normal sterile fashion. Sharp dissection with the assistance of Bovie cautery was performed down to and exposing the lamina and transverse processes of L3-L4 bilaterally. From a caudal to cephalad fashion complete laminectomy of L3 was performed including bilateral medial facetectomies and foraminotomies addressing severe spinal stenosis as well as removing the foraminal extraforaminal disc herniation at L3- L4 on the left. After complete decompression pedicle screws were placed at L3- L4 bilaterally with assistance of fluoroscopy the process britt placed. By way of transforaminal approach on the right a discectomy of L3-L4 was performed endplates guided to subcortical bleeding bone and a 15 x 26 mm Spira cage filled with Morpheus bone graft tapped in position. Then proceeded to the left transforaminal region at L3-L4 completed discectomy curetted the endplates to subcortical bleeding bone and placed a second 15 x 26 mm Spira cage filled with Morpheus bone graft into position. The rods were then compressed locked in final position bilaterally. The transverse processes of L3-L4 burred to subcortically bone. Infuse collagen sponge combined with Koros bone graft and local autograft placed in the posterior gutters. 15 round ROSA drain inserted. The incision was then closed with 1 Vicryl the fascia 2-0 Vicryl subcutaneously and 4 Monocryl for final skin closure. Steri-Strips sterile dressings placed. Patient waken taken PACU in stable condition. Please note spinal cord monitor ing was utilized at the procedure no changes noted. Lastly Carola Lance was present at the entire procedure and all the patient positioning complex portion of the surgery and final skin closure. I attest to the content of the Intraoperative Record and any orders documented therein. Any exceptions are noted below.
--- NOTE | 2023-08-26 17:04 | Anesthesiology Consultation ---
Date of Service August 26, 2023 Assessment & Plan Chart Review Chart Review: Acceptable Risk for Surgery Consults Requested none History Surgery Operation Date: 08/26/23 08:20 Proposed Procedures p L3-L4, Possible L4-L5, Decompression and Fusion - Edvin Monge DO Height/Weight Height: 5 ft 8 in Weight: 137.3 kg Allergies Allergy/AdvReac Type Severity Reaction Status Date / Time No Known Drug Allergies Allergy Verified 08/25/23 11:49 Medications Home Medications Medication Instructions Recorded Confirmed Last Taken True Metrix Glucose Test Strip #300 ea 06/15/20 08/20/23 Unknown (blood sugar diagnostic) lisinopril 2.5 mg tablet 2.5 mg PO QAM 05/24/21 08/25/23 08/24/23 warfarin 5 mg tablet 5 mg PO QAM 04/17/22 08/25/23 08/24/23 cholecalciferol (vitamin D3) 125 125 mcg PO DAILY #90 caps 10/11/22 08/25/23 08/24/23 mcg (5,000 unit) capsule metformin 1,000 mg tablet 1,000 mg PO BID #180 tabs 11/08/22 08/25/23 08/24/23 carvedilol 12.5 mg tablet 12.5 mg PO QAM #90 tabs 12/04/22 08/25/23 08/24/23 potassium chloride 10 mEq 10 meq PO QPM #90 tabs 12/04/22 08/25/23 08/24/23 tablet,extended release levothyroxine 100 mcg tablet 100 mcg PO QAM #90 tabs 03/11/23 08/25/23 08/24/23 atorvastatin 40 mg tablet (Lipitor) 40 mg PO QPM #90 tabs 03/31/23 08/25/23 08/24/23 ascorbate calcium (vitamin C) 500 500 mg PO DAILY 04/09/23 08/25/23 08/24/23 mg tablet blood-glucose sensor (FreeStyle #1 ea 05/23/23 08/20/23 Unknown Carson 3 Sensor device) metoprolol tartrate 50 mg tablet 50 mg PO QAM #90 tabs 06/04/23 08/25/23 08/24/23 furosemide 40 mg tablet 40 mg PO DAILY PRN weight gain #90 06/18/23 08/25/23 2 Months Ago tabs ~06/26/23 diltiazem HCl 120 mg 120 mg PO DAILY #90 caps 07/28/23 08/25/23 08/24/23 capsule,extended release 24 hr carvedilol 25 mg tablet 25 mg PO QPM #90 tabs 08/04/23 08/25/23 08/24/23 testosterone 12.5 mg/1.25 gram per 2 pump transdermal QAM 08/10/23 08/25/23 08/24/23 pump actuation (1%) transdermal gel gabapentin 100 mg capsule 100 mg PO TID #30 caps 08/15/23 08/25/23 08/24/23 oxycodone 5 mg tablet 5 mg PO Q6H PRN pain #15 tabs 08/15/23 08/25/23 Unknown Active Medications Generic Name Dose Route Start Last Admin Trade Name Freq PRN Reason Stop Dose Admin Acetaminophen 1,000 mg 08/25/23 21:00 08/26/23 14:07 Acetaminophen 500 Mg Tab PO 09/24/23 20:59 Not Given TID ELPIDIO Atorvastatin Calcium 40 mg 08/25/23 21:00 08/25/23 20:37 Atorvastatin 40 Mg Tab PO 09/24/23 20:59 40 mg QPM ELPIDIO Administration Carvedilol 25 mg 08/25/23 17:00 08/25/23 17:52 Carvedilol 25 Mg Tab PO 09/24/23 16:59 25 mg QDD ELPIDIO Administration Carvedilol 12.5 mg 08/26/23 07:30 08/26/23 07:21 Carvedilol 12.5 Mg Tab PO 09/25/23 07:29 12.5 mg QDB ELPIDIO Administration Diltiazem HCl 120 mg 08/26/23 09:00 08/26/23 07:24 Diltiazem Hcl 120 Mg Capcr PO 09/25/23 08:59 120 mg DAILY ELPIDIO Administration Gabapentin 300 mg 08/25/23 21:00 08/26/23 14:07 Gabapentin 300 Mg Cap PO 09/24/23 20:59 Not Given TID ELPIDIO Dexamethasone 4 mg/ Syringe 1 mls @ 1 mls/min 08/25/23 17:00 08/26/23 11:19 IV 08/30/23 16:59 1 mls/min Q6H ELPIDIO Administration Lactated Ringer's 1,000 mls @ 15 mls/hr 08/26/23 14:15 08/26/23 15:04 Lr IV 09/25/23 14:14 Infused .Q24H ELPIDIO Infusion Cefazolin Sodium 3,000 mg in 72.5 mls @ 130 mls/hr 08/26/23 06:00 08/26/23 15:06 Ancef 3000mg IV 08/27/23 05:59 130 mls/hr PREOP ELPIDIO Administration Protocol Insulin Aspart 0 units 08/26/23 07:00 08/26/23 11:32 Insulin Aspart Per Unit Charge SC 09/25/23 06:59 3 units Q6 ELPIDIO Administration Levothyroxine Sodium 100 mcg 08/26/23 06:30 08/26/23 05:02 Levothyroxine Sodium 100 Mcg Tablet PO 09/25/23 06:29 100 mcg DAILYBB ELPIDIO Administration Metoprolol Tartrate 50 mg 08/26/23 09:00 08/26/23 07:23 Metoprolol Tartrate 50 Mg Tab PO 09/25/23 08:59 50 mg QAM ELPIDIO Administration Miscellaneous 1 each 08/26/23 00:00 08/26/23 07:22 Testosterone 1 % Gel: Order Awaiting Action N/A 09/25/23 00:00 Not Given QS ELPIDIO Tamsulosin HCl 0.4 mg 08/25/23 21:00 08/25/23 23:28 Tamsulosin Hcl 0.4 Mg Cap PO 09/24/23 20:59 0.4 mg HS ELPIDIO Administration Vitamin D 125 mcg 08/26/23 09:00 08/26/23 07:23 Cholecalciferol 125 Mcg (5,000 Units) Tab PO 09/25/23 08:59 125 mcg DAILY ELPIDIO Administration NPO Date Last Intake of Fluids: 08/25/23 Time Last Intake of Fluids: 22:30 Date Last Intake of Solids: 08/25/23 Time Last Intake of Solids: 21:00 Past Medical History Medical History Epidural lipomatosis History of cardioversion x2 - both unsuccessful Gynecomastia T2DM (type 2 diabetes mellitus) NIDDM Anticoagulant long-term use Dyslipidemia Hypogonadism Osteopenia Sleep apnea cpap at night Tubular adenoma of colon Permanent atrial fibrillation follows with Dr. Antony Tachycardia induced cardiomyopathy EF has ranged from 25-50%, but most recent echo 2019 EF 60-65% Chronic systolic heart failure H/O reduced EF, but now 60-65% per 2019 echo Hypothyroidism Hypertension Past Family History Family History Father Heart disease Myocardial infarction Mother Emphysema, unspecified Sister Mental disorder Grandmother (Paternal) Diabetes Aunt Diabetes Grandfather (Paternal) Myocardial infarction Other No significant family history Denies family history of Ovarian cancer Prostate cancer Breast cancer Colorectal cancer Past Surgical History Surgical History History of ERCP stent removal (10/2018) History of colonoscopy History of herniorrhaphy as an infant History of cataract surgery bilateral History of tonsillectomy History of cholecystectomy 09/24/18 MAC 4, ETT 7.5, grade view II, intubated on first attempt S/P ERCP (09/2018) 09/23/1819 Grade 2 view Mac 4 Social History Smoking Status: Never smoker Do You Dip or Chew Tobacco: No Hx Alcohol Use: Yes Alcohol type: beer, wine and hard liquor alcohol intake frequency: a few times a month Hx Substance Use: No substance use type: does not use Physical Exam Vital Signs Last Vital Signs Temp 36.7 C 08/26/23 14:05 Pulse 84 08/26/23 14:05 Resp 20 08/26/23 14:05 BP 139/84 08/26/23 14:05 Pulse Ox 97 08/26/23 14:05 O2 Del Method Room Air 08/26/23 14:05 Testing Laboratory Results 08/26/23 07:45 08/26/23 07:45 PT 16.9 Seconds (9.0-12.0) H 08/26/23 14:18 INR 1.6 (0.9-1.1) H 08/26/23 14:18 APTT 40 Seconds (21-31) H 08/25/23 14:19 Urine Color Yellow 08/25/23 Unknown Urine Appearance Clear (Clear) 08/25/23 Unknown Urine pH 7.0 (4.5-7.5) 08/25/23 Unknown Ur Specific Raven 1.021 (1.000-1.030) 08/25/23 Unknown Urine Protein Negative (Negative) 08/25/23 Unknown Urine Glucose (UA) 1+ (Negative) H 08/25/23 Unknown Urine Ketones Negative (Negative) 08/25/23 Unknown Urine Nitrite Negative (Negative) 08/25/23 Unknown Ur Leukocyte Esterase Negative (Negative) 08/25/23 Unknown 08/26/23 08/26/23 08/26/23 14:02 11:27 06:58 POC Glucose 195 H 198 H 216 H
--- NOTE | 2023-08-26 17:43 | Anesthesiology Progress Note ---
Date of Service August 26, 2023 Anesthesia Post Procedure Vital Signs Vital Signs: Temp Pulse Pulse Resp BP BP Pulse Ox 08/26/23 17:25 84 15 120/83 95 08/26/23 17:15 84 20 120/80 98 08/26/23 17:05 88 12 121/78 98 08/26/23 16:56 98.2 F 88 12 121/84 97 08/26/23 14:05 98.1 F 84 20 139/84 97 08/26/23 07:15 97.5 F L 86 18 148/88 H 95 08/25/23 19:32 98.1 F 81 18 134/81 96 O2 Del Method O2 Flow Rate 08/26/23 17:25 Room Air 08/26/23 17:15 Oxymask 10 08/26/23 17:05 Oxymask 10 08/26/23 16:56 Oxymask 10 08/26/23 14:05 Room Air 08/26/23 07:15 Room Air 08/25/23 19:32 Room Air Pain Intensity Left Lower Back: Pain Intensity: 3 Transfer of Care Handoff Completed per policy Notes Mental Status: alert / awake / arousable and participated in evaluation Patient Amnestic to Procedure: Yes Nausea / Vomiting: adequately controlled Pain: adequately controlled Airway Patency, RR, SpO2: stable & adequate BP & HR: stable & adequate Hydration State: stable & adequate Anesthetic Complications: no major complications apparent and Pt Satisfied with anesthetic care
--- NOTE | 2023-08-26 17:49 | Fluoroscopy Report ---
[place] lumbar spine 2-3V CLINICAL HISTORY: L3-L4 Decompression/fusion COMPARISON STUDY: MRI 08/25/2023 FLUOROSCOPY TIME: 23.9 seconds FLUOROSCOPY IMAGES: 2 EXPOSURE DOSE: 22.67 mGy FINDINGS: Posterior interbody britt and screw fusion with discectomy is noted within the lumbar spine, exact level is not definitive based on magnification. Images were submitted following completion of t he surgery. No unexpected opaque foreign bodies identified. IMPRESSION: Fluoroscopic assistance as above. ACT 112: Negative or not required by law. Electronically signed by: Odilon Robb M.D. 08/26/2023 5:48 PM
[2023-08-26] MEDS ORDERED: SOD PHOSPHATE/SOD BIPHOSPHATE ENEMA 132 ML BTL PR PRN (17:55)
[2023-08-26] MEDS ORDERED: ALUMINUM/MAGNESIUM SUSP 30 ML UDC PO PRN (17:55)
[2023-08-26] MEDS ORDERED: ACETAMINOPHEN 1,000 MG/100 ML VIAL IV PRN (17:55)
[2023-08-26] MEDS ORDERED: ACETAMINOPHEN 500 MG TAB PO PRN (17:55)
[2023-08-26] MEDS ORDERED: traMADol HCL 50 MG TABLET PO PRN (17:55)
[2023-08-26] MEDS ORDERED: DO NOT ADMINISTER PNEUMOCOCCAL VACCINE PRN (17:55)
[2023-08-26] MEDS ORDERED: ONDANSETRON INJ 2 MG/ML 2 ML VIAL IV PRN (17:55)
[2023-08-26] MEDS ORDERED: LORazepam 0.5 MG TAB PO PRN (17:55)
[2023-08-26] MEDS ORDERED: hydrOXYzine HCl 25 MG TAB PO PRN (17:55)
[2023-08-26] MEDS ORDERED: DO NOT ADMINISTER FLU VACCINE PRN (17:55)
[2023-08-26] MEDS ORDERED: METOCLOPRAMIDE HCL INJ 5 MG/ML 2 ML VIAL IV PRN (17:55)
[2023-08-26] MEDS ORDERED: MAGNESIUM HYDROXIDE SUSP 30 ML UDC PO PRN (17:55)
[2023-08-26] MEDS ORDERED: diphenhydrAMINE Capsule 25 MG CAP PO PRN (17:55)
[2023-08-26] MEDS ORDERED: HYDROmorphone INJ 0.5 MG/0.5 ML SYR IV PRN (17:55)
[2023-08-26] MEDS ORDERED: LORazepam 0.5 MG in SYRINGE 0.25 ML IV PRN (17:55)
[2023-08-26] MEDS ORDERED: HYDROmorphone INJ 1 MG/ML SYRINGE IV PRN (17:55)
[2023-08-26] MEDS ORDERED: PROMETHAZINE HCL 12.5 MG in SODIUM CHLORIDE 0.9% 50 ML IV PRN (17:55)
[2023-08-26] MEDS ORDERED: ONDANSETRON 4 MG OD TAB PO PRN (17:55)
[2023-08-26] MEDS ORDERED: bisacodyL 10 MG SUPP PR PRN (17:55)
[2023-08-26] MEDS ORDERED: NALOXONE HCL 0.4 MG/1 ML VIAL/CARP IV PRN (17:55)
--- NOTE | 2023-08-26 19:27 | Hospitalist Progress Note ---
Date of Service August 26, 2023 Assessment & Plan (1) Lumbar spinal stenosis: Plan: With resulting severe LLE radiculopathy, difficulty ambulating, ?urinary retention. Repeat MRI this admission with worsening L3-L4 disease and large annular tear/large disc herniation with L3 nerve root compression on left. Seen by Dr Monge - given refractory pain/radiculopathy/ambulatory dysfunction and now ?urinary retention he advised surgical intervention. Thus, went to OR today for L3-L4 decompression/fusion procedure. 50cc blood loss per the op note. Post-op vitals are stable. A.fib stable. Cont IV dexamethasone. Cont tylenol prn Cont pain meds prn Cont gabapentin 300mg TID As noted in subjective portion of note - coumadin has been reversed today with vitamin K Appreciate Dr Monge's assistance will need PT/OT (2) Radicular pain of left lower extremity: Plan: L3 nerve root on left see #1 above (3) Epidural lipomatosis: Plan: as seen on MRI l-spine (4) Osteoporosis: Plan: Noted on DEXA Sep, 2022 Likely secondary to hypogonadism Under endocrinology but treated with bisphosphonates 25 OH vit D level in 04/26 60s (5) Urine retention: Plan: present on admission s/p liz placement in ER >1000cc of urine following liz placement he had not had any urinary issues prior to this event due to #1? due to narcotics in the setting of BPH? started on flomax by admitting MD - will continue trial of void later in the stay (6) Permanent atrial fibrillation: Plan: Continue rate control with diltiazem and metoprolol/carvedilol throughout perioperative course Placed on tele post-op to monitor his a.fib rates HOLDING COUMADIN Reversed today with vitamin K by primary ortho team (7) T2DM (type 2 diabetes mellitus): Plan: HbA1C 7.0 in 08/11/2023 Appreciate pharmacy team assistance for glycemic control Cont basal-bolus insulins (8) Hypogonadism: Plan: Continue testosterone upon return home (9) Sleep apnea: Plan: CPAP HS to bring home unit (10) Hypothyroidism: Plan: TSH 0.985 in August 2023 Continue levothyroxine (11) Hypertension: Plan: Continue diltiazem, carvedilol and metoprolol Hold lisinopril pre-operatively BMP am (12) Morbid obesity with BMI of 45.0-49.9, adult: Plan: BMI 46 Plan DVT proph - coumadin has been reversed; timing of coumadin re-initiation post- discharge is at the discretion of Dr Monge updated labs in am appreciate Dr Monge's assistance Admission and Anticipated Discharge Date Admission Date: August 25, 2023 Subjective patient went to OR this afternoon with Dr Monge for L3-L4 decompression/fusion procedure prior to the OR his INR had been 2 received vitamin K 5mg IV x 1 with improved INR down to 1.6 Dr Monge was aware of all INR values and was deemed acceptable to go to the OR I saw the patient post-op from his surgery on the tele unit at bedside he denied any orthopnea, chest pain, dyspnea, abd pain, or nausea/vomiting LLE pain was gone only surgical pain in the low back present uses CPAP at home -- can bring home unit in tomorrow declines using hospital CPAP tonight Review of Systems Review of Systems: as per HPI records indicate at time of ER presentation he had bladder scan >800cc liz placed 1000cc+ of urine was obtained within 1-2 hours of liz insertion Physical Exam Physical Exam: gen - NAD, resting flat in bed comfortably, awake/alert mouth - MMM heart - tones are distant, but irregularly irregular, s1 s2, no murmur lungs - CTA b/l abd - soft NT ND BS+ ext - no edema, pulses 2+ b/l, SCDs in place neuro - strength b/l flexion of hips 5/5; dorsiflexion/plantarflexion of feet/ankles 5/5; no facial droop; speech clear Results & Data Results & Data Vital Signs (Past 12 Hours) Vital Signs Temp Pulse Pulse Pulse Resp BP Pulse Ox 08/26/23 18:55 36.3 C L 87 18 118/73 91 08/26/23 18:25 36.5 C 73 18 131/89 94 08/26/23 18:05 36.4 C L 75 18 128/80 95 08/26/23 17:58 08/26/23 17:56 79 08/26/23 17:50 36.9 C 80 16 121/83 95 08/26/23 17:35 36.8 C 85 15 130/80 95 08/26/23 17:25 84 15 120/83 95 08/26/23 17:15 84 20 120/80 98 08/26/23 17:05 88 12 121/78 98 08/26/23 16:56 36.8 C 88 12 121/84 97 08/26/23 14:05 36.7 C 84 20 139/84 97 O2 Del Method O2 Flow Rate 08/26/23 18:55 Room Air 08/26/23 18:25 Room Air 08/26/23 18:05 Room Air 08/26/23 17:58 Room Air 08/26/23 17:56 08/26/23 17:50 Room Air 08/26/23 17:35 Room Air 08/26/23 17:25 Room Air 08/26/23 17:15 Oxymask 10 08/26/23 17:05 Oxymask 10 08/26/23 16:56 Oxymask 10 08/26/23 14:05 Room Air Laboratory Results Laboratory Results - last 24 hr 08/25/23 08/26/23 08/26/23 20:50 00:05 04:14 WBC RBC Hgb Hct MCV MCH MCHC RDW Std Deviation RDW Coeff of Staci Plt Count MPV Immature Gran % (Auto) Neut % (Auto) Lymph % (Auto) [place] % (Auto) Eos % (Auto) Baso % (Auto) Neut # (Auto) Lymph # (Auto) [place] # (Auto) Eos # (Auto) Baso # (Auto) Immature Gran # (Auto) Hypersegmented Neuts Toxic Vacuolation Echinocytes PT INR Sodium Potassium Chloride Carbon Dioxide Anion Gap BUN Creatinine Est Cr Clr Drug Dosing Est GFR ( Amer) Est GFR (Non-Af Amer) BUN/Creatinine Ratio Glucose POC Glucose 260 H 245 H 227 H Calcium Magnesium 08/26/23 08/26/23 08/26/23 06:58 07:45 11:11 WBC 12.75 H RBC 5.76 Hgb 15.8 Hct 47.3 MCV 82.1 MCH 27.4 MCHC 33.4 RDW Std Deviation 39.9 RDW Coeff of Staci 13.5 Plt Count 200 MPV 9.4 Immature Gran % (Auto) 0.5 Neut % (Auto) 93.9 Lymph % (Auto) 4.5 [place] % (Auto) 0.9 Eos % (Auto) 0.1 Baso % (Auto) 0.1 Neut # (Auto) 11.98 H Lymph # (Auto) 0.57 L [place] # (Auto) 0.11 Eos # (Auto) 0.01 Baso # (Auto) 0.01 Immature Gran # (Auto) 0.07 Hypersegmented Neuts 1+ Toxic Vacuolation 1+ Echinocytes 1+ PT 20.7 H 20.0 H INR 2.0 H 1.9 H Sodium 132 L Potassium 4.2 Chloride 101 Carbon Dioxide 25 Anion Gap 6 BUN 22 Creatinine 0.81 Est Cr Clr Drug Dosing 115.2 Est GFR ( Amer) 104.4 Est GFR (Non-Af Amer) 90.0 BUN/Creatinine Ratio 27.2 H Glucose 226 H POC Glucose 216 H Calcium 9.1 Magnesium 1.9 08/26/23 08/26/23 08/26/23 11:27 14:02 14:18 WBC RBC Hgb Hct MCV MCH MCHC RDW Std Deviation RDW Coeff of Staci Plt Count MPV Immature Gran % (Auto) Neut % (Auto) Lymph % (Auto) [place] % (Auto) Eos % (Auto) Baso % (Auto) Neut # (Auto) Lymph # (Auto) [place] # (Auto) Eos # (Auto) Baso # (Auto) Immature Gran # (Auto) Hypersegmented Neuts Toxic Vacuolation Echinocytes PT 16.9 H INR 1.6 H Sodium Potassium Chloride Carbon Dioxide Anion Gap BUN Creatinine Est Cr Clr Drug Dosing Est GFR ( Amer) Est GFR (Non-Af Amer) BUN/Creatinine Ratio Glucose POC Glucose 198 H 195 H Calcium Magnesium 08/26/23 08/26/23 17:00 18:18 WBC RBC Hgb Hct MCV MCH MCHC RDW Std Deviation RDW Coeff of Staci Plt Count MPV Immature Gran % (Auto) Neut % (Auto) Lymph % (Auto) [place] % (Auto) Eos % (Auto) Baso % (Auto) Neut # (Auto) Lymph # (Auto) [place] # (Auto) Eos # (Auto) Baso # (Auto) Immature Gran # (Auto) Hypersegmented Neuts Toxic Vacuolation Echinocytes PT INR Sodium Potassium Chloride Carbon Dioxide Anion Gap BUN Creatinine Est Cr Clr Drug Dosing Est GFR ( Amer) Est GFR (Non-Af Amer) BUN/Creatinine Ratio Glucose POC Glucose 209 H 209 H Calcium Magnesium PG Care Time/CCT Total # of Minutes Spent Total Time Spent with Patient: Total time spent is greater than 50% in coordination of care (as documented) at patient's floor/unit and/or counseling patient: Coding Level of Care Code 19985 SUB INP/OBS CARE 235MIN Diagnoses Spinal stenosis of lumbar region with neurogenic claudication M48.061 Radicular pain of left lower extremity M54.10 Epidural lipomatosis D17.79 Osteoporosis M81.0 Urine retention R33.9 Permanent atrial fibrillation I48.21 Type 2 diabetes mellitus without complication, without long-term current use of insulin E11.9 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 complication status: without complication 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 prison insulin use: without prison use Hypogonadism Sleep apnea G47.30 Acquired hypothyroidism E03.9 Hypothyroidism type: acquired Primary hypertension I10 Hypertension type: primary hypertension Morbid obesity with BMI of 45.0-49.9, adult E66.01; Z68.42 (7) T2DM (type 2 diabetes mellitus) 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 complication status: without complication 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
[2023-08-26] MEDS: LANTUS PER UNIT CHARGE SC SCH (21:09)
[2023-08-26] MEDS: ceFAZolin 2000MG 2,000 MG/15 ML SYR IV SCH (21:09)
[2023-08-26] MEDS: FAMOTIDINE 20 MG TAB PO PRN (21:10)
[2023-08-26] MEDS: DOCUSATE SODIUM/SENNA 50/8.6MG TAB PO SCH (21:10)
[2023-08-27] MEDS: POLYETHYLENE (MIRALAX) 17 GM PACK PO SCH (05:59)
[2023-08-27 07:43] LABS: Hemoglobin 14.7 g/dl (14.0-18.0); Mean Corpuscular Hemoglobin 27.5 pg (25.0-34.0); Mean Corpuscular Hgb Conc 33.4 g/dL (32.0-36.0); Mean Corpuscular Volume 82.2 fL (80.0-100.0); Mean Platelet Volume 9.6 fL (9.4-12.4); Platelet Count 206 K/uL (130-400); RDW Coefficient of Variation 13.8 % (11.5-14.5); RDW Standard Deviation 41.4 fL (36.4-46.3); Red Blood Count 5.35 M/uL (4.70-6.10); White Blood Count 16.55 K/ul (4.8-10.8)
[2023-08-27 07:55] LABS: BUN Creatinine Ratio 27.6 (10-20); Calcium 8.8 mg/dl (8.6-10.3); Creatinine Clr Calc Pharmacy 107.2 ml/min; Est GFR (African American) 101.3 ml/min; Est GFR (Non-African American) 87.4 ml/min; Potassium 4.5 mmol/L (3.5-5.1)
[2023-08-27 08:26] LABS: Basophils # (auto) 0.02 K/uL (0.00-0.20); Basophils % (auto) 0.1 %; Immature Granulocytes # (auto) 0.12 K/uL (0.01-0.20); Immature Granulocytes % (auto) 0.7 %; Lymphocytes # (auto) 0.58 K/uL (1.20-3.40); Lymphocytes % (auto) 3.5 %; Monocytes # (auto) 0.83 K/uL (0.11-0.59); Neutrophils % (auto) 90.7 %
[2023-08-27] MEDS: dexAMETHasone 6 MG in SYRINGE 0 ML IV SCH (09:12)
[2023-08-27] MEDS: NovoLIN-N (NPH) PER UNIT CHARGE SQ SCH (09:30)
[2023-08-27] MEDS: oxyCODONE HCL IR 5 MG TAB (IMMEDIATE RELEASE) PO PRN (09:35)
--- NOTE | 2023-08-27 09:46 | Orthopedic Progress Note ---
Date of Service August 27, 2023 Assessment & Plan (1) Lumbar disc herniation with radiculopathy: Plan: At this time initiate physical therapy. Monitor his progress. Anticipate discharge home Friday. Admission and Anticipated Discharge Date Admission Date: August 25, 2023 Subjective Back pain controlled leg pain markedly improved Physical Exam Physical Exam: Patient is currently in bed. Is comfortable. Is distracted testing. Results & Data Vital Signs (Past 12 Hours) Vital Signs Temp Pulse Pulse Resp BP Pulse Ox O2 Del Method 08/27/23 07:53 36.5 C 73 20 146/94 H 98 Room Air 08/27/23 03:30 36.6 C 58 L 18 132/88 98 Room Air 08/26/23 23:59 82 08/26/23 23:43 Room Air 08/26/23 22:15 83 Queries Orthopedic Spine Obesity: Yes
--- NOTE | 2023-08-27 14:22 | Pharmacy Report ---
Pharmacy Glycemic Short Note 2 - Date of Service August 27, 2023 - Glycemic Short BSG Results (Last 24 hours): 08/26/23 08/26/23 08/26/23 17:00 18:18 20:35 Glucose POC Glucose 209 H 209 H 251 H 08/27/23 08/27/23 08/27/23 06:57 08:06 12:02 Glucose 240 H POC Glucose 210 H 249 H OUTPATIENT ANTIDIABETIC REGIMEN: * metformin 1000mg BID * HbA1c 7.0% (08/11/23) ASSESSMENT: 08/26 * Patient received total of 52 units of insulin yesterday, of which 30 units were basal * Fasting BSG 210 mg/dL - steroids changing from dexamethasone 4 mg q 6 hours to dexamethasone 6 mg daily. Will change to NPH to allow for hopefully better coverage of steroid effects. Will start with NPH 0.4 units/kg adj bw and will tighten to weight based stress of 3 dosing * Lunch time BSG remains >200 -will tighten novolog slightly more 08/25 * Kirby received 40 units of insulin yesterday (20 were basal) * Fasting BSG this AM elevated, conservative basal dosing yesterday due to NPO status for procedure today. Will increase basal insulin by up to 50% based on BSG. * Novolog tightened due to patient not correcting overnight with additional insulin. He continues on IV dexamethasone 4mg Q6H. 08/24 * Kirby is a 68 YOM admitted with lumbar spinal stenosis and a history of type 2 diabetes mellitus. Pharmacy has been consulted for glycemic management while inpatient. * Fasting BSG this AM was significantly elevated. Received IV dexamethasone 10mg x1 in ED as well. He was recently admitted with similar symptoms and responded to IV dexamethasone 4mg BID. Plan is dexamethasone 4mg Q6H IV at this time. Basal insulin ordered to cover steroids at ~0.2 units/kg now. Overnight checks added due to patient going NPO overnight. On previous admission he had fair BSG control with conservative insulin administration so will be conservative and titrate as indicated. * Novolog initiated at approximately a weight based stress of 1, tighter than the previous admission. PLAN FOR INPATIENT GLYCEMIC CONTROL: * Hold outpatient oral diabetes medications * Basal insulin * NPH 35 units once daily * Bolus insulin * NovoLog per scale ACHS or Q6hrs while NPO * Goal Range: Low 110 mg/dL - High 140 mg/dL * Correction Factor: 12 mg/dL/unit * Nutritional / Prandial insulin per carb ratio of 1 unit per 4 grams CHO consumed
--- NOTE | 2023-08-27 21:16 | Hospitalist Progress Note ---
Date of Service August 27, 2023 Assessment & Plan (1) Lumbar spinal stenosis: Plan: POD #1 - s/p L3-L4 decompression/fusion procedure by Dr Monge. severe LLE radiculopathy and pain improved today. expected post-op surgical pain. Cont IV dexamethasone per ortho. Cont tylenol prn Cont pain meds prn Cont gabapentin 300mg TID Holding coumadin. Resume when ok with ortho team. Would not bridge with lovenox or other agent. Appreciate Dr Monge's assistance PT/OT (2) Radicular pain of left lower extremity: Plan: L3 nerve root on left see #1 above IMPROVED s/p surgery cont gabapentin TID (3) Epidural lipomatosis: Plan: as seen on MRI l-spine (4) Osteoporosis: Plan: Noted on DEXA Sep, 2022 Likely secondary to hypogonadism Under endocrinology but treated with bisphosphonates 25 OH vit D level in 04/26 60s (5) Urine retention: Plan: present on admission s/p liz placement in ER >1000cc of urine following liz placement he had not had any urinary issues prior to this event due to #1? due to narcotics in the setting of BPH? started on flomax by admitting MD - will continue liz removed today - hopefully he will be able to void if urinary retention was neurogenic it could take time for things to improve as surgery was just yesterday (6) Permanent atrial fibrillation: Plan: Continue rate control with diltiazem and metoprolol/carvedilol throughout perioperative course Placed on tele post-op to monitor his a.fib rates HOLDING COUMADIN He did receive vitamin K for reversal on day of surgery (7) T2DM (type 2 diabetes mellitus): Plan: HbA1C 7.0 in 08/11/2023 Appreciate pharmacy team assistance for glycemic control Cont basal-bolus insulins (8) Hypogonadism: Plan: Continue testosterone upon return home (9) Sleep apnea: Plan: CPAP HS brought home unit (10) Hypothyroidism: Plan: TSH 0.985 in August 2023 Continue levothyroxine (11) Hypertension: Plan: Continue diltiazem, carvedilol and metoprolol If Cr is stable tomorrow can resume lisinopril BMP am (12) Morbid obesity with BMI of 45.0-49.9, adult: Plan: BMI 46 Plan DVT proph - coumadin has been reversed; timing of coumadin re-initiation post- discharge is at the discretion of Dr Monge progressing appreciate Dr Monge's assistance Admission and Anticipated Discharge Date Admission Date: August 25, 2023 Subjective no events overnight brought his CPAP from home eating well passing copious flatus; no stool yet no nausea/emesis back pain is reasonably controlled LLE pain much improved LLE still feels a little weak with ambulation did not sit in the chair today Review of Systems Review of Systems: CV - no chest pain, no orthopnea pulm - no dyspnea or JUAREZ GI - no abd pain neuro - no paresthesias of either leg Physical Exam Physical Exam: gen - NAD, resting flat in bed comfortably, awake/alert, eating his meal ; looks well mouth - MMM heart - tones are distant, but irregularly irregular, s1 s2, no murmur lungs - CTA b/l abd - soft NT ND BS+ ext - no edema, pulses 2+ b/l, SCDs in place neuro - strength b/l flexion of hips 5/5; dorsiflexion/plantarflexion of feet/ankles 5/5 Results & Data Results & Data Vital Signs (Past 12 Hours) Vital Signs Temp Pulse Pulse Resp BP Pulse Ox O2 Del Method 08/27/23 20:04 36.5 C 69 19 128/89 98 Room Air 08/27/23 16:09 36.4 C L 65 20 123/79 98 Room Air 08/27/23 11:37 36.6 C 66 20 124/79 98 Room Air Laboratory Results Laboratory Results - last 48 hr 08/26/23 08/26/23 08/26/23 07:45 11:11 11:27 WBC RBC Hgb Hct MCV MCH MCHC RDW Std Deviation RDW Coeff of Staci Plt Count MPV Immature Gran % (Auto) 0.5 Neut % (Auto) 93.9 Lymph % (Auto) 4.5 [place] % (Auto) 0.9 Eos % (Auto) 0.1 Baso % (Auto) 0.1 Neut # (Auto) 11.98 H Lymph # (Auto) 0.57 L [place] # (Auto) 0.11 Eos # (Auto) 0.01 Baso # (Auto) 0.01 Immature Gran # (Auto) 0.07 Hypersegmented Neuts 1+ Toxic Vacuolation 1+ Echinocytes 1+ PT 20.7 H 20.0 H INR 2.0 H 1.9 H Sodium 132 L Potassium 4.2 Chloride 101 Carbon Dioxide 25 Anion Gap 6 BUN 22 Creatinine 0.81 Est Cr Clr Drug Dosing 115.2 Est GFR ( Amer) 104.4 Est GFR (Non-Af Amer) 90.0 BUN/Creatinine Ratio 27.2 H Glucose 226 H POC Glucose 198 H Calcium 9.1 Magnesium 1.9 08/26/23 08/26/23 08/26/23 14:02 14:18 17:00 WBC RBC Hgb Hct MCV MCH MCHC RDW Std Deviation RDW Coeff of Staci Plt Count MPV Immature Gran % (Auto) Neut % (Auto) Lymph % (Auto) [place] % (Auto) Eos % (Auto) Baso % (Auto) Neut # (Auto) Lymph # (Auto) [place] # (Auto) Eos # (Auto) Baso # (Auto) Immature Gran # (Auto) Hypersegmented Neuts Toxic Vacuolation Echinocytes PT 16.9 H INR 1.6 H Sodium Potassium Chloride Carbon Dioxide Anion Gap BUN Creatinine Est Cr Clr Drug Dosing Est GFR ([facility] Amer) Est GFR (Non- Amer) BUN/Creatinine Ratio Glucose POC Glucose 195 H 209 H Calcium Magnesium 08/26/23 08/26/23 08/27/23 18:18 20:35 06:57 WBC 16.55 H RBC 5.35 Hgb 14.7 Hct 44.0 MCV 82.2 MCH 27.5 MCHC 33.4 RDW Std Deviation 41.4 RDW Coeff of Staci 13.8 Plt Count 206 MPV 9.6 Immature Gran % (Auto) 0.7 Neut % (Auto) 90.7 Lymph % (Auto) 3.5 [place] % (Auto) 5.0 Eos % (Auto) 0.0 Baso % (Auto) 0.1 Neut # (Auto) 15.00 H Lymph # (Auto) 0.58 L [place] # (Auto) 0.83 H Eos # (Auto) 0.00 Baso # (Auto) 0.02 Immature Gran # (Auto) 0.12 Hypersegmented Neuts Toxic Vacuolation Echinocytes PT INR Sodium 134 L Potassium 4.5 Chloride 100 Carbon Dioxide 28 Anion Gap 6 BUN 24 H Creatinine 0.87 Est Cr Clr Drug Dosing 107.2 Est GFR ( Amer) 101.3 Est GFR (Non-Af Amer) 87.4 BUN/Creatinine Ratio 27.6 H Glucose 240 H POC Glucose 209 H 251 H Calcium 8.8 Magnesium 08/27/23 08/27/23 08/27/23 08:06 12:02 16:59 WBC RBC Hgb Hct MCV MCH MCHC RDW Std Deviation RDW Coeff of Staci Plt Count MPV Immature Gran % (Auto) Neut % (Auto) Lymph % (Auto) [place] % (Auto) Eos % (Auto) Baso % (Auto) Neut # (Auto) Lymph # (Auto) [place] # (Auto) Eos # (Auto) Baso # (Auto) Immature Gran # (Auto) Hypersegmented Neuts Toxic Vacuolation Echinocytes PT INR Sodium Potassium Chloride Carbon Dioxide Anion Gap BUN Creatinine Est Cr Clr Drug Dosing Est GFR ( Amer) Est GFR (Non-Af Amer) BUN/Creatinine Ratio Glucose POC Glucose 210 H 249 H 139 H Calcium Magnesium PG Care Time/CCT Total # of Minutes Spent Total Time Spent with Patient: Total time spent is greater than 50% in coordination of care (as documented) at patient's floor/unit and/or counseling patient: Coding Level of Care Code 53949 SUB INP/OBS CARE 2/35MIN Diagnoses Spinal stenosis of lumbar region with neurogenic claudication M48.061 Radicular pain of left lower extremity M54.10 Epidural lipomatosis D17.79 Osteoporosis M81.0 Urine retention R33.9 Permanent atrial fibrillation I48.21 Type 2 diabetes mellitus without complication, without long-term current use of insulin E11.9 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 complication status: without complication 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 manager long term care insulin use: without jail use Hypogonadism Sleep apnea G47.30 Acquired hypothyroidism E03.9 Hypothyroidism type: acquired Primary hypertension I10 Hypertension type: primary hypertension Morbid obesity with BMI of 45.0-49.9, adult E66.01; Z68.42 (7) T2DM (type 2 diabetes mellitus) 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 complication status: without complication 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 manager long term care insulin use: without jail use Qualified Code(s): E11.9 - Type 2 diabetes mellitus without complications (10) Hypothyroidism Hypothyroidism type: acquired Qualified Code(s): E03.9 - Hypothyroidism, unspecified (11) Hypertension Hypertension type: primary hypertension Qualified Code(s): I10 - Essential (primary) hypertension
[2023-08-28 08:22] LABS: BUN Creatinine Ratio 34.3 (10-20); Calcium 8.6 mg/dl (8.6-10.3); Creatinine Clr Calc Pharmacy 139.2 ml/min; Est GFR (African American) 112.8 ml/min; Est GFR (Non-African American) 97.4 ml/min; Potassium 4.4 mmol/L (3.5-5.1)
--- NOTE | 2023-08-28 10:49 | Pharmacy Report ---
Pharmacy Glycemic Short Note 2 - Date of Service August 28, 2023 - Glycemic Short BSG Results (Last 24 hours): 08/27/23 08/27/23 08/27/23 12:02 16:59 20:51 Glucose POC Glucose 249 H 139 H 157 H 08/28/23 08/28/23 07:10 08:01 Glucose 221 H POC Glucose 185 H OUTPATIENT ANTIDIABETIC REGIMEN: * metformin 1000mg BID * HbA1c 7.0% (08/11/23) ASSESSMENT: 08/27 * POD #2 s/p L3-L4 decompression/fusion procedure * Patient remains on dexamethasone 6 mg IV daily - last dose is 08/28 AM * He received 70 units of SC insulin yesterday (35 units NPH + 35 units Novolog) * Adequate coverage of steroid induced hyperglycemia with NPH. Continue current dose. * Post prandial BSGs greatly improved after tightening CF/CR to 04/07 yesterday afternoon. 08/26 * Patient received total of 52 units of insulin yesterday, of which 30 units were basal * Fasting BSG 210 mg/dL - steroids changing from dexamethasone 4 mg q 6 hours to dexamethasone 6 mg daily. Will change to NPH to allow for hopefully better coverage of steroid effects. Will start with NPH 0.4 units/kg adj bw and will tighten to weight based stress of 3 dosing * Lunch time BSG remains >200 -will tighten novolog slightly more 08/25 * Kirby received 40 units of insulin yesterday (20 were basal) * Fasting BSG this AM elevated, conservative basal dosing yesterday due to NPO status for procedure today. Will increase basal insulin by up to 50% based on BSG. * Novolog tightened due to patient not correcting overnight with additional insulin. He continues on IV dexamethasone 4mg Q6H. 08/24 * Kirby is a 68 YOM admitted with lumbar spinal stenosis and a history of type 2 diabetes mellitus. Pharmacy has been consulted for glycemic management while inpatient. * Fasting BSG this AM was significantly elevated. Received IV dexamethasone 10mg x1 in ED as well. He was recently admitted with similar symptoms and responded to IV dexamethasone 4mg BID. Plan is dexamethasone 4mg Q6H IV at this time. Basal insulin ordered to cover steroids at ~0.2 units/kg now. Overnight checks added due to patient going NPO overnight. On previous admission he had fair BSG control with conservative insulin administration so will be conservative and titrate as indicated. * Novolog initiated at approximately a weight based stress of 1, tighter than the previous admission. PLAN FOR INPATIENT GLYCEMIC CONTROL: * Hold outpatient oral diabetes medications * Basal insulin * NPH 35 units once daily * Bolus insulin * NovoLog per scale ACHS or Q6hrs while NPO * Goal Range: Low 110 mg/dL - High 140 mg/dL * Correction Factor: 12 mg/dL/unit * Nutritional / Prandial insulin per carb ratio of 1 unit per 4 grams CHO consumed
--- NOTE | 2023-08-28 11:20 | Orthopedic Progress Note ---
Date of Service August 28, 2023 Assessment & Plan (1) Lumbar disc herniation with radiculopathy: Plan: At this time we will continue physical therapy monitor his ROSA output. He is stable to return home tomorrow per orthopedics. He may begin his warfarin therapy tomorrow as well. Admission and Anticipated Discharge Date Admission Date: August 25, 2023 Subjective Back pain controlled leg pain improved Physical Exam Physical Exam: Patient is good strength testing. He is comfortable. Results & Data Vital Signs (Past 12 Hours) Vital Signs Temp Pulse Pulse Pulse Resp BP Pulse Ox 08/28/23 09:50 08/28/23 07:57 36.3 C L 72 18 153/85 H 98 08/28/23 07:17 73 08/28/23 03:39 36.9 C 64 18 123/67 95 08/27/23 23:27 36.6 C 64 18 122/87 94 O2 Del Method 08/28/23 09:50 Room Air 08/28/23 07:57 Room Air 08/28/23 07:17 08/28/23 03:39 Room Air, CPAP 08/27/23 23:27 Room Air, CPAP Queries Orthopedic Spine Obesity: Yes
--- NOTE | 2023-08-28 20:26 | Hospitalist Progress Note ---
Date of Service August 28, 2023 Assessment & Plan (1) Lumbar spinal stenosis: Plan: POD #2 - s/p L3-L4 decompression/fusion procedure by Dr Monge. severe LLE radiculopathy has improved/resolved. has mild expected post-op surgical pain. Cont IV dexamethasone per ortho. Cont tylenol prn Cont pain meds prn Cont gabapentin 300mg TID Holding coumadin. Resume at 72 hours post-op (08/28). Appreciate Dr Monge's assistance Continue PT/OT (2) Radicular pain of left lower extremity: Plan: L3 nerve root on left see #1 above IMPROVED s/p surgery cont gabapentin TID (3) Epidural lipomatosis: Plan: as seen on MRI l-spine (4) Osteoporosis: Plan: Noted on DEXA Sep, 2022 Likely secondary to hypogonadism Under endocrinology but treated with bisphosphonates 25 OH vit D level in 04/26 60s (5) Urine retention: Plan: present on admission s/p liz placement in ER >1000cc of urine following liz placement he had not had any urinary issues prior to this event due to #1? due to narcotics in the setting of BPH? started on flomax by admitting MD - will continue liz removed yesterday and he is voiding spontaneously cont to monitor (6) Permanent atrial fibrillation: Plan: Continue rate control with diltiazem and metoprolol/carvedilol Resume coumadin - without any lovenox bridge - 72 hours post-op (7) T2DM (type 2 diabetes mellitus): Plan: HbA1C 7.0 in 08/11/2023 Appreciate pharmacy team assistance for glycemic control Cont basal-bolus insulin (8) Hypogonadism: Plan: Continue testosterone upon return home (9) Sleep apnea: Plan: CPAP HS (10) Hypothyroidism: Plan: TSH 0.985 in August 2023 Continue levothyroxine (11) Hypertension: Plan: Continue diltiazem, carvedilol and metoprolol Resume lisinopril in am (12) Morbid obesity with BMI of 45.0-49.9, adult: Plan: BMI 46 Plan DVT proph - SCDs, ambulation resume coumadin at 72 hours post-op appreciate Dr Monge's assistance updated at bedside home tomorrow? Admission and Anticipated Discharge Date Admission Date: August 25, 2023 Subjective tele stable overnight excellent a.fib rate control denies any new issues feels well no left leg pain some mild back pain eating well no N/V passing flatus but no stool yet at bedside Review of Systems Review of Systems: CV - no chest pain, no orthopnea, no edema pulm - no cough, no dyspnea Physical Exam Physical Exam: gen - NAD, resting flat in bed comfortably, awake/alert mouth - MMM heart - tones are distant, but irregularly irregular, s1 s2, no murmur lungs - CTA b/l abd - soft NT ND BS+ ext - no edema, pulses 2+ b/l neuro - strength b/l flexion of hips 5/5; dorsiflexion/plantarflexion of feet/ankles 5/5 Results & Data Results & Data Vital Signs (Past 12 Hours) Vital Signs Temp Pulse Pulse Pulse Resp BP Pulse Ox 08/28/23 19:33 36.9 C 77 18 138/89 97 08/28/23 19:05 08/28/23 17:00 63 08/28/23 16:04 36.4 C L 71 18 135/83 97 08/28/23 11:43 36.3 C L 72 20 137/90 98 08/28/23 09:50 O2 Del Method 08/28/23 19:33 Room Air 08/28/23 19:05 Room Air 08/28/23 17:00 08/28/23 16:04 Room Air 08/28/23 11:43 Room Air 08/28/23 09:50 Room Air Laboratory Results Laboratory Results - last 24 hr 08/28/23 08/28/23 08/28/23 07:10 08:01 12:05 Sodium 134 L Potassium 4.4 Chloride 102 Carbon Dioxide 26 Anion Gap 6 BUN 23 Creatinine 0.67 Est Cr Clr Drug Dosing 139.2 Est GFR ( Amer) 112.8 Est GFR (Non-Af Amer) 97.4 BUN/Creatinine Ratio 34.3 H Glucose 221 H POC Glucose 185 H 374 H* Calcium 8.6 08/28/23 08/28/23 08/28/23 12:06 15:03 16:55 Sodium Potassium Chloride Carbon Dioxide Anion Gap BUN Creatinine Est Cr Clr Drug Dosing Est GFR ( Amer) Est GFR (Non-Af Amer) BUN/Creatinine Ratio Glucose POC Glucose 358 H* 224 H 129 H Calcium 08/28/23 20:28 Sodium Potassium Chloride Carbon Dioxide Anion Gap BUN Creatinine Est Cr Clr Drug Dosing Est GFR ( Amer) Est GFR (Non-Af Amer) BUN/Creatinine Ratio Glucose POC Glucose 102 H Calcium PG Care Time/CCT Total # of Minutes Spent Total Time Spent with Patient: Total time spent is greater than 50% in coordination of care (as documented) at patient's floor/unit and/or counseling patient: Coding Level of Care Code 92890 SUB INP/OBS CARE 05/29MIN Diagnoses Spinal stenosis of lumbar region with neurogenic claudication M48.061 Radicular pain of left lower extremity M54.10 Epidural lipomatosis D17.79 Osteoporosis M81.0 Urine retention R33.9 Permanent atrial fibrillation I48.21 Type 2 diabetes mellitus without complication, without long-term current use of insulin E11.9 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 complication status: without complication 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 analysis mgr insulin use: without [facility] use Hypogonadism Sleep apnea G47.30 Acquired hypothyroidism E03.9 Hypothyroidism type: acquired Primary hypertension I10 Hypertension type: primary hypertension Morbid obesity with BMI of 45.0-49.9, adult E66.01; Z68.42 (7) T2DM (type 2 diabetes mellitus) 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 complication status: without complication 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 analysis mgr insulin use: without [place] use Qualified Code(s): E11.9 - Type 2 diabetes mellitus without complications (10) Hypothyroidism Hypothyroidism type: acquired Qualified Code(s): E03.9 - Hypothyroidism, unspecified (11) Hypertension Hypertension type: primary hypertension Qualified Code(s): I10 - Essential (primary) hypertension
[2023-08-29 06:54] LABS: Hematocrit (blood only) 41.8 % (42.0-52.0); Hemoglobin 14.2 g/dl (14.0-18.0); Mean Corpuscular Volume 82.3 fL (80.0-100.0); Mean Platelet Volume 9.5 fL (9.4-12.4); Platelet Count 177 K/uL (130-400); RDW Coefficient of Variation 13.8 % (11.5-14.5); RDW Standard Deviation 40.9 fL (36.4-46.3); Red Blood Count 5.08 M/uL (4.70-6.10); White Blood Count 12.19 K/ul (4.8-10.8)
[2023-08-29 06:55] LABS: Prothrombin Time 11.4 Seconds (9.0-12.0)
--- NOTE | 2023-08-29 14:24 | Pharmacy Report ---
Pharmacy Glycemic Short Note 2 - Date of Service August 29, 2023 - Glycemic Short BSG Results (Last 24 hours): 08/28/23 08/28/23 08/28/23 15:03 16:55 20:28 POC Glucose 224 H 129 H 102 H 08/29/23 08/29/23 08/29/23 08:16 12:16 12:18 POC Glucose 167 H 333 H* 354 H* OUTPATIENT ANTIDIABETIC REGIMEN: * metformin 1000mg BID * HbA1c 7.0% (08/11/23) ASSESSMENT: 08/28 * Today is POD #3. Yesterday, patient received 90 units of insulin: 35 units basal NPH and 55 units bolus. * BSGs yesterday were [phone] mg/dl. Fasting BSG today was 167 mg/dl. * IV Dexamethasone discontinued after dose given this AM. NPH insulin was also discontinued after the dose given. Pre-lunch BSG elevated above 300 mg/dl due to effect of steroids. Expect this to trend down by dinner with NPH effects. * Added basal Lantus for HS for better fasting BSG. * Novolog parameters for breakfast tomorrow loosened since IV Dex is now discontinued. 08/27 * POD #2 s/p L3-L4 decompression/fusion procedure * Patient remains on dexamethasone 6 mg IV daily - last dose is 08/28 AM * He received 70 units of SC insulin yesterday (35 units NPH + 35 units Novolog) * Adequate coverage of steroid induced hyperglycemia with NPH. Continue current dose. * Post prandial BSGs greatly improved after tightening CF/CR to / yesterday afternoon. 08/26 * Patient received total of 52 units of insulin yesterday, of which 30 units were basal * Fasting BSG 210 mg/dL - steroids changing from dexamethasone 4 mg q 6 hours to dexamethasone 6 mg daily. Will change to NPH to allow for hopefully better coverage of steroid effects. Will start with NPH 0.4 units/kg adj bw and will tighten to weight based stress of 3 dosing * Lunch time BSG remains >200 -will tighten novolog slightly more 08/25 * Kirby received 40 units of insulin yesterday (20 were basal) * Fasting BSG this AM elevated, conservative basal dosing yesterday due to NPO status for procedure today. Will increase basal insulin by up to 50% based on BSG. * Novolog tightened due to patient not correcting overnight with additional insulin. He continues on IV dexamethasone 4mg Q6H. 08/24 * Kirby is a 68 YOM admitted with lumbar spinal stenosis and a history of type 2 diabetes mellitus. Pharmacy has been consulted for glycemic management while inpatient. * Fasting BSG this AM was significantly elevated. Received IV dexamethasone 10mg x1 in ED as well. He was recently admitted with similar symptoms and responded to IV dexamethasone 4mg BID. Plan is dexamethasone 4mg Q6H IV at this time. Basal insulin ordered to cover steroids at ~0.2 units/kg now. Overnight checks added due to patient going NPO overnight. On previous admission he had fair BSG control with conservative insulin administration so will be conservative and titrate as indicated. * Novolog initiated at approximately a weight based stress of 1, tighter than the previous admission. PLAN FOR INPATIENT GLYCEMIC CONTROL: * Hold outpatient oral diabetes medications * Basal insulin * NPH 35 units once daily given today then discontinued. * Lantus 15 units SC HS started tonight * Bolus insulin * NovoLog per scale ACHS or Q6hrs while NPO * Goal Range: Low 110 mg/dL - High 140 mg/dL * Correction Factor: 15 mg/dL/unit * Nutritional / Prandial insulin per carb ratio of 1 unit per 5 grams CHO consumed
--- NOTE | 2023-08-29 18:14 | Discharge Summary ---
Date of Service August 29, 2023 Admission HPI Per Admitting Provider Kirby Bonds is a 68 year old male who presents to the ER with back pain. He was recently diagnosed with severe lumbar stenosis with radiculopathy requiring admission and he was discharged on August 14. He reports initially doing well at home up until a few days ago. No trauma since last admission. The pain previously was more of a radiculopathy but currently he reports it is more in his back. Severity 10/10 at worse. Worse when he sits or stands. Unable to ambulate at all currently. He notes weakness and numbness in his left leg. Discharge Exam gen - NAD, resting flat in bed comfortably, awake/alert mouth - MMM heart - tones are distant, but irregularly irregular, s1 s2, no murmur lungs - CTA b/l abd - soft NT ND BS+ ext - no edema, pulses 2+ b/l neuro - strength b/l flexion of hips 5/5; dorsiflexion/plantarflexion of feet/ankles 5/5 Discharge Data Allergies Allergy/AdvReac Type Severity Reaction Status Date / Time No Known Drug Allergies Allergy Verified 08/25/23 11:49 Consultations 08/25/23 14:03 ED Decision to Admit Stat 08/25/23 14:27 Consult Orthopedic Spine Surgery Routine Procedures Performed Operation Date: 08/26/23 08:20 Actual Procedures p L3-L4, Decompression and Fusion(Not Applicable) - Edvin Monge, Ordered Studies 08/25/23 09:35 MRI Lumbar Spine [MR lumbar spine wo/w con] Stat 08/26/23 13:33 FL lumbar spine 2-3V Routine Hospital Course (1) Lumbar spinal stenosis: POD #2 - s/p L3-L4 decompression/fusion procedure by Dr Monge. severe LLE radiculopathy has improved/resolved. has mild expected post-op surgical pain. Cont IV dexamethasone per ortho. Cont tylenol prn Cont pain meds prn Cont gabapentin 300mg TID Holding coumadin. Resume at 72 hours post-op (08/28). Appreciate Dr Monge's assistance Continue PT/OT (2) Radicular pain of left lower extremity: L3 nerve root on left see #1 above IMPROVED s/p surgery cont gabapentin TID (3) Epidural lipomatosis: as seen on MRI l-spine (4) Osteoporosis: Noted on DEXA Sep, 2022 Likely secondary to hypogonadism Under endocrinology but treated with bisphosphonates 25 OH vit D level in 04/26 60s (5) Urine retention: present on admission s/p liz placement in ER >1000cc of urine following liz placement he had not had any urinary issues prior to this event due to #1? due to narcotics in the setting of BPH? started on flomax by admitting MD - will continue liz removed yesterday and he is voiding spontaneously cont to monitor (6) Permanent atrial fibrillation: Continue rate control with diltiazem and metoprolol/carvedilol Resume coumadin - without any lovenox bridge - 72 hours post-op (7) T2DM (type 2 diabetes mellitus): HbA1C 7.0 in 08/11/2023 Appreciate pharmacy team assistance for glycemic control Cont basal-bolus insulin (8) Hypogonadism: Continue testosterone upon return home (9) Sleep apnea: CPAP HS (10) Hypothyroidism: TSH 0.985 in August 2023 Continue levothyroxine (11) Hypertension: Continue diltiazem, carvedilol and metoprolol Resume lisinopril in am (12) Morbid obesity with BMI of 45.0-49.9, adult: BMI 46 Plan DVT proph - SCDs, ambulation resume coumadin at 72 hours post-op appreciate Dr Monge's assistance updated at bedside home tomorrow? Home Health Attestation I certify that this patient is under my care and that I, or a physicians ob gyn physician assistant working with me, had a face to-face encounter that meets the home health [id number] encounter requirements with this patient. The encounter with the patient was in whole, or in part, for the following medical condition, which is the primary reason for home health care (list medical condition): lumbar spinal stenosis, s/p lumbar decompression I certify that, based on my findings, the following services are medically necessary home health services: My clinical findings support the need for the above services because: Caregiver Instruct Med Mgmt, Safety, Disease Process, Signs to Report Home Safety Assessment Monitor Incision for Infection OT Assess ADL Status and Restore Function w ADLs PT Assessment for Endurance / Balance / Strength PT Eval for Safety and Mobility PT Eval for Safety, Gait Training, Assistive Devices PT Gait and Balance Training, Strengthening and Safety Safety Skilled Nsg Assessment Skilled Nsg Assessment Surgical Incision / Wound S/S to Report to Provider Further, I certify that my clinical findings support that this patient is homebound (i.e. absences from home require considerable and taxing effort and are for medical reasons or buddhist services or infrequently or of short duration when for other reasons) because: Supportive Aid - Walker Transportation Assistance/Unable to Leave Home Unassisted Certification for Home Health Services: Based on the above findings, I certify that this patient is confined to the home and needs intermittent [facility] care, physical therapy and/or speech therapy or continues to need occupational therapy. The patient is under my care, and I have initiated the establishment of the plan of care. This patient will be followed by a physician who will periodically review the plan of care. Discharge Plan Discharge Items Patient Disposition: Home - Home Health Services Reason For Visit: LUMBAR SPINAL STENOSIS Discharge Diagnosis: 1. Severe lumbar spine stenosis with left leg radiculopathy (pinched nerve). 2. L3-L4 decompression/fusion surgery by Dr Esau Monge to correct #1. Activity: Per Instructions section Non-emergency contact: Primary Care Provider and Surgeon Call non-emergency contact if: you have any medication questions, your symptoms worsen, your pain is not controlled, your pain is worsening, you have a fever, your wound has increased redness, your wound has increased drainage and your wound pain has increased Follow-up/Referrals: Joe Iyer MD [Primary Care Provider] - 09/03/23 1:00 pm Edvin Monge DO [Surgeon] - (1-2 weeks for post-op check.) Diet: Carb Consistent or DM2 and Heart Healthy Addtl Attending Provider Instructions: ACTIVITY RECOMMENDATIONS following your back surgery: SELF CARE INSTRUCTIONS AFTER THORACIC/LUMBAR FUSIONS 1. You may walk to your tolerance. It is good exercise for your legs and back. Expect some back and intermittent leg aches and pains. 2. You may perform "counter-top" level activities (make a sandwich, lashae with a project, etc.). 3. No bending or lifting of more than 10 pounds or back twisting of any nature (roll like a log when turning in bed). 4. You may ride in a car for 20-30 minutes at a time. No driving until after your first visit with your doctor. 5. Frequent changes of position and restricting sitting to 30 minutes at a time will help limit the amount of back spasms and stiffness you may experience. 6. You may discontinue the use of ambulatory aids (cane, crutches, etc.) once your strength and confidence allow. 7. You may industrial arts teacher the shower and let water strike your incision when you arrive home at least once daily. Do not take a tub bath, sit in a hot tub or go into a swimming pool until after your first recheck in the office. SPECIAL CARE INSTRUCTIONS: VERY IMPORTANT TO READ AND REVIEW A. Your surgical incision has been closed with a cosmetic suture under the skin that will dissolve in about 6 weeks. In 14 days, you can use a pair of clean scissors and cut the suture that is left outside of the skin at the ends of your incision. 1. The small skin tapes can be removed 7 days after surgery if they have not fallen off by that point. 2. You may keep the wound open to air as much as possible to promote healing after post-op day number 5 unless told otherwise by your doctor. 3. If you think the wound looks like it is becoming infected (redness or worsening drainage) and/or you are experiencing fever, chill or worsening back pain and muscle spasms, contact the office so that we may evaluate you as soon as possible. B. Complications are uncommon, but please contact us if you have any signs or symptoms of: 1. wound infection (fever higher than 100 degrees F, redness, separation of wound, drainage, or increasing pain from the incision) 2. blood clots in legs (pain, swelling, redness and warmth in legs) 3. urinary tract infection (fever higher than 100 degrees F, burning upon urination or increased frequency of urination) 4. nerve problems (inability to walk on your toes or heels, numbness, loss o f bowel or bladder control) 5. any other symptoms that concern you C. Please call the office at if you have any concerns or question s about your operation or recovery. D. No smoking! Smoking drastically decreases the chance of a solid fusion. E. Do not take any anti-inflammatory medications (Indocin, Advil, Motrin, Aspirin, Naprosyn, etc.) as these may inhibit the chance of a solid fusion. Tylenol is okay to take for pain. MANAGING PAIN AFTER SPINAL SURGERY 1. Narcotic medication is intended for short-term use and will be provided for surgical pain. Surgical pain usually lasts for a period of 4-6 weeks. 2. Longer-term pain is more appropriately treated with non-narcotic medication such as Tylenol ES. 3. Muscle spasm is not appropriately treated with narcotics. Muscle relaxers such as Soma, Flexeril or Skelaxin can be used along with Tylenol ES. 4. Remember that we all live with some "aches and pains". This is not unusual or uncommon after an injury or as we get older. a. Back pain is expected and may include muscle spasms for 4 to 6 weeks after surgery. The pain should gradually improve. If the pain worsens for no apparent reason, please contact the office. b. Intermittent leg pain may also be experienced and should not be concerned about unless it worsens for no apparent reason. If so, please contact the office. 5. We will provide appropriate medication within the normal guidelines of their prescribed use. We will also be very cautious and aware of potential abuse and extended duration of patients' medication needs. a. Pain medications are for your comfort and to assist with sleep and rest so that the tissue can heal. They are not provided in order to return to normal activity and should not be used through the day. To do so or worsening pain at night can result from ongoing tissue damage and development of tolerance to the prescribed medicine. 6. Please allow 2-3 days to process refills. Prescriptions will not be mailed but must be picked up at the office. FOLLOW UP VISIT: Keep your scheduled follow-up appointment. Any questions, please call the office at . Addtl Teacher Learning Disabled Provider Instructions: Mr Bonds, You were hospitalized due to recurrent back pain with left leg pain. These pains were due to severe spinal stenosis at L3-L4. The spinal stenosis was causing nerve impingement leading to the severe left leg pain. Dr Esau Monge saw you in consult and recommended surgery for the spinal stenosis. On 08/25 you had back surgery and did well with such. You have progressed nicely through the post-operative period with your walking, etc. We were able to remove your liz catheter without issue. Recommendations - 1. please resume your coumadin TODAY, 08/29/23, upon return home. Take 5mg daily. 2. have your INR checked on Friday or Friday of this coming week. 3. for pain - * tylenol 1000mg every 6 hours as needed, maximum 3000mg in 24 hours * oxycodone 5mg every 6 hours as needed * this is a narcotic pain killer - it can cause you to be sleepy; do not drink alcohol and take pain killers; do not drive if you are taking pain killers * narcotics will cause constipation 4. we have increased your gabapentin to 300mg three times daily; new prescription sent to your pharmacy for you. 5. we have started flomax (tamsulosin) 0.4mg daily at bedtime to improve your urine flow by shrinking the size of the prostate. Please talk to your family doctor about whether to continue this long-term. Most common side effect is lightheaded feeling with standing. Prescription sent to pharmacy for you. Follow-up - see separate section Return to [facility] if - * you have fever over 100 degrees * you have shortness of breath * you have chest pains * you have uncontrolled back or leg pains * you have any concerns about your back incision * any other concerns It was our pleasure to care for you! Speedy recovery, -Dr Ma Pending Studies at Discharge: No Stand-Alone Forms: My [facility], Smoking Cessation Medications and DC Order Prescriptions: New tamsulosin [Flomax] 0.4 mg capsule 0.4 mg PO HS Qty: 30 1RF Rx Instructions: for prostate. Continued (DME) True Metrix Glucose Test Strip Strip See Rx Instructions .ROUTE .MEDSUPPLY Qty: 300 3RF Rx Instructions: test 3 times daily and as needed warfarin 5 mg tablet 5 mg PO QAM Hold Instructions: Resume on 08/16/23. Take 2.5mg of coumadin on Friday, 08/15 and Friday, 08/16. Protocol: Dose Management Condition: Friday Dose/Route: 5 mg Instruction: 1 x 5 mg tablet Condition: Friday Dose/Route: 5 mg Instruction: 1 x 5 mg tablet Condition: Friday Dose/Route: 5 mg Instruction: 1 x 5 mg tablet Condition: Friday Dose/Route: 5 mg Instruction: 1 x 5 mg tablet Condition: Dose/Route: 5 mg Instruction: 1 x 5 mg tablet Condition: Friday Dose/Route: 5 mg Instruction: 1 x 5 mg tablet Condition: Friday Dose/Route: 5 mg Instruction: 1 x 5 mg tablet Protocol Text: Adjustment Start Date: Friday08/18/23 INR Value: 2.5 INR Date: 08/18/23 Recheck Date: 08/20/23 metformin 1,000 mg tablet 1,000 mg PO BID Qty: 180 3RF potassium chloride 10 mEq tablet extended release 10 meq PO QPM Qty: 90 3RF carvedilol 12.5 mg tablet 12.5 mg PO QAM Qty: 90 3RF levothyroxine 100 mcg tablet 100 mcg PO QAM Qty: 90 3RF atorvastatin [Lipitor] 40 mg tablet 40 mg PO QPM Qty: 90 3RF metoprolol tartrate 50 mg tablet 50 mg PO QAM Qty: 90 3RF furosemide 40 mg tablet 40 mg PO DAILY PRN (Reason: weight gain) Qty: 90 3RF diltiazem HCl 120 mg capsule,extended release 24hr 120 mg PO DAILY Qty: 90 3RF carvedilol 25 mg tablet 25 mg PO QPM Qty: 90 3RF cholecalciferol (vitamin D3) 125 mcg (5,000 unit) capsule 125 mcg PO DAILY Qty: 90 3RF Rx Instructions: Take one tablet by mouth with the largest meal of the day. (DME) [employer] [place] 3 Sensor Device See Rx Instructions .Route Qty: 1 11RF Rx Instructions: Change every 14 days ascorbate calcium (vitamin C) 500 mg tablet 500 mg PO DAILY lisinopril 2.5 mg tablet 2.5 mg PO QAM testosterone 12.5 mg/ 1.25 gram (1 %) gel in metered-dose pump 2 pump TRANSDERMAL QAM oxycodone 5 mg Tablet 5 mg PO Q6H PRN (Reason: pain) Qty: 15 0RF Changed gabapentin 300 mg capsule 300 mg PO TID Qty: 60 0RF Discharge Orders: Discharge Order (Routine); Ordered 08/29/23 Ordered By: Cezar Ma Admission Data Admit Date/Time: 08/25/23 14:18 Attending Provider: Cezar Ma Admit Provider: Cezar Martínez Primary Care Provider: Joe Iyer Other Providers: Cezar Martínez; Edvin Monge; [facility] Other Interventions: Discharge Summary Assessment (RN) Last Done: 08/29/23 18:05 Coding Diagnoses Spinal stenosis of lumbar region with neurogenic claudication M48.061 Radicular pain of left lower extremity M54.10 Epidural lipomatosis D17.79 Osteoporosis M81.0 Urine retention R33.9 Permanent atrial fibrillation I48.21 Type 2 diabetes mellitus without complication, without long-term current use of insulin E11.9 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 academic vice president insulin use: without academic vice president use 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 complication status: without complication Hypogonadism Sleep apnea G47.30 Acquired hypothyroidism E03.9 Hypothyroidism type: acquired Primary hypertension I10 Hypertension type: primary hypertension Morbid obesity with BMI of 45.0-49.9, adult E66.01; Z68.42
[2023-08-29] MEDS ORDERED: LANTUS PER UNIT CHARGE SC SCH (21:00)
== END 2023-08-29 19:04 | disposition home health service (06) | DRG 454 ==
LOC: ED 08:43 → 3W 14:18 → SUATTDRO 14:18 → 3W 15:54 → 2N 08-26 17:54
DX: E66.01 Morbid (severe) obesity due to excess calories; G47.30 Sleep apnea, unspecified; E03.9 Hypothyroidism, unspecified; R33.9 Retention of urine, unspecified; Z79.01 Long term (current) use of anticoagulants; M81.0 Age-related osteoporosis without current pathological fracture; Z68.42 Body mass index [BMI] 45.0-49.9, adult; M48.062 Spinal stenosis, lumbar region with neurogenic claudication; I48.21 Permanent atrial fibrillation; Z79.84 Long term (current) use of oral hypoglycemic drugs; D17.79 Benign lipomatous neoplasm of other sites; Z79.4 Long term (current) use of insulin; E11.9 Type 2 diabetes mellitus without complications; E23.0 Hypopituitarism; Z79.899 Other long term (current) drug therapy; M51.16 Intervertebral disc disorders with radiculopathy, lumbar region; Z79.890 Hormone replacement therapy